=== PATIENT | male | born 1955 | race Caucasian/White ===

== ENCOUNTER → 2019-08-29 | Outpatient (CLI) | payer MEDICARE ==
[2019-08-29 10:24] LABS: HGB 11.3 gm/dL (13.0-17.5); MCH 31.2 pg (25.0-35.0); MCHC 32.3 g/dL (31.0-37.0); MCV 96.8 fL (80.0-100.0); Mean Platelet Volume 6.4; Platelet Count 239 k/uL (150-450); RBC 3.62 m/uL (4.30-5.90); RDW 13.8 % (11.5-15.5); WBC 5.5 k/uL (3.8-10.6)
[2019-08-29 11:00] LABS: Anisocytosis (M) Present; Hypochromasia (M) Present; Lymphocytes # (M) 1.32 k/uL (1.0-4.8); Neutrophils % (M) 58 %; Nucleated Red Blood Cells 0 /100 WBC (0-0); Total Cells Counted 100
[2019-08-29 17:49] LABS: African American GFR (CKD) 81.2 (60.0-200.0); Albumin 4.5 g/dL (3.80-4.90); Albumin/Globulin Ratio 1.73 (1.60-3.17); Anion Gap 4.3 mmol/L (4.00-12.00); BUN/Creat Ratio 22.73 Ratio (12.00-20.00); Calcium 8.9 mg/dL (8.7-10.3); Carbon Dioxide 27.7 mmol/L (21.6-31.8); Chol/HDL Ratio 3.34; Globulin 2.6 g/dL (1.6-3.3); LDL Cholesterol,Calculated 118.8 mg/dL (0.0-131.0); Potassium 4.7 mmol/L (3.5-5.5); Total Bilirubin 0.3 mg/dL (0.3-1.2); Total Protein 7.1 g/dL (6.2-8.2); VLDL Calculation 12.2 mg/dL (5.00-40.00)
[2019-08-29 18:47] LABS: Hemoglobin A1C 5.9 % (4.0-6.0)
== END ==
LOC: LABWHC1 09:36
PROVIDERS: ATTEND Internal Medicine
DX: I10 Essential (primary) hypertension (principal); R00.1 Bradycardia, unspecified; Z13.1 Encounter for screening for diabetes mellitus
CPT/HCPCS: 36415; 80053; 80061; 83036; 84443; 85025

== ENCOUNTER → 2021-03-30 | Outpatient (CLI) | payer MEDICARE ==
[2021-03-30 14:27] LABS: HCT 39.4 % (39.0-53.0); HGB 12.4 gm/dL (13.0-17.5); MCH 27.9 pg (25.0-35.0); MCHC 31.4 g/dL (31.0-37.0); MCV 88.9 fL (80.0-100.0); Mean Platelet Volume 7.1; Platelet Count 321 k/uL (150-450); RBC 4.43 m/uL (4.30-5.90); RDW 13.4 % (11.5-15.5); WBC 7.4 k/uL (3.8-10.6)
[2021-03-30 14:36] LABS: INR 0.9 (<1.2)
[2021-03-30 15:00] LABS: Appearance,Urine Clear (Clear); Bilirubin,Urine Negative (Negative); Blood,Urine Small (Negative); Color,Urine Light Yellow; Glucose,Urine (UA) Negative (Negative); Hyaline Casts,Urine 4 /lpf (0-2); Ketones,Urine Negative (Negative); Leukocyte Esterase,Urine Negative (Negative); Mucus,Urine Rare /hpf; Nitrite,Urine Negative (Negative); PH, Urine 5.5 (5.0-8.0); Protein,Urine Negative (Negative); RBC,Urine 32 /hpf (0-5); Specific Gravity,Urine 1.013 (1.001-1.035); Urobilinogen,Urine <2.0 mg/dL (<2.0); WBC,Urine <1 /hpf (0-5)
[2021-03-30 15:14] LABS: Albumin 4.2 g/dL (3.5-5.0); Calcium 9.1 mg/dL (8.4-10.2); Potassium 4.2 mmol/L (3.5-5.1); Total Bilirubin 0.2 mg/dL (0.2-1.3); Total Protein 7.6 g/dL (6.3-8.2)
--- NOTE | 2021-03-30 16:59 | US ---
EXAMINATION TYPE: US carotid duplex BILAT DATE OF EXAM: 03/30/2021 COMPARISON: NONE CLINICAL HISTORY: OPEN HEART. No ti EXAM MEASUREMENTS: RIGHT: Peak Systolic Velocity (PSV) cm/sec ----- Right CCA: 84.2 ----- Right ICA: 90.8 ----- Right ECA: 76.2 ICA/CCA ratio: 1.1 RIGHT: End Diastole cm/sec ----- Right CCA: 33.6 ----- Right ICA: 33.6 ----- Right ECA: 18.0 LEFT: Peak Systolic Velocity (PSV) cm/sec ----- Left CCA: 75.4 ----- Left ICA: 89.2 ----- Left ECA: 81.4 ICA/CCA ratio: 1.2 LEFT: End Diastole cm/sec ----- Left CCA: 29.2 ----- Left ICA: 38.7 ----- Left ECA: 16.7 VERTEBRALS (direction of flow): Right Vertebral: Antegrade Left Vertebral: Antegrade Rhythm: Normal Atherosclerotic plaque seen in right bulb. No elevated velocities. No significant stenosis. IMPRESSION: 1. Less than 50% stenosis of the bilateral internal carotid arteries. No evidence of hemodynamically significant stenosis. 2. There is atherosclerotic plaque in the right common carotid artery bifurcation. Criteria for Assigning % of Stenosis / Diameter reduction (Estimation based on the indirect measurements of the internal carotid artery velocities (ICA PSV). 1. Normal (no stenosis)=ICA PSV < 125 cm/s: ratio < 2.0: ICA EDV<40 cm/s. 2. Less than 50% stenosis=ICA PSV < 125 cm/s: ratio < 2.0: ICA EDV<40 cm/s. 3. 50 to 69% stenosis=ICA PSV of 125 to 230 cm/s: ration 2.0 ? 4.0: ICA EDV 40-100 cm/s. 4. Greater than 70% stenosis to near occlusion= ICA PSV > 230 cm/s: ratio > 4.0: ICA EDV > 100 cm/s. 5. Near occlusion= ICA PSV velocities may be low or undetectable: variable ratio and ICA EDV. 6. Total occlusion=unable to detect flow.
--- NOTE | 2021-03-30 18:56 | XR ---
EXAMINATION TYPE: XR chest 2V DATE OF EXAM: 03/30/2021 COMPARISON: NONE HISTORY: Preop TECHNIQUE: Frontal and lateral views of the chest are obtained. FINDINGS: There is no focal air space opacity, pleural effusion, or pneumothorax seen. The cardiac silhouette size is within normal limits. There is eventration of the hemidiaphragms. Some strand-like densities at the right costophrenic angle may reflect scarring. Prominent lung volumes could be anthony cative of underlying COPD. The osseous structures are intact. IMPRESSION: No acute cardiopulmonary process.
[2021-03-31 17:44] LABS: Hepatitis A Antibody IgM Non-Reactive (Non-Reactive); Hepatitis B Core IgM Non-Reactive (Non-Reactive); Hepatitis B Surface Antigen Non-Reactive (Non-Reactive); Hepatitis C IgG Antibody Non-Reactive (Non-Reactive)
[2021-03-31 18:24] LABS: Chol/HDL Ratio 3.94; LDL Cholesterol,Calculated 69.4 mg/dL (0.0-131.0); VLDL Calculation 21.6 mg/dL (5.00-40.00)
--- NOTE | 2021-04-05 09:40 | P.ARTDOP ---
Arterial Doppler Bilateral radial artery studies. Reason for study: Preop CABG Date of study: 03/30/2021. Findings: Doppler assessment shows no significant right to left or segmental pressure gradients. Digital plethysmography done with radial artery compression shows no significant pressure change. The right radial origin is in the upper arm. Imaging shows the right radial to be 2.5 x 2.7 mm proximally, 1.9 x 2.3 mm mid, and 2.4 x 2.2 mm distally. The left radial is 2.8 x 2.7 mm proximally, 2.5 x 2.5 mm mid, and 2.4 x 2.4 mm distally. Impression: Both radials appear to be usable by standard criteria.
--- NOTE | 2021-04-05 09:41 | P.ARTDOP ---
Arterial Doppler LOWER EXTREMITY ARTERIAL DOPPLER: DATE OF SERVICE: 03/30/2021 Reason for study: Preop CABG. Doppler waveforms: Multiphasic bilaterally throughout. Pulse volume recording: []. Pressure gradients: None. Ankle-brachial indices: Greater than 1 bilaterally. Toe brachial indices: [] on the right, [] on the left Impression: Normal study.
--- NOTE | 2021-04-05 10:02 | P.VSCSTY ---
Greater Saphenous Vein Mapping This is bilateral lower extremity greater saphenous vein mapping. Date of service: 03/30/2021 Vein quality and ultrasound appearance: We see no intraluminal thrombus or wall changes. Vein size groin right : 5 x 4.4 groin left: 5.8 x 4.3 High thigh right: 3.8 x 4.3 high thigh left: 3.7 x 2.9 Mid thigh right: 4.0 x 4.0 mid thigh left: 2.9 x 2.6 Above-knee right: 4.5 x 3.8 above-knee left: 3.5 x 2.9 Below knee right: 3.8 x 3.0 below-knee left: 2.9 x 2.4 Mid calf right:2.8 x 2.6 mid calf left: 2.6 x 2.4 Ankle right: 3.8 x 3.0 ankle left: 2.6 x 1.9 Impression: Usable bilateral greater saphenous vein.
== END | disposition home or self-care (01) ==
LOC: LABPAT 12:09
PROVIDERS: ATTEND Surgery
DX: Z01.810 Encounter for preprocedural cardiovascular examination (principal); I65.23 Occlusion and stenosis of bilateral carotid arteries; I25.10 Atherosclerotic heart disease of native coronary artery without angina pectoris; I10 Essential (primary) hypertension; Z79.899 Other long term (current) drug therapy
CPT/HCPCS: 36415; 71046; 80053; 80061; 80074; 81001; 83036; 83735; 84443; 85027; 85610; 85730; 86850; 86900; 86901; 86920; 87070; 87086; 93880; 93922; 93923; 93930; 93970; 94150

== ENCOUNTER → 2021-03-30 | Outpatient (CLI) | payer MEDICARE | END | disposition home or self-care (01) | LOC: RADXRMAIN 16:28 | PROVIDERS: ATTEND Surgery | DX: Z53.9 Procedure and treatment not carried out, unspecified reason (principal) ==

== ENCOUNTER 2021-04-10 05:32 | Inpatient (IN) | payer MEDICARE ==
[2021-03-30 14:43] VITALS: BMI 27.3
[~2021-04-10 05:32] MED LIST: ALBUMIN HUMAN 25% 50 ML IV ONE; ALBUMIN HUMAN 5% 500 ML IVPB ONE; ASPIRIN 325 MG TAB PO ONE; ATORVASTATIN 10 MG TAB PO ONE; CALCIUM CHLORIDE 100 MG/ML 10 ML SYRINGE IV ONE; CHLORHEXIDINE GLUCONATE 15 ML CUP MUCOUS MEM ONE; CLEVIDIPINE BUTYRATE 25 MG in EMPTY BAG 1 BAG IV ONE; DILTIAZEM 125 MG in SODIUM CHLORIDE 0.9% 100 ML IV ONE; ELECTROLYTE-A SOLUTION 1,000 ML with POTASSIUM CHLORIDE 100 MEQ, MAGNESIUM SULFATE 16 M... IV ONE; ELECTROLYTE-A SOLUTION 1,000 ML with POTASSIUM CHLORIDE 40 MEQ, MAGNESIUM SULFATE 16 ME... IV ONE; HEPARIN SODIUM 1,000 UN/ML (10ML VL) IV ONE; HEPARIN SODIUM,PORCINE 5,000 UNIT in SODIUM CHLORIDE 0.9% 500 ML 500 ML IV ONE; INSULIN REGULAR 100 UNIT in SODIUM CHLORIDE 0.9% 100 ML IV ONE; LACTATED RINGERS 1,000 ML IV ONE; MAGNESIUM SULFATE MG 500 MG/ML IV ONE; MANNITOL 25% 12.5 GM/50 ML VIAL IV ONE; METOPROLOL TARTRATE 12.5 MG TAB PO ONE; MUPIROCIN 2% OINT 22 GM TUBE NASAL ONE; NITROGLYCERIN SL TABS 0.4 MG TAB SUBLINGUAL ONE; NITROGLYCERIN-D5W PMX 25 MG/250 ML BTL IV ONE; NITROGLYCERIN-D5W PMX 50 MG in DEXTROSE/WATER 1 250ML.BAG IV ONE; NOREPINEPHRINE 4 MG in SODIUM CHLORIDE 0.9% 250 ML IV ONE; PAPAVERINE 360 MG in SODIUM CHLORIDE 0.9% 90 ML IV ONE; PHENYLEPHRINE 10 MG/ML VIAL IV ONE; PHENYLEPHRINE 40 MG in SODIUM CHLORIDE 0.9% 250 ML IV ONE; PROTAMINE SULFATE 10 MG/ML 25 ML VIAL IV ONE; PROTAMINE SULFATE 250 MG in EMPTY BAG 1 BAG IV ONE; SODIUM BICARB 8.4% 50 ML SYR (1 MEQ/ML) IV ONE; SODIUM CHLORIDE 0.9% 1,000 ML IV ONE; TRANEXAMIC ACID 2,000 MG in SODIUM CHLORIDE 0.9% 80 ML IV ONE; ceFAZolin 1,000 MG in SODIUM CHLORIDE 0.9% IRRIGATIO 1,000 ML IRRIGATION ONE; propofoL 1,000 MG/100 ML VIAL IV ONE
[2021-04-10 06:41] LABS: Glucose,Whole Blood 102 mg/dL (75-99)
--- NOTE | 2021-04-10 07:07 | P.PN ---
Progress Note - Text Progress Note Date: 03/30/21 A 5 m walk test was completed with the patient, time 1: 2.22 seconds, time 2: 2.49 seconds, time 3: 2.26 seconds.
[2021-04-10] MEDS ORDERED: fentaNYL (PF) 50 MCG/ML 2 ML AMP ONE (07:54)
[2021-04-10] MEDS ORDERED: MAGNESIUM SULFATE 4 MEQ/ML 10ML VIAL ONE (07:54)
[2021-04-10] MEDS ORDERED: PROTAMINE SULFATE 10 MG/ML 25 ML VIAL IV ONE (07:54)
[2021-04-10] MEDS ORDERED: PROPOFOL 10 MG/ML 20 ML VIAL IV ONE (07:54)
[2021-04-10] MEDS ORDERED: LIDOCAINE 2% SYG (PF) 100 MG/5 ML ONE (07:54)
[2021-04-10] MEDS ORDERED: NITROGLYCERIN-D5W PMX 50 MG/250 ML BOTTLE IV ONE (07:54)
[2021-04-10] MEDS ORDERED: SUCCINYLCHOLINE CHLORIDE 100 MG/5 ML SYR IV ONE (07:54)
[2021-04-10] MEDS ORDERED: SODIUM CHLORIDE 0.9% 250 ML BAG ONE (07:54)
[2021-04-10] MEDS ORDERED: SODIUM CHLORIDE 0.9% IRRIG 1,000 ML BTL IRRIGATION ONE (07:54)
[2021-04-10] MEDS ORDERED: TRANEXAMIC ACID 1,000 MG/10 ML VIAL ONE (07:54)
[2021-04-10] MEDS ORDERED: ELECTROLYTE-R (PH 7.4) 1,000 ML IV.SOLN IV ONE (07:54)
[2021-04-10] MEDS ORDERED: fentaNYL (PF) 50 MCG/ML 50 ML VIAL ONE (07:54)
[2021-04-10] MEDS ORDERED: HEPARIN SODIUM,PORCINE 10,000 UNIT/ML 1 ML VIAL ONE (07:54)
[2021-04-10] MEDS ORDERED: VECURONIUM 10 MG VIAL IV ONE (07:54)
[2021-04-10] MEDS ORDERED: MIDAZOLAM 2 MG/2 ML VIAL ONE (07:54)
[2021-04-10 08:26] LABS: ABG Base Excess 0.4 mmol/L; ABG Glucose Whole Blood 101 mg/dL (75-99); ABG HCO3 26 mmol/L (21-25); ABG Hematocrit 33 % (34.0-46.0); ABG Ionized Calcium 4.7 mg/dL (4.5-5.3); ABG Lactic Acid Whole Blood 0.8 mmol/L (0.5-1.6); ABG PCO2 47 mmHg (35-45); ABG PH 7.35 (7.35-7.45); ABG Sodium Whole Blood 140 mmol/L (135-146); ABG TCO2 28 mmol/L (19-24)
[2021-04-10 10:49] LABS: ABG Base Excess -0.2 mmol/L; ABG Glucose Whole Blood 115 mg/dL (75-99); ABG HCO3 26 mmol/L (21-25); ABG Hematocrit 31 % (34.0-46.0); ABG Ionized Calcium 4.6 mg/dL (4.5-5.3); ABG Lactic Acid Whole Blood 0.8 mmol/L (0.5-1.6); ABG Oxygen Saturation 99.9 % (94-97); ABG PCO2 51 mmHg (35-45); ABG PH 7.32 (7.35-7.45); ABG PO2 266 mmHg (83-108); ABG Potassium Whole Blood 5.9 mmol/L (3.4-4.5); ABG Sodium Whole Blood 138 mmol/L (135-146); ABG TCO2 28 mmol/L (19-24)
[2021-04-10 11:48] LABS: ABG Base Excess -1.3 mmol/L; ABG Glucose Whole Blood 129 mg/dL (75-99); ABG HCO3 26 mmol/L (21-25); ABG Hematocrit 29 % (34.0-46.0); ABG Ionized Calcium 4.6 mg/dL (4.5-5.3); ABG Lactic Acid Whole Blood 0.9 mmol/L (0.5-1.6); ABG Oxygen Saturation 99.9 % (94-97); ABG PCO2 54 mmHg (35-45); ABG PH 7.29 (7.35-7.45); ABG PO2 272 mmHg (83-108); ABG Potassium Whole Blood 5.1 mmol/L (3.4-4.5); ABG Sodium Whole Blood 139 mmol/L (135-146); ABG TCO2 27 mmol/L (19-24)
[2021-04-10 12:18] LABS: ABG Base Excess -0.4 mmol/L; ABG Glucose Whole Blood 114 mg/dL (75-99); ABG HCO3 24 mmol/L (21-25); ABG Ionized Calcium 3.7 mg/dL (4.5-5.3); ABG Lactic Acid Whole Blood 1.3 mmol/L (0.5-1.6); ABG PCO2 38 mmHg (35-45); ABG PH 7.41 (7.35-7.45); ABG Sodium Whole Blood 135 mmol/L (135-146); ABG TCO2 25 mmol/L (19-24)
[2021-04-10 12:45] LABS: ABG Glucose Whole Blood 129 mg/dL (75-99); ABG HCO3 23 mmol/L (21-25); ABG Ionized Calcium 3.8 mg/dL (4.5-5.3); ABG Lactic Acid Whole Blood 1.5 mmol/L (0.5-1.6); ABG PCO2 40 mmHg (35-45); ABG PH 7.37 (7.35-7.45); ABG PO2 416 mmHg (83-108); ABG Potassium Whole Blood 5.7 mmol/L (3.4-4.5); ABG Sodium Whole Blood 137 mmol/L (135-146); ABG TCO2 24 mmol/L (19-24)
[2021-04-10 13:18] LABS: ABG Base Excess 0.6 mmol/L; ABG Glucose Whole Blood 137 mg/dL (75-99); ABG HCO3 25 mmol/L (21-25); ABG Ionized Calcium 3.7 mg/dL (4.5-5.3); ABG Lactic Acid Whole Blood 1.7 mmol/L (0.5-1.6); ABG PCO2 37 mmHg (35-45); ABG PH 7.44 (7.35-7.45); ABG PO2 403 mmHg (83-108); ABG Sodium Whole Blood 137 mmol/L (135-146); ABG TCO2 26 mmol/L (19-24)
[2021-04-10 13:43] LABS: ABG Base Excess -0.7 mmol/L; ABG Glucose Whole Blood 141 mg/dL (75-99); ABG HCO3 24 mmol/L (21-25); ABG Ionized Calcium 3.7 mg/dL (4.5-5.3); ABG Lactic Acid Whole Blood 1.8 mmol/L (0.5-1.6); ABG PCO2 35 mmHg (35-45); ABG PH 7.43 (7.35-7.45); ABG Potassium Whole Blood 6.1 mmol/L (3.4-4.5); ABG Sodium Whole Blood 137 mmol/L (135-146); ABG TCO2 25 mmol/L (19-24)
[2021-04-10 13:57] LABS: ABG PO2 >420 mmHg (83-108)
[2021-04-10 13:58] LABS: ABG PO2 >420 mmHg (83-108)
[2021-04-10 13:59] LABS: ABG Hematocrit 20 % (34.0-46.0); ABG Potassium Whole Blood 6.3 mmol/L (3.4-4.5)
[2021-04-10 14:00] LABS: ABG Hematocrit 20 % (34.0-46.0)
[2021-04-10 14:01] LABS: ABG Hematocrit 21 % (34.0-46.0)
[2021-04-10 14:02] LABS: ABG Hematocrit 19 % (34.0-46.0); ABG PO2 >420 mmHg (83-108)
[2021-04-10 14:11] LABS: ABG Glucose Whole Blood 144 mg/dL (75-99); ABG HCO3 23 mmol/L (21-25); ABG Ionized Calcium 3.6 mg/dL (4.5-5.3); ABG PCO2 37 mmHg (35-45); ABG Sodium Whole Blood 137 mmol/L (135-146); ABG TCO2 24 mmol/L (19-24)
[2021-04-10 14:44] LABS: ABG Base Excess -3.3 mmol/L; ABG Glucose Whole Blood 186 mg/dL (75-99); ABG HCO3 22 mmol/L (21-25); ABG PCO2 40 mmHg (35-45); ABG PH 7.35 (7.35-7.45); ABG Potassium Whole Blood 5.7 mmol/L (3.4-4.5); ABG Sodium Whole Blood 140 mmol/L (135-146); ABG TCO2 23 mmol/L (19-24)
[2021-04-10 15:21] LABS: ABG Base Excess -2.5 mmol/L; ABG Glucose Whole Blood 178 mg/dL (75-99); ABG HCO3 23 mmol/L (21-25); ABG Ionized Calcium 4.4 mg/dL (4.5-5.3); ABG PCO2 44 mmHg (35-45); ABG PH 7.33 (7.35-7.45); ABG Potassium Whole Blood 5.7 mmol/L (3.4-4.5); ABG Sodium Whole Blood 142 mmol/L (135-146); ABG TCO2 25 mmol/L (19-24)
[2021-04-10 15:42] LABS: ABG Hematocrit 20 % (34.0-46.0); ABG Lactic Acid Whole Blood 2.2 mmol/L (0.5-1.6); ABG PO2 >420 mmHg (83-108); ABG Potassium Whole Blood 6.2 mmol/L (3.4-4.5)
[2021-04-10 15:44] LABS: ABG Hematocrit 21 % (34.0-46.0); ABG Ionized Calcium 3.5 mg/dL (4.5-5.3); ABG Lactic Acid Whole Blood 3.1 mmol/L (0.5-1.6); ABG PO2 >420 mmHg (83-108)
[2021-04-10 16:08] LABS: ABG Glucose Whole Blood 141 mg/dL (75-99); ABG HCO3 24 mmol/L (21-25); ABG Oxygen Saturation 98.9 % (94-97); ABG PCO2 61 mmHg (35-45); ABG PO2 154 mmHg (83-108); ABG Potassium Whole Blood 4.8 mmol/L (3.4-4.5); ABG Sodium Whole Blood 143 mmol/L (135-146); ABG TCO2 26 mmol/L (19-24)
[2021-04-10 16:11] LABS: ABG Hematocrit 20 % (34.0-46.0); ABG Lactic Acid Whole Blood 3.9 mmol/L (0.5-1.6); ABG PO2 >420 mmHg (83-108)
[2021-04-10 16:12] LABS: ABG Hematocrit 22 % (34.0-46.0); ABG Lactic Acid Whole Blood 3.6 mmol/L (0.5-1.6)
[2021-04-10] MEDS ORDERED: ALBUMIN HUMAN 5% 250 ML IVPB ONE (16:35)
[2021-04-10] MEDS ORDERED: Potassium Replacement Protocol 1 EACH MISC MISCELLANE PRN (16:56)
[2021-04-10] MEDS ORDERED: DEXTROSE 5% IN WATER 100 ML with AMIODARONE 150 MG IV PRN (16:56)
[2021-04-10] MEDS ORDERED: CLEVIDIPINE BUTYRATE 25 MG in EMPTY BAG 1 BAG IV SCH (16:56)
[2021-04-10] MEDS ORDERED: Phosphorus Replacement Protoco 1 EACH MISC MISCELLANE PRN (16:56)
[2021-04-10] MEDS ORDERED: IPRATROPIUM-ALBUTEROL 3 ML NEB INHALATION PRN (16:56)
[2021-04-10] MEDS ORDERED: METOCLOPRAMIDE 5 MG/ML 2 ML VIAL IVP PRN (16:56)
[2021-04-10] MEDS ORDERED: NITROGLYCERIN-D5W PMX 50 MG in DEXTROSE/WATER 1 250ML.BAG IV SCH (16:56)
[2021-04-10] MEDS ORDERED: DILTIAZEM 125 MG in SODIUM CHLORIDE 0.9% 100 ML IV SCH (16:56)
[2021-04-10] MEDS ORDERED: hydrALAZINE HCL 20 MG/ML 1 ML VIAL IVP PRN (16:56)
[2021-04-10] MEDS ORDERED: DEXMEDETOMIDINE/0.9% NACL(PMX) 400 MCG in EMPTY BAG 1 BAG IV SCH (16:56)
[2021-04-10] MEDS ORDERED: AMIODARONE 360 MG in DEXTROSE 5% IN WATER 200 ML IV PRN ×2 (16:56)
[2021-04-10] MEDS ORDERED: AMIODARONE 450 MG in DEXTROSE 5% IN WATER 250 ML IV PRN ×2 (16:56)
[2021-04-10] MEDS ORDERED: BENZOCAINE/MENTHOL LOZENG 1 EACH LOZENGE MUCOUS MEM PRN (16:56)
[2021-04-10] MEDS ORDERED: ONDANSETRON 4 MG/2 ML VIAL IVP PRN (16:56)
[2021-04-10] MEDS ORDERED: MORPHINE SULFATE 2 MG/ML SYRINGE IVP PRN (16:56)
[2021-04-10] MEDS ORDERED: Magnesium Replacement Protocol 1 EACH MISC MISCELLANE PRN (16:56)
[2021-04-10] MEDS ORDERED: CALCIUM GLUCONATE 2 GM in SODIUM CHLORIDE 0.9% 100 ML IVPB PRN (16:56)
[2021-04-10 17:00] LABS: Glucose,Whole Blood 113 mg/dL (75-99)
[2021-04-10 17:08] LABS: Basophils % (A) 0 %; Eosinophils % (A) 1 %; HCT 26.4 % (39.0-53.0); Lymphocytes # (A) 0.4 k/uL (1.0-4.8); Lymphocytes % (A) 5 %; MCH 28.3 pg (25.0-35.0); MCHC 31.6 g/dL (31.0-37.0); MCV 89.8 fL (80.0-100.0); Mean Platelet Volume 7.1; Monocytes # (A) 0.6 k/uL (0-1.0); Monocytes % (A) 7 %; Neutrophils # (A) 7.5 k/uL (1.3-7.7); Neutrophils % (A) 87 %; RBC 2.94 m/uL (4.30-5.90); WBC 8.6 k/uL (3.8-10.6)
[2021-04-10 17:12] LABS: HGB 8.3 gm/dL (13.0-17.5); Ionized Calcium 5.1 mg/dL (4.5-5.3)
[2021-04-10 17:13] LABS: Platelet Count 127 k/uL (150-450)
[2021-04-10 17:18] LABS: INR 1.1 (<1.2); Partial Thromboplastin Time 29.9 sec (22.0-30.0); Prothrombin Time 11.4 sec (9.0-12.0)
[2021-04-10 17:22] LABS: ABG Base Excess -0.9 mmol/L; ABG HCO3 26 mmol/L (21-25); ABG Oxygen Saturation 99.4 % (94-97); ABG PCO2 59 mmHg (35-45); ABG PH 7.26 (7.35-7.45); ABG PO2 385 mmHg (83-108); ABG TCO2 28 mmol/L (19-24)
[2021-04-10 17:34] LABS: Albumin 2.4 g/dL (3.5-5.0); Calcium 8.4 mg/dL (8.4-10.2); Magnesium 2.5 mg/dL (1.6-2.3); Potassium 5.2 mmol/L (3.5-5.1); Total Bilirubin 0.6 mg/dL (0.2-1.3); Total Protein 4.5 g/dL (6.3-8.2)
--- NOTE | 2021-04-10 17:37 | P.ANPRN ---
Procedure Note - Anesthesia - TRISH Intraop Pre Bypass TRISH Intraop - Anesthesia Indication: Coronary artery bypass grafting and ischemia monitoring Date of Procedure: 04/10/21 Pre-operative Diagnosis: Coronary artery disease Post-operative Diagnosis: Coronary artery bypass graft Surgeon: Vita Fischer Left Ventricle: Procedure performed: Transesophageal echocardiography Indication for the procedure: Coronary artery bypass graft surgery, ischemia monitoring, assessment of valvular function, intracardiac air monitoring, assessment of regional wall motion abnormalities and hemodynamic monitoring. Probe insertion: Under general anesthesia, uneventful. Pre-bypass findings: Left ventricle normal in dimension and LV ejection fraction is approximately 55 - 60%. Left atrium Normal in size. No thrombus seen in the appendage. Right atrium normal in size. No patent foramen ovale or ASD seen. Right ventricle normal in structure and function. Aortic valve appears to be normal .No Aortic Regurgitation seen. Aortic valve area by continuity condition is 2.5 cm. The mean gradient of 2 and a peak gradient of 4 mmHg Mitral valve normal in anatomy. Trivial mitral regurgitation seen. No tricuspid regurgitation seen. Pulmonic valve appears to be normal. Descending aorta grade 2 atheroma seen. No pericardial effusion noted. Post-bypass findings: LV ejection fraction is 55-60%. No new regional wall motion abnormalities seen. Rest of the examination is same as pre-bypass.The rest of the exam is same as pre-bypass. Ejection Fraction: Normal Regional Wall Motion Abnormalities: None Left Ventricle Hypertrophy: No R. Ventricle Function: Normal Anatomy: Trileaflet Aortic Stenosis: None Aortic Regurgitation: None Mitral Stenosis: None Mitral Regurgitation: Trace Tricuspid Stenosis: None Tricuspid Regurgitation: None Pulmonic Stenosis: None Pulmonic Regurgitation: None R. Atrial Dilation: No R. Atrial PFO: No L. Atrial Dilation: No Aortic Dissection: No Aortic Calcification: Mild Plural Effusion: None - TRISH Intraop Post Bypass TRISH Intraop Post Bypass Procedure Performed: Coronary artery bypass graft Ejection Fraction: Normal Regional Wall Motion Abnormalities: None R. Ventricle Function: Normal Aortic Valve: Unchanged Mitral Valve: Unchanged Tricuspid: Unchanged Pulmonic: Unchanged Aortic Dissection: No
--- NOTE | 2021-04-10 17:38 | XR ---
EXAMINATION TYPE: XR chest 1V portable DATE OF EXAM: 04/10/2021 COMPARISON: 03/30/2021 INDICATION: Postop cardiac surgery TECHNIQUE: Single frontal view of the chest is obtained. FINDINGS: The heart size is normal. The pulmonary vasculature is normal. Linear opacities are within the left mid lung likely compatible with atelectasis. Some minimal right lower lobe infiltrate is present. No pneumothorax is evident. There is subcutaneous emphysema present on the left. Left-sided chest tub e is present. Sternotomy wires are present from prior CABG. Endotracheal tube tip is above the nancy. Nasogastric tube transverses the thorax the tip in the lef t upper quadrant of the abdomen. [place] catheter is present with tip in the midline. Mediastinal t ubes are present. IMPRESSION: 1. Atelectatic changes left mid lung minimal infiltrate which may be atelectasis at the right base. 2. Multiple lines and catheters discussed above. 3. Left-sided chest tube is in position. Subcutaneous emphysema is present. No pneumothorax is eviden t however at this time.
--- NOTE | 2021-04-10 17:40 | P.ANPRN ---
Procedure Note - Anesthesia - Invasive Line Central Line Time Out Performed: Yes Date of Procedure: 04/10/21 Location of Patient: PreOp Preparation: Sterile Prep, Sterile Dressing Ultrasound Used: Yes Purpose - Visualization and Identification of Vasculature: Yes Image Stored and Saved: Yes Narrative: Central line placement per sterile protocol utilized. Informed consent obtained. Central line placement per sterile protocol utilized. Right Internal jugular vein cannulated under aseptic precautions. 3cc 1% lidocaine infiltrated initially after cleaning with iodine based prep and draping. Ultrasound used to locate the vein and selginger technique used. 9Fr introduced sheath inserted and after the finding the needle with towing pilot needle/catheter. After the insertion of PA Catheter the line is dressed with biopatch and tegaderm. Patient tolerated the procedure well. [place] Time Out Performed: Yes Date of Procedure: 04/10/21 Location of Patient: PreOp Preparation: Sterile Prep, Sterile Dressing Narrative: Central line placement per sterile protocol utilized. 8Ff PA catheter threaded through the Right IJ introducer sheath under asepsis with continuous waveform monitoring. Catheter at 48 cms cassie. Arterial Line Time Out Performed: Yes Date of Procedure: 04/10/21 Location of Patient: PreOp Preparation: Sterile Prep, Sterile Dressing Arterial Line Location: Radial Ultrasound Used: No Narrative: Central line placement per sterile protocol utilized. Informed consent obtained from the patient. Procedure was performed under complete aseptic precautions. The right wrist is slightly extended and placed on a roll of cloth. Radial artery palpated and appeared to have a intact collateral circulation. Front of the wrist was cleaned with ChloraPrep. It was draped and 2 mL of 1% lidocaine was infiltrated and ability into the front of the wrist. A 20-gauge two and half inch Arrow arterial catheter was inserted and a bright red blood/back was noticed. It was connected to the pressure monitoring line and the flashback was confirmed. The line was sutured into the skin. Tegaderm dressing was applied. Patient tolerated the procedure very well with no apparent complications.
[2021-04-10 17:58] LABS: Glucose,Whole Blood 124 mg/dL (75-99)
[2021-04-10] MEDS: ACETAMINOPHEN IV (For NPO) 1,000 MG in EMPTY BAG 1 BAG IVPB SCH (18:09)
[2021-04-10] MEDS: SODIUM CHLORIDE 0.9% 1,000 ML IV SCH (18:29)
[2021-04-10 19:08] LABS: Glucose,Whole Blood 146 mg/dL (75-99)
[2021-04-10] MEDS: BUDESONIDE 0.5 MG/2 ML NEBU INHALATION SCH (19:14)
[2021-04-10 19:51] LABS: Glucose,Whole Blood 107 mg/dL (75-99)
[2021-04-10] MEDS ORDERED: IPRATROPIUM-ALBUTEROL 3 ML NEB INHALATION SCH (20:00)
[2021-04-10] MEDS: ALBUMIN HUMAN 5% 250 ML in EMPTY BAG 1 BAG IVPB PRN ×2 (20:15→21:26)
[2021-04-10 20:42] LABS: Basophils % (A) 0 %; Eosinophils % (A) 0 %; HCT 29.7 % (39.0-53.0); HGB 9.2 gm/dL (13.0-17.5); Lymphocytes # (A) 0.9 k/uL (1.0-4.8); Lymphocytes % (A) 5 %; MCH 27.6 pg (25.0-35.0); Mean Platelet Volume 7.9; Monocytes # (A) 1.3 k/uL (0-1.0); Monocytes % (A) 7 %; Neutrophils # (A) 15.9 k/uL (1.3-7.7); Neutrophils % (A) 86 %; Platelet Count 157 k/uL (150-450); RBC 3.33 m/uL (4.30-5.90); WBC 18.4 k/uL (3.8-10.6)
--- NOTE | 2021-04-10 20:50 | OP ---
OPERATIVE REPORT DATE OF THE SURGERY: 04/10/2021. SURGEON: Dr. Vita Fischer. CMA OR LPN: Maikel Hong and René Prajapati. PREOPERATIVE DIAGNOSES: 1. Triple-vessel coronary artery disease. 2. Preserved left ventricular function. 3. Hypertension. 4. Hyperlipidemia. 5. Chronic obstructive pulmonary disease. 6. Hypothyroidism. 7. Chronic kidney disease, stage II. POSTOPERATIVE DIAGNOSES: 1. Triple-vessel coronary artery disease. 2. Preserved left ventricular function. 3. Hypertension. 4. Hyperlipidemia. 5. Chronic obstructive pulmonary disease. 6. Hypothyroidism. 7. Chronic kidney disease, stage II. PROCEDURE: 1. Triple-vessel coronary artery bypass grafting using the free left internal mammary artery with an inflow from the left radial artery to the left anterior descending artery, left radial artery from the aorta to the first obtuse marginal artery, reverse saphenous vein graft from the aorta to the right coronary artery. 2. Exclusion of the left atrial appendage using a 35 mm AtriClip. 3. Endoscopic harvesting of the left radial artery. 4. Endoscopic harvesting of the left greater saphenous vein. 5. Intraoperative graft flow measurements using the [employer] system. 6. Intraoperative transesophageal echocardiogram and epiaortic scanning. INDICATIONS: Surgery patient is a 65-year-old gentleman worked up as an outpatient and seen in the office with complaint of dyspnea on exertion. Cardiac catheterization followed and showed triple-vessel disease. He has preserved systolic function. He had been also worked up by Dr. Underwood for COPD and for a lung nodule with a PET scan that was negative. At this point, patient is brought in for elective coronary artery bypass grafting. The SDS risk was discussed with him and his daughter. They understood them and agreed to proceed. DESCRIPTION OF PROCEDURE: The patient in supine position. Right internal jugular [place]-Franklyn catheter and a right radial arterial line were placed. The patient had a PA pressure of 35/17 and a cardiac index of 2.4. Subsequently, he was brought to the operating room where general endotracheal anesthesia was induced uneventfully. Huffman catheter was inserted. The chest, abdomen, both lower extremities and the left upper extremity were prepped and draped using ChloraPrep. Ioban was used to cover the skin. Patient received 2 g of cefazolin intravenously. Transesophageal echocardiogram confirmed the preoperative finding of a mildly dilated aorta, no significant valvular abnormality and preserved systolic function. A midline sternotomy was performed and the bone was mildly osteoporotic. Terry was used. The left hemisternum was elevated and the left internal mammary artery was harvested in a semi skeletonized fashion. The left pleura was intentionally opened in this process and drained with a 19-[place] Olivier drain. The right pleura remained intact. The mammary artery was clipped distally and transected. It had what seemed to be trickle flow however spastic. It was clipped and injected with papaverine. In the same setting, the left greater saphenous vein was harvested endoscopically from groin to above ankle level after administration of 2500 units of heparin. The branches were tied. The leg incisions were closed over a drain. Also in the same setting, the left radial artery was harvested endoscopically. It was initially exposed at the wrist and clamping trial revealed preserved signal at the level of the left index O2 saturation probe. Forearm incision was closed over a drain. The radial artery was prepared by incising the fascia all along its volar aspect and clipping all its branches and it was of good quality as well as a vein. A standard retractor was placed. The mediastinal fat transected between 2 ties. Epiaortic scanning revealed no atheroma in the ascending aorta. Pericardium was opened in an inverted T-fashion and a pericardial cradle was created. Findings included an elongated mildly dilated aorta and small heart. After systemic heparinization, after placement of respective pledgeted pursestring aortic cannulation with a 21-[place] soft flow cannula and venous cannulation via the right atrial appendage with a triple stage 29-[place] cannula was performed. Antegrade as well as retrograde cardioplegia catheter were placed. Cardioplegia bypass was initiated and with the heart empty and beating, we looked at the target. The distal LAD was suitable for bypass as well as a right coronary artery before its bifurcation. The ramus intermedius or the 1st obtuse marginal artery was identified. The diagonal artery appeared to be small for bypass. The 2nd obtuse marginal artery was judged not requiring bypass as per cardiac catheterization. Aorta was clamped and during aortic clamping myocardial protection was achieved. Initial dose of 1 L of antegrade cold blood cardioplegia followed by 300 mL of retrograde cold blood cardioplegia. All subsequent doses were given retrograde at 15 minute intervals. The 1st distal anastomosis between segment of vein and the right coronary artery before its bifurcation where it was soft, around 2 mm in diameter using Prolene 7-0 in continuous fashion. The 2nd distal anastomosis was between the radial artery and the 1.75 mm thin-walled 1st obtuse marginal artery in its proximal aspect by the base of the left atrial appendage using Prolene 7-0 in continuous fashion. We excluded the left atrial appendage by deploying a 35 mm AtriClip at its base. At this point, we checked the mammary artery again. We transected the distal clip and the flow was still suboptimal. I passed a [address] with no issues. That did not have the flow. I injected more papaverine and waited a little bit with the tip occluded and that did not help. With that, I decided to use a mammary artery as a free graft. There was no obvious dissection that we could see. Proximally, the mammary artery was dissected, denuded and double clipped and transected as well as the 2 satellite veins. We had a good long free segment. Injection from the proximal side, yielded good outflow from the distal side. With that, I decided to use it as a free graft. The 3rd distal anastomosis to the left internal mammary artery which actually was thin-walled around 1 mm in diameter and the left anterior descending artery which was around 1.5 mm in diameter using Prolene 7-0 in continuous fashion. At this point, we punched out 2 buttons of the ascending aorta and anastomosed the radial artery as well as a vein graft using running Prolene. The last anastomosis was the takeoff of the left internal mammary artery from the radial artery around 1 cm from its foot. That was constructed as a wide fashion using Prolene 7-0 in continuous fashion. The patient was given lidocaine and magnesium. De-airing maneuvers were done. He had been given around 1 L of warm blood retrograde. With the patient in Trendelenburg, we unclamped the aorta. The patient regained spontaneous sinus rhythm. Preliminary flow showed good signal in all grafts. With that, and after period of reperfusion, we were able to wean off cardiac bypass without the need of any inotropic or vasopressor support. At this point, we proceeded at a formal graft flow measurement. A 4 mm probe was selected and the graft flow of the vein graft to the RCA was 52 mL/minute, pulsatility index of 1.5, diastolic filling of 57% showing excellent functioning graft. The flow into the radial artery to the 1st obtuse marginal artery was 42 mL/minute, pulsatility index of 1.5, diastolic filling of 69%, showing excellent functioning graft. The flow into the left internal mammary artery to the left anterior descending artery was 20 mL/minute, pulsatility 2.1, diastolic filling of 58% showing excellent functioning graft. With that, all pump suckers were stopped and test dose and then full dose protamine was given. It took us a while to achieve hemostasis. Two nineteen-[place] Olivier drain were left substernally. Two monopolar atrial pacing wires were affixed, 1 to the right atrial pursestring and another one at the junction of the SVC and right atrium. No ventricular pacing was placed. A groove was made in the left pleural pericardial fat to accommodate the mammary artery medial to the lung and away from the posterior sternal table. The pericardium was loosely approximated as well as pericardial fat over the heart and the graft. After ensuring adequate hemostasis, hemodynamic and after correct sponge, instrument, and needle count, the sternum was closed using 5 [id number] pineal cable after interposing fibular between the sternal edges. Thorough irrigation with cefazolin followed. The rest of the closure proceeded in layers. Skin glue was applied. Patient did not receive any blood bank product but received 480 mL of Cell Saver blood. He was transferred to the ICU in stable condition on low-dose nitroglycerin with a 64 normal sinus, PA pressure 35/70 and a cardiac index of 2.5. MMFABY / IJN: [id number] /
[2021-04-10 21:10] LABS: ABG Base Excess -2.3 mmol/L; ABG HCO3 24 mmol/L (21-25); ABG Oxygen Saturation 98.8 % (94-97); ABG PCO2 47 mmHg (35-45); ABG PH 7.32 (7.35-7.45); ABG PO2 160 mmHg (83-108); ABG TCO2 25 mmol/L (19-24); Allen Test Performed? Yes
[2021-04-10 21:25] LABS: Glucose,Whole Blood 134 mg/dL (75-99)
[2021-04-10] MEDS ORDERED: INSULIN REGULAR 100 UNIT/ML VIAL IV ONE (21:28)
[2021-04-10 22:25] LABS: ABG Base Excess -1.9 mmol/L; ABG HCO3 25 mmol/L (21-25); ABG Oxygen Saturation 97.4 % (94-97); ABG PCO2 50 mmHg (35-45); ABG PO2 104 mmHg (83-108); ABG TCO2 26 mmol/L (19-24); Allen Test Performed? Yes
[2021-04-10 22:56] LABS: Glucose,Whole Blood 140 mg/dL (75-99)
[2021-04-11 00:03] LABS: Glucose,Whole Blood 153 mg/dL (75-99)
[2021-04-11 00:38] LABS: Basophils % (A) 0 %; Eosinophils % (A) 0 %; HCT 23.5 % (39.0-53.0); Lymphocytes # (A) 0.6 k/uL (1.0-4.8); Lymphocytes % (A) 4 %; MCH 29.1 pg (25.0-35.0); MCHC 32.8 g/dL (31.0-37.0); MCV 88.8 fL (80.0-100.0); Mean Platelet Volume 9.2; Monocytes # (A) 0.8 k/uL (0-1.0); Monocytes % (A) 6 %; Neutrophils # (A) 13.5 k/uL (1.3-7.7); Neutrophils % (A) 88 %; Platelet Count 116 k/uL (150-450); RBC 2.65 m/uL (4.30-5.90); RDW 13.9 % (11.5-15.5); WBC 15.2 k/uL (3.8-10.6)
[2021-04-11] MEDS ORDERED: INSULIN REGULAR BOLUS (FROM DRIP BAG) IV PRN (00:53)
[2021-04-11] MEDS: ACETAMINOPHEN IV (For NPO) 1,000 MG in EMPTY BAG 1 BAG IVPB SCH (00:59)
[2021-04-11] MEDS: HEPARIN SODIUM,PORCINE/PF 5,000 UNIT/0.5 ML SYRINGE SQ SCH ×4 (00:59→23:56)
[2021-04-11] MEDS ORDERED: INSULIN REGULAR 100 UNIT in SODIUM CHLORIDE 0.9% 100 ML IV SCH ×6 (01:00)
[2021-04-11 01:14] LABS: HGB 7.7 gm/dL (13.0-17.5)
[2021-04-11 01:47] LABS: Glucose,Whole Blood 146 mg/dL (75-99)
[2021-04-11 03:22] LABS: Glucose,Whole Blood 132 mg/dL (75-99)
[2021-04-11] MEDS ORDERED: HYDROcodone/APAP 5-325MG 1 EACH TAB PO PRN (04:29)
[2021-04-11 04:39] LABS: Glucose,Whole Blood 119 mg/dL (75-99)
[2021-04-11 05:15] LABS: Basophils % (A) 0 %; Eosinophils % (A) 0 %; HCT 22.1 % (39.0-53.0); HGB 7.4 gm/dL (13.0-17.5); Lymphocytes # (A) 0.6 k/uL (1.0-4.8); Lymphocytes % (A) 5 %; MCH 29.7 pg (25.0-35.0); MCHC 33.4 g/dL (31.0-37.0); MCV 88.9 fL (80.0-100.0); Mean Platelet Volume 8.9; Monocytes # (A) 0.9 k/uL (0-1.0); Monocytes % (A) 7 %; Neutrophils % (A) 86 %; Platelet Count 121 k/uL (150-450); RBC 2.49 m/uL (4.30-5.90)
[2021-04-11 05:39] LABS: Ionized Calcium 4.9 mg/dL (4.5-5.3)
[2021-04-11 05:44] LABS: Albumin 2.9 g/dL (3.5-5.0); Calcium 8.1 mg/dL (8.4-10.2); Magnesium 2.2 mg/dL (1.6-2.3); Potassium 4.2 mmol/L (3.5-5.1); Total Bilirubin 0.2 mg/dL (0.2-1.3); Total Protein 4.9 g/dL (6.3-8.2)
[2021-04-11 06:04] LABS: Glucose,Whole Blood 112 mg/dL (75-99)
[2021-04-11] MEDS: BUDESONIDE 0.5 MG/2 ML NEBU INHALATION SCH ×2 (07:34→20:32)
[2021-04-11] MEDS: IPRATROPIUM-ALBUTEROL 3 ML NEB INHALATION SCH ×4 (07:34→20:32)
[2021-04-11 08:11] LABS: Glucose,Whole Blood 161 mg/dL (75-99)
[2021-04-11] MEDS: HYDROcodone/APAP 5-325MG 1 EACH TAB PO PRN ×5 (08:19→23:56)
[2021-04-11] MEDS: CLOPIDOGREL 75 MG TAB PO SCH (08:19)
[2021-04-11] MEDS: LEVOTHYROXINE 137 MCG TAB PO SCH (08:20)
[2021-04-11] MEDS: ATORVASTATIN 40 MG TAB PO SCH (08:20)
[2021-04-11] MEDS: METOPROLOL TARTRATE 12.5 MG TAB PO SCH ×2 (08:20→20:48)
[2021-04-11] MEDS: ASPIRIN 325 MG TAB PO SCH (08:20)
--- NOTE | 2021-04-11 08:31 | XR ---
EXAMINATION TYPE: XR chest 1V portable DATE OF EXAM: 04/11/2021 COMPARISON: 04/10/2021 HISTORY: Post cardiac surgery TECHNIQUE: Single frontal view of the chest is obtained. FINDINGS: [place]-Franklyn catheter and mediastinal drain and chest tube stable. ET and NG tube have been r emoved. Interstitial pattern with bilateral infiltrate and small effusions. Postsurgical changes. Milady pical pleural thickening. Heart size stable. No sizable pneumothorax. IMPRESSION: 1. Bilateral infiltrate and small effusion correlate for mild venous
--- NOTE | 2021-04-11 08:49 | P.CNPUL ---
History of Present Illness Consult date: 04/11/21 Requesting physician: Vita Fischer Reason for consult: dyspnea Chief complaint: Exertional dyspnea, coronary artery disease History of present illness: This is a 65-year-old white male patient with past medical history of hypertension, hyperlipidemia, history of smoking and hypothyroidism had been complaining of worsening dyspnea on exertion for the last 7 months. Patient had a pulmonary workup which showed FEV1 of 1.41 L or 47% of predicted, consistent with severe obstruction, outpatient computed tomography scan did not nodule however of follow-up PET scan was subsequently negative as reported by his stepdaughter. Patient had cardiac workup that included a stress test which showed evidence of anteroseptal wall ischemia. Cardiac catheterization on 03/03/2021 at the [facility] showed three-vessel coronary artery disease with mid RCA, long proximal LAD in the proximal OM1 significant stenosis. Ejection fraction was 55% by echocardiogram with mild inferior hypokinesia. Patient was referred to cardiothoracic surgery for surgical intervention and on 04/10/2021 patient underwent triple-vessel coronary artery bypass grafting with free CARCAMO to the LAD, left radial artery to the first up to his marginal, reverse SVG to the RCA, exclusion of the left atrial appendage using not 35mm Atriclip, and endoscopic harvesting of the left radial artery and left greater saphenous vein. We are seeing the patient today on the first postoperative day, patient has been successfully weaned and extubated from mechanical ventilator on 04/10/2021, to BiPAP support with pressure of 16/6 and FiO2 of 50%. Currently patient is on 2 L of oxygen, with a pulse ox of 96%, he is awake and alert, he is up in the recliner. Reports mild incisional discomfort, but no acute distress. Hemodynamically patient is stable, he is currently on 0.9 normal saline there is a 50 ML per hour, nitroglycerin is a 5 mics per kilo per minute, and insulin infusion is at 2 units per hour. In sinus mechanism with a rate of 76 BPM, blood pressure is 110/49, PA pressures 23/7, CVP is 8, cardiac output is 5.5 and cardiac index is 2.9. Mediastinal chest tubes in place with a total of 400 mL of serosanguineous output in the last 24 hours, and left pleural chest tube with 300 mL of serosanguineous output, no evidence of air leak. Incisions are dry and intact. Incentive spirometry effort is 500-750 this morning. Today's chest x-ray shows bilateral infiltrates and small pleural effusions, evidence of sizable pneumothorax. Review of Systems All systems: negative Constitutional: Denies chills, Denies fever Eyes: denies blurred vision, denies pain Ears, nose, mouth and throat: Denies headache, Denies sore throat Cardiovascular: Denies shortness of breath Respiratory: Reports dyspnea, Denies cough Gastrointestinal: Denies abdominal pain, Denies diarrhea, Denies nausea, Denies vomiting Musculoskeletal: Denies myalgias Integumentary: Denies pruritus, Denies rash Neurological: Denies numbness, Denies weakness Psychiatric: Denies anxiety, Denies depression Endocrine: Denies fatigue, Denies weight change Past Medical History Past Medical History: Chest Pain / Angina, COPD, Hyperlipidemia, Hypertension, Pneumonia, Thyroid Disorder Additional Past Medical History / Comment(s): recent problems w/SOB w/exertion, recent infected tooth-tx. w/antibiotics, pneumonia in the -"had fluid drawn off" History of Any Multi-Drug Resistant Organisms: None Reported Past Surgical History: Heart Catheterization Past Anesthesia/Blood Transfusion Reactions: No Reported Reaction Additional Past Anesthesia/Blood Transfusion Reaction / Comment(s): never had general anesthesia Smoking Status: Former smoker - Past Family History Mother Family Medical History: No Reported History Medications and Allergies Home Medications Medication Instructions Recorded Confirmed Type Aspirin 81 mg PO DAILY 03/30/21 04/10/21 History Atorvastatin [Lipitor] 80 mg PO DAILY 03/30/21 04/10/21 History Cetirizine HCl [Zyrtec] 10 mg PO DAILY PRN 03/30/21 04/10/21 History Fluticasone Nasal [place] [Flonase 2 spr EA NOSTRIL DAILY PRN 03/30/21 04/10/21 History Nasal [place]] Levothyroxine Sodium [Synthroid] 137 mcg PO DAILY 03/30/21 04/10/21 History Metoprolol Succinate (ER) [Toprol 25 mg PO DAILY 03/30/21 04/10/21 History Xl] NIFEdipine [NIFEdipine ER] 30 mg PO DAILY 03/30/21 04/10/21 History Albuterol Inhaler [Ventolin Hfa 2 puff INHALATION RT-QID PRN 04/07/21 04/10/21 History Inhaler] Beclomethasone Dipropionate [Qvar 1 puff INHALATION BID 04/07/21 04/10/21 History 40 mcg Redihaler] Allergies Allergy/AdvReac Type Severity Reaction Status Date / Time No Known Allergies Allergy Verified 04/10/21 06:02 Physical Exam Vitals: Vital Signs Temp Pulse Resp BP Pulse Ox 04/11/21 07:38 68 18 04/11/21 07:00 74 24 115/66 04/11/21 06:00 66 15 115/66 93 L 04/11/21 05:00 75 19 94 L 04/11/21 04:00 98.1 F 75 17 95 04/11/21 03:00 75 22 94 L 04/11/21 02:00 75 18 94 L 04/11/21 01:00 75 16 95 04/11/21 00:11 75 14 93 L 04/11/21 00:00 98.6 F 75 20 96/64 96 04/10/21 23:00 75 20 88/67 95 04/10/21 22:00 75 14 88/67 94 L 04/10/21 21:00 75 20 79/58 04/10/21 20:00 99.3 F 75 16 89/73 04/10/21 19:45 75 20 89/73 99 04/10/21 19:33 75 04/10/21 19:30 75 20 89/73 99 04/10/21 19:16 78 04/10/21 19:15 75 20 89/73 99 04/10/21 19:00 75 20 89/73 99 04/10/21 18:45 75 20 89/73 99 04/10/21 18:30 75 20 99 04/10/21 18:15 75 20 99 04/10/21 18:00 76 20 99 04/10/21 17:45 87 20 100 04/10/21 17:30 77 12 99 04/10/21 17:15 75 0 L 100 04/10/21 17:00 75 12 99 Intake and Output 04/10/21 04/11/21 04/11/21 22:59 06:59 14:59 Intake Total 549 718.869 Output Total 950 975 Balance -401 -256.131 Intake: IV 549 712 0.9 300 400 Diltiazem 125 mg In 10 Sodium Chloride 0.9% 100 ml @ 5 MG/HR 5 mls/hr IV .Q24H [facility] Rx#:[id number] Nitroglycerin-D5w Pmx 50 15 mg In Dextrose/Water 1 250ml.bag @ Per Protocol IV ONCE ONE Rx#:[id number] cardiac output 170 240 pressure bag 54 72 Intake, IV Titration 6.869 Amount Insulin Regular 100 unit 6.869 In Sodium Chloride 0.9% 100 ml @ Per Protocol IV .Q0M [facility] Rx#:[id number] Output: Chest Tube Drainage 405 245 Chest Tube Left Pleural 185 115 Chest Tube Mediastinal 220 130 Drainage 40 Left Wrist 40 Urine 545 690 Other: Voiding Method Indwelling Catheter Indwelling Catheter Weight 79.2 kg ABP, PAP, CO, CI - Last 8 Hours Arterial Blood Pressure 94/45 Arterial Blood Pressure 103/51 Arterial Blood Pressure 128/71 Arterial Blood Pressure 117/62 Arterial Blood Pressure 130/70 Arterial Blood Pressure 113/65 Arterial Blood Pressure 114/65 Arterial Blood Pressure 125/71 Arterial Blood Pressure 104/61 Pulmonary Artery Pressure 9/1 Pulmonary Artery Pressure 35/21 Pulmonary Artery Pressure 28/15 Pulmonary Artery Pressure 28/21 Pulmonary Artery Pressure 24/19 Pulmonary Artery Pressure 25/17 Pulmonary Artery Pressure 25/19 Pulmonary Artery Pressure 26/18 Cardiac Output 4.1 Cardiac Output 4.1 Cardiac Output 4.4 Cardiac Output 4.4 Cardiac Output 4.4 Cardiac Output 4.4 Cardiac Output 3.9 Cardiac Output 3.9 Cardiac Output 3.9 Cardiac Index 2.2 Cardiac Index 2.2 Cardiac Index 2.3 Cardiac Index 2.3 Cardiac Index 2.3 Cardiac Index 2.4 Cardiac Index 2.0 Cardiac Index 2.1 Cardiac Index 2.1 GENERAL EXAM: Alert, a pleasant, 65-year-old white male, on 2 L of oxygen with a pulse ox of 97%, sitting up in the recliner comfortable in no apparent distress. HEAD: Normocephalic/atraumatic. EYES: Normal reaction of pupils, equal size. Conjunctiva pink, sclera white. NOSE: Clear with pink turbinates. THROAT: No erythema or exudates. NECK: No masses, no JVD, no thyroid enlargement, no adenopathy. CHEST: No chest wall deformity. Symmetrical expansion. Midsternal incision is clean dry and intact, covered with a surgical dressing, 2 mediastinal and left pleural chest tube in place, with small to moderate amount of serosanguineous output in the [place], no evidence of air leak noted, chest tubes are connected to wall suction. Epicardial wires in place, currently not connected to external pacemaker, intrinsic rhythm is sinus with a rate of 76 BPM LUNGS: Equal air entry with no crackles, wheeze, rhonchi or dullness. CVS: Regular rate and rhythm, normal S1 and S2, no gallops, no murmurs, no rubs ABDOMEN: Soft, nontender. No hepatosplenomegaly, normal bowel sounds, no guarding or rigidity. EXTREMITIES: No clubbing, no edema, no cyanosis, 2+ pulses and upper and lower extremities. Left leg interrupted incision is clean dry and intact, mild bru ising MUSCULOSKELETAL: Muscle strength and tone normal. SPINE: No scoliosis or deformity SKIN: No rashes CENTRAL NERVOUS SYSTEM: Alert and oriented -3. No focal deficits, tone is normal in all 4 extremities. PSYCHIATRIC: Alert and oriented -3. Appropriate affect. Intact judgment and insight. Results - Laboratory Findings CBC and BMP: 04/11/21 05:00 04/11/21 05:00 ABG ABG pH 7.30 (7.35-7.45) L 04/10/21 22:23 ABG pCO2 50 mmHg (35-45) H 04/10/21 22:23 ABG pO2 104 mmHg (83-108) 04/10/21 22:23 ABG O2 Saturation 97.4 % (94-97) H 04/10/21 22:23 PT/INR, D-dimer PT 11.4 sec (9.0-12.0) 04/10/21 17:00 INR 1.1 (<1.2) 04/10/21 17:00 Abnormal lab findings: Abnormal Labs 03/30/21 04/10/21 04/10/21 13:00 06:39 08:29 WBC RBC Hgb Hct Plt Count Neutrophils # Lymphocytes # Monocytes # ABG pH ABG pCO2 47 H ABG pO2 >420 H ABG HCO3 26 H ABG Total CO2 28 H ABG O2 Saturation 100.0 H ABG Hematocrit 33 L ABG Potassium 5.0 H ABG Ionized Calcium ABG Glucose 101 H ABG Lactic Acid Hemoglobin 10.8 L Potassium Chloride Glucose POC Glucose (mg/dL) 102 H Calcium Magnesium AST Total Protein Albumin Arterial Blood Potassium 5.0 H Arterial Blood Glucose 101 H Crossmatch See Detail 04/10/21 04/10/21 04/10/21 10:52 11:51 12:20 WBC RBC Hgb Hct Plt Count Neutrophils # Lymphocytes # Monocytes # ABG pH 7.32 L 7.29 L ABG pCO2 51 H 54 H ABG pO2 266 H 272 H >420 H ABG HCO3 26 H 26 H ABG Total CO2 28 H 27 H 25 H ABG O2 Saturation 99.9 H 99.9 H 100.0 H ABG Hematocrit 31 L 29 L 20 L* ABG Potassium 5.9 H 5.1 H 6.3 H* ABG Ionized Calcium 3.7 L ABG Glucose 115 H 129 H 114 H ABG Lactic Acid Hemoglobin 10.0 L 9.5 L 6.5 L* Potassium Chloride Glucose POC Glucose (mg/dL) Calcium Magnesium AST Total Protein Albumin Arterial Blood Potassium 5.9 H 5.1 H 6.3 H* Arterial Blood Glucose 115 H 129 H 114 H Crossmatch 04/10/21 04/10/21 04/10/21 12:47 13:20 13:45 WBC RBC Hgb Hct Plt Count Neutrophils # Lymphocytes # Monocytes # ABG pH ABG pCO2 ABG pO2 416 H 403 H >420 H ABG HCO3 ABG Total CO2 26 H 25 H ABG O2 Saturation 100.0 H 100.0 H 100.0 H ABG Hematocrit 20 L* 21 L 19 L* ABG Potassium 5.7 H 6.0 H 6.1 H ABG Ionized Calcium 3.8 L 3.7 L 3.7 L ABG Glucose 129 H 137 H 141 H ABG Lactic Acid 1.7 H 1.8 H Hemoglobin 6.7 L* 6.8 L* 6.2 L* Potassium Chloride Glucose POC Glucose (mg/dL) Calcium Magnesium AST Total Protein Albumin Arterial Blood Potassium 5.7 H 6.0 H 6.1 H Arterial Blood Glucose 129 H 137 H 141 H Crossmatch 04/10/21 04/10/21 04/10/21 14:13 15:00 15:24 WBC RBC Hgb Hct Plt Count Neutrophils # Lymphocytes # Monocytes # ABG pH 7.33 L ABG pCO2 ABG pO2 >420 H >420 H >420 H ABG HCO3 ABG Total CO2 25 H ABG O2 Saturation 100.0 H 100.0 H 100.0 H ABG Hematocrit 20 L* 21 L 20 L* ABG Potassium 6.2 H* 5.7 H 5.7 H ABG Ionized Calcium 3.6 L 3.5 L* 4.4 L ABG Glucose 144 H 186 H 178 H ABG Lactic Acid 2.2 H* 3.1 H* 3.9 H* Hemoglobin 6.5 L* 6.8 L* 6.5 L* Potassium Chloride Glucose POC Glucose (mg/dL) Calcium Magnesium AST Total Protein Albumin Arterial Blood Potassium 6.2 H* 5.7 H 5.7 H Arterial Blood Glucose 144 H 186 H 178 H Crossmatch 04/10/21 04/10/21 04/10/21 16:10 16:58 17:00 WBC RBC 2.94 L Hgb 8.3 L D Hct 26.4 L Plt Count 127 L D Neutrophils # Lymphocytes # 0.4 L Monocytes # ABG pH 7.20 L ABG pCO2 61 H ABG pO2 154 H ABG HCO3 ABG Total CO2 26 H ABG O2 Saturation 98.9 H ABG Hematocrit 22 L ABG Potassium 4.8 H ABG Ionized Calcium ABG Glucose 141 H ABG Lactic Acid 3.6 H* Hemoglobin 7.2 L Potassium Chloride Glucose POC Glucose (mg/dL) 113 H Calcium Magnesium AST Total Protein Albumin Arterial Blood Potassium 4.8 H Arterial Blood Glucose 141 H Crossmatch 04/10/21 04/10/21 04/10/21 17:00 17:20 17:56 WBC RBC Hgb Hct Plt Count Neutrophils # Lymphocytes # Monocytes # ABG pH 7.26 L ABG pCO2 59 H ABG pO2 385 H ABG HCO3 26 H ABG Total CO2 28 H ABG O2 Saturation 99.4 H ABG Hematocrit ABG Potassium ABG Ionized Calcium ABG Glucose ABG Lactic Acid Hemoglobin Potassium 5.2 H Chloride 113 H Glucose 104 H POC Glucose (mg/dL) 124 H Calcium Magnesium 2.5 H AST Total Protein 4.5 L Albumin 2.4 L Arterial Blood Potassium Arterial Blood Glucose Crossmatch 04/10/21 04/10/21 04/10/21 19:06 19:50 20:02 WBC 18.4 H RBC 3.33 L Hgb 9.2 L Hct 29.7 L Plt Count Neutrophils # 15.9 H Lymphocytes # 0.9 L Monocytes # 1.3 H ABG pH ABG pCO2 ABG pO2 ABG HCO3 ABG Total CO2 ABG O2 Saturation ABG Hematocrit ABG Potassium ABG Ionized Calcium ABG Glucose ABG Lactic Acid Hemoglobin Potassium Chloride Glucose POC Glucose (mg/dL) 146 H 107 H Calcium Magnesium AST Total Protein Albumin Arterial Blood Potassium Arterial Blood Glucose Crossmatch 04/10/21 04/10/21 04/10/21 21:06 21:24 22:23 WBC RBC Hgb Hct Plt Count Neutrophils # Lymphocytes # Monocytes # ABG pH 7.32 L 7.30 L ABG pCO2 47 H 50 H ABG pO2 160 H ABG HCO3 ABG Total CO2 25 H 26 H ABG O2 Saturation 98.8 H 97.4 H ABG Hematocrit ABG Potassium ABG Ionized Calcium ABG Glucose ABG Lactic Acid Hemoglobin Potassium Chloride Glucose POC Glucose (mg/dL) 134 H Calcium Magnesium AST Total Protein Albumin Arterial Blood Potassium Arterial Blood Glucose Crossmatch 04/10/21 04/11/21 04/11/21 22:36 00:02 00:20 WBC 15.2 H RBC 2.65 L Hgb 7.7 L D Hct 23.5 L Plt Count 116 L Neutrophils # 13.5 H Lymphocytes # 0.6 L Monocytes # ABG pH ABG pCO2 ABG pO2 ABG HCO3 ABG Total CO2 ABG O2 Saturation ABG Hematocrit ABG Potassium ABG Ionized Calcium ABG Glucose ABG Lactic Acid Hemoglobin Potassium Chloride Glucose POC Glucose (mg/dL) 140 H 153 H Calcium Magnesium AST Total Protein Albumin Arterial Blood Potassium Arterial Blood Glucose Crossmatch 04/11/21 04/11/21 04/11/21 01:45 03:20 04:37 WBC RBC Hgb Hct Plt Count Neutrophils # Lymphocytes # Monocytes # ABG pH ABG pCO2 ABG pO2 ABG HCO3 ABG Total CO2 ABG O2 Saturation ABG Hematocrit ABG Potassium ABG Ionized Calcium ABG Glucose ABG Lactic Acid Hemoglobin Potassium Chloride Glucose POC Glucose (mg/dL) 146 H 132 H 119 H Calcium Magnesium AST Total Protein Albumin Arterial Blood Potassium Arterial Blood Glucose Crossmatch 04/11/21 04/11/21 04/11/21 05:00 05:00 06:03 WBC 14.0 H RBC 2.49 L Hgb 7.4 L Hct 22.1 L Plt Count 121 L Neutrophils # 12.0 H Lymphocytes # 0.6 L Monocytes # ABG pH ABG pCO2 ABG pO2 ABG HCO3 ABG Total CO2 ABG O2 Saturation ABG Hematocrit ABG Potassium ABG Ionized Calcium ABG Glucose ABG Lactic Acid Hemoglobin Potassium Chloride 112 H Glucose 108 H POC Glucose (mg/dL) 112 H Calcium 8.1 L Magnesium AST 72 H Total Protein 4.9 L Albumin 2.9 L Arterial Blood Potassium Arterial Blood Glucose Crossmatch - Diagnostic Findings Chest x-ray: report reviewed, image reviewed Assessment and Plan Plan: Assessment: #1. Coronary artery disease status post triple coronary artery bypass grafting using the free CARCAMO to the LAD, left radial artery graft to the first obtuse marginal, reverse SVG to the RCA, exclusion of the left atrial appendage using a 35 mm ATriClip, endoscopic harvesting of the left radial artery, and left greater saphenous vein was 04/10/2021, postoperative day #1 #2. Routine postoperative ventilator management, and patient was successfully weaned and extubated on post-op day #0 to BiPAP, currently on 2 L of oxygen #3. Postoperative blood loss anemia, expected outcome of sternotomy and bypass grafting surgery #4. COPD, with preop FEV1 of 47% of predicted consistent with stage III COPD not oxygen dependent at baseline #5. [id number] smoking history in remission for 1 year #6. Pulmonary nodule seen on a computed tomography scan of the chest on outpatient basis, PET scan did not show uptake at the site of the nodule #7. Hypertension #8. Hyperlipidemia #9. Hypothyroidism Plan: Encourage deep breathing and coughing Encourage incentive spirometer use DuoNeb 4 times a day as needed Lungs are clear to auscultation, no sign of COPD exacerbation Pain control Close hemodynamic monitoring GI/DVT prophylaxis per CT surgery Daily labs and chest x-ray Continue to closely follow in the intensive care unit along with CT surgery I performed a history & physical examination of the patient and discussed their management with my nurse practitioner, Robyn Aguayo. I reviewed the nurse practitioner's note and agree with the documented findings and plan of care. Lung sounds are positive for clear breath sounds throughout the lung hawkins. The findings and the impression was discussed with the patient. I attest to the documentation by the nurse practitioner. Time with Patient: Greater than 30
[2021-04-11] MEDS ORDERED: bisacodyL 10 MG SUPP RECTAL PRN (09:00)
[2021-04-11] MEDS ORDERED: PANTOPRAZOLE 40 MG/10 ML VIAL IVP SCH (09:00)
[2021-04-11] MEDS ORDERED: MAGNESIUM HYDROXIDE 2,400 MG/10 ML CUP PO PRN (09:00)
--- NOTE | 2021-04-11 10:09 | P.PN ---
Subjective Progress Note Date: 04/11/21 Principal diagnosis: Triple-vessel coronary artery disease, preserved left ventricular systolic function with an ejection fraction of 55%. Past medical history significant for hypertension, hyperlipidemia, chronic obstructive pulmonary disease with a preoperative FEV1 of 47%, remote history of nicotine abuse, quit smoking 2 years ago, hypothyroidism, chronic kidney disease stage II and history of a right lower lobe lung nodule which was negative on PET computed tomography scan. POD #1 triple-vessel coronary artery bypass grafting using the free left internal mammary artery with an inflow from the left radial artery to the left anterior descending coronary artery, left radial artery from the aorta to the first obtuse marginal coronary artery and a reverse greater saphenous vein graft from the aorta to the right coronary artery. Exclusion of the left atrial appendage using a 35 mm Atriclip, endoscopic harvesting of the left radial artery, endoscopic harvesting of the left greater saphenous vein, intraoperative graft flow measurement using the [employer] system, intraoperative transesophageal echocardiogram and epi-aortic scanning. Postoperative acute blood loss anemia, expected due to cardiopulmonary bypass and hemodilution. The patient was seen at his bedside in the intensive care unit on follow-up today 04/11/2021. Currently he is sitting up to the bedside chair, is awake, alert and oriented 3 as in no acute distress. He was successfully extubated la at 10:30 PM and is currently on 2 L nasal cannula with oxygen saturations 99%. He is achieving 1000 mL on his incentive spirometry with encouragement. He denies any complaints of shortness of breath who was complaining of some surgical type pain to his chest tube insertion sites rating his pain 4 out of 10 on the pain scale. Right IJ cordis remains in place with current hemodynamic showing a cardiac output 4.1, cardiac index 2.2, PA pressures 35/21 and a CVP 7 mmHg. Nitroglycerin remains infusing at 5 mcg/m and Cardizem drip is infusing at 5 mg per hour. Mediastinal and left pleural chest tubes remain in place to low continuous wall suction -20 cm H2O. Mediastinal chest tubes drained 130 mL output of thin serosanguineous drainage in the last 8 hours and 350 mL output since surgery, left pleural chest tubes drained 130 mL of thin serosanguineous drainage in the last 8 hours and 300 mL out since surgery. Objective - Vital Signs Vital signs: Vital Signs Temp 97.9 F 04/11/21 08:00 Pulse 81 04/11/21 09:00 Resp 19 04/11/21 09:00 BP 115/66 04/11/21 07:00 Pulse Ox 96 04/11/21 09:00 Intake & Output 04/10/21 04/11/21 04/11/21 18:59 06:59 18:59 Intake Total 197 1074.869 179 Output Total 2450 1275 110 Balance -2253 -200.131 69 Weight 79.2 kg Intake: IV 197 1068 69 0.9 100 600 50 Diltiazem 125 mg In 5 5 Sodium Chloride 0.9% 100 ml @ 5 MG/HR 5 mls/hr IV .Q24H [facility] Rx#:[id number] Nitroglycerin-D5w Pmx 50 10 5 mg In Dextrose/Water 1 250ml.bag @ Per Protocol IV ONCE ONE Rx#:[id number] cardiac output 60 350 10 pressure bag 18 108 9 Intake, IV Titration 6.869 50 Amount Insulin Regular 100 unit 6.869 0 In Sodium Chloride 0.9% 100 ml @ Per Protocol IV .Q0M [facility] Rx#:[id number] ceFAZolin 2 gm In Sodium 50 Chloride 0.9% 50 ml @ 100 mls/hr IVPB Q8HR [facility] Rx# :[id number] Oral 60 Output: Chest Tube Drainage 205 445 Chest Tube Left Pleural 100 200 Chest Tube Mediastinal 105 245 Drainage 40 Left Wrist 40 Urine 1245 790 110 Estimated Blood Loss 1000 Other: Voiding Method Indwelling Catheter Indwelling Catheter Indwelling Catheter ABP, PAP, CO, CI - Last Documented Arterial Blood Pressure 113/52 Pulmonary Artery Pressure 18/1 Cardiac Output 5.5 Cardiac Index 2.9 - Exam CONSTITUTIONAL: Sitting up to the bedside chair in the intensive care unit, appears comfortable, cooperative, no apparent acute distress. HEENT: Neck is supple, no JVD, no lymphadenopathy. Right IJ Cordis and [place]- Frank[place] catheter in place and functioning. RESPIRATORY: Lungs sounds essentially clear throughout, diminished to his bilateral bases. Respirations are symmetrical and nonlabored. Currently on 2 L nasal cannula with oxygen saturations 99%. Able to achieve 1000 mL on his incentive spirometry. Strong cough. CARDIOVASCULAR: Regular rhythm and rate. S1 and S2 present, negative for S3, gallop or murmur. Sternum is stable. Bedside telemetry showing normal sinus rhythm heart rate 72 BPM. Palpable peripheral pulses bilaterall. No calf pain or tenderness noted. Heart hugger in place with patient demonstrating appropriate use. Knee-high YOANA hose and sequential compression devices in place to his bilateral lower extremities. GASTROINTESTINAL: Abdomen soft, nontender, nondistended. Hypoactive bowel sounds present 4 quadrants. Tolerating diet. Passing flatus. No guarding or rigidity. GENITOURINARY: Huffman present draining clear, yellow urine. Output 690 mL in the last 8 hours. INTEGUMENTARY: Skin is warm and dry with no evidence of clubbing or cyanosis. Midline sternal incision clean dry and well approximated, covered with dry intact dressing. lower extremity EVH sites well approximated without redness or drainage. Left arm radial artery harvest sites clean, dry and approximated. No drainage or redness is present. NEUROLOGIC: Cranial nerves II through XII intact. No focal deficits. MUSKULOSKELETAL: Able to move all extremities, strength equal bilaterally, generalized weakness. PSYCHIATRIC: Alert and oriented to person place and time, appropriate affect, intact judgment and insight. INVASIVE LINES AND TUBES: Mediastinal/left pleural chest tubes present and connected to low continuous wall suction, no air leaks present. Mediastinal tube with 130 mL of thin serosanguineous drainage overnight, 350 mL output in the last 24 hours. Left pleural chest tube with 115 mL of thin serosanguineous drainage overnight, 300 mL output in the last 24 hours. Atrial epicardial pacemaker wires present, connected to generator, AAI backup rate 50 bpm. Right internal jugular [place]/Cordis, right radial arterial line present. Last CO 4.1 , CI 2.2, PA 35/21 and CVP 7 mmHg. Left arm ELINA drain in place with scant thin serosanguineous drainage, 40 mL output in the last 8 hours. - Labs CBC & Chem 7: 04/11/21 05:00 04/11/21 05:00 Labs: Abnormal Lab Results - Last 24 Hours (Table) 03/30/21 04/10/21 04/10/21 Range/Units 13:00 08:29 10:52 WBC (3.8-10.6) k/uL RBC (4.30-5.90) m/uL Hgb (13.0-17.5) gm/dL Hct (39.0-53.0) % Plt Count (150-450) k/uL Neutrophils # (1.3-7.7) k/uL Lymphocytes # (1.0-4.8) k/uL Monocytes # (0-1.0) k/uL ABG pH 7.32 L (7.35-7.45) ABG pCO2 47 H 51 H (35-45) mmHg ABG pO2 >420 H 266 H (83-108) mmHg ABG HCO3 26 H 26 H (21-25) mmol/L ABG Total CO2 28 H 28 H (19-24) mmol/L ABG O2 Saturation 100.0 H 99.9 H (94-97) % ABG Hematocrit 33 L 31 L (34.0-46.0) % ABG Potassium 5.0 H 5.9 H (3.4-4.5) mmol/L ABG Ionized Calcium (4.5-5.3) mg/dL ABG Glucose 101 H 115 H (75-99) mg/dL ABG Lactic Acid (0.5-1.6) mmol/L Hemoglobin 10.8 L 10.0 L (13.0-17.5) gm/dL Potassium (3.5-5.1) mmol/L Chloride (98-107) mmol/L Glucose (74-99) mg/dL POC Glucose (mg/dL) (75-99) mg/dL Calcium (8.4-10.2) mg/dL Magnesium (1.6-2.3) mg/dL AST (17-59) U/L Total Protein (6.3-8.2) g/dL Albumin (3.5-5.0) g/dL Arterial Blood Potassium 5.0 H 5.9 H (3.4-4.5) mmol/L Arterial Blood Glucose 101 H 115 H (75-99) mg/dL Crossmatch See Detail 04/10/21 04/10/21 04/10/21 Range/Units 11:51 12:20 12:47 WBC (3.8-10.6) k/uL RBC (4.30-5.90) m/uL Hgb (13.0-17.5) gm/dL Hct (39.0-53.0) % Plt Count (150-450) k/uL Neutrophils # (1.3-7.7) k/uL Lymphocytes # (1.0-4.8) k/uL Monocytes # (0-1.0) k/uL ABG pH 7.29 L (7.35-7.45) ABG pCO2 54 H (35-45) mmHg ABG pO2 272 H >420 H 416 H (83-108) mmHg ABG HCO3 26 H (21-25) mmol/L ABG Total CO2 27 H 25 H (19-24) mmol/L ABG O2 Saturation 99.9 H 100.0 H 100.0 H (94-97) % ABG Hematocrit 29 L 20 L* 20 L* (34.0-46.0) % ABG Potassium 5.1 H 6.3 H* 5.7 H (3.4-4.5) mmol/L ABG Ionized Calcium 3.7 L 3.8 L (4.5-5.3) mg/dL ABG Glucose 129 H 114 H 129 H (75-99) mg/dL ABG Lactic Acid (0.5-1.6) mmol/L Hemoglobin 9.5 L 6.5 L* 6.7 L* (13.0-17.5) gm/dL Potassium (3.5-5.1) mmol/L Chloride (98-107) mmol/L Glucose (74-99) mg/dL POC Glucose (mg/dL) (75-99) mg/dL Calcium (8.4-10.2) mg/dL Magnesium (1.6-2.3) mg/dL AST (17-59) U/L Total Protein (6.3-8.2) g/dL Albumin (3.5-5.0) g/dL Arterial Blood Potassium 5.1 H 6.3 H* 5.7 H (3.4-4.5) mmol/L Arterial Blood Glucose 129 H 114 H 129 H (75-99) mg/dL Crossmatch 04/10/21 04/10/21 04/10/21 Range/Units 13:20 13:45 14:13 WBC (3.8-10.6) k/uL RBC (4.30-5.90) m/uL Hgb (13.0-17.5) gm/dL Hct (39.0-53.0) % Plt Count (150-450) k/uL Neutrophils # (1.3-7.7) k/uL Lymphocytes # (1.0-4.8) k/uL Monocytes # (0-1.0) k/uL ABG pH (7.35-7.45) ABG pCO2 (35-45) mmHg ABG pO2 403 H >420 H >420 H (83-108) mmHg ABG HCO3 (21-25) mmol/L ABG Total CO2 26 H 25 H (19-24) mmol/L ABG O2 Saturation 100.0 H 100.0 H 100.0 H (94-97) % ABG Hematocrit 21 L 19 L* 20 L* (34.0-46.0) % ABG Potassium 6.0 H 6.1 H 6.2 H* (3.4-4.5) mmol/L ABG Ionized Calcium 3.7 L 3.7 L 3.6 L (4.5-5.3) mg/dL ABG Glucose 137 H 141 H 144 H (75-99) mg/dL ABG Lactic Acid 1.7 H 1.8 H 2.2 H* (0.5-1.6) mmol/L Hemoglobin 6.8 L* 6.2 L* 6.5 L* (13.0-17.5) gm/dL Potassium (3.5-5.1) mmol/L Chloride (98-107) mmol/L Glucose (74-99) mg/dL POC Glucose (mg/dL) (75-99) mg/dL Calcium (8.4-10.2) mg/dL Magnesium (1.6-2.3) mg/dL AST (17-59) U/L Total Protein (6.3-8.2) g/dL Albumin (3.5-5.0) g/dL Arterial Blood Potassium 6.0 H 6.1 H 6.2 H* (3.4-4.5) mmol/L Arterial Blood Glucose 137 H 141 H 144 H (75-99) mg/dL Crossmatch 04/10/21 04/10/21 04/10/21 Range/Units 15:00 15:24 16:10 WBC (3.8-10.6) k/uL RBC (4.30-5.90) m/uL Hgb (13.0-17.5) gm/dL Hct (39.0-53.0) % Plt Count (150-450) k/uL Neutrophils # (1.3-7.7) k/uL Lymphocytes # (1.0-4.8) k/uL Monocytes # (0-1.0) k/uL ABG pH 7.33 L 7.20 L (7.35-7.45) ABG pCO2 61 H (35-45) mmHg ABG pO2 >420 H >420 H 154 H (83-108) mmHg ABG HCO3 (21-25) mmol/L ABG Total CO2 25 H 26 H (19-24) mmol/L ABG O2 Saturation 100.0 H 100.0 H 98.9 H (94-97) % ABG Hematocrit 21 L 20 L* 22 L (34.0-46.0) % ABG Potassium 5.7 H 5.7 H 4.8 H (3.4-4.5) mmol/L ABG Ionized Calcium 3.5 L* 4.4 L (4.5-5.3) mg/dL ABG Glucose 186 H 178 H 141 H (75-99) mg/dL ABG Lactic Acid 3.1 H* 3.9 H* 3.6 H* (0.5-1.6) mmol/L Hemoglobin 6.8 L* 6.5 L* 7.2 L (13.0-17.5) gm/dL Potassium (3.5-5.1) mmol/L Chloride (98-107) mmol/L Glucose (74-99) mg/dL POC Glucose (mg/dL) (75-99) mg/dL Calcium (8.4-10.2) mg/dL Magnesium (1.6-2.3) mg/dL AST (17-59) U/L Total Protein (6.3-8.2) g/dL Albumin (3.5-5.0) g/dL Arterial Blood Potassium 5.7 H 5.7 H 4.8 H (3.4-4.5) mmol/L Arterial Blood Glucose 186 H 178 H 141 H (75-99) mg/dL Crossmatch 04/10/21 04/10/21 04/10/21 Range/Units 16:58 17:00 17:00 WBC (3.8-10.6) k/uL RBC 2.94 L (4.30-5.90) m/uL Hgb 8.3 L D (13.0-17.5) gm/dL Hct 26.4 L (39.0-53.0) % Plt Count 127 L D (150-450) k/uL Neutrophils # (1.3-7.7) k/uL Lymphocytes # 0.4 L (1.0-4.8) k/uL Monocytes # (0-1.0) k/uL ABG pH (7.35-7.45) ABG pCO2 (35-45) mmHg ABG pO2 (83-108) mmHg ABG HCO3 (21-25) mmol/L ABG Total CO2 (19-24) mmol/L ABG O2 Saturation (94-97) % ABG Hematocrit (34.0-46.0) % ABG Potassium (3.4-4.5) mmol/L ABG Ionized Calcium (4.5-5.3) mg/dL ABG Glucose (75-99) mg/dL ABG Lactic Acid (0.5-1.6) mmol/L Hemoglobin (13.0-17.5) gm/dL Potassium 5.2 H (3.5-5.1) mmol/L Chloride 113 H (98-107) mmol/L Glucose 104 H (74-99) mg/dL POC Glucose (mg/dL) 113 H (75-99) mg/dL Calcium (8.4-10.2) mg/dL Magnesium 2.5 H (1.6-2.3) mg/dL AST (17-59) U/L Total Protein 4.5 L (6.3-8.2) g/dL Albumin 2.4 L (3.5-5.0) g/dL Arterial Blood Potassium (3.4-4.5) mmol/L Arterial Blood Glucose (75-99) mg/dL Crossmatch 04/10/21 04/10/21 04/10/21 Range/Units 17:20 17:56 19:06 WBC (3.8-10.6) k/uL RBC (4.30-5.90) m/uL Hgb (13.0-17.5) gm/dL Hct (39.0-53.0) % Plt Count (150-450) k/uL Neutrophils # (1.3-7.7) k/uL Lymphocytes # (1.0-4.8) k/uL Monocytes # (0-1.0) k/uL ABG pH 7.26 L (7.35-7.45) ABG pCO2 59 H (35-45) mmHg ABG pO2 385 H (83-108) mmHg ABG HCO3 26 H (21-25) mmol/L ABG Total CO2 28 H (19-24) mmol/L ABG O2 Saturation 99.4 H (94-97) % ABG Hematocrit (34.0-46.0) % ABG Potassium (3.4-4.5) mmol/L ABG Ionized Calcium (4.5-5.3) mg/dL ABG Glucose (75-99) mg/dL ABG Lactic Acid (0.5-1.6) mmol/L Hemoglobin (13.0-17.5) gm/dL Potassium (3.5-5.1) mmol/L Chloride (98-107) mmol/L Glucose (74-99) mg/dL POC Glucose (mg/dL) 124 H 146 H (75-99) mg/dL Calcium (8.4-10.2) mg/dL Magnesium (1.6-2.3) mg/dL AST (17-59) U/L Total Protein (6.3-8.2) g/dL Albumin (3.5-5.0) g/dL Arterial Blood Potassium (3.4-4.5) mmol/L Arterial Blood Glucose (75-99) mg/dL Crossmatch 04/10/21 04/10/21 04/10/21 Range/Units 19:50 20:02 21:06 WBC 18.4 H (3.8-10.6) k/uL RBC 3.33 L (4.30-5.90) m/uL Hgb 9.2 L (13.0-17.5) gm/dL Hct 29.7 L (39.0-53.0) % Plt Count (150-450) k/uL Neutrophils # 15.9 H (1.3-7.7) k/uL Lymphocytes # 0.9 L (1.0-4.8) k/uL Monocytes # 1.3 H (0-1.0) k/uL ABG pH 7.32 L (7.35-7.45) ABG pCO2 47 H (35-45) mmHg ABG pO2 160 H (83-108) mmHg ABG HCO3 (21-25) mmol/L ABG Total CO2 25 H (19-24) mmol/L ABG O2 Saturation 98.8 H (94-97) % ABG Hematocrit (34.0-46.0) % ABG Potassium (3.4-4.5) mmol/L ABG Ionized Calcium (4.5-5.3) mg/dL ABG Glucose (75-99) mg/dL ABG Lactic Acid (0.5-1.6) mmol/L Hemoglobin (13.0-17.5) gm/dL Potassium (3.5-5.1) mmol/L Chloride (98-107) mmol/L Glucose (74-99) mg/dL POC Glucose (mg/dL) 107 H (75-99) mg/dL Calcium (8.4-10.2) mg/dL Magnesium (1.6-2.3) mg/dL AST (17-59) U/L Total Protein (6.3-8.2) g/dL Albumin (3.5-5.0) g/dL Arterial Blood Potassium (3.4-4.5) mmol/L Arterial Blood Glucose (75-99) mg/dL Crossmatch 04/10/21 04/10/21 04/10/21 Range/Units 21:24 22:23 22:36 WBC (3.8-10.6) k/uL RBC (4.30-5.90) m/uL Hgb (13.0-17.5) gm/dL Hct (39.0-53.0) % Plt Count (150-450) k/uL Neutrophils # (1.3-7.7) k/uL Lymphocytes # (1.0-4.8) k/uL Monocytes # (0-1.0) k/uL ABG pH 7.30 L (7.35-7.45) ABG pCO2 50 H (35-45) mmHg ABG pO2 (83-108) mmHg ABG HCO3 (21-25) mmol/L ABG Total CO2 26 H (19-24) mmol/L ABG O2 Saturation 97.4 H (94-97) % ABG Hematocrit (34.0-46.0) % ABG Potassium (3.4-4.5) mmol/L ABG Ionized Calcium (4.5-5.3) mg/dL ABG Glucose (75-99) mg/dL ABG Lactic Acid (0.5-1.6) mmol/L Hemoglobin (13.0-17.5) gm/dL Potassium (3.5-5.1) mmol/L Chloride (98-107) mmol/L Glucose (74-99) mg/dL POC Glucose (mg/dL) 134 H 140 H (75-99) mg/dL Calcium (8.4-10.2) mg/dL Magnesium (1.6-2.3) mg/dL AST (17-59) U/L Total Protein (6.3-8.2) g/dL Albumin (3.5-5.0) g/dL Arterial Blood Potassium (3.4-4.5) mmol/L Arterial Blood Glucose (75-99) mg/dL Crossmatch 04/11/21 04/11/21 04/11/21 Range/Units 00:02 00:20 01:45 WBC 15.2 H (3.8-10.6) k/uL RBC 2.65 L (4.30-5.90) m/uL Hgb 7.7 L D (13.0-17.5) gm/dL Hct 23.5 L (39.0-53.0) % Plt Count 116 L (150-450) k/uL Neutrophils # 13.5 H (1.3-7.7) k/uL Lymphocytes # 0.6 L (1.0-4.8) k/uL Monocytes # (0-1.0) k/uL ABG pH (7.35-7.45) ABG pCO2 (35-45) mmHg ABG pO2 (83-108) mmHg ABG HCO3 (21-25) mmol/L ABG Total CO2 (19-24) mmol/L ABG O2 Saturation (94-97) % ABG Hematocrit (34.0-46.0) % ABG Potassium (3.4-4.5) mmol/L ABG Ionized Calcium (4.5-5.3) mg/dL ABG Glucose (75-99) mg/dL ABG Lactic Acid (0.5-1.6) mmol/L Hemoglobin (13.0-17.5) gm/dL Potassium (3.5-5.1) mmol/L Chloride (98-107) mmol/L Glucose (74-99) mg/dL POC Glucose (mg/dL) 153 H 146 H (75-99) mg/dL Calcium (8.4-10.2) mg/dL Magnesium (1.6-2.3) mg/dL AST (17-59) U/L Total Protein (6.3-8.2) g/dL Albumin (3.5-5.0) g/dL Arterial Blood Potassium (3.4-4.5) mmol/L Arterial Blood Glucose (75-99) mg/dL Crossmatch 04/11/21 04/11/21 04/11/21 Range/Units 03:20 04:37 05:00 WBC 14.0 H (3.8-10.6) k/uL RBC 2.49 L (4.30-5.90) m/uL Hgb 7.4 L (13.0-17.5) gm/dL Hct 22.1 L (39.0-53.0) % Plt Count 121 L (150-450) k/uL Neutrophils # 12.0 H (1.3-7.7) k/uL Lymphocytes # 0.6 L (1.0-4.8) k/uL Monocytes # (0-1.0) k/uL ABG pH (7.35-7.45) ABG pCO2 (35-45) mmHg ABG pO2 (83-108) mmHg ABG HCO3 (21-25) mmol/L ABG Total CO2 (19-24) mmol/L ABG O2 Saturation (94-97) % ABG Hematocrit (34.0-46.0) % ABG Potassium (3.4-4.5) mmol/L ABG Ionized Calcium (4.5-5.3) mg/dL ABG Glucose (75-99) mg/dL ABG Lactic Acid (0.5-1.6) mmol/L Hemoglobin (13.0-17.5) gm/dL Potassium (3.5-5.1) mmol/L Chloride (98-107) mmol/L Glucose (74-99) mg/dL POC Glucose (mg/dL) 132 H 119 H (75-99) mg/dL Calcium (8.4-10.2) mg/dL Magnesium (1.6-2.3) mg/dL AST (17-59) U/L Total Protein (6.3-8.2) g/dL Albumin (3.5-5.0) g/dL Arterial Blood Potassium (3.4-4.5) mmol/L Arterial Blood Glucose (75-99) mg/dL Crossmatch 04/11/21 04/11/21 04/11/21 Range/Units 05:00 06:03 08:10 WBC (3.8-10.6) k/uL RBC (4.30-5.90) m/uL Hgb (13.0-17.5) gm/dL Hct (39.0-53.0) % Plt Count (150-450) k/uL Neutrophils # (1.3-7.7) k/uL Lymphocytes # (1.0-4.8) k/uL Monocytes # (0-1.0) k/uL ABG pH (7.35-7.45) ABG pCO2 (35-45) mmHg ABG pO2 (83-108) mmHg ABG HCO3 (21-25) mmol/L ABG Total CO2 (19-24) mmol/L ABG O2 Saturation (94-97) % ABG Hematocrit (34.0-46.0) % ABG Potassium (3.4-4.5) mmol/L ABG Ionized Calcium (4.5-5.3) mg/dL ABG Glucose (75-99) mg/dL ABG Lactic Acid (0.5-1.6) mmol/L Hemoglobin (13.0-17.5) gm/dL Potassium (3.5-5.1) mmol/L Chloride 112 H (98-107) mmol/L Glucose 108 H (74-99) mg/dL POC Glucose (mg/dL) 112 H 161 H (75-99) mg/dL Calcium 8.1 L (8.4-10.2) mg/dL Magnesium (1.6-2.3) mg/dL AST 72 H (17-59) U/L Total Protein 4.9 L (6.3-8.2) g/dL Albumin 2.9 L (3.5-5.0) g/dL Arterial Blood Potassium (3.4-4.5) mmol/L Arterial Blood Glucose (75-99) mg/dL Crossmatch Assessment and Plan Assessment: 1. Triple-vessel coronary artery disease, status post three-vessel coronary artery bypass grafting surgery 2. Preserved left ventricular systolic function with an ejection fraction of 55% 3. History of hypertension 4. History of hyperlipidemia 5. Chronic obstructive pulmonary disease with preoperative FEV1 47% of predicted value 6. Remote history of nicotine abuse, quit smoking 2 years ago 7. Hypothyroidism 8. Chronic kidney disease stage II 9. History of right lower lobe lung nodule with a negative PET computed tomography scan 10. Postoperative acute blood loss anemia, expected Plan: 1. Continue aspirin, Plavix, statin, beta karley. Will increase beta karley therapy as tolerated. 2. Discontinue IV nitroglycerin and Cardizem drips. 3. Wean O2 as tolerated. Encourage incentive spirometry use 10 times every hour while awake. Bronchodilators per pulmonology 3. Increase activity, ambulate as tolerated. PT/OT/cardiac rehab consulted. 4. Will monitor daily labs and chest x-rays. Electrolyte replacement per prot ocol. 5. GI/DVT prophylaxis 6. Insulin management per primary care service. Patient is not diabetic, preoperative hemoglobin A1c 6.3%. 7. Pain controlled with current medication regimen. Toradol was not added due to his history of chronic kidney disease. 8. Discontinue [place]. Connect Cordis to continuous CVP monitoring. 9. Will continue mediastinal left pleural chest tubes, and arterial line for another 24 hours. 10. Will continue Huffman catheter for another 24 hours for strict accurate i ntake and output. Daily weights 11. On dose of levothyroxine 137 g by mouth daily added per his home dose. 12. More recommendations to follow based on patient's progress Time with Patient: Greater than 30
[2021-04-11 10:23] LABS: Glucose,Whole Blood 138 mg/dL (75-99)
--- NOTE | 2021-04-11 10:33 | P.CRDCN ---
History of Present Illness History of present illness: HISTORY OF PRESENTING ILLNESS This is a pleasant 65-year-old male past medical history significant for coronary artery disease, hypertension and COPD. He follows in the office with Dr. Velazquez. He underwent three-vessel bypass grafting yesterday with free CARCAMO with an inflow from the left radial artery to the LAD, left radial artery from the aorta to the first OM and reverse SVG from the aorta to the RCA as well as exclusion of left atrial appendage. He is seen and examined sitting up in the recliner. He is complaining of feeling very sore and tired. He denies any significant symptoms of shortness of breath. He is complaining of pain at the incision site. He is maintaining oxygen saturation on nasal cannula and achieving 1000 mls on IS. He has a right IJ Cordis in place showing a cardiac output of 4.1 with a cardiac index of 2.2 and a CVP of 7. Chest tubes in place. Chest x-ray this morning reveals bilateral infiltrates and small effusions. Laboratory data reviewed, WBC 14, hemoglobin 7.4, platelets 121, sodium 143, potassium 4.2, creatinine 1.23, magnesium 2.2. Preoperative echocardiogram revealed preserved LV systolic function with ejection fraction 55%, normal diastolic function, borderline LVH, ascending aorta is enlarged, mild MR, mild TR and normal RVSP. REVIEW OF SYSTEMS At the time of my exam: CONSTITUTIONAL: Denies fever or chills. CARDIOVASCULAR: Complains of pain in the incision site in the midsternal region. Denies chest pain, shortness of breath, orthopnea, PND or palpitations. RESPIRATORY: Denies cough. GASTROINTESTINAL: Denies abdominal pain, diarrhea, constipation, nausea or vomiting. MUSCULOSKELETAL: Denies myalgias. NEUROLOGIC: Denies numbness, tingling, headacbe or weakness. ENDOCRINE: Denies fatigue, weight change, polydipsia or polyurina. GENITOURINARY: Denies burning, hematuria or urgency with micturation. HEMATOLOGIC: Denies history of anemia or bleeding. PHYSICAL EXAMINATION Blood pressure 113/52 heart rate 81 afebrile and maintaining oxygen saturation on nasal cannula. CONSTITUTIONAL: No apparent distress. HEENT: Head is normocephalic. Pupils are equal, round. Sclerae anicteric. Mucous membranes of the mouth are moist. No JVD. No carotid bruit. Right IJ cordis in place. CHEST EXAMINATION: Lungs are clear to auscultation. Mid sternal chest wall tenderness is noted at site of incision. Mediastinal and left chest tubes in place. HEART EXAMINATION: Regular rate and rhythm. S1, S2 heard. No murmurs, gallops or rub. Heart hugger in place. ABDOMEN: Soft, nontender. Positive bowel sounds. EXTREMITIES: 2+ peripheral pulses, no lower extremity edema and no calf tenderness. Right radial art line in place. NEUROLOGIC EXAMINATION: Patient is awake, alert and oriented x3. ASSESSMENT Triple vessel coronary artery disease s/p bypass grafting Hypertension Dyslipidemia COPD Former nicotine dependence PLAN Continue dual anti-platelet therapy with stain and beta blockers. He has normal LV systolic function pre-operatively. Encourage incentive spirometer use. Increase activity as tolerated. We will continue to follow and make recommendations accordingly. Nurse Practitioner note has been reviewed, I agree with a documented findings and plan of care. Patient was seen and examined. Past Medical History Past Medical History: Chest Pain / Angina, COPD, Hyperlipidemia, Hypertension, Pneumonia, Thyroid Disorder Additional Past Medical History / Comment(s): recent problems w/SOB w/exertion, recent infected tooth-tx. w/antibiotics, pneumonia in the s-"had fluid drawn off" History of Any Multi-Drug Resistant Organisms: None Reported Past Surgical History: Heart Catheterization Past Anesthesia/Blood Transfusion Reactions: No Reported Reaction Additional Past Anesthesia/Blood Transfusion Reaction / Comment(s): never had general anesthesia Smoking Status: Former smoker - Past Family History Mother Family Medical History: No Reported History Medications and Allergies Home Medications Medication Instructions Recorded Confirmed Type Aspirin 81 mg PO DAILY 03/30/21 04/10/21 History Atorvastatin [Lipitor] 80 mg PO DAILY 03/30/21 04/10/21 History Cetirizine HCl [Zyrtec] 10 mg PO DAILY PRN 03/30/21 04/10/21 History Fluticasone Nasal [place] [Flonase 2 spr EA NOSTRIL DAILY PRN 03/30/21 04/10/21 History Nasal [place]] Levothyroxine Sodium [Synthroid] 137 mcg PO DAILY 03/30/21 04/10/21 History Metoprolol Succinate (ER) [Toprol 25 mg PO DAILY 03/30/21 04/10/21 History Xl] NIFEdipine [NIFEdipine ER] 30 mg PO DAILY 03/30/21 04/10/21 History Albuterol Inhaler [Ventolin Hfa 2 puff INHALATION RT-QID PRN 04/07/21 04/10/21 History Inhaler] Beclomethasone Dipropionate [Qvar 1 puff INHALATION BID 04/07/21 04/10/21 History 40 mcg Redihaler] Allergies Allergy/AdvReac Type Severity Reaction Status Date / Time No Known Allergies Allergy Verified 04/10/21 06:02 Physical Exam Vitals: Vital Signs Temp Pulse Pulse Resp BP Pulse Ox 04/11/21 09:00 81 19 96 04/11/21 08:00 97.9 F 96 72 16 96 04/11/21 07:38 68 18 04/11/21 07:00 74 24 115/66 04/11/21 06:00 66 15 115/66 93 L 04/11/21 05:00 75 19 94 L 04/11/21 04:00 98.1 F 75 17 95 04/11/21 03:00 75 22 94 L 04/11/21 02:00 75 18 94 L 04/11/21 01:00 75 16 95 04/11/21 00:11 75 14 93 L 04/11/21 00:00 98.6 F 75 20 96/64 96 04/10/21 23:00 75 20 88/67 95 04/10/21 22:00 75 14 88/67 94 L 04/10/21 21:00 75 20 79/58 04/10/21 20:00 99.3 F 75 16 89/73 04/10/21 19:45 75 20 89/73 99 04/10/21 19:33 75 04/10/21 19:30 75 20 89/73 99 04/10/21 19:16 78 04/10/21 19:15 75 20 89/73 99 04/10/21 19:00 75 20 89/73 99 04/10/21 18:45 75 20 89/73 99 04/10/21 18:30 75 20 99 04/10/21 18:15 75 20 99 04/10/21 18:00 76 20 99 04/10/21 17:45 87 20 100 04/10/21 17:30 77 12 99 04/10/21 17:15 75 0 L 100 04/10/21 17:00 75 12 99 Intake and Output 04/10/21 04/11/21 04/11/21 22:59 06:59 14:59 Intake Total 549 718.869 179 Output Total 950 975 110 Balance -401 -256.131 69 Intake: IV 549 712 69 0.9 300 400 50 Diltiazem 125 mg In 10 Sodium Chloride 0.9% 100 ml @ 5 MG/HR 5 mls/hr IV .Q24H [facility] Rx#:[id number] Nitroglycerin-D5w Pmx 50 15 mg In Dextrose/Water 1 250ml.bag @ Per Protocol IV ONCE ONE Rx#:[id number] cardiac output 170 240 10 pressure bag 54 72 9 Intake, IV Titration 6.869 50 Amount Insulin Regular 100 unit 6.869 0 In Sodium Chloride 0.9% 100 ml @ Per Protocol IV .Q0M [facility] Rx#:[id number] ceFAZolin 2 gm In Sodium 50 Chloride 0.9% 50 ml @ 100 mls/hr IVPB Q8HR [facility] Rx# :[id number] Oral 60 Output: Chest Tube Drainage 405 245 Chest Tube Left Pleural 185 115 Chest Tube Mediastinal 220 130 Drainage 40 Left Wrist 40 Urine 545 690 110 Other: Voiding Method Indwelling Catheter Indwelling Catheter Indwelling Catheter Weight 79.2 kg ABP, PAP, CO, CI - Last 8 Hours Arterial Blood Pressure 113/52 Arterial Blood Pressure 108/50 Arterial Blood Pressure 94/45 Arterial Blood Pressure 103/51 Arterial Blood Pressure 128/71 Arterial Blood Pressure 117/62 Arterial Blood Pressure 130/70 Pulmonary Artery Pressure 18/1 Pulmonary Artery Pressure 9/1 Pulmonary Artery Pressure 35/21 Pulmonary Artery Pressure 28/15 Pulmonary Artery Pressure 28/21 Cardiac Output 5.5 Cardiac Output 4.1 Cardiac Output 4.1 Cardiac Output 4.1 Cardiac Output 4.4 Cardiac Output 4.4 Cardiac Output 4.4 Cardiac Index 2.9 Cardiac Index 2.2 Cardiac Index 2.2 Cardiac Index 2.2 Cardiac Index 2.3 Cardiac Index 2.3 Cardiac Index 2.3 Results 04/11/21 05:00 04/11/21 05:00 Cardiac Enzymes 04/10/21 04/11/21 Range/Units 17:00 05:00 AST 52 72 H (17-59) U/L Coagulation 04/10/21 Range/Units 17:00 PT 11.4 (9.0-12.0) sec APTT 29.9 (22.0-30.0) sec CBC 04/10/21 04/10/21 04/11/21 Range/Units 17:00 20:02 00:20 WBC 8.6 18.4 H 15.2 H (3.8-10.6) k/uL RBC 2.94 L 3.33 L 2.65 L (4.30-5.90) m/uL Hgb 8.3 L D 9.2 L 7.7 L D (13.0-17.5) gm/dL Hct 26.4 L 29.7 L 23.5 L (39.0-53.0) % Plt Count 127 L D 157 116 L (150-450) k/uL 04/11/21 Range/Units 05:00 WBC 14.0 H (3.8-10.6) k/uL RBC 2.49 L (4.30-5.90) m/uL Hgb 7.4 L (13.0-17.5) gm/dL Hct 22.1 L (39.0-53.0) % Plt Count 121 L (150-450) k/uL Comprehensive Metabolic Panel 04/10/21 04/11/21 Range/Units 17:00 05:00 Sodium 142 143 (137-145) mmol/L Potassium 5.2 H 4.2 (3.5-5.1) mmol/L Chloride 113 H 112 H (98-107) mmol/L Carbon Dioxide 27 24 (22-30) mmol/L BUN 17 19 (9-20) mg/dL Creatinine 1.06 1.23 (0.66-1.25) mg/dL Glucose 104 H 108 H (74-99) mg/dL Calcium 8.4 8.1 L (8.4-10.2) mg/dL AST 52 72 H (17-59) U/L ALT 16 20 (4-49) U/L Alkaline Phosphatase 68 61 (38-126) U/L Total Protein 4.5 L 4.9 L (6.3-8.2) g/dL Albumin 2.4 L 2.9 L (3.5-5.0) g/dL Current Medications Generic Name Dose Route Start Last Admin Trade Name Freq PRN Reason Stop Dose Admin Hydrocodone Bitart/Acetaminophen 2 each 04/11/21 04:29 04/11/21 08:19 Hydrocodone/Apap 5-325mg 1 Each Tab PO 2 each Q4HR PRN Administration Severe Pain Hydrocodone Bitart/Acetaminophen 1 each 04/11/21 04:29 Hydrocodone/Apap 5-325mg 1 Each Tab PO Q4HR PRN Moderate Pain Albuterol/Ipratropium 3 ml 04/10/21 16:56 Ipratropium-Albuterol 3 Ml Neb INHALATION RT-Q2H PRN Shortness Of Breath Or Wheezing Albuterol/Ipratropium 3 ml 04/11/21 08:00 04/11/21 07:34 Ipratropium-Albuterol 3 Ml Neb INHALATION 3 ml RT-QID MELVA Administration Amlodipine Besylate 2.5 mg 04/11/21 12:00 Amlodipine 2.5 Mg Tab PO DAILY MELVA Aspirin 325 mg 04/11/21 09:00 04/11/21 08:20 Aspirin 325 Mg Tab PO 325 mg DAILY MELVA Administration Atorvastatin Calcium 40 mg 04/11/21 09:00 04/11/21 08:20 Atorvastatin 40 Mg Tab PO 40 mg DAILY MELVA Administration Benzocaine/Menthol 1 each 04/10/21 16:56 Benzocaine/Menthol Lozeng 1 Each Lozenge MUCOUS MEM Q2H PRN Sore Throat Bisacodyl 10 mg 04/11/21 09:00 Bisacodyl 10 Mg Supp RECTAL DAILY PRN Constipation Budesonide 0.5 mg 04/10/21 20:00 04/11/21 07:34 Budesonide 0.5 Mg/2 Ml Nebu INHALATION 0.5 mg RT-BID MELVA Administration Clopidogrel Bisulfate 75 mg 04/11/21 09:00 04/11/21 08:19 Clopidogrel 75 Mg Tab PO 75 mg DAILY MELVA Administration Heparin Sodium (Porcine) 5,000 unit 04/11/21 00:00 04/11/21 08:19 Heparin Sodium,Porcine/Pf 5,000 Unit/0.5 Ml Syringe SQ 5,000 unit Q8HR MELVA Administration Hydralazine HCl 10 mg 04/10/21 16:56 Hydralazine Hcl 20 Mg/Ml 1 Ml Vial IVP Q1H PRN Blood Pressure - High Amiodarone HCl 150 mg/ 103 mls @ 618 mls/hr 04/10/21 16:56 Dextrose/Water IV .Q10M PRN A.FIB/FLUTTER Protocol Amiodarone HCl 450 mg/ 250 mls @ 16.667 mls/hr 04/10/21 16:56 Dextrose/Water IV .Q15H PRN A.FIB/FLUTTER Protocol 0.5 MG/MIN Albumin Human 250 ml/ IV 250 mls @ 250 mls/hr 04/10/21 16:56 04/10/21 21:26 Solution IVPB 04/12/21 16:57 250 mls/hr Q1HR PRN Administration For Volume Cefazolin Sodium 2 gm/ Sodium 50 mls @ 100 mls/hr 04/11/21 00:00 04/11/21 08:26 Chloride IVPB 04/11/21 16:29 100 mls/hr Q8HR MEL[facility] Administration Calcium Gluconate 2 gm/ Sodium 120 mls @ 100 mls/hr 04/10/21 16:56 Chloride IVPB 04/17/21 16:57 ONCE PRN Ionized Calcium less than 4.4 Sodium Chloride 1,000 mls @ 20 mls/hr 04/10/21 16:56 04/10/21 18:29 Saline 0.9% IV 50 mls/hr .Q24H [facility] Administration Insulin Human Regular 100 unit 101 mls @ 0 mls/hr 04/11/21 01:00 04/11/21 08:14 / Sodium Chloride IV 3 units/hr .Q0M MELVA 3.03 mls/hr Titration Protocol Per Protocol Levothyroxine Sodium 137 mcg 04/11/21 07:00 04/11/21 08:20 Levothyroxine 137 Mcg Tab PO 137 mcg DAILY@0630 MELVA Administration Magnesium Hydroxide 2,400 mg 04/11/21 09:00 Magnesium Hydroxide 2,400 Mg/10 Ml Cup PO BID PRN Constipation Metoclopramide HCl 10 mg 04/10/21 16:56 Metoclopramide 5 Mg/Ml 2 Ml Vial IVP Q4H PRN Nausea And Vomiting Metoprolol Tartrate 12.5 mg 04/11/21 09:00 04/11/21 08:20 Metoprolol Tartrate 12.5 Mg Tab PO 12.5 mg BID MELVA Administration Miscellaneous Information 1 each 04/10/21 16:56 Potassium Replacement Protocol 1 Each Misc MISCELLANE DAILY PRN Per Protocol Protocol Miscellaneous Information 1 each 04/10/21 16:56 Magnesium Replacement Protocol 1 Each Misc MISCELLANE DAILY PRN Per Protocol Protocol Miscellaneous Information 1 each 04/10/21 16:56 Phosphorus Replacement Protoco 1 Each Misc MISCELLANE DAILY PRN Per Protocol Protocol Ondansetron HCl 4 mg 04/10/21 16:56 04/11/21 05:29 Ondansetron 4 Mg/2 Ml Vial IVP 4 mg Q6HR PRN Administration Nausea And Vomiting Pantoprazole Sodium 40 mg 04/12/21 07:30 Pantoprazole 40 Mg Tablet PO [id number] MELVA Senna/Docusate Sodium 2 each 04/11/21 21:00 Sennosides-Docusate Sodium 1 Each Tab PO HS [facility] Sodium Chloride 10 ml 04/10/21 21:00 04/11/21 08:21 Sodium Chloride 0.9% Flush 10 Ml Syringe IV Not Given BID [facility] Intake and Output 04/10/21 04/11/21 04/11/21 22:59 06:59 14:59 Intake Total 549 718.869 179 Output Total 950 975 110 Balance -401 -256.131 69 Intake: IV 549 712 69 0.9 300 400 50 Diltiazem 125 mg In 10 Sodium Chloride 0.9% 100 ml @ 5 MG/HR 5 mls/hr IV .Q24H [facility] Rx#:[id number] Nitroglycerin-D5w Pmx 50 15 mg In Dextrose/Water 1 250ml.bag @ Per Protocol IV ONCE ONE Rx#:[id number] cardiac output 170 240 10 pressure bag 54 72 9 Intake, IV Titration 6.869 50 Amount Insulin Regular 100 unit 6.869 0 In Sodium Chloride 0.9% 100 ml @ Per Protocol IV .Q0M [facility] Rx#:[id number] ceFAZolin 2 gm In Sodium 50 Chloride 0.9% 50 ml @ 100 mls/hr IVPB Q8HR [facility] Rx# :[id number] Oral 60 Output: Chest Tube Drainage 405 245 Chest Tube Left Pleural 185 115 Chest Tube Mediastinal 220 130 Drainage 40 Left Wrist 40 Urine 545 690 110 Other: Voiding Method Indwelling Catheter Indwelling Catheter Indwelling Catheter Weight 79.2 kg 04/11/21 05:00 04/11/21 05:00
--- NOTE | 2021-04-11 11:35 | P.CONS ---
History of Present Illness - Reason for Consult Consult date: 04/11/21 medical management - History of Present Illness HISTORY OF PRESENT ILLNESS This is a 65-year-old male patient of Dr. Pandya past medical history of coronary artery disease, hypertension, hyperlipidemia, COPD, hypothyroidism, seasonal ALLERGIES, remote history of tobacco use. Yesterday, patient underwent three-vessel CABG free CARCAMO with an inflow from the left radial artery to the LAD, left radial artery from the aorta to the first OM and reverse SVG from the aorta to the RCA as well as exclusion of left atrial appendage. Patient is seen today in intensive care unit. He has been successfully extubated. He states that he is feeling okay. No significant chest pain. He does have surgical site pain. He has been afebrile, heart rate 72, blood pressure 106/53, pulse ox 98% on 2 L nasal cannula. Repeat blood work reveals WBC 14, hemoglobin 7.4, platelet count 121. Sodium 143, potassium 4.2, chloride 112, CO2 24, BUN 19 and creatinine 1.23. Blood sugars are running between 108 and 161. Patient does not have history of diabetes. He is on insulin drip. Magnesium 2.2. AST 72. Chest x-ray this morning reveals bilateral infiltrate and small effusion. Patient has right IJ Cordis in place, left pleural chest tube and mediastinal chest tube and Huffman catheter in place. REVIEW OF SYSTEMS Constitutional: No fever, no chills, no night sweats. No weight change. No weakness, reports fatigue no lethargy. No daytime sleepiness. EENT: No headache. No blurred vision or double vision, no loss of vision. No loss of Hearing, no ringing in the ears, no dizziness. No nasal drainage or congestion. No epistaxis. No sore throat. Lungs: No shortness of breath, cough, no sputum production. No wheezing. Cardiovascular: Reports expected chest pain, no lower extremity edema. No palpitations. No paroxysmal nocturnal dyspnea. No orthopnea. No lighthead edness or dizziness. No syncopal episodes. Abdominal: No abdominal pain. No nausea, vomiting. No diarrhea. No constipation. No bloody or tarry stools reports decreased of appetite. Genitourinary: No dysuria, increased frequency, urgency. No urinary retention. Musculoskeletal: No myalgias. No muscle weakness, no gait dysfunction, no frequent falls. No back pain. No neck pain. Integumentary: No wounds, no lesions. No rash or pruritus. No unusual bruising. No change in hair or nails. Neurologic: No aphasia. No facial droop. No change in mentation. No head injury. No headache. No paralysis. No paresthesia. Psychiatric: No depression. No anxiety. No mood swings. Endocrine: No abnormal blood sugars. No weight change. No excessive sweating or thirst. No cold intolerance. SOCIAL HISTORY Patient was a smoker for 59 years starting at age 6 and quit in 2019. He drinks alcohol occasionally. FAMILY HISTORY Mother from old age as well as father from old age. Patient has 2 sisters with no major medical problems. Patient has one brother with "heart problems." Patient has 1 biological son and one biological daughter. PHYSICAL EXAMINATION Gen: This is a 65-year-old male patient. He is sitting in recliner and appears to be comfortable. HEENT: Head is atraumatic, normocephalic. Pupils equal, round. Sclerae is anicteric. Conjunctiva pale. Mucous membranes of the mouth are slightly dry. NECK: Supple. No JVD. No lymphadenopathy. No thyromegaly. Right-sided Cordis in place LUNGS: Clear to auscultation. No wheezes or rhonchi. No intercostal retractions. HEART: Regular rate and rhythm. No murmur. Left chest tube and mediastinal tube in place. Huffman catheter in place. ABDOMEN: Soft. Bowel sounds are present. No masses. No tenderness. EXTREMITIES: No pedal edema. No calf tenderness.Dorsalis pedis +2 bilaterally. NEUROLOGICAL: Patient is awake, alert and oriented x3. Cranial nerves 2 through 12 are grossly intact. ASSESSMENT AND PLAN 1. Coronary artery disease status post triple CABG, postoperative day #1. Continue current management per cardio thoracic surgery.Continue aspirin 325 mg daily, Lipitor 40 mg daily, Plavix 75 mg daily, Lopressor 12.5 mg twice daily. Patient is currently on insulin drip is no history of diabetes. 2. Hypertension. Continue amlodipine 2.5 mg daily, Lopressor, hydralazine as needed. 3. Hyperlipidemia. Continue atorvastatin. 4. COPD. Continue Pulmicort 0.5 mg twice daily, DuoNeb treatments 4 times daily. 5. Hypothyroidism. Continue levothyroxine 137 g daily. 6. Seasonal ALLERGIES, stable. 7. History of tobacco use and dependence. 8. GI prophylaxis. Protonix 40 mg daily. 9. DVT prophylaxis. Heparin 5000 units subcu every 8 hours. Patient will be admitted to the hospital for a minimum of 2 night stay. DISCHARGE PLAN Most likely home with homecare. Impression and plan of care have been directed as dictated by the signing physician. Юлия Morrison nurse practitioner acting as scribe for signing physician. Past Medical History Past Medical History: Chest Pain / Angina, COPD, Hyperlipidemia, Hypertension, Pneumonia, Thyroid Disorder Additional Past Medical History / Comment(s): recent problems w/SOB w/exertion, recent infected tooth-tx. w/antibiotics, pneumonia in the -"had fluid drawn off" History of Any Multi-Drug Resistant Organisms: None Reported Past Surgical History: Heart Catheterization Past Anesthesia/Blood Transfusion Reactions: No Reported Reaction Additional Past Anesthesia/Blood Transfusion Reaction / Comm: never had general anesthesia Smoking Status: Former smoker - Past Family History Mother Family Medical History: No Reported History Medications and Allergies Home Medications Medication Instructions Recorded Confirmed Type Aspirin 81 mg PO DAILY 03/30/21 04/10/21 History Atorvastatin [Lipitor] 80 mg PO DAILY 03/30/21 04/10/21 History Cetirizine HCl [Zyrtec] 10 mg PO DAILY PRN 03/30/21 04/10/21 History Fluticasone Nasal [place] [Flonase 2 spr EA NOSTRIL DAILY PRN 03/30/21 04/10/21 History Nasal [place]] Levothyroxine Sodium [Synthroid] 137 mcg PO DAILY 03/30/21 04/10/21 History Metoprolol Succinate (ER) [Toprol 25 mg PO DAILY 03/30/21 04/10/21 History Xl] NIFEdipine [NIFEdipine ER] 30 mg PO DAILY 03/30/21 04/10/21 History Albuterol Inhaler [Ventolin Hfa 2 puff INHALATION RT-QID PRN 04/07/21 04/10/21 History Inhaler] Beclomethasone Dipropionate [Qvar 1 puff INHALATION BID 04/07/21 04/10/21 History 40 mcg Redihaler] Allergies Allergy/AdvReac Type Severity Reaction Status Date / Time No Known Allergies Allergy Verified 04/10/21 06:02 Physical Exam Vitals: Vital Signs Temp Pulse Pulse Resp BP Pulse Ox 04/11/21 09:00 81 19 96 04/11/21 08:00 97.9 F 96 72 16 96 04/11/21 07:38 68 18 04/11/21 07:00 74 24 115/66 04/11/21 06:00 66 15 115/66 93 L 04/11/21 05:00 75 19 94 L 04/11/21 04:00 98.1 F 75 17 95 04/11/21 03:00 75 22 94 L 04/11/21 02:00 75 18 94 L 04/11/21 01:00 75 16 95 04/11/21 00:11 75 14 93 L 04/11/21 00:00 98.6 F 75 20 96/64 96 04/10/21 23:00 75 20 88/67 95 04/10/21 22:00 75 14 88/67 94 L 04/10/21 21:00 75 20 79/58 04/10/21 20:00 99.3 F 75 16 89/73 04/10/21 19:45 75 20 89/73 99 04/10/21 19:33 75 04/10/21 19:30 75 20 89/73 99 04/10/21 19:16 78 04/10/21 19:15 75 20 89/73 99 04/10/21 19:00 75 20 89/73 99 04/10/21 18:45 75 20 89/73 99 04/10/21 18:30 75 20 99 04/10/21 18:15 75 20 99 04/10/21 18:00 76 20 99 04/10/21 17:45 87 20 100 04/10/21 17:30 77 12 99 04/10/21 17:15 75 0 L 100 04/10/21 17:00 75 12 99 Intake and Output 04/10/21 04/11/21 04/11/21 22:59 06:59 14:59 Intake Total 549 718.869 179 Output Total 950 975 110 Balance -401 -256.131 69 Intake: IV 549 712 69 0.9 300 400 50 Diltiazem 125 mg In 10 Sodium Chloride 0.9% 100 ml @ 5 MG/HR 5 mls/hr IV .Q24H [facility] Rx#:[id number] Nitroglycerin-D5w Pmx 50 15 mg In Dextrose/Water 1 250ml.bag @ Per Protocol IV ONCE ONE Rx#:[id number] cardiac output 170 240 10 pressure bag 54 72 9 Intake, IV Titration 6.869 50 Amount Insulin Regular 100 unit 6.869 0 In Sodium Chloride 0.9% 100 ml @ Per Protocol IV .Q0M [facility] Rx#:[id number] ceFAZolin 2 gm In Sodium 50 Chloride 0.9% 50 ml @ 100 mls/hr IVPB Q8HR [facility] Rx# :[id number] Oral 60 Output: Chest Tube Drainage 405 245 Chest Tube Left Pleural 185 115 Chest Tube Mediastinal 220 130 Drainage 40 Left Wrist 40 Urine 545 690 110 Other: Voiding Method Indwelling Catheter Indwelling Catheter Indwelling Catheter Weight 79.2 kg ABP, PAP, CO, CI - Last 8 Hours Arterial Blood Pressure 113/52 Arterial Blood Pressure 108/50 Arterial Blood Pressure 94/45 Arterial Blood Pressure 103/51 Arterial Blood Pressure 128/71 Arterial Blood Pressure 117/62 Arterial Blood Pressure 130/70 Pulmonary Artery Pressure 18/1 Pulmonary Artery Pressure 9/1 Pulmonary Artery Pressure 35/21 Pulmonary Artery Pressure 28/15 Pulmonary Artery Pressure 28/21 Cardiac Output 5.5 Cardiac Output 4.1 Cardiac Output 4.1 Cardiac Output 4.1 Cardiac Output 4.4 Cardiac Output 4.4 Cardiac Output 4.4 Cardiac Index 2.9 Cardiac Index 2.2 Cardiac Index 2.2 Cardiac Index 2.2 Cardiac Index 2.3 Cardiac Index 2.3 Cardiac Index 2.3 Results CBC & Chem 7: 04/11/21 05:00 04/11/21 05:00 Labs: Abnormal Lab Results - Last 24 Hours (Table) 03/30/21 04/10/21 04/10/21 Range/Units 13:00 08:29 10:52 WBC (3.8-10.6) k/uL RBC (4.30-5.90) m/uL Hgb (13.0-17.5) gm/dL Hct (39.0-53.0) % Plt Count (150-450) k/uL Neutrophils # (1.3-7.7) k/uL Lymphocytes # (1.0-4.8) k/uL Monocytes # (0-1.0) k/uL ABG pH 7.32 L (7.35-7.45) ABG pCO2 47 H 51 H (35-45) mmHg ABG pO2 >420 H 266 H (83-108) mmHg ABG HCO3 26 H 26 H (21-25) mmol/L ABG Total CO2 28 H 28 H (19-24) mmol/L ABG O2 Saturation 100.0 H 99.9 H (94-97) % ABG Hematocrit 33 L 31 L (34.0-46.0) % ABG Potassium 5.0 H 5.9 H (3.4-4.5) mmol/L ABG Ionized Calcium (4.5-5.3) mg/dL ABG Glucose 101 H 115 H (75-99) mg/dL ABG Lactic Acid (0.5-1.6) mmol/L Hemoglobin 10.8 L 10.0 L (13.0-17.5) gm/dL Potassium (3.5-5.1) mmol/L Chloride (98-107) mmol/L Glucose (74-99) mg/dL POC Glucose (mg/dL) (75-99) mg/dL Calcium (8.4-10.2) mg/dL Magnesium (1.6-2.3) mg/dL AST (17-59) U/L Total Protein (6.3-8.2) g/dL Albumin (3.5-5.0) g/dL Arterial Blood Potassium 5.0 H 5.9 H (3.4-4.5) mmol/L Arterial Blood Glucose 101 H 115 H (75-99) mg/dL Crossmatch See Detail 04/10/21 04/10/21 04/10/21 Range/Units 11:51 12:20 12:47 WBC (3.8-10.6) k/uL RBC (4.30-5.90) m/uL Hgb (13.0-17.5) gm/dL Hct (39.0-53.0) % Plt Count (150-450) k/uL Neutrophils # (1.3-7.7) k/uL Lymphocytes # (1.0-4.8) k/uL Monocytes # (0-1.0) k/uL ABG pH 7.29 L (7.35-7.45) ABG pCO2 54 H (35-45) mmHg ABG pO2 272 H >420 H 416 H (83-108) mmHg ABG HCO3 26 H (21-25) mmol/L ABG Total CO2 27 H 25 H (19-24) mmol/L ABG O2 Saturation 99.9 H 100.0 H 100.0 H (94-97) % ABG Hematocrit 29 L 20 L* 20 L* (34.0-46.0) % ABG Potassium 5.1 H 6.3 H* 5.7 H (3.4-4.5) mmol/L ABG Ionized Calcium 3.7 L 3.8 L (4.5-5.3) mg/dL ABG Glucose 129 H 114 H 129 H (75-99) mg/dL ABG Lactic Acid (0.5-1.6) mmol/L Hemoglobin 9.5 L 6.5 L* 6.7 L* (13.0-17.5) gm/dL Potassium (3.5-5.1) mmol/L Chloride (98-107) mmol/L Glucose (74-99) mg/dL POC Glucose (mg/dL) (75-99) mg/dL Calcium (8.4-10.2) mg/dL Magnesium (1.6-2.3) mg/dL AST (17-59) U/L Total Protein (6.3-8.2) g/dL Albumin (3.5-5.0) g/dL Arterial Blood Potassium 5.1 H 6.3 H* 5.7 H (3.4-4.5) mmol/L Arterial Blood Glucose 129 H 114 H 129 H (75-99) mg/dL Crossmatch 04/10/21 04/10/21 04/10/21 Range/Units 13:20 13:45 14:13 WBC (3.8-10.6) k/uL RBC (4.30-5.90) m/uL Hgb (13.0-17.5) gm/dL Hct (39.0-53.0) % Plt Count (150-450) k/uL Neutrophils # (1.3-7.7) k/uL Lymphocytes # (1.0-4.8) k/uL Monocytes # (0-1.0) k/uL ABG pH (7.35-7.45) ABG pCO2 (35-45) mmHg ABG pO2 403 H >420 H >420 H (83-108) mmHg ABG HCO3 (21-25) mmol/L ABG Total CO2 26 H 25 H (19-24) mmol/L ABG O2 Saturation 100.0 H 100.0 H 100.0 H (94-97) % ABG Hematocrit 21 L 19 L* 20 L* (34.0-46.0) % ABG Potassium 6.0 H 6.1 H 6.2 H* (3.4-4.5) mmol/L ABG Ionized Calcium 3.7 L 3.7 L 3.6 L (4.5-5.3) mg/dL ABG Glucose 137 H 141 H 144 H (75-99) mg/dL ABG Lactic Acid 1.7 H 1.8 H 2.2 H* (0.5-1.6) mmol/L Hemoglobin 6.8 L* 6.2 L* 6.5 L* (13.0-17.5) gm/dL Potassium (3.5-5.1) mmol/L Chloride (98-107) mmol/L Glucose (74-99) mg/dL POC Glucose (mg/dL) (75-99) mg/dL Calcium (8.4-10.2) mg/dL Magnesium (1.6-2.3) mg/dL AST (17-59) U/L Total Protein (6.3-8.2) g/dL Albumin (3.5-5.0) g/dL Arterial Blood Potassium 6.0 H 6.1 H 6.2 H* (3.4-4.5) mmol/L Arterial Blood Glucose 137 H 141 H 144 H (75-99) mg/dL Crossmatch 04/10/21 04/10/21 04/10/21 Range/Units 15:00 15:24 16:10 WBC (3.8-10.6) k/uL RBC (4.30-5.90) m/uL Hgb (13.0-17.5) gm/dL Hct (39.0-53.0) % Plt Count (150-450) k/uL Neutrophils # (1.3-7.7) k/uL Lymphocytes # (1.0-4.8) k/uL Monocytes # (0-1.0) k/uL ABG pH 7.33 L 7.20 L (7.35-7.45) ABG pCO2 61 H (35-45) mmHg ABG pO2 >420 H >420 H 154 H (83-108) mmHg ABG HCO3 (21-25) mmol/L ABG Total CO2 25 H 26 H (19-24) mmol/L ABG O2 Saturation 100.0 H 100.0 H 98.9 H (94-97) % ABG Hematocrit 21 L 20 L* 22 L (34.0-46.0) % ABG Potassium 5.7 H 5.7 H 4.8 H (3.4-4.5) mmol/L ABG Ionized Calcium 3.5 L* 4.4 L (4.5-5.3) mg/dL ABG Glucose 186 H 178 H 141 H (75-99) mg/dL ABG Lactic Acid 3.1 H* 3.9 H* 3.6 H* (0.5-1.6) mmol/L Hemoglobin 6.8 L* 6.5 L* 7.2 L (13.0-17.5) gm/dL Potassium (3.5-5.1) mmol/L Chloride (98-107) mmol/L Glucose (74-99) mg/dL POC Glucose (mg/dL) (75-99) mg/dL Calcium (8.4-10.2) mg/dL Magnesium (1.6-2.3) mg/dL AST (17-59) U/L Total Protein (6.3-8.2) g/dL Albumin (3.5-5.0) g/dL Arterial Blood Potassium 5.7 H 5.7 H 4.8 H (3.4-4.5) mmol/L Arterial Blood Glucose 186 H 178 H 141 H (75-99) mg/dL Crossmatch 04/10/21 04/10/21 04/10/21 Range/Units 16:58 17:00 17:00 WBC (3.8-10.6) k/uL RBC 2.94 L (4.30-5.90) m/uL Hgb 8.3 L D (13.0-17.5) gm/dL Hct 26.4 L (39.0-53.0) % Plt Count 127 L D (150-450) k/uL Neutrophils # (1.3-7.7) k/uL Lymphocytes # 0.4 L (1.0-4.8) k/uL Monocytes # (0-1.0) k/uL ABG pH (7.35-7.45) ABG pCO2 (35-45) mmHg ABG pO2 (83-108) mmHg ABG HCO3 (21-25) mmol/L ABG Total CO2 (19-24) mmol/L ABG O2 Saturation (94-97) % ABG Hematocrit (34.0-46.0) % ABG Potassium (3.4-4.5) mmol/L ABG Ionized Calcium (4.5-5.3) mg/dL ABG Glucose (75-99) mg/dL ABG Lactic Acid (0.5-1.6) mmol/L Hemoglobin (13.0-17.5) gm/dL Potassium 5.2 H (3.5-5.1) mmol/L Chloride 113 H (98-107) mmol/L Glucose 104 H (74-99) mg/dL POC Glucose (mg/dL) 113 H (75-99) mg/dL Calcium (8.4-10.2) mg/dL Magnesium 2.5 H (1.6-2.3) mg/dL AST (17-59) U/L Total Protein 4.5 L (6.3-8.2) g/dL Albumin 2.4 L (3.5-5.0) g/dL Arterial Blood Potassium (3.4-4.5) mmol/L Arterial Blood Glucose (75-99) mg/dL Crossmatch 04/10/21 04/10/21 04/10/21 Range/Units 17:20 17:56 19:06 WBC (3.8-10.6) k/uL RBC (4.30-5.90) m/uL Hgb (13.0-17.5) gm/dL Hct (39.0-53.0) % Plt Count (150-450) k/uL Neutrophils # (1.3-7.7) k/uL Lymphocytes # (1.0-4.8) k/uL Monocytes # (0-1.0) k/uL ABG pH 7.26 L (7.35-7.45) ABG pCO2 59 H (35-45) mmHg ABG pO2 385 H (83-108) mmHg ABG HCO3 26 H (21-25) mmol/L ABG Total CO2 28 H (19-24) mmol/L ABG O2 Saturation 99.4 H (94-97) % ABG Hematocrit (34.0-46.0) % ABG Potassium (3.4-4.5) mmol/L ABG Ionized Calcium (4.5-5.3) mg/dL ABG Glucose (75-99) mg/dL ABG Lactic Acid (0.5-1.6) mmol/L Hemoglobin (13.0-17.5) gm/dL Potassium (3.5-5.1) mmol/L Chloride (98-107) mmol/L Glucose (74-99) mg/dL POC Glucose (mg/dL) 124 H 146 H (75-99) mg/dL Calcium (8.4-10.2) mg/dL Magnesium (1.6-2.3) mg/dL AST (17-59) U/L Total Protein (6.3-8.2) g/dL Albumin (3.5-5.0) g/dL Arterial Blood Potassium (3.4-4.5) mmol/L Arterial Blood Glucose (75-99) mg/dL Crossmatch 04/10/21 04/10/21 04/10/21 Range/Units 19:50 20:02 21:06 WBC 18.4 H (3.8-10.6) k/uL RBC 3.33 L (4.30-5.90) m/uL Hgb 9.2 L (13.0-17.5) gm/dL Hct 29.7 L (39.0-53.0) % Plt Count (150-450) k/uL Neutrophils # 15.9 H (1.3-7.7) k/uL Lymphocytes # 0.9 L (1.0-4.8) k/uL Monocytes # 1.3 H (0-1.0) k/uL ABG pH 7.32 L (7.35-7.45) ABG pCO2 47 H (35-45) mmHg ABG pO2 160 H (83-108) mmHg ABG HCO3 (21-25) mmol/L ABG Total CO2 25 H (19-24) mmol/L ABG O2 Saturation 98.8 H (94-97) % ABG Hematocrit (34.0-46.0) % ABG Potassium (3.4-4.5) mmol/L ABG Ionized Calcium (4.5-5.3) mg/dL ABG Glucose (75-99) mg/dL ABG Lactic Acid (0.5-1.6) mmol/L Hemoglobin (13.0-17.5) gm/dL Potassium (3.5-5.1) mmol/L Chloride (98-107) mmol/L Glucose (74-99) mg/dL POC Glucose (mg/dL) 107 H (75-99) mg/dL Calcium (8.4-10.2) mg/dL Magnesium (1.6-2.3) mg/dL AST (17-59) U/L Total Protein (6.3-8.2) g/dL Albumin (3.5-5.0) g/dL Arterial Blood Potassium (3.4-4.5) mmol/L Arterial Blood Glucose (75-99) mg/dL Crossmatch 04/10/21 04/10/21 04/10/21 Range/Units 21:24 22:23 22:36 WBC (3.8-10.6) k/uL RBC (4.30-5.90) m/uL Hgb (13.0-17.5) gm/dL Hct (39.0-53.0) % Plt Count (150-450) k/uL Neutrophils # (1.3-7.7) k/uL Lymphocytes # (1.0-4.8) k/uL Monocytes # (0-1.0) k/uL ABG pH 7.30 L (7.35-7.45) ABG pCO2 50 H (35-45) mmHg ABG pO2 (83-108) mmHg ABG HCO3 (21-25) mmol/L ABG Total CO2 26 H (19-24) mmol/L ABG O2 Saturation 97.4 H (94-97) % ABG Hematocrit (34.0-46.0) % ABG Potassium (3.4-4.5) mmol/L ABG Ionized Calcium (4.5-5.3) mg/dL ABG Glucose (75-99) mg/dL ABG Lactic Acid (0.5-1.6) mmol/L Hemoglobin (13.0-17.5) gm/dL Potassium (3.5-5.1) mmol/L Chloride (98-107) mmol/L Glucose (74-99) mg/dL POC Glucose (mg/dL) 134 H 140 H (75-99) mg/dL Calcium (8.4-10.2) mg/dL Magnesium (1.6-2.3) mg/dL AST (17-59) U/L Total Protein (6.3-8.2) g/dL Albumin (3.5-5.0) g/dL Arterial Blood Potassium (3.4-4.5) mmol/L Arterial Blood Glucose (75-99) mg/dL Crossmatch 04/11/21 04/11/21 04/11/21 Range/Units 00:02 00:20 01:45 WBC 15.2 H (3.8-10.6) k/uL RBC 2.65 L (4.30-5.90) m/uL Hgb 7.7 L D (13.0-17.5) gm/dL Hct 23.5 L (39.0-53.0) % Plt Count 116 L (150-450) k/uL Neutrophils # 13.5 H (1.3-7.7) k/uL Lymphocytes # 0.6 L (1.0-4.8) k/uL Monocytes # (0-1.0) k/uL ABG pH (7.35-7.45) ABG pCO2 (35-45) mmHg ABG pO2 (83-108) mmHg ABG HCO3 (21-25) mmol/L ABG Total CO2 (19-24) mmol/L ABG O2 Saturation (94-97) % ABG Hematocrit (34.0-46.0) % ABG Potassium (3.4-4.5) mmol/L ABG Ionized Calcium (4.5-5.3) mg/dL ABG Glucose (75-99) mg/dL ABG Lactic Acid (0.5-1.6) mmol/L Hemoglobin (13.0-17.5) gm/dL Potassium (3.5-5.1) mmol/L Chloride (98-107) mmol/L Glucose (74-99) mg/dL POC Glucose (mg/dL) 153 H 146 H (75-99) mg/dL Calcium (8.4-10.2) mg/dL Magnesium (1.6-2.3) mg/dL AST (17-59) U/L Total Protein (6.3-8.2) g/dL Albumin (3.5-5.0) g/dL Arterial Blood Potassium (3.4-4.5) mmol/L Arterial Blood Glucose (75-99) mg/dL Crossmatch 04/11/21 04/11/21 04/11/21 Range/Units 03:20 04:37 05:00 WBC 14.0 H (3.8-10.6) k/uL RBC 2.49 L (4.30-5.90) m/uL Hgb 7.4 L (13.0-17.5) gm/dL Hct 22.1 L (39.0-53.0) % Plt Count 121 L (150-450) k/uL Neutrophils # 12.0 H (1.3-7.7) k/uL Lymphocytes # 0.6 L (1.0-4.8) k/uL Monocytes # (0-1.0) k/uL ABG pH (7.35-7.45) ABG pCO2 (35-45) mmHg ABG pO2 (83-108) mmHg ABG HCO3 (21-25) mmol/L ABG Total CO2 (19-24) mmol/L ABG O2 Saturation (94-97) % ABG Hematocrit (34.0-46.0) % ABG Potassium (3.4-4.5) mmol/L ABG Ionized Calcium (4.5-5.3) mg/dL ABG Glucose (75-99) mg/dL ABG Lactic Acid (0.5-1.6) mmol/L Hemoglobin (13.0-17.5) gm/dL Potassium (3.5-5.1) mmol/L Chloride (98-107) mmol/L Glucose (74-99) mg/dL POC Glucose (mg/dL) 132 H 119 H (75-99) mg/dL Calcium (8.4-10.2) mg/dL Magnesium (1.6-2.3) mg/dL AST (17-59) U/L Total Protein (6.3-8.2) g/dL Albumin (3.5-5.0) g/dL Arterial Blood Potassium (3.4-4.5) mmol/L Arterial Blood Glucose (75-99) mg/dL Crossmatch 04/11/21 04/11/21 04/11/21 Range/Units 05:00 06:03 08:10 WBC (3.8-10.6) k/uL RBC (4.30-5.90) m/uL Hgb (13.0-17.5) gm/dL Hct (39.0-53.0) % Plt Count (150-450) k/uL Neutrophils # (1.3-7.7) k/uL Lymphocytes # (1.0-4.8) k/uL Monocytes # (0-1.0) k/uL ABG pH (7.35-7.45) ABG pCO2 (35-45) mmHg ABG pO2 (83-108) mmHg ABG HCO3 (21-25) mmol/L ABG Total CO2 (19-24) mmol/L ABG O2 Saturation (94-97) % ABG Hematocrit (34.0-46.0) % ABG Potassium (3.4-4.5) mmol/L ABG Ionized Calcium (4.5-5.3) mg/dL ABG Glucose (75-99) mg/dL ABG Lactic Acid (0.5-1.6) mmol/L Hemoglobin (13.0-17.5) gm/dL Potassium (3.5-5.1) mmol/L Chloride 112 H (98-107) mmol/L Glucose 108 H (74-99) mg/dL POC Glucose (mg/dL) 112 H 161 H (75-99) mg/dL Calcium 8.1 L (8.4-10.2) mg/dL Magnesium (1.6-2.3) mg/dL AST 72 H (17-59) U/L Total Protein 4.9 L (6.3-8.2) g/dL Albumin 2.9 L (3.5-5.0) g/dL Arterial Blood Potassium (3.4-4.5) mmol/L Arterial Blood Glucose (75-99) mg/dL Crossmatch 04/11/21 Range/Units 10:21 WBC (3.8-10.6) k/uL RBC (4.30-5.90) m/uL Hgb (13.0-17.5) gm/dL Hct (39.0-53.0) % Plt Count (150-450) k/uL Neutrophils # (1.3-7.7) k/uL Lymphocytes # (1.0-4.8) k/uL Monocytes # (0-1.0) k/uL ABG pH (7.35-7.45) ABG pCO2 (35-45) mmHg ABG pO2 (83-108) mmHg ABG HCO3 (21-25) mmol/L ABG Total CO2 (19-24) mmol/L ABG O2 Saturation (94-97) % ABG Hematocrit (34.0-46.0) % ABG Potassium (3.4-4.5) mmol/L ABG Ionized Calcium (4.5-5.3) mg/dL ABG Glucose (75-99) mg/dL ABG Lactic Acid (0.5-1.6) mmol/L Hemoglobin (13.0-17.5) gm/dL Potassium (3.5-5.1) mmol/L Chloride (98-107) mmol/L Glucose (74-99) mg/dL POC Glucose (mg/dL) 138 H (75-99) mg/dL Calcium (8.4-10.2) mg/dL Magnesium (1.6-2.3) mg/dL AST (17-59) U/L Total Protein (6.3-8.2) g/dL Albumin (3.5-5.0) g/dL Arterial Blood Potassium (3.4-4.5) mmol/L Arterial Blood Glucose (75-99) mg/dL Crossmatch
[2021-04-11 11:49] LABS: Glucose,Whole Blood 114 mg/dL (75-99)
[2021-04-11] MEDS: amLODIPine 2.5 MG TAB PO SCH (12:22)
[2021-04-11 13:57] LABS: Glucose,Whole Blood 183 mg/dL (75-99)
[2021-04-11] MEDS: SODIUM CHLORIDE 0.9% 1,000 ML IV SCH (16:12)
[2021-04-11 16:19] LABS: Glucose,Whole Blood 127 mg/dL (75-99)
[2021-04-11 18:12] LABS: Glucose,Whole Blood 112 mg/dL (75-99)
[2021-04-11 20:25] LABS: Glucose,Whole Blood 131 mg/dL (75-99)
[2021-04-11] MEDS: SENNOSIDES-DOCUSATE SODIUM 1 EACH TAB PO SCH (20:48)
[2021-04-11 22:00] LABS: Glucose,Whole Blood 129 mg/dL (75-99)
[2021-04-12 00:04] LABS: Glucose,Whole Blood 116 mg/dL (75-99)
[2021-04-12 02:02] LABS: Glucose,Whole Blood 105 mg/dL (75-99)
[2021-04-12 04:14] LABS: Glucose,Whole Blood 116 mg/dL (75-99)
[2021-04-12] MEDS: HYDROcodone/APAP 5-325MG 1 EACH TAB PO PRN ×3 (04:17→15:00)
[2021-04-12 04:45] LABS: Basophils % (A) 0 %; Eosinophils # (A) 0.1 k/uL (0-0.7); Eosinophils % (A) 0 %; Lymphocytes # (A) 1.1 k/uL (1.0-4.8); Lymphocytes % (A) 9 %; MCH 29.3 pg (25.0-35.0); MCHC 32.7 g/dL (31.0-37.0); MCV 89.6 fL (80.0-100.0); Mean Platelet Volume 8.1; Monocytes # (A) 0.8 k/uL (0-1.0); Monocytes % (A) 6 %; Neutrophils # (A) 10.8 k/uL (1.3-7.7); Neutrophils % (A) 81 %; Platelet Count 117 k/uL (150-450); RBC 2.23 m/uL (4.30-5.90); RDW 14.3 % (11.5-15.5); WBC 13.3 k/uL (3.8-10.6)
[2021-04-12 04:55] LABS: Ionized Calcium 4.7 mg/dL (4.5-5.3)
[2021-04-12 05:04] LABS: Albumin 2.8 g/dL (3.5-5.0); Calcium 7.9 mg/dL (8.4-10.2); Potassium 4.3 mmol/L (3.5-5.1); Total Bilirubin 0.2 mg/dL (0.2-1.3)
[2021-04-12 05:33] LABS: HGB 6.5 gm/dL (13.0-17.5)
[2021-04-12 06:34] LABS: Glucose,Whole Blood 142 mg/dL (75-99)
[2021-04-12] MEDS: PANTOPRAZOLE 40 MG TABLET PO SCH (06:44)
[2021-04-12] MEDS: LEVOTHYROXINE 137 MCG TAB PO SCH (06:44)
[2021-04-12] MEDS: BUDESONIDE 0.5 MG/2 ML NEBU INHALATION SCH ×3 (08:04→20:58)
[2021-04-12] MEDS: IPRATROPIUM-ALBUTEROL 3 ML NEB INHALATION SCH ×5 (08:04→20:58)
[2021-04-12 08:11] LABS: Glucose,Whole Blood 108 mg/dL (75-99)
--- NOTE | 2021-04-12 08:13 | P.PN ---
Subjective Progress Note Date: 04/12/21 Principal diagnosis: Triple-vessel coronary artery disease, preserved left ventricular function with EF 55%. Previous medical history of hypertension, hyperlipidemia, severe COPD with preoperative FEV1 47% of predicted, previous tobacco dependence, hypothyroidism, chronic kidney disease stage II, right lower lobe lung nodule negative on PET POD #2 triple-vessel coronary artery bypass grafting using the free left internal mammary artery with an inflow from the left radial artery to the left anterior descending artery, left radial artery from the aorta to the first obtuse marginal artery, reverse saphenous vein graft from the aorta to the right coronary artery, exclusion of the left atrial appendage using a 35 mm AtriClip, endoscopic harvesting of the left radial artery, endoscopic harvesting of the left greater saphenous vein from the groin to above the ankle, intraoperative graft flow measurements using the [place] system, intraoperative transesophageal echocardiogram and epi-aortic scanning Postoperative acute blood loss anemia and thrombocytopenia, expected given hemodilution and cardiopulmonary bypass pump The patient's currently sitting up in a recliner in the intensive care unit in no acute distress. This morning when getting up from the bed to the chair he was weak and dizzy and had a near-syncopal event. Heart rate remains in the 80s to 90s, sinus rhythm. Blood pressure marginal with systolic pressures in the 90s and mean pressure in the mid 60s. Patient states pain is controlled on current medication regimen, denies shortness of breath. His only complaint is of fatigue and tiredness. Hemoglobin 6.5 this morning, will transfuse 1 unit packed red blood cells. Remains on 2 L nasal cannula with oxygen saturation in the mid 90s. Objective - Vital Signs Vital signs: Vital Signs Temp 97.9 F 04/12/21 04:00 Pulse 87 04/12/21 07:00 Resp 11 L 04/12/21 07:00 BP 115/66 04/11/21 07:00 Pulse Ox 96 04/12/21 07:00 Intake & Output 04/11/21 04/12/21 04/12/21 18:59 06:59 18:59 Intake Total 1141 476.381 36 Output Total 850 845 0 Balance 291 -368.619 36 Weight 79.2 kg Intake: IV 501 432 36 0.9 410 360 30 cardiac output 10 pressure bag 81 72 6 Intake, IV Titration 100 44.381 Amount Insulin Regular 100 unit 0 44.381 In Sodium Chloride 0.9% 100 ml @ Per Protocol IV .Q0M [facility] Rx#:[id number] ceFAZolin 2 gm In Sodium 100 Chloride 0.9% 50 ml @ 100 mls/hr IVPB Q8HR [facility] Rx# :[id number] Oral 540 Output: Chest Tube Drainage 180 260 Chest Tube Left Pleural 50 60 Chest Tube Mediastinal 130 200 Urine 670 585 0 Other: Voiding Method Indwelling Catheter Indwelling Catheter ABP, PAP, CO, CI - Last Documented Arterial Blood Pressure 111/57 Pulmonary Artery Pressure 19/2 Cardiac Output 5.5 Cardiac Index 2.9 - Exam CONSTITUTIONAL: Appears comfortable, cooperative, no acute distress RESPIRATORY: Lungs sounds diminished bilaterally. Respirations even, nonlabored. Currently on 2 L nasal cannula with oxygen saturation 95%. Able to achieve 1000 mL on incentive spirometry. Strong cough. CARDIOVASCULAR: S1, S2 present. Regular rate and rhythm, sinus rhythm on telemetry. Sternum stable. Palpable peripheral pulses bilaterally. No edema present. No calf pain or tenderness noted. Heart hugger in place with patient demonstrating appropriate use. Antiembolism stockings, SCDs present. GASTROINTESTINAL: Abdomen soft, nontender, nondistended. Active bowel sounds present 4 quadrants. Tolerating minimal diet. Negative flatus GENITOURINARY: Huffman present draining clear, yellow urine. Output overnight 35-50 mL per hour INTEGUMENTARY: Skin is warm and dry with evidence of good perfusion. Anterior chest incision well approximated and covered with dry intact dressing. Left lower extremity EVH site well approximated without redness or drainage. Left radial artery harvest site well approximated without redness or drainage, patient able to wiggle all fingers and block hand appropriately, good cap refill NEUROLOGIC: Cranial nerves II through XII intact MUSKULOSKELETAL: Able to move all extremities, strength equal bilaterally, gait normal PSYCHIATRIC: Alert and oriented to person place and time, appropriate affect, intact judgment and insight INVASIVE LINES AND TUBES: Mediastinal/left pleural chest tubes present and connected to wall suction, no air leaks present. Mediastinal tube with 60 mL serosanguineous drainage overnight, 300 mL in the last 24 hours. Left pleural chest tube with 10 mL serosanguineous drainage overnight, 100 mL in the last 24 hours. A/V epicardial pacemaker wires present, grounded. Right internal jugular Cordis, right radial arterial line present. - Allied health notes Allied health notes reviewed: nursing - Labs CBC & Chem 7: 04/12/21 04:13 04/12/21 04:13 Labs: Abnormal Lab Results - Last 24 Hours (Table) 04/11/21 04/11/21 04/11/21 Range/Units 08:10 10:21 11:46 WBC (3.8-10.6) k/uL RBC (4.30-5.90) m/uL Hgb (13.0-17.5) gm/dL Hct (39.0-53.0) % Plt Count (150-450) k/uL Neutrophils # (1.3-7.7) k/uL Chloride (98-107) mmol/L Glucose (74-99) mg/dL POC Glucose (mg/dL) 161 H 138 H 114 H (75-99) mg/dL Calcium (8.4-10.2) mg/dL AST (17-59) U/L Total Protein (6.3-8.2) g/dL Albumin (3.5-5.0) g/dL 04/11/21 04/11/21 04/11/21 Range/Units 13:55 16:18 18:10 WBC (3.8-10.6) k/uL RBC (4.30-5.90) m/uL Hgb (13.0-17.5) gm/dL Hct (39.0-53.0) % Plt Count (150-450) k/uL Neutrophils # (1.3-7.7) k/uL Chloride (98-107) mmol/L Glucose (74-99) mg/dL POC Glucose (mg/dL) 183 H 127 H 112 H (75-99) mg/dL Calcium (8.4-10.2) mg/dL AST (17-59) U/L Total Protein (6.3-8.2) g/dL Albumin (3.5-5.0) g/dL 04/11/21 04/11/21 04/12/21 Range/Units 20:23 21:58 00:03 WBC (3.8-10.6) k/uL RBC (4.30-5.90) m/uL Hgb (13.0-17.5) gm/dL Hct (39.0-53.0) % Plt Count (150-450) k/uL Neutrophils # (1.3-7.7) k/uL Chloride (98-107) mmol/L Glucose (74-99) mg/dL POC Glucose (mg/dL) 131 H 129 H 116 H (75-99) mg/dL Calcium (8.4-10.2) mg/dL AST (17-59) U/L Total Protein (6.3-8.2) g/dL Albumin (3.5-5.0) g/dL 04/12/21 04/12/21 04/12/21 Range/Units 02:00 04:13 04:13 WBC 13.3 H (3.8-10.6) k/uL RBC 2.23 L (4.30-5.90) m/uL Hgb 6.5 L* (13.0-17.5) gm/dL Hct 20.0 L (39.0-53.0) % Plt Count 117 L (150-450) k/uL Neutrophils # 10.8 H (1.3-7.7) k/uL Chloride 108 H (98-107) mmol/L Glucose 103 H (74-99) mg/dL POC Glucose (mg/dL) 105 H (75-99) mg/dL Calcium 7.9 L (8.4-10.2) mg/dL AST 64 H (17-59) U/L Total Protein 5.0 L (6.3-8.2) g/dL Albumin 2.8 L (3.5-5.0) g/dL 04/12/21 04/12/21 Range/Units 04:13 06:31 WBC (3.8-10.6) k/uL RBC (4.30-5.90) m/uL Hgb (13.0-17.5) gm/dL Hct (39.0-53.0) % Plt Count (150-450) k/uL Neutrophils # (1.3-7.7) k/uL Chloride (98-107) mmol/L Glucose (74-99) mg/dL POC Glucose (mg/dL) 116 H 142 H (75-99) mg/dL Calcium (8.4-10.2) mg/dL AST (17-59) U/L Total Protein (6.3-8.2) g/dL Albumin (3.5-5.0) g/dL - Imaging and Cardiology Chest x-ray: image reviewed Assessment and Plan Assessment: 1. Triple-vessel coronary artery disease, status post three-vessel CABG 2. Preserved left ventricular function with EF 55% 3. History of hypertension 4. Hyperlipidemia 5. Severe COPD with preoperative FEV1 47% of predicted 6. Previous tobacco dependence 7. Hypothyroidism 8. Chronic kidney disease stage II 9. Right lower lobe lung nodule negative on PET 10. Postoperative acute blood loss anemia and thrombocytopenia, expected given hemodilution and cardiopulmonary bypass pump Plan: 1. Continue aspirin, Plavix, statin, beta karley. Will increase beta karley therapy as tolerated. 2. Continue low-dose Norvasc for radial artery spasm. Do not discontinue without discussing with cardiothoracic surgery 3. Wean O2 as tolerated. Encourage incentive spirometry use 10 times every hour while awake. Bronchodilators per pulmonology 3. Increase activity, ambulate as tolerated. PT/OT/cardiac rehab consulted. 4. Will monitor daily labs and chest x-rays. Electrolyte replacement per protocol. Will transfuse 1 unit packed red blood cells today 5. GI/DVT prophylaxis 6. Insulin management per primary care service. Patient is not diabetic, preoperative hemoglobin A1c 6.3%. 7. Pain control with current medication regimen. No Toradol due to history of CKD 8. Likely will discontinue mediastinal chest tube, continue left pleural chest tube for another 24 hours 9. Discontinue Huffman catheter. May bladder scan and straight cath for greater than 300 mL residual 10. Strict accurate intake and output. Daily weights 11. More recommendations to follow based on patient's progress Time with Patient: Greater than 30
--- NOTE | 2021-04-12 08:43 | XR ---
EXAMINATION TYPE: XR chest 1V portable DATE OF EXAM: 04/12/2021 COMPARISON: Chest x-ray 04/11/2021 HISTORY: Postop cardiac surgery, chest tube TECHNIQUE: Single frontal view of the chest is obtained. FINDINGS: Right jugular central venous catheter has been removed, suspect a sheath remains in place. Patient is post median sternotomy. Median sternal drains, left chest tube remain in place. There are overlying artifacts. No evident pneumothorax or pleural effusion. Patchy basilar density persists. C ardiac mediastinal silhouette is stable. Interstitium thought to be improved. IMPRESSION: Basilar atelectasis. There may be some improvement in patient's volume status, aeration.
[2021-04-12] MEDS: ASPIRIN 325 MG TAB PO SCH (08:47)
[2021-04-12] MEDS: ATORVASTATIN 40 MG TAB PO SCH (08:47)
[2021-04-12] MEDS: amLODIPine 2.5 MG TAB PO SCH (08:47)
[2021-04-12] MEDS: METOPROLOL TARTRATE 12.5 MG TAB PO SCH ×2 (08:47→21:02)
[2021-04-12] MEDS: CLOPIDOGREL 75 MG TAB PO SCH (08:47)
[2021-04-12] MEDS: HEPARIN SODIUM,PORCINE/PF 5,000 UNIT/0.5 ML SYRINGE SQ SCH ×2 (08:47→15:00)
[2021-04-12 09:56] LABS: Glucose,Whole Blood 66 mg/dL (75-99)
--- NOTE | 2021-04-12 10:15 | P.PN ---
Subjective Progress Note Date: 04/12/21 This is a 65-year-old white male patient with past medical history of hypertension, hyperlipidemia, history of smoking and hypothyroidism had been complaining of worsening dyspnea on exertion for the last 7 months. Patient had a pulmonary workup which showed FEV1 of 1.41 L or 47% of predicted, consistent with severe obstruction, outpatient computed tomography scan did not nodule however of follow-up PET scan was subsequently negative as reported by his stepdaughter. Patient had cardiac workup that included a stress test which showed evidence of anteroseptal wall ischemia. Cardiac catheterization on 03/03/2021 at the [facility] showed three-vessel coronary artery disease with mid RCA, long proximal LAD in the proximal OM1 significant stenosis. Ejection fraction was 55% by echocardiogram with mild inferior hypokinesia. Patient was referred to cardiothoracic surgery for surgical intervention and on 04/10/2021 patient underwent triple-vessel coronary artery bypass grafting with free CARCAMO to the LAD, left radial artery to the first up to his marginal, reverse SVG to the RCA, exclusion of the left atrial appendage using not 35mm Atriclip, and endoscopic harvesting of the left radial artery and left greater saphenous vein. We are seeing the patient today on the first posto perative day, patient has been successfully weaned and extubated from mechanical ventilator on 04/10/2021, to BiPAP support with pressure of 16/6 and FiO2 of 50%. Currently patient is on 2 L of oxygen, with a pulse ox of 96%, he is awake and alert, he is up in the recliner. Reports mild incisional discomfort, but no acute distress. Hemodynamically patient is stable, he is currently on 0.9 kellen l saline there is a 50 ML per hour, nitroglycerin is a 5 mics per kilo per minute, and insulin infusion is at 2 units per hour. In sinus mechanism with a rate of 76 BPM, blood pressure is 110/49, PA pressures 23/7, CVP is 8, cardiac output is 5.5 and cardiac index is 2.9. Mediastinal chest tubes in place with a total of 400 mL of serosanguineous output in the last 24 hours, and left pleural chest tube with 300 mL of serosanguineous output, no evidence of air leak. Incisions are dry and intact. Incentive spirometry effort is 500-750 this morning. Today's chest x-ray shows bilateral infiltrates and small pleural effusions, evidence of sizable pneumothorax. On 04/12/2021 patient seen in follow-up in the intensive care unit, today is postoperative day #2, status post three-vessel coronary artery bypass grafting. Patient is doing well, he is awake and alert, he sitting up in a recliner, currently on 2 L of oxygen pulse ox is 96%, hemodynamically stable, not on any vasopressor support, his on 0.9 normal saline at a rate of 20 ML per hour, he is receiving a transfusion with 1 unit of packed red blood cells for hemoglobin of 6.5 this morning, with a controlled rate, blood pressure is 115/60, he is afebrile, no worsening dyspnea, he is achieving 1000 ML on his incentive spirometer, lung sounds are diminished, no rhonchi or wheezing, no cough, today's chest x-ray shows basilar atelectasis, and there has been some improvement in patient's volume status and aeration. His labs have been reviewed, white blood cell count is 13.3, his hemoglobin as mentioned above is 6.5. Platelet Count is 117, lites and renal profile are unremarkable. No nausea or vomiting, patient is tolerating oral intake. Incisions are clean dry and intact, patient still has his 2 mediastinal and left pleural chest tube in place and there has been 330 ML of thin serosanguineous output from the mediasti nal chest tube, and left pleural chest tube is 110 mL 24 hours, urinary catheter output is in the order of 50 ML per hour. Objective - Vital Signs Vital signs: Vital Signs Temp 98.4 F 04/12/21 09:38 Pulse 90 04/12/21 09:38 Resp 18 04/12/21 09:38 BP 104/64 04/12/21 09:38 Pulse Ox 95 04/12/21 09:38 Intake & Output 04/11/21 04/12/21 04/12/21 18:59 06:59 18:59 Intake Total 1141 476.381 108 Output Total 850 845 60 Balance 291 -368.619 48 Weight 79.2 kg Intake: IV 501 432 108 0.9 410 360 90 cardiac output 10 pressure bag 81 72 18 Intake, IV Titration 100 44.381 Amount Insulin Regular 100 unit 0 44.381 In Sodium Chloride 0.9% 100 ml @ Per Protocol IV .Q0M [facility] Rx#:[id number] ceFAZolin 2 gm In Sodium 100 Chloride 0.9% 50 ml @ 100 mls/hr IVPB Q8HR [facility] Rx# :[id number] Oral 540 Blood Product 0 Rc As-1 Unit 0 [id number] Output: Chest Tube Drainage 180 260 60 Chest Tube Left Pleural 50 60 Chest Tube Mediastinal 130 200 60 Urine 670 585 0 Other: Voiding Method Indwelling Catheter Indwelling Catheter Urinal ABP, PAP, CO, CI - Last Documented Arterial Blood Pressure 115/60 Pulmonary Artery Pressure 19/2 Cardiac Output 5.5 Cardiac Index 2.9 - Exam GENERAL EXAM: Alert, a pleasant, 65-year-old white male, on 2 L of oxygen with a pulse ox of 97%, sitting up in the recliner comfortable in no apparent distress. HEAD: Normocephalic/atraumatic. EYES: Normal reaction of pupils, equal size. Conjunctiva pink, sclera white. NOSE: Clear with pink turbinates. THROAT: No erythema or exudates. NECK: No masses, no JVD, no thyroid enlargement, no adenopathy. CHEST: No chest wall deformity. Symmetrical expansion. Midsternal incision is clean dry and intact, covered with a surgical dressing, 2 mediastinal and left pleural chest tube in place, with small to moderate amount of serosanguineous output in the [place], no evidence of air leak noted, chest tubes are connected to wall suction. Epicardial wires in place, currently not connected to external pacemaker, intrinsic rhythm is sinus with a rate of 76 BPM LUNGS: Equal air entry with no crackles, wheeze, rhonchi or dullness. CVS: Regular rate and rhythm, normal S1 and S2, no gallops, no murmurs, no rubs ABDOMEN: Soft, nontender. No hepatosplenomegaly, normal bowel sounds, no guarding or rigidity. EXTREMITIES: No clubbing, no edema, no cyanosis, 2+ pulses and upper and lower extremities. Left leg interrupted incision is clean dry and intact, mild bruising MUSCULOSKELETAL: Muscle strength and tone normal. SPINE: No scoliosis or deformity SKIN: No rashes CENTRAL NERVOUS SYSTEM: Alert and oriented -3. No focal deficits, tone is normal in all 4 extremities. PSYCHIATRIC: Alert and oriented -3. Appropriate affect. Intact judgment and insight. - Labs CBC & Chem 7: 04/12/21 04:13 04/12/21 04:13 Labs: Abnormal Lab Results - Last 24 Hours (Table) 03/30/21 04/11/21 04/11/21 Range/Units 13:00 10:21 11:46 WBC (3.8-10.6) k/uL RBC (4.30-5.90) m/uL Hgb (13.0-17.5) gm/dL Hct (39.0-53.0) % Plt Count (150-450) k/uL Neutrophils # (1.3-7.7) k/uL Chloride (98-107) mmol/L Glucose (74-99) mg/dL POC Glucose (mg/dL) 138 H 114 H (75-99) mg/dL Calcium (8.4-10.2) mg/dL AST (17-59) U/L Total Protein (6.3-8.2) g/dL Albumin (3.5-5.0) g/dL Crossmatch See Detail 04/11/21 04/11/21 04/11/21 Range/Units 13:55 16:18 18:10 WBC (3.8-10.6) k/uL RBC (4.30-5.90) m/uL Hgb (13.0-17.5) gm/dL Hct (39.0-53.0) % Plt Count (150-450) k/uL Neutrophils # (1.3-7.7) k/uL Chloride (98-107) mmol/L Glucose (74-99) mg/dL POC Glucose (mg/dL) 183 H 127 H 112 H (75-99) mg/dL Calcium (8.4-10.2) mg/dL AST (17-59) U/L Total Protein (6.3-8.2) g/dL Albumin (3.5-5.0) g/dL Crossmatch 04/11/21 04/11/21 04/12/21 Range/Units 20:23 21:58 00:03 WBC (3.8-10.6) k/uL RBC (4.30-5.90) m/uL Hgb (13.0-17.5) gm/dL Hct (39.0-53.0) % Plt Count (150-450) k/uL Neutrophils # (1.3-7.7) k/uL Chloride (98-107) mmol/L Glucose (74-99) mg/dL POC Glucose (mg/dL) 131 H 129 H 116 H (75-99) mg/dL Calcium (8.4-10.2) mg/dL AST (17-59) U/L Total Protein (6.3-8.2) g/dL Albumin (3.5-5.0) g/dL Crossmatch 04/12/21 04/12/21 04/12/21 Range/Units 02:00 04:13 04:13 WBC 13.3 H (3.8-10.6) k/uL RBC 2.23 L (4.30-5.90) m/uL Hgb 6.5 L* (13.0-17.5) gm/dL Hct 20.0 L (39.0-53.0) % Plt Count 117 L (150-450) k/uL Neutrophils # 10.8 H (1.3-7.7) k/uL Chloride 108 H (98-107) mmol/L Glucose 103 H (74-99) mg/dL POC Glucose (mg/dL) 105 H (75-99) mg/dL Calcium 7.9 L (8.4-10.2) mg/dL AST 64 H (17-59) U/L Total Protein 5.0 L (6.3-8.2) g/dL Albumin 2.8 L (3.5-5.0) g/dL Crossmatch 04/12/21 04/12/21 04/12/21 Range/Units 04:13 06:31 08:10 WBC (3.8-10.6) k/uL RBC (4.30-5.90) m/uL Hgb (13.0-17.5) gm/dL Hct (39.0-53.0) % Plt Count (150-450) k/uL Neutrophils # (1.3-7.7) k/uL Chloride (98-107) mmol/L Glucose (74-99) mg/dL POC Glucose (mg/dL) 116 H 142 H 108 H (75-99) mg/dL Calcium (8.4-10.2) mg/dL AST (17-59) U/L Total Protein (6.3-8.2) g/dL Albumin (3.5-5.0) g/dL Crossmatch 04/12/21 Range/Units 09:55 WBC (3.8-10.6) k/uL RBC (4.30-5.90) m/uL Hgb (13.0-17.5) gm/dL Hct (39.0-53.0) % Plt Count (150-450) k/uL Neutrophils # (1.3-7.7) k/uL Chloride (98-107) mmol/L Glucose (74-99) mg/dL POC Glucose (mg/dL) 66 L (75-99) mg/dL Calcium (8.4-10.2) mg/dL AST (17-59) U/L Total Protein (6.3-8.2) g/dL Albumin (3.5-5.0) g/dL Crossmatch Assessment and Plan Plan: Assessment: #1. Coronary artery disease status post triple coronary artery bypass grafting using the free CARCAMO to the LAD, left radial artery graft to the first obtuse marginal, reverse SVG to the RCA, exclusion of the left atrial appendage using a 35 mm ATriClip, endoscopic harvesting of the left radial artery, and left greater saphenous vein was 04/10/2021, postoperative day #2 #2. Routine postoperative ventilator management, and patient was successfully weaned and extubated on post-op day #0 to BiPAP, currently on 2 L of oxygen #3. Postoperative blood loss anemia, expected outcome of sternotomy and bypass grafting surgery #4. COPD, with preop FEV1 of 47% of predicted consistent with stage III COPD not oxygen dependent at baseline #5. 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 Pulmonary nodule seen on a computed tomography scan of the chest on outpat ient basis, PET scan did not show uptake at the site of the nodule #7. Hypertension #8. Hyperlipidemia #9. Hypothyroidism Plan: Encourage deep breathing and coughing Encourage incentive spirometer use Continue pain control Close hemodynamic monitoring pt is being transfused with 1 unit of PRBC for a HGB of 6.5 GI/DVT prophylaxis per CT surgery Daily labs and chest x-ray Continue to closely follow in the intensive care unit along with CT surgery I performed a history & physical examination of the patient and discussed their management with my nurse practitioner, Robyn Aguayo. I reviewed the nurse practitioner's note and agree with the documented findings and plan of care. Lung sounds are positive for clear breath sounds throughout the lung hawkins. The findings and the impression was discussed with the patient. I attest to the documentation by the nurse practitioner. Time with Patient: Less than 30
[2021-04-12 10:19] LABS: Glucose,Whole Blood 108 mg/dL (75-99)
--- NOTE | 2021-04-12 10:56 | P.PN ---
Subjective HISTORY OF PRESENTING ILLNESS This is a pleasant 65-year-old male past medical history significant for coronary artery disease, hypertension and COPD. He follows in the office with Dr. Velazquez. He underwent three-vessel bypass grafting yesterday with free CARCAMO with an inflow from the left radial artery to the LAD, left radial artery from the aorta to the first OM and reverse SVG from the aorta to the RCA as well as exclusion of left atrial appendage. He is seen and examined sitting up in the recliner. He is complaining of feeling very sore and tired. He denies any significant symptoms of shortness of breath. He is complaining of pain at the incision site. He is maintaining oxygen saturation on nasal cannula and achieving 1000 mls on IS. He has a right IJ Cordis in place showing a cardiac output of 4.1 with a cardiac index of 2.2 and a CVP of 7. Chest tubes in place. Chest x-ray this morning reveals bilateral infiltrates and small effusions. Laboratory data reviewed, WBC 14, hemoglobin 7.4, platelets 121, sodium 143, p otassium 4.2, creatinine 1.23, magnesium 2.2. Preoperative echocardiogram revealed preserved LV systolic function with ejection fraction 55%, normal diastolic function, borderline LVH, ascending aorta is enlarged, mild MR, mild TR and normal RVSP. 04/12/2021 Pt seen and examined sitting up in recliner in no acute distress. He is currently receiving a transfusion of PRBCs. He states overall he feels tired and weak. He has some pain at the site of the incision with breathing and movement but no symptoms of exertional or anginal chest pain. Breathing is stable. This morning when he was getting up to the chair he felt light headed. Blood pressure in the low 90's systolic. Heart rate on telemetry stable in the 80s and sinus. His symptoms resolved when he sat down. Laboratory data reviewed, WBC 13.3, hemoglobin 6.5, platelets 117, sodium 137, potassium 4.3, creatinine 1.13. 24- hr urine output 1695ml and maintaining a negative fluid balance. Chest xray today revealed basilar atelectasis with overall improvement in volume status. PHYSICAL EXAMINATION CONSTITUTIONAL: No apparent distress. HEENT: Head is normocephalic. Pupils are equal, round. Sclerae anicteric. Mucous membranes of the mouth are moist. No JVD. No carotid bruit. Right IJ cordis in place. CHEST EXAMINATION: Lungs are clear to auscultation. Mid sternal chest wall tenderness is noted at site of incision. Mediastinal and left chest tubes in place. HEART EXAMINATION: Regular rate and rhythm. S1, S2 heard. No murmurs, gallops or rub. Heart hugger in place. EXTREMITIES: 2+ peripheral pulses, no lower extremity edema and no calf tenderness. Right radial art line in place. ASSESSMENT Triple vessel coronary artery disease s/p bypass grafting, POD#2 Near syncope secondary to anemia Anemia Hypertension Dyslipidemia COPD Former nicotine dependence PLAN Continue dual anti-platelet therapy with stain and beta blockers. He has normal LV systolic function pre-operatively. Encourage incentive spirometer use. Increase activity as tolerated. Blood transfusion in progress. We will continue to follow and provide supportive care, primary management per CT surgery. Nurse Practitioner note has been reviewed, I agree with a documented findings and plan of care. Patient was seen and examined. Objective - Vital Signs Vital signs: Vital Signs Temp 98.4 F 04/12/21 09:38 Pulse 90 04/12/21 09:38 Resp 18 04/12/21 09:38 BP 104/64 04/12/21 09:38 Pulse Ox 95 04/12/21 09:38 Intake & Output 04/11/21 04/12/21 04/12/21 18:59 06:59 18:59 Intake Total 1141 476.381 108 Output Total 850 845 60 Balance 291 -368.619 48 Weight 79.2 kg Intake: IV 501 432 108 0.9 410 360 90 cardiac output 10 pressure bag 81 72 18 Intake, IV Titration 100 44.381 Amount Insulin Regular 100 unit 0 44.381 In Sodium Chloride 0.9% 100 ml @ Per Protocol IV .Q0M MELVA Rx#:[id number] ceFAZolin 2 gm In Sodium 100 Chloride 0.9% 50 ml @ 100 mls/hr IVPB Q8HR [facility] Rx# :[id number] Oral 540 Blood Product 0 Rc As-1 Unit 0 [id number] Output: Chest Tube Drainage 180 260 60 Chest Tube Left Pleural 50 60 Chest Tube Mediastinal 130 200 60 Urine 670 585 0 Other: Voiding Method Indwelling Catheter Indwelling Catheter Urinal ABP, PAP, CO, CI - Last Documented Arterial Blood Pressure 115/60 Pulmonary Artery Pressure 19/2 Cardiac Output 5.5 Cardiac Index 2.9 - Labs CBC & Chem 7: 04/12/21 04:13 04/12/21 04:13 Labs: Abnormal Lab Results - Last 24 Hours (Table) 03/30/21 04/11/21 04/11/21 Range/Units 13:00 11:46 13:55 WBC (3.8-10.6) k/uL RBC (4.30-5.90) m/uL Hgb (13.0-17.5) gm/dL Hct (39.0-53.0) % Plt Count (150-450) k/uL Neutrophils # (1.3-7.7) k/uL Chloride (98-107) mmol/L Glucose (74-99) mg/dL POC Glucose (mg/dL) 114 H 183 H (75-99) mg/dL Calcium (8.4-10.2) mg/dL AST (17-59) U/L Total Protein (6.3-8.2) g/dL Albumin (3.5-5.0) g/dL Crossmatch See Detail 04/11/21 04/11/21 04/11/21 Range/Units 16:18 18:10 20:23 WBC (3.8-10.6) k/uL RBC (4.30-5.90) m/uL Hgb (13.0-17.5) gm/dL Hct (39.0-53.0) % Plt Count (150-450) k/uL Neutrophils # (1.3-7.7) k/uL Chloride (98-107) mmol/L Glucose (74-99) mg/dL POC Glucose (mg/dL) 127 H 112 H 131 H (75-99) mg/dL Calcium (8.4-10.2) mg/dL AST (17-59) U/L Total Protein (6.3-8.2) g/dL Albumin (3.5-5.0) g/dL Crossmatch 04/11/21 04/12/21 04/12/21 Range/Units 21:58 00:03 02:00 WBC (3.8-10.6) k/uL RBC (4.30-5.90) m/uL Hgb (13.0-17.5) gm/dL Hct (39.0-53.0) % Plt Count (150-450) k/uL Neutrophils # (1.3-7.7) k/uL Chloride (98-107) mmol/L Glucose (74-99) mg/dL POC Glucose (mg/dL) 129 H 116 H 105 H (75-99) mg/dL Calcium (8.4-10.2) mg/dL AST (17-59) U/L Total Protein (6.3-8.2) g/dL Albumin (3.5-5.0) g/dL Crossmatch 04/12/21 04/12/21 04/12/21 Range/Units 04:13 04:13 04:13 WBC 13.3 H (3.8-10.6) k/uL RBC 2.23 L (4.30-5.90) m/uL Hgb 6.5 L* (13.0-17.5) gm/dL Hct 20.0 L (39.0-53.0) % Plt Count 117 L (150-450) k/uL Neutrophils # 10.8 H (1.3-7.7) k/uL Chloride 108 H (98-107) mmol/L Glucose 103 H (74-99) mg/dL POC Glucose (mg/dL) 116 H (75-99) mg/dL Calcium 7.9 L (8.4-10.2) mg/dL AST 64 H (17-59) U/L Total Protein 5.0 L (6.3-8.2) g/dL Albumin 2.8 L (3.5-5.0) g/dL Crossmatch 04/12/21 04/12/21 04/12/21 Range/Units 06:31 08:10 09:55 WBC (3.8-10.6) k/uL RBC (4.30-5.90) m/uL Hgb (13.0-17.5) gm/dL Hct (39.0-53.0) % Plt Count (150-450) k/uL Neutrophils # (1.3-7.7) k/uL Chloride (98-107) mmol/L Glucose (74-99) mg/dL POC Glucose (mg/dL) 142 H 108 H 66 L (75-99) mg/dL Calcium (8.4-10.2) mg/dL AST (17-59) U/L Total Protein (6.3-8.2) g/dL Albumin (3.5-5.0) g/dL Crossmatch 04/12/21 Range/Units 10:17 WBC (3.8-10.6) k/uL RBC (4.30-5.90) m/uL Hgb (13.0-17.5) gm/dL Hct (39.0-53.0) % Plt Count (150-450) k/uL Neutrophils # (1.3-7.7) k/uL Chloride (98-107) mmol/L Glucose (74-99) mg/dL POC Glucose (mg/dL) 108 H (75-99) mg/dL Calcium (8.4-10.2) mg/dL AST (17-59) U/L Total Protein (6.3-8.2) g/dL Albumin (3.5-5.0) g/dL Crossmatch
[2021-04-12] MEDS ORDERED: SODIUM FERRIC GLUCONAT-SUCROSE 125 MG in SODIUM CHLORIDE 0.9% 100 ML IVPB ONE (11:00)
[2021-04-12 11:16] LABS: Glucose,Whole Blood 103 mg/dL (75-99)
--- NOTE | 2021-04-12 12:46 | P.PN ---
Subjective Progress Note Date: 04/12/21 HISTORY OF PRESENT ILLNESS This is a 65-year-old male patient of Dr. Pandya past medical history of coronary artery disease, hypertension, hyperlipidemia, COPD, hypothyroidism, seasonal ALLERGIES, remote history of tobacco use. Yesterday, patient underwent three-vessel CABG free CARCAMO with an inflow from the left radial artery to the LAD, left radial artery from the aorta to the first OM and reverse SVG from the aorta to the RCA as well as exclusion of left atrial appendage. Patient is seen today in intensive care unit. He has been successfully extubated. He states that he is feeling okay. No significant chest pain. He does have surgical site pain. He has been afebrile, heart rate 72, blood pressure 106/53, pulse ox 98% on 2 L nasal cannula. Repeat blood work reveals WBC 14, hemoglobin 7.4, platelet count 121. Sodium 143, potassium 4.2, chloride 112, CO2 24, BUN 19 and creatinine 1.23. Blood sugars are running between 108 and 161. Patient does not have history of diabetes. He is on insulin drip. Magnesium 2.2. AST 72. Chest x-ray this morning reveals bilateral infiltrate and small effusion. Patient has right IJ Cordis in place, left pleural chest tube and mediastinal chest tube and Huffman catheter in place. 04/12: Hemoglobin this morning is 6.5 and he is receiving 1 unit of packed RBCs. One dose of Ferrlecit infusion ordered and oral ferrous sulfate ordered. Patient is complaining that he is not sleeping well and melatonin added. Insulin drip will be discontinued and patient transitioned to NovoLog scale before meals and at bedtime. He has been afebrile, heart rate 90, blood pressure 104/64, pulse ox 95% on 2 L nasal cannula. Capillary blood glucose running between 66 and 142. WBC 13.3, platelet count 117. Creatinine 1.13. AST 64. Repeat chest x-ray reveals basilar atelectasis. Some improvement in patient's volume status. Huffman catheter has been removed. REVIEW OF SYSTEMS Constitutional: No fever, no chills, no night sweats. No weight change. No weakness, reports fatigue no lethargy. No daytime sleepiness. EENT: No headache. No blurred vision or double vision, no loss of vision. No loss of Hearing, no ringing in the ears, no dizziness. No nasal drainage or congestion. No epistaxis. No sore throat. Lungs: No shortness of breath, cough, no sputum production. No wheezing. Cardiovascular: Reports expected chest pain, no lower extremity edema. No palpitations. No paroxysmal nocturnal dyspnea. No orthopnea. No lightheadedness or dizziness. No syncopal episodes. Abdominal: No abdominal pain. No nausea, vomiting. No diarrhea. No constipation. No bloody or tarry stools reports decreased of appetite. Genitourinary: No dysuria, increased frequency, urgency. No urinary retention. Musculoskeletal: No myalgias. Reports generalized muscle weakness, no gait dysfunction, no frequent falls. No back pain. No neck pain. Integumentary: No wounds, no lesions. No rash or pruritus. No unusual bruising. No change in hair or nails. Neurologic: No aphasia. No facial droop. No change in mentation. No head injury. No headache. No paralysis. No paresthesia. Psychiatric: No depression. No anxiety. No mood swings. Reports insomnia. Endocrine: No abnormal blood sugars. No weight change. No excessive sweating or thirst. No cold intolerance. PHYSICAL EXAMINATION Gen: This is a 65-year-old male patient. He is sitting in recliner and appears to be comfortable. HEENT: Head is atraumatic, normocephalic. Pupils equal, round. Sclerae is anicteric. Conjunctiva pale. Mucous membranes of the mouth are slightly dry. NECK: Supple. No JVD. No lymphadenopathy. No thyromegaly. Right-sided Cordis in place LUNGS: Clear to auscultation. No wheezes or rhonchi. No intercostal retractions. HEART: Regular rate and rhythm. No murmur. Left chest tube and mediastinal tube in place. ABDOMEN: Soft. Bowel sounds are present. No masses. No tenderness. EXTREMITIES: No pedal edema. No calf tenderness.Dorsalis pedis +2 bilaterally. NEUROLOGICAL: Patient is awake, alert and oriented x3. Cranial nerves 2 through 12 are grossly intact. ASSESSMENT AND PLAN 1. Coronary artery disease status post triple CABG, postoperative day #2. Continue current management per cardio thoracic surgery.Continue aspirin 325 mg daily, Lipitor 40 mg daily, Plavix 75 mg daily, Lopressor 12.5 mg twice daily. Patient is currently on insulin drip is no history of diabetes. 2. Hypertension. Continue amlodipine 2.5 mg daily, Lopressor, hydralazine as needed. 3. Hyperlipidemia. Continue atorvastatin. 4. COPD. Continue Pulmicort 0.5 mg twice daily, DuoNeb treatments 4 times daily. 5. Hypothyroidism. Continue levothyroxine 137 g daily. 6. Seasonal ALLERGIES, stable. 7. History of tobacco use and dependence. 8. Postoperative acute blood loss anemia, expected following surgery. Patient is receiving 1 unit of packed RBCs, Ferrlecit 1 dose ordered as well as iron 325 mg oral daily. 9. Postop thrombocytopenia, expected following surgery. Continue to monitor. 10. GI prophylaxis. Protonix 40 mg daily. 11. DVT prophylaxis. Heparin 5000 units subcu every 8 hours. DISCHARGE PLAN Most likely home with homecare. Impression and plan of care have been directed as dictated by the signing physician. Юлия Morrison nurse practitioner acting as scribe for signing physician. Objective - Vital Signs Vital signs: Vital Signs Temp 98.4 F 04/12/21 09:38 Pulse 90 04/12/21 09:38 Resp 18 04/12/21 09:38 BP 104/64 04/12/21 09:38 Pulse Ox 95 04/12/21 09:38 Intake & Output 04/11/21 04/12/21 04/12/21 18:59 06:59 18:59 Intake Total 1141 476.381 108 Output Total 850 845 60 Balance 291 -368.619 48 Weight 79.2 kg Intake: IV 501 432 108 0.9 410 360 90 cardiac output 10 pressure bag 81 72 18 Intake, IV Titration 100 44.381 Amount Insulin Regular 100 unit 0 44.381 In Sodium Chloride 0.9% 100 ml @ Per Protocol IV .Q0M [facility] Rx#:[id number] ceFAZolin 2 gm In Sodium 100 Chloride 0.9% 50 ml @ 100 mls/hr IVPB Q8HR [facility] Rx# :[id number] Oral 540 Blood Product 0 Rc As-1 Unit 0 [id number] Output: Chest Tube Drainage 180 260 60 Chest Tube Left Pleural 50 60 Chest Tube Mediastinal 130 200 60 Urine 670 585 0 Other: Voiding Method Indwelling Catheter Indwelling Catheter Urinal ABP, PAP, CO, CI - Last Documented Arterial Blood Pressure 115/60 Pulmonary Artery Pressure 19/2 Cardiac Output 5.5 Cardiac Index 2.9 - Labs CBC & Chem 7: 04/12/21 04:13 04/12/21 04:13 Labs: Abnormal Lab Results - Last 24 Hours (Table) 03/30/21 04/11/21 04/11/21 Range/Units 13:00 10:21 11:46 WBC (3.8-10.6) k/uL RBC (4.30-5.90) m/uL Hgb (13.0-17.5) gm/dL Hct (39.0-53.0) % Plt Count (150-450) k/uL Neutrophils # (1.3-7.7) k/uL Chloride (98-107) mmol/L Glucose (74-99) mg/dL POC Glucose (mg/dL) 138 H 114 H (75-99) mg/dL Calcium (8.4-10.2) mg/dL AST (17-59) U/L Total Protein (6.3-8.2) g/dL Albumin (3.5-5.0) g/dL Crossmatch See Detail 04/11/21 04/11/21 04/11/21 Range/Units 13:55 16:18 18:10 WBC (3.8-10.6) k/uL RBC (4.30-5.90) m/uL Hgb (13.0-17.5) gm/dL Hct (39.0-53.0) % Plt Count (150-450) k/uL Neutrophils # (1.3-7.7) k/uL Chloride (98-107) mmol/L Glucose (74-99) mg/dL POC Glucose (mg/dL) 183 H 127 H 112 H (75-99) mg/dL Calcium (8.4-10.2) mg/dL AST (17-59) U/L Total Protein (6.3-8.2) g/dL Albumin (3.5-5.0) g/dL Crossmatch 04/11/21 04/11/21 04/12/21 Range/Units 20:23 21:58 00:03 WBC (3.8-10.6) k/uL RBC (4.30-5.90) m/uL Hgb (13.0-17.5) gm/dL Hct (39.0-53.0) % Plt Count (150-450) k/uL Neutrophils # (1.3-7.7) k/uL Chloride (98-107) mmol/L Glucose (74-99) mg/dL POC Glucose (mg/dL) 131 H 129 H 116 H (75-99) mg/dL Calcium (8.4-10.2) mg/dL AST (17-59) U/L Total Protein (6.3-8.2) g/dL Albumin (3.5-5.0) g/dL Crossmatch 04/12/21 04/12/21 04/12/21 Range/Units 02:00 04:13 04:13 WBC 13.3 H (3.8-10.6) k/uL RBC 2.23 L (4.30-5.90) m/uL Hgb 6.5 L* (13.0-17.5) gm/dL Hct 20.0 L (39.0-53.0) % Plt Count 117 L (150-450) k/uL Neutrophils # 10.8 H (1.3-7.7) k/uL Chloride 108 H (98-107) mmol/L Glucose 103 H (74-99) mg/dL POC Glucose (mg/dL) 105 H (75-99) mg/dL Calcium 7.9 L (8.4-10.2) mg/dL AST 64 H (17-59) U/L Total Protein 5.0 L (6.3-8.2) g/dL Albumin 2.8 L (3.5-5.0) g/dL Crossmatch 04/12/21 04/12/21 04/12/21 Range/Units 04:13 06:31 08:10 WBC (3.8-10.6) k/uL RBC (4.30-5.90) m/uL Hgb (13.0-17.5) gm/dL Hct (39.0-53.0) % Plt Count (150-450) k/uL Neutrophils # (1.3-7.7) k/uL Chloride (98-107) mmol/L Glucose (74-99) mg/dL POC Glucose (mg/dL) 116 H 142 H 108 H (75-99) mg/dL Calcium (8.4-10.2) mg/dL AST (17-59) U/L Total Protein (6.3-8.2) g/dL Albumin (3.5-5.0) g/dL Crossmatch 04/12/21 04/12/21 Range/Units 09:55 10:17 WBC (3.8-10.6) k/uL RBC (4.30-5.90) m/uL Hgb (13.0-17.5) gm/dL Hct (39.0-53.0) % Plt Count (150-450) k/uL Neutrophils # (1.3-7.7) k/uL Chloride (98-107) mmol/L Glucose (74-99) mg/dL POC Glucose (mg/dL) 66 L 108 H (75-99) mg/dL Calcium (8.4-10.2) mg/dL AST (17-59) U/L Total Protein (6.3-8.2) g/dL Albumin (3.5-5.0) g/dL Crossmatch
[2021-04-12] MEDS: SODIUM CHLORIDE 0.9% 1,000 ML IV SCH (13:07)
[2021-04-12] MEDS: INSULIN ASPART (NovoLOG) 100 UNIT/ML VIAL SQ SCH ×3 (13:07→21:03)
[2021-04-12 14:24] LABS: Basophils % (A) 0 %; Eosinophils # (A) 0.1 k/uL (0-0.7); Eosinophils % (A) 1 %; HCT 24.8 % (39.0-53.0); Hypochromasia Slight; Lymphocytes # (A) 1.2 k/uL (1.0-4.8); Lymphocytes % (A) 8 %; MCH 29.4 pg (25.0-35.0); MCHC 32.6 g/dL (31.0-37.0); MCV 90.3 fL (80.0-100.0); Mean Platelet Volume 8.2; Monocytes # (A) 0.8 k/uL (0-1.0); Monocytes % (A) 5 %; Neutrophils # (A) 12.1 k/uL (1.3-7.7); Neutrophils % (A) 83 %; Platelet Count 107 k/uL (150-450); RBC 2.75 m/uL (4.30-5.90); RDW 14.3 % (11.5-15.5); WBC 14.7 k/uL (3.8-10.6)
[2021-04-12 14:28] LABS: HGB 8.1 gm/dL (13.0-17.5)
[2021-04-12] MEDS: FERROUS SULFATE 325 MG TAB PO SCH (15:00)
[2021-04-12 16:51] LABS: Glucose,Whole Blood 108 mg/dL (75-99)
[2021-04-12] MEDS: SENNOSIDES-DOCUSATE SODIUM 1 EACH TAB PO SCH (21:02)
[2021-04-12] MEDS: MELATONIN 3 MG TABLET PO SCH (21:02)
[2021-04-13] MEDS: HEPARIN SODIUM,PORCINE/PF 5,000 UNIT/0.5 ML SYRINGE SQ SCH ×3 (01:35→17:02)
[2021-04-13] MEDS: HYDROcodone/APAP 5-325MG 1 EACH TAB PO PRN (04:06)
[2021-04-13 06:46] LABS: Basophils % (A) 0 %; Eosinophils # (A) 0.2 k/uL (0-0.7); Eosinophils % (A) 1 %; HCT 23.6 % (39.0-53.0); HGB 8.1 gm/dL (13.0-17.5); Lymphocytes # (A) 1.1 k/uL (1.0-4.8); Lymphocytes % (A) 8 %; MCH 30.9 pg (25.0-35.0); MCHC 34.4 g/dL (31.0-37.0); Mean Platelet Volume 7.9; Monocytes # (A) 0.6 k/uL (0-1.0); Monocytes % (A) 5 %; Neutrophils # (A) 10.6 k/uL (1.3-7.7); Neutrophils % (A) 82 %; Platelet Count 122 k/uL (150-450); RBC 2.62 m/uL (4.30-5.90); RDW 14.5 % (11.5-15.5)
[2021-04-13 06:59] LABS: ALT 14 U/L (4-49); AST 54 U/L (17-59); African American GFR (CKD) >90 (>60 ml/min/1.73 sqM); Albumin 2.8 g/dL (3.5-5.0); Alkaline Phosphatase 89 U/L (38-126); Anion Gap 2 mmol/L; Blood Urea Nitrogen 21 mg/dL (9-20); Calcium 7.3 mg/dL (8.4-10.2); Carbon Dioxide 28 mmol/L (22-30); Chloride 108 mmol/L (98-107); Glucose 121 mg/dL (74-99); Non-African American GFR(CKD) 81 (>60 ml/min/1.73 sqM); Sodium 138 mmol/L (137-145); Total Bilirubin 0.4 mg/dL (0.2-1.3); Total Protein 5.3 g/dL (6.3-8.2)
[2021-04-13 07:01] LABS: Glucose,Whole Blood 126 mg/dL (75-99)
[2021-04-13 07:03] LABS: Potassium 4.7 mmol/L (3.5-5.1)
[2021-04-13] MEDS: INSULIN ASPART (NovoLOG) 100 UNIT/ML VIAL SQ SCH ×4 (07:12→22:19)
[2021-04-13] MEDS: BUDESONIDE 0.5 MG/2 ML NEBU INHALATION SCH ×2 (07:29→20:27)
[2021-04-13] MEDS: IPRATROPIUM-ALBUTEROL 3 ML NEB INHALATION SCH ×4 (07:29→20:27)
--- NOTE | 2021-04-13 08:14 | P.PN ---
Subjective Progress Note Date: 04/13/21 Principal diagnosis: Triple-vessel coronary artery disease, preserved left ventricular function with EF 55%. Previous medical history of hypertension, hyperlipidemia, severe COPD with preoperative FEV1 47% of predicted, previous tobacco dependence, hypothyroidism, chronic kidney disease stage II, right lower lobe lung nodule negative on PET POD #3 triple-vessel coronary artery bypass grafting using the free left internal mammary artery with an inflow from the left radial artery to the left anterior descending artery, left radial artery from the aorta to the first obtuse marginal artery, reverse saphenous vein graft from the aorta to the right coronary artery, exclusion of the left atrial appendage using a 35 mm AtriClip, endoscopic harvesting of the left radial artery, endoscopic harvesting of the left greater saphenous vein from the groin to above the ankle, intraoperative graft flow measurements using the [employer] system, intraoperative transesophageal echocardiogram and epi-aortic scanning Postoperative acute blood loss anemia and thrombocytopenia, expected given hemodilution and cardiopulmonary bypass pump The patient's currently sitting up in a recliner in the intensive care unit in no acute distress. Heart rate remains in the 90s, sinus rhythm. Blood pressure which improved. Patient states pain is controlled on current medication regimen, denies shortness of breath. His continues to complain of tiredness, patient has very little motivation to do anything and needs constant reminding of need to increase activity, use incentive spirometry. Hemoglobin 6.5 yesterday, received 1 unit packed red blood cells, hemoglobin this morning 8.1. Remains on 2 L nasal cannula with oxygen saturation in the mid 90s. Mediastinal chest tubes discontinued yesterday, left pleural chest tube, right internal jugular cordis remain. Huffman catheter was discontinued yesterday, patient did require straight catheterization last night, voided this morning. Objective - Vital Signs Vital signs: Vital Signs Temp 98.0 F 04/13/21 04:00 Pulse 95 04/13/21 07:40 Resp 21 04/13/21 07:00 BP 117/82 04/13/21 06:00 Pulse Ox 97 04/13/21 07:00 Intake & Output 04/12/21 04/13/21 04/13/21 18:59 06:59 18:59 Intake Total 1514.075 639 33 Output Total 60 780 Balance 1454.075 -141 33 Weight 81.3 kg Intake: IV 429 639 33 0.9 360 603 30 pressure bag 69 36 3 Intake, IV Titration 105.075 Amount Insulin Regular 100 unit 5.075 In Sodium Chloride 0.9% 100 ml @ Per Protocol IV .Q0M [facility] Rx#:[id number] Sodium Ferric Gluconat- 100 Sucrose 125 mg In Sodium Chloride 0.9% 100 ml @ 100 mls/hr IVPB ONCE ONE Rx#:[id number] Oral 360 Blood Product 620 Rc As-1 Unit 310 [id number] Output: Chest Tube Drainage 60 130 Chest Tube Left Pleural 130 Chest Tube Mediastinal 60 Urine 0 650 Other: Voiding Method Urinal Urinal ABP, PAP, CO, CI - Last Documented Arterial Blood Pressure 101/51 Pulmonary Artery Pressure 19/2 Cardiac Output 5.5 Cardiac Index 2.9 - Exam CONSTITUTIONAL: Appears comfortable, no acute distress RESPIRATORY: Lungs sounds diminished bilaterally. Respirations even, nonlabored. Currently on 2 L nasal cannula with oxygen saturation 96%. Able to achieve 1000 mL on incentive spirometry. Strong cough. CARDIOVASCULAR: S1, S2 present. Regular rate and rhythm, sinus rhythm on telemetry. Sternum stable. Palpable peripheral pulses bilaterally. No edema present. No calf pain or tenderness noted. Heart hugger in place with patient demonstrating appropriate use. Antiembolism stockings, SCDs present. GASTROINTESTINAL: Abdomen soft, nontender, nondistended. Active bowel sounds present 4 quadrants. Tolerating minimal diet. Negative flatus GENITOURINARY: Huffman discontinued yesterday, straight cathed 1 for 500 mL last night, voided 150 mL this morning INTEGUMENTARY: Skin is warm and dry with evidence of good perfusion. Anterior chest incision well approximated and covered with dry intact dressing. Left lower extremity EVH site well approximated without redness or drainage. 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 A/V epicardial pacemaker wires present, grounded. Right internal jugular Cordis present. - Allied health notes Allied health notes reviewed: nursing - Labs CBC & Chem 7: 04/13/21 06:41 04/13/21 06:41 Labs: Abnormal Lab Results - Last 24 Hours (Table) 03/30/21 04/12/21 04/12/21 Range/Units 13:00 08:10 09:55 WBC (3.8-10.6) k/uL RBC (4.30-5.90) m/uL Hgb (13.0-17.5) gm/dL Hct (39.0-53.0) % Plt Count (150-450) k/uL Neutrophils # (1.3-7.7) k/uL Chloride (98-107) mmol/L BUN (9-20) mg/dL Glucose (74-99) mg/dL POC Glucose (mg/dL) 108 H 66 L (75-99) mg/dL Calcium (8.4-10.2) mg/dL Total Protein (6.3-8.2) g/dL Albumin (3.5-5.0) g/dL Crossmatch See Detail 04/12/21 04/12/21 04/12/21 Range/Units 10:17 11:14 13:53 WBC 14.7 H (3.8-10.6) k/uL RBC 2.75 L (4.30-5.90) m/uL Hgb 8.1 L D (13.0-17.5) gm/dL Hct 24.8 L (39.0-53.0) % Plt Count 107 L (150-450) k/uL Neutrophils # 12.1 H (1.3-7.7) k/uL Chloride (98-107) mmol/L BUN (9-20) mg/dL Glucose (74-99) mg/dL POC Glucose (mg/dL) 108 H 103 H (75-99) mg/dL Calcium (8.4-10.2) mg/dL Total Protein (6.3-8.2) g/dL Albumin (3.5-5.0) g/dL Crossmatch 04/12/21 04/13/21 04/13/21 Range/Units 16:49 06:41 06:41 WBC 13.0 H (3.8-10.6) k/uL RBC 2.62 L (4.30-5.90) m/uL Hgb 8.1 L (13.0-17.5) gm/dL Hct 23.6 L (39.0-53.0) % Plt Count 122 L (150-450) k/uL Neutrophils # 10.6 H (1.3-7.7) k/uL Chloride 108 H (98-107) mmol/L BUN 21 H (9-20) mg/dL Glucose 121 H (74-99) mg/dL POC Glucose (mg/dL) 108 H (75-99) mg/dL Calcium 7.3 L (8.4-10.2) mg/dL Total Protein 5.3 L (6.3-8.2) g/dL Albumin 2.8 L (3.5-5.0) g/dL Crossmatch 04/13/21 Range/Units 06:59 WBC (3.8-10.6) k/uL RBC (4.30-5.90) m/uL Hgb (13.0-17.5) gm/dL Hct (39.0-53.0) % Plt Count (150-450) k/uL Neutrophils # (1.3-7.7) k/uL Chloride (98-107) mmol/L BUN (9-20) mg/dL Glucose (74-99) mg/dL POC Glucose (mg/dL) 126 H (75-99) mg/dL Calcium (8.4-10.2) mg/dL Total Protein (6.3-8.2) g/dL Albumin (3.5-5.0) g/dL Crossmatch - Imaging and Cardiology Chest x-ray: image reviewed Assessment and Plan Assessment: 1. Triple-vessel coronary artery disease, status post three-vessel CABG 2. Preserved left ventricular function with EF 55% 3. History of hypertension 4. Hyperlipidemia 5. Severe COPD with preoperative FEV1 47% of predicted 6. Previous tobacco dependence 7. Hypothyroidism 8. Chronic kidney disease stage II 9. Right lower lobe lung nodule negative on PET 10. Postoperative acute blood loss anemia and thrombocytopenia, expected given hemodilution and cardiopulmonary bypass pump Plan: 1. Continue aspirin, Plavix, statin, beta karley. Will increase beta karley therapy as tolerated. 2. Continue low-dose Norvasc for radial artery spasm. Do not discontinue without discussing with cardiothoracic surgery 3. Wean O2 as tolerated. Encourage incentive spirometry use 10 times every hour while awake. Bronchodilators per pulmonology 3. Increase activity, ambulate as tolerated. PT/OT/cardiac rehab consulted. 4. Will monitor daily labs and chest x-rays. Electrolyte replacement per protocol. No transfusion today 5. GI/DVT prophylaxis 6. Insulin management per primary care service. Patient is not diabetic, preoperative hemoglobin A1c 6.3%. 7. Pain control with current medication regimen. No Toradol due to history of CKD. Narcotics discontinued 8. Likely will discontinue left pleural chest tube 9. May bladder scan and straight cath for greater than 300 mL residual 10. Strict accurate intake and output. Daily weights 11. Dr. Pepper consulted for possible discharge to [facility] as patient needs in creased strength training and close physician monitoring 12. More recommendations to follow based on patient's progress Time with Patient: Greater than 30
[2021-04-13] MEDS: METOPROLOL TARTRATE 12.5 MG TAB PO SCH (08:24)
[2021-04-13] MEDS: LEVOTHYROXINE 137 MCG TAB PO SCH (08:24)
[2021-04-13] MEDS: PANTOPRAZOLE 40 MG TABLET PO SCH (08:24)
[2021-04-13] MEDS: amLODIPine 2.5 MG TAB PO SCH (08:24)
[2021-04-13] MEDS: ASPIRIN 325 MG TAB PO SCH (08:24)
[2021-04-13] MEDS: bisacodyL 10 MG SUPP RECTAL SCH (08:24)
[2021-04-13] MEDS: ATORVASTATIN 40 MG TAB PO SCH ×2 (08:24→22:19)
[2021-04-13] MEDS: CLOPIDOGREL 75 MG TAB PO SCH (08:24)
--- NOTE | 2021-04-13 08:29 | XR ---
EXAMINATION TYPE: XR chest 1V portable DATE OF EXAM: 04/13/2021 COMPARISON: 04/12/2021 HISTORY: Postop TECHNIQUE: Single frontal view of the chest is obtained. FINDINGS: Postsurgical change with left-sided chest tube. Bilateral infiltrate and small effusion. H eart size normal. No overt failure. No pneumothorax. Underlying COPD suspected. Diffuse osteopenia an d arthropathy of the shoulders. IMPRESSION: 1. Stable bilateral infiltrate and pleural effusion. No sizable pneumothorax.
[2021-04-13] MEDS ORDERED: TAMSULOSIN 0.4 MG CAP.ER.24H PO STA (08:44)
[2021-04-13] MEDS ORDERED: METOPROLOL TARTRATE 12.5 MG TAB PO ONE (09:00)
--- NOTE | 2021-04-13 09:05 | P.PN ---
Subjective Progress Note Date: 04/13/21 This is a 65-year-old white male patient with past medical history of hypertension, hyperlipidemia, history of smoking and hypothyroidism had been complaining of worsening dyspnea on exertion for the last 7 months. Patient had a pulmonary workup which showed FEV1 of 1.41 L or 47% of predicted, consistent with severe obstruction, outpatient computed tomography scan did not nodule however of follow-up PET scan was subsequently negative as reported by his stepdaughter. Patient had cardiac workup that included a stress test which showed evidence of anteroseptal wall ischemia. Cardiac catheterization on 03/03/2021 at the [facility] showed three-vessel coronary artery disease with mid RCA, long proximal LAD in the proximal OM1 significant stenosis. Ejection fraction was 55% by echocardiogram with mild inferior hypokinesia. Patient was referred to cardiothoracic surgery for surgical intervention and on 04/10/2021 patient underwent triple-vessel coronary artery bypass grafting with free CARCAMO to the LAD, left radial artery to the first up to his marginal, reverse SVG to the RCA, exclusion of the left atrial appendage using not 35mm Atriclip, and endoscopic harvesting of the left radial artery and left greater saphenous vein. We are seeing the patient today on the first posto perative day, patient has been successfully weaned and extubated from mechanical ventilator on 04/10/2021, to BiPAP support with pressure of 16/6 and FiO2 of 50%. Currently patient is on 2 L of oxygen, with a pulse ox of 96%, he is awake and alert, he is up in the recliner. Reports mild incisional discomfort, but no acute distress. Hemodynamically patient is stable, he is currently on 0.9 kellen l saline there is a 50 ML per hour, nitroglycerin is a 5 mics per kilo per minute, and insulin infusion is at 2 units per hour. In sinus mechanism with a rate of 76 BPM, blood pressure is 110/49, PA pressures 23/7, CVP is 8, cardiac output is 5.5 and cardiac index is 2.9. Mediastinal chest tubes in place with a total of 400 mL of serosanguineous output in the last 24 hours, and left pleural chest tube with 300 mL of serosanguineous output, no evidence of air leak. Incisions are dry and intact. Incentive spirometry effort is 500-750 this morning. Today's chest x-ray shows bilateral infiltrates and small pleural effusions, evidence of sizable pneumothorax. On 04/12/2021 patient seen in follow-up in the intensive care unit, today is postoperative day #2, status post three-vessel coronary artery bypass grafting. Patient is doing well, he is awake and alert, he sitting up in a recliner, currently on 2 L of oxygen pulse ox is 96%, hemodynamically stable, not on any vasopressor support, his on 0.9 normal saline at a rate of 20 ML per hour, he is receiving a transfusion with 1 unit of packed red blood cells for hemoglobin of 6.5 this morning, with a controlled rate, blood pressure is 115/60, he is afebrile, no worsening dyspnea, he is achieving 1000 ML on his incentive spirometer, lung sounds are diminished, no rhonchi or wheezing, no cough, today's chest x-ray shows basilar atelectasis, and there has been some improvement in patient's volume status and aeration. His labs have been reviewed, white blood cell count is 13.3, his hemoglobin as mentioned above is 6.5. Platelet Count is 117, lites and renal profile are unremarkable. No nausea or vomiting, patient is tolerating oral intake. Incisions are clean dry and intact, patient still has his 2 mediastinal and left pleural chest tube in place and there has been 330 ML of thin serosanguineous output from the mediasti nal chest tube, and left pleural chest tube is 110 mL 24 hours, urinary catheter output is in the order of 50 ML per hour. On 04/13/2021 patient seen in follow-up in intensive care unit, today is po stoperative day #3 status post three-vessel coronary artery bypass grafting. Patient is currently on 2 L of oxygen, his pulse ox is 88-91%, did wear BiPAP overnight at pressures of 10/5 and FiO2 of 35%, no evidence of any acute respiratory distress. Lung sounds reveal bibasilar crackles. Today's chest x- ray was reviewed showing no infiltrates, and pleural effusion, no sizable pneumothorax. Incentive spirometry effort is 1000 ML. Patient still has a left pleural chest tube in place, 2 mediastinal chest tubes have been discontinued. Has been a total of 30 mL of serosanguineous output in the last 24 hours. Huffman catheter has been discontinued, however this money patient is experiencing ur inary retention, and is currently undergoing straight cathing. No nausea or vomiting, or diarrhea, tolerating oral intake, no abdominal pain. Does have been stable overnight, patient is sinus mechanism. Today's labs have been reviewed, white blood cell count is 13, hemoglobin is 8.1, platelet count is 122. Electrolytes and renal profile are unremarkable Objective - Vital Signs Vital signs: Vital Signs Temp 97.7 F 04/13/21 08:00 Pulse 87 04/13/21 08:00 Resp 14 04/13/21 08:00 BP 120/83 04/13/21 08:00 Pulse Ox 96 04/13/21 08:00 Intake & Output 04/12/21 04/13/21 04/13/21 18:59 06:59 18:59 Intake Total 1514.075 639 156 Output Total 60 780 50 Balance 1454.075 -141 106 Weight 81.3 kg Intake: IV 429 639 56 0.9 360 603 50 pressure bag 69 36 6 Intake, IV Titration 105.075 Amount Insulin Regular 100 unit 5.075 In Sodium Chloride 0.9% 100 ml @ Per Protocol IV .Q0M [facility] Rx#:[id number] Sodium Ferric Gluconat- 100 Sucrose 125 mg In Sodium Chloride 0.9% 100 ml @ 100 mls/hr IVPB ONCE ONE Rx#:[id number] Oral 360 100 Blood Product 620 Rc As-1 Unit 310 [id number] Output: Chest Tube Drainage 60 130 0 Chest Tube Left Pleural 130 0 Chest Tube Mediastinal 60 Urine 0 650 50 Other: Voiding Method Urinal Urinal ABP, PAP, CO, CI - Last Documented Arterial Blood Pressure 101/51 Pulmonary Artery Pressure 19/2 Cardiac Output 5.5 Cardiac Index 2.9 - Exam GENERAL EXAM: Alert, a pleasant, 65-year-old white male, on 2 L of oxygen with a pulse ox of 97%, sitting up in the recliner comfortable in no apparent distress. HEAD: Normocephalic/atraumatic. EYES: Normal reaction of pupils, equal size. Conjunctiva pink, sclera white. NOSE: Clear with pink turbinates. THROAT: No erythema or exudates. NECK: No masses, no JVD, no thyroid enlargement, no adenopathy. CHEST: No chest wall deformity. Symmetrical expansion. Midsternal incision is clean dry and intact, covered with a surgical dressing, 2 mediastinal and left pleural chest tube in place, with small to moderate amount of serosanguineous output in the [place], no evidence of air leak noted, chest tubes are connected to wall suction. Epicardial wires in place, currently not connected to external pacemaker, intrinsic rhythm is sinus with a rate of 76 BPM LUNGS: Equal air entry with no crackles, wheeze, rhonchi or dullness. CVS: Regular rate and rhythm, normal S1 and S2, no gallops, no murmurs, no rubs ABDOMEN: Soft, nontender. No hepatosplenomegaly, normal bowel sounds, no guarding or rigidity. EXTREMITIES: No clubbing, no edema, no cyanosis, 2+ pulses and upper and lower extremities. Left leg interrupted incision is clean dry and intact, mild bruising MUSCULOSKELETAL: Muscle strength and tone normal. SPINE: No scoliosis or deformity SKIN: No rashes CENTRAL NERVOUS SYSTEM: Alert and oriented -3. No focal deficits, tone is normal in all 4 extremities. PSYCHIATRIC: Alert and oriented -3. Appropriate affect. Intact judgment and insight. - Labs CBC & Chem 7: 04/13/21 06:41 04/13/21 06:41 Labs: Abnormal Lab Results - Last 24 Hours (Table) 03/30/21 04/12/21 04/12/21 Range/Units 13:00 09:55 10:17 WBC (3.8-10.6) k/uL RBC (4.30-5.90) m/uL Hgb (13.0-17.5) gm/dL Hct (39.0-53.0) % Plt Count (150-450) k/uL Neutrophils # (1.3-7.7) k/uL Chloride (98-107) mmol/L BUN (9-20) mg/dL Glucose (74-99) mg/dL POC Glucose (mg/dL) 66 L 108 H (75-99) mg/dL Calcium (8.4-10.2) mg/dL Total Protein (6.3-8.2) g/dL Albumin (3.5-5.0) g/dL Crossmatch See Detail 04/12/21 04/12/21 04/12/21 Range/Units 11:14 13:53 16:49 WBC 14.7 H (3.8-10.6) k/uL RBC 2.75 L (4.30-5.90) m/uL Hgb 8.1 L D (13.0-17.5) gm/dL Hct 24.8 L (39.0-53.0) % Plt Count 107 L (150-450) k/uL Neutrophils # 12.1 H (1.3-7.7) k/uL Chloride (98-107) mmol/L BUN (9-20) mg/dL Glucose (74-99) mg/dL POC Glucose (mg/dL) 103 H 108 H (75-99) mg/dL Calcium (8.4-10.2) mg/dL Total Protein (6.3-8.2) g/dL Albumin (3.5-5.0) g/dL Crossmatch 04/13/21 04/13/21 04/13/21 Range/Units 06:41 06:41 06:59 WBC 13.0 H (3.8-10.6) k/uL RBC 2.62 L (4.30-5.90) m/uL Hgb 8.1 L (13.0-17.5) gm/dL Hct 23.6 L (39.0-53.0) % Plt Count 122 L (150-450) k/uL Neutrophils # 10.6 H (1.3-7.7) k/uL Chloride 108 H (98-107) mmol/L BUN 21 H (9-20) mg/dL Glucose 121 H (74-99) mg/dL POC Glucose (mg/dL) 126 H (75-99) mg/dL Calcium 7.3 L (8.4-10.2) mg/dL Total Protein 5.3 L (6.3-8.2) g/dL Albumin 2.8 L (3.5-5.0) g/dL Crossmatch Assessment and Plan Plan: Assessment: #1. Coronary artery disease status post triple coronary artery bypass grafting using the free CARCAMO to the LAD, left radial artery graft to the first obtuse marginal, reverse SVG to the RCA, exclusion of the left atrial appendage using a 35 mm ATriClip, endoscopic harvesting of the left radial artery, and left greater saphenous vein was 04/10/2021, postoperative day #3 #2. Routine postoperative ventilator management, and patient was successfully weaned and extubated on post-op day #0 to BiPAP, currently on 2 L of oxygen #3. Postoperative blood loss anemia, expected outcome of sternotomy and bypass grafting surgery #4. COPD, with preop FEV1 of 47% of predicted consistent with stage III COPD not oxygen dependent at baseline #5. [id number] smoking history in remission for 1 year #6. Pulmonary nodule seen on a computed tomography scan of the chest on outp atient basis, PET scan did not show uptake at the site of the nodule #7. Hypertension #8. Hyperlipidemia #9. Hypothyroidism Plan: Encourage deep breathing and coughing Encourage incentive spirometer use Continue pain control Encourage ambulation GI/DVT prophylaxis per CT surgery Left pleural chest tube remains in place with minimal output Daily labs and chest x-ray Continue to closely follow in the intensive care unit along with CT surgery I performed a history & physical examination of the patient and discussed their management with my nurse practitioner, Robyn Aguayo. I reviewed the nurse practitioner's note and agree with the documented findings and plan of care. Lung sounds are positive for clear breath sounds throughout the lung hawkins. The findings and the impression was discussed with the patient. I attest to the documentation by the nurse practitioner. Time with Patient: Less than 30
--- NOTE | 2021-04-13 10:22 | P.PN ---
Subjective HISTORY OF PRESENTING ILLNESS This is a pleasant 65-year-old male past medical history significant for coronary artery disease, hypertension and COPD. He follows in the office with Dr. Velazquez. He underwent three-vessel bypass grafting yesterday with free CARCAMO with an inflow from the left radial artery to the LAD, left radial artery from the aorta to the first OM and reverse SVG from the aorta to the RCA as well as exclusion of left atrial appendage. He is seen and examined sitting up in the recliner. He is complaining of feeling very sore and tired. He denies any significant symptoms of shortness of breath. He is complaining of pain at the incision site. He is maintaining oxygen saturation on nasal cannula and achieving 1000 mls on IS. He has a right IJ Cordis in place showing a cardiac output of 4.1 with a cardiac index of 2.2 and a CVP of 7. Chest tubes in place. Chest x-ray this morning reveals bilateral infiltrates and small effusions. Laboratory data reviewed, WBC 14, hemoglobin 7.4, platelets 121, sodium 143, p otassium 4.2, creatinine 1.23, magnesium 2.2. Preoperative echocardiogram revealed preserved LV systolic function with ejection fraction 55%, normal diastolic function, borderline LVH, ascending aorta is enlarged, mild MR, mild TR and normal RVSP. 04/13/2021 Pt seen and examined sitting up in recliner in no acute distress. He continues to feel weak and tired. He states he doesn't have much of an appetite. Blood pressure 113/74 heart rate 86 afebrile and maintaining oxygen saturation on nasal cannula. Chest xray this morning revealed stable bilateral infiltrate and small effusion. Laboratory data reviewed, WBC 13, hgb 8.1, plt 122, sodium 138, potassium 4.7, creatinine 0.97. 24-hr urine output is 650 ml. Telemetry tracings reveal he is maintaining sinus rhythm. Mediastinal chest tube was removed yesterday. PHYSICAL EXAMINATION CONSTITUTIONAL: No apparent distress. HEENT: Head is normocephalic. Pupils are equal, round. Sclerae anicteric. Mucous membranes of the mouth are moist. No JVD. No carotid bruit. Right IJ cordis in place. CHEST EXAMINATION: Lungs are clear to auscultation. Mid sternal chest wall tenderness is noted at site of incision. Left chest tube in place. HEART EXAMINATION: Regular rate and rhythm. S1, S2 heard. No murmurs, gallops or rub. Heart hugger in place. EXTREMITIES: 2+ peripheral pulses, no lower extremity edema and no calf tenderness. Right radial art line in place. ASSESSMENT Triple vessel coronary artery disease s/p bypass grafting, POD#3 Near syncope secondary to anemia Anemia Hypertension Dyslipidemia COPD Former nicotine dependence PLAN Continue current medical regimen. Encourage incentive spirometer use. Increase activity as tolerated. We will continue to follow and provide supportive care, primary management per CT surgery. Nurse Practitioner note has been reviewed, I agree with a documented findings and plan of care. Patient was seen and examined. Objective - Vital Signs Vital signs: Vital Signs Temp 97.7 F 04/13/21 08:00 Pulse 86 04/13/21 10:00 Resp 14 04/13/21 10:00 BP 113/74 04/13/21 10:00 Pulse Ox 97 04/13/21 10:00 Intake & Output 04/12/21 04/13/21 04/13/21 18:59 06:59 18:59 Intake Total 1514.075 639 202 Output Total 60 780 775 Balance 1454.075 -141 -573 Weight 81.3 kg Intake: IV 429 639 102 0.9 360 603 90 pressure bag 69 36 12 Intake, IV Titration 105.075 Amount Insulin Regular 100 unit 5.075 In Sodium Chloride 0.9% 100 ml @ Per Protocol IV .Q0M [facility] Rx#:[id number] Sodium Ferric Gluconat- 100 Sucrose 125 mg In Sodium Chloride 0.9% 100 ml @ 100 mls/hr IVPB ONCE ONE Rx#:[id number] Oral 360 100 Blood Product 620 Rc As-1 Unit 310 [id number] Output: Chest Tube Drainage 60 130 0 Chest Tube Left Pleural 130 0 Chest Tube Mediastinal 60 Urine 0 650 775 Other: Voiding Method Urinal Urinal ABP, PAP, CO, CI - Last Documented Arterial Blood Pressure 101/51 Pulmonary Artery Pressure 19/2 Cardiac Output 5.5 Cardiac Index 2.9 - Labs CBC & Chem 7: 04/13/21 06:41 04/13/21 06:41 Labs: Abnormal Lab Results - Last 24 Hours (Table) 03/30/21 04/12/21 04/12/21 Range/Units 13:00 10:17 11:14 WBC (3.8-10.6) k/uL RBC (4.30-5.90) m/uL Hgb (13.0-17.5) gm/dL Hct (39.0-53.0) % Plt Count (150-450) k/uL Neutrophils # (1.3-7.7) k/uL Chloride (98-107) mmol/L BUN (9-20) mg/dL Glucose (74-99) mg/dL POC Glucose (mg/dL) 108 H 103 H (75-99) mg/dL Calcium (8.4-10.2) mg/dL Total Protein (6.3-8.2) g/dL Albumin (3.5-5.0) g/dL Crossmatch See Detail 04/12/21 04/12/21 04/13/21 Range/Units 13:53 16:49 06:41 WBC 14.7 H 13.0 H (3.8-10.6) k/uL RBC 2.75 L 2.62 L (4.30-5.90) m/uL Hgb 8.1 L D 8.1 L (13.0-17.5) gm/dL Hct 24.8 L 23.6 L (39.0-53.0) % Plt Count 107 L 122 L (150-450) k/uL Neutrophils # 12.1 H 10.6 H (1.3-7.7) k/uL Chloride (98-107) mmol/L BUN (9-20) mg/dL Glucose (74-99) mg/dL POC Glucose (mg/dL) 108 H (75-99) mg/dL Calcium (8.4-10.2) mg/dL Total Protein (6.3-8.2) g/dL Albumin (3.5-5.0) g/dL Crossmatch 04/13/21 04/13/21 Range/Units 06:41 06:59 WBC (3.8-10.6) k/uL RBC (4.30-5.90) m/uL Hgb (13.0-17.5) gm/dL Hct (39.0-53.0) % Plt Count (150-450) k/uL Neutrophils # (1.3-7.7) k/uL Chloride 108 H (98-107) mmol/L BUN 21 H (9-20) mg/dL Glucose 121 H (74-99) mg/dL POC Glucose (mg/dL) 126 H (75-99) mg/dL Calcium 7.3 L (8.4-10.2) mg/dL Total Protein 5.3 L (6.3-8.2) g/dL Albumin 2.8 L (3.5-5.0) g/dL Crossmatch
[2021-04-13 11:07] LABS: Glucose,Whole Blood 97 mg/dL (75-99)
--- NOTE | 2021-04-13 11:43 | P.CONS ---
History of Present Illness - Chief Complaint Cardiac debility - History of Present Illness I had the opportunity to see patient for inpatient rehab consultation with regard to cardiac debility. Patient admitted to [facility] April 10 history of worsening coronary artery disease. Admitted for underwent elective CABG three- vessel Dr. Ann. Seen in ICU by Dr. Rivera and cardiology. Chest x-rays followed and notes stable infiltrates and pneumothorax. His started therapy. PT reports minimal assistance for transfers and gait 180 feet total with loss of balance noted. OT reports supervision for upper dressing, moderate assistance for lower dressing and minimal assistance for bathing. Previous functional history as elicited from patient: 65-year-old right-handed white male who is lives in one floor home alone. Retired. Describes independent with own cooking, laundry, driving, standing shower and gait without device. PCP Dr. Klein. Reports just quit smoking and has occasional drink. Review of Systems Review of systems: ENT: Denies sneezes or discharge. Eyes: Denies discharge or photophobia. Cardiac: Sternal discomfort. Pulmonary: [id number] shortness of breath. Gastrointestinal: Denies nausea, emesis, constipation, diarrhea. Genitourinary: Denies discharge or frequency. Musculoskeletal: Denies muscle or bone aches. Neurologic: Generalized weakness. Endocrine: Denies shakes or sweats. Oncology: Denies cancers. Dermatologic: Denies rash, itching, pruritus. ALLERGY/immunology: Denies sneezes, rashes. Past Medical History Past Medical History: Chest Pain / Angina, COPD, Hyperlipidemia, Hypertension, Pneumonia, Thyroid Disorder Additional Past Medical History / Comment(s): recent problems w/SOB w/exertion, recent infected tooth-tx. w/antibiotics, pneumonia in the -"had fluid drawn off" History of Any Multi-Drug Resistant Organisms: None Reported Past Surgical History: Heart Catheterization Past Anesthesia/Blood Transfusion Reactions: No Reported Reaction Additional Past Anesthesia/Blood Transfusion Reaction / Comm: never had general anesthesia Smoking Status: Former smoker - Past Family History Mother Family Medical History: No Reported History Medications and Allergies Home Medications Medication Instructions Recorded Confirmed Type Aspirin 81 mg PO DAILY 03/30/21 04/10/21 History Atorvastatin [Lipitor] 80 mg PO DAILY 03/30/21 04/10/21 History Cetirizine HCl [Zyrtec] 10 mg PO DAILY PRN 03/30/21 04/10/21 History Fluticasone Nasal [place] [Flonase 2 spr EA NOSTRIL DAILY PRN 03/30/21 04/10/21 History Nasal [place]] Levothyroxine Sodium [Synthroid] 137 mcg PO DAILY 03/30/21 04/10/21 History Metoprolol Succinate (ER) [Toprol 25 mg PO DAILY 03/30/21 04/10/21 History Xl] NIFEdipine [NIFEdipine ER] 30 mg PO DAILY 03/30/21 04/10/21 History Albuterol Inhaler [Ventolin Hfa 2 puff INHALATION RT-QID PRN 04/07/21 04/10/21 History Inhaler] Beclomethasone Dipropionate [Qvar 1 puff INHALATION BID 04/07/21 04/10/21 History 40 mcg Redihaler] Allergies Allergy/AdvReac Type Severity Reaction Status Date / Time No Known Allergies Allergy Verified 04/10/21 06:02 Physical Exam Vitals: Vital Signs Temp Pulse Resp BP Pulse Ox 04/13/21 10:00 86 14 113/74 97 04/13/21 09:00 93 16 113/74 93 L 04/13/21 08:00 97.7 F 87 14 120/83 96 04/13/21 07:40 95 04/13/21 07:30 93 04/13/21 07:00 95 21 97 04/13/21 06:00 100 22 117/82 96 04/13/21 05:00 93 15 140/88 97 04/13/21 04:00 98.0 F 102 H 39 H 136/87 94 L 04/13/21 03:00 87 13 123/84 98 04/13/21 02:00 92 13 115/84 99 04/13/21 01:00 91 12 145/87 96 04/13/21 00:00 98.9 F 98 37 H 134/83 94 L 04/12/21 23:00 89 12 126/82 95 04/12/21 22:48 88 12 126/82 96 04/12/21 22:00 85 13 127/78 97 04/12/21 21:00 99 18 122/78 96 04/12/21 20:00 98.8 F 84 13 117/76 95 04/12/21 19:00 99 19 117/76 94 L 04/12/21 18:00 80 12 106/72 92 L 04/12/21 17:00 98.2 F 77 12 89 L 04/12/21 16:00 12 108/77 04/12/21 15:00 81 13 90 L 04/12/21 14:00 81 11 L 97 04/12/21 13:00 73 23 98 04/12/21 12:28 74 04/12/21 12:00 98.2 F 74 12 98 Intake and Output 04/12/21 04/13/21 04/13/21 22:59 06:59 14:59 Intake Total 373 507 202 Output Total 630 150 775 Balance -257 357 573 Intake: IV 273 507 102 0.9 240 483 90 pressure bag 33 24 12 Intake, IV Titration 100 Amount Sodium Ferric Gluconat- 100 Sucrose 125 mg In Sodium Chloride 0.9% 100 ml @ 100 mls/hr IVPB ONCE ONE Rx#:[id number] Oral 100 Output: Chest Tube Drainage 130 0 Chest Tube Left Pleural 130 0 Urine 500 150 775 Other: Voiding Method Urinal Urinal Weight 81.3 kg ABP, PAP, CO, CI - Last 8 Hours Cardiac Output 5.5 Cardiac Output 5.5 Cardiac Output 5.5 Cardiac Output 5.5 Cardiac Index 2.9 Cardiac Index 2.9 Cardiac Index 2.9 Cardiac Index 2.9 Skin: Mildly atrophic, intact. General: Medium build and comfortable appearance. Head: Normocephalic, atraumatic. Eyes: Symmetric. Pupils equal round. Ears: Symmetric. Hearing within normal limits. Mouth: Clear. Neck: Supple. Carotid without bruit. Cardiac: Regular rate and rhythm. Chest clean and dressed and wearing heart failure. Lungs: Clear anteriorly and posteriorly. Abdomen: Soft active nontender. Extremities: Normal tone. Neurological: Mental status: Alert, cooperative, pleasant. Cranial nerves: Symmetric facial tone and trapezius. Motor: Active movement all 4 limbs but appears generally weak. Legs at best antigravity. Sensation: Intact throughout. DTRs: Symmetric and equal throughout. Mobility: Sitting in Delfina chair with legs elevated did not attempt to stand on my own at this time. Results CBC & Chem 7: 04/13/21 06:41 04/13/21 06:41 Labs: Abnormal Lab Results - Last 24 Hours (Table) 04/12/21 04/12/2121 Range/Units 13:53 16:49 06:41 WBC 14.7 H 13.0 H (3.8-10.6) k/uL RBC 2.75 L 2.62 L (4.30-5.90) m/uL Hgb 8.1 L D 8.1 L (13.0-17.5) gm/dL Hct 24.8 L 23.6 L (39.0-53.0) % Plt Count 107 L 122 L (150-450) k/uL Neutrophils # 12.1 H 10.6 H (1.3-7.7) k/uL Chloride (98-107) mmol/L BUN (9-20) mg/dL Glucose (74-99) mg/dL POC Glucose (mg/dL) 108 H (75-99) mg/dL Calcium (8.4-10.2) mg/dL Total Protein (6.3-8.2) g/dL Albumin (3.5-5.0) g/dL 04/13/21 04/13/21 Range/Units 06:41 06:59 WBC (3.8-10.6) k/uL RBC (4.30-5.90) m/uL Hgb (13.0-17.5) gm/dL Hct (39.0-53.0) % Plt Count (150-450) k/uL Neutrophils # (1.3-7.7) k/uL Chloride 108 H (98-107) mmol/L BUN 21 H (9-20) mg/dL Glucose 121 H (74-99) mg/dL POC Glucose (mg/dL) 126 H (75-99) mg/dL Calcium 7.3 L (8.4-10.2) mg/dL Total Protein 5.3 L (6.3-8.2) g/dL Albumin 2.8 L (3.5-5.0) g/dL Assessment and Plan Plan: Impression: 1. Cardiac debility with CAD and recent three-vessel CABG and history of angin a. 2. Hypertension. 3. Dyslipidemia. 4. COPD. 5. Hypothyroid. Comments and plan: At this time PT and OT are ongoing. Safety concerns noted in fact loss of balance documented. Currently was safety concerns and would recommend inpatient rehab. Do not patient in in ICU at this time and would aw ait medical clearance.
[2021-04-13] MEDS ORDERED: NON FORMULARY DRUG PO SCH (13:45)
--- NOTE | 2021-04-13 14:52 | P.PN ---
Subjective Progress Note Date: 04/13/21 HISTORY OF PRESENT ILLNESS This is a 65-year-old male patient of Dr. Pandya past medical history of coronary artery disease, hypertension, hyperlipidemia, COPD, hypothyroidism, [place] ALLERGIES, remote history of tobacco use. Yesterday, patient underwent three-vessel CABG free CARCAMO with an inflow from the left radial artery to the LAD, left radial artery from the aorta to the first OM and reverse SVG from the aorta to the RCA as well as exclusion of left atrial appendage. Patient is seen today in intensive care unit. He has been successfully extubated. He states that he is feeling okay. No significant chest pain. He does have surgical site pain. He has been afebrile, heart rate 72, blood pressure 106/53, pulse ox 98% on 2 L nasal cannula. Repeat blood work reveals WBC 14, hemoglobin 7.4, platelet count 121. Sodium 143, potassium 4.2, chloride 112, CO2 24, BUN 19 and creatinine 1.23. Blood sugars are running between 108 and 161. Patient does not have history of diabetes. He is on insulin drip. Magnesium 2.2. AST 72. Chest x-ray this morning reveals bilateral infiltrate and small effusion. Patient has right IJ Cordis in place, left pleural chest tube and mediastinal chest tube and Huffman catheter in place. 04/12: Hemoglobin this morning is 6.5 and he is receiving 1 unit of packed RBCs. One dose of Ferrlecit infusion ordered and oral ferrous sulfate ordered. Patient is complaining that he is not sleeping well and melatonin added. Insulin drip will be discontinued and patient transitioned to NovoLog scale before meals and at bedtime. He has been afebrile, heart rate 90, blood pressure 104/64, pulse ox 95% on 2 L nasal cannula. Capillary blood glucose running between 66 and 142. WBC 13.3, platelet count 117. Creatinine 1.13. AST 64. Repeat chest x-ray reveals basilar atelectasis. Some improvement in patient's volume status. Huffman catheter has been removed. 04/13: Both mediastinal chest tube has been discontinued, Huffman catheter is not present, the daughter is in the bedside, she was mentioning that dad has issues regarding myalgia using Lipitor, 40 mg currently dose, and requests a med change, we discussed this with the pharmacy, 2 change it to Crestor 10 mg, however with formula status, this cannot be switch while the patient is in the hospital. Patient's appetite is much better, still with weakness, staff physical therapy assistant apy has been consulted with Dr. Pepper for inpatient rehab, and most likely would be transitioned to IPR for cardiac debility weakness, once discharged. No chest pain no palpitations, denies any hematuria or melena no fever. Labs hemoglobin 8.1, sodium 138, potassium 4.7, creatinine 0.9, palmitate tracings, sinus rhythm REVIEW OF SYSTEMS Constitutional: No fever, no chills, no night sweats. No weight change. No weakness, reports fatigue no lethargy. No daytime sleepiness. EENT: No headache. No blurred vision or double vision, no loss of vision. No loss of Hearing, no ringing in the ears, no dizziness. No nasal drainage or congestion. No epistaxis. No sore throat. Lungs: No shortness of breath, cough, no sputum production. No wheezing. Cardiovascular: Reports expected chest pain, no lower extremity edema. No palpitations. No paroxysmal nocturnal dyspnea. No orthopnea. No lightheadedness or dizziness. No syncopal episodes. Abdominal: No abdominal pain. No nausea, vomiting. No diarrhea. No constipation. No bloody or tarry stools reports decreased of appetite. Genitourinary: No dysuria, increased frequency, urgency. No urinary retention. Musculoskeletal: No myalgias. Reports generalized muscle weakness, no gait dysfunction, no frequent falls. No back pain. No neck pain. Integumentary: No wounds, no lesions. No rash or pruritus. No unusual bruising. No change in hair or nails. Neurologic: No aphasia. No facial droop. No change in mentation. No head injury. No headache. No paralysis. No paresthesia. Psychiatric: No depression. No anxiety. No mood swings. Reports insomnia. Endocrine: No abnormal blood sugars. No weight change. No excessive sweating or thirst. No cold intolerance. Objective - Vital Signs Vital signs: Vital Signs Temp 98 F 04/13/21 12:00 Pulse 94 04/13/21 14:00 Resp 16 04/13/21 14:00 BP 111/67 04/13/21 14:00 Pulse Ox 96 04/13/21 14:12 Intake & Output 04/12/21 04/13/21 04/13/21 18:59 06:59 18:59 Intake Total 1514.075 639 294 Output Total 60 780 775 Balance 0188.160 -948 -122 Weight 81.3 kg Intake: IV 429 639 194 0.9 360 603 170 pressure bag 69 36 24 Intake, IV Titration 105.075 Amount Insulin Regular 100 unit 5.075 In Sodium Chloride 0.9% 100 ml @ Per Protocol IV .Q0M [facility] Rx#:[id number] Sodium Ferric Gluconat- 100 Sucrose 125 mg In Sodium Chloride 0.9% 100 ml @ 100 mls/hr IVPB ONCE ONE Rx#:[id number] Oral 360 100 Blood Product 620 Rc As-1 Unit 310 [id number] Output: Chest Tube Drainage 60 130 0 Chest Tube Left Pleural 130 0 Chest Tube Mediastinal 60 Urine 0 650 775 Other: Voiding Method Urinal Urinal ABP, PAP, CO, CI - Last Documented Arterial Blood Pressure 101/51 Pulmonary Artery Pressure 19/2 Cardiac Output 5.5 Cardiac Index 2.9 - Constitutional General appearance: Present: average body habitus, cooperative, no acute distress - EENT Eyes: Present: anicteric sclerae, EOMI, PERRLA, dentition normal, normal appearance ENT: Present: NA/AT, normal oropharynx Ears: bilateral: normal - Neck Neck: Present: normal ROM - Respiratory Respiratory: bilateral: CTA, negative: diminished, dullness, rales, rhonchi, wheezing - Cardiovascular Rhythm: regular Heart sounds: normal: S1, S2 Abnormal Heart Sounds: Absent: systolic murmur, diastolic murmur, rub, S3 Gallop, S4 Gallop, click, other - Gastrointestinal General gastrointestinal: Present: normal bowel sounds, soft - Integumentary Integumentary: Present: decreased turgor, normal - Neurologic Neurologic: Present: CNII-XII intact - Musculoskeletal Musculoskeletal: Present: generalized weakness, strength equal bilaterally - Labs CBC & Chem 7: 04/13/21 06:41 04/13/21 06:41 Labs: Abnormal Lab Results - Last 24 Hours (Table) 04/12/21 04/13/21 04/13/21 Range/Units 16:49 06:41 06:41 WBC 13.0 H (3.8-10.6) k/uL RBC 2.62 L (4.30-5.90) m/uL Hgb 8.1 L (13.0-17.5) gm/dL Hct 23.6 L (39.0-53.0) % Plt Count 122 L (150-450) k/uL Neutrophils # 10.6 H (1.3-7.7) k/uL Chloride 108 H (98-107) mmol/L BUN 21 H (9-20) mg/dL Glucose 121 H (74-99) mg/dL POC Glucose (mg/dL) 108 H (75-99) mg/dL Calcium 7.3 L (8.4-10.2) mg/dL Total Protein 5.3 L (6.3-8.2) g/dL Albumin 2.8 L (3.5-5.0) g/dL 04/13/21 Range/Units 06:59 WBC (3.8-10.6) k/uL RBC (4.30-5.90) m/uL Hgb (13.0-17.5) gm/dL Hct (39.0-53.0) % Plt Count (150-450) k/uL Neutrophils # (1.3-7.7) k/uL Chloride (98-107) mmol/L BUN (9-20) mg/dL Glucose (74-99) mg/dL POC Glucose (mg/dL) 126 H (75-99) mg/dL Calcium (8.4-10.2) mg/dL Total Protein (6.3-8.2) g/dL Albumin (3.5-5.0) g/dL Assessment and Plan Plan: ASSESSMENT AND PLAN 1. Coronary artery disease status post triple CABG, 04/10 postoperative day #3. Continue current management per cardio thoracic surgery.Continue aspirin 325 mg daily, Lipitor 40 mg daily, Plavix 75 mg daily, Lopressor 12.5 mg twice daily. Patient is currently on insulin drip is no history of diabetes. 2. Hypertension. Continue amlodipine 2.5 mg daily, Lopressor, hydralazine as needed. 3. Hyperlipidemia. Continue atorvastatin. 4. COPD. Continue Pulmicort 0.5 mg twice daily, DuoNeb treatments 4 times daily. 5. Hypothyroidism. Continue levothyroxine 137 g daily. 6. Seasonal ALLERGIES, stable. 7. History of tobacco use and dependence. 8. Postoperative acute blood loss anemia, expected following surgery. Patient is receiving 1 unit of packed RBCs, Ferrlecit 1 dose ordered as well as iron 325 mg oral daily. 9. Postop thrombocytopenia, expected following surgery. Continue to monitor. 10. GI prophylaxis. Protonix 40 mg daily. 11. DVT prophylaxis. Heparin 5000 units subcu every 8 hours. 12. Statin myalgia, unable to switch to Crestor or pravastatin along the hospital, need aggressive statin management, continue on Lipitor 40 mg until discharge, otherwise PSK9 injections will be an alternative DISCHARGE PLAN Most likely home with homecare.
[2021-04-13] MEDS: ACETAMINOPHEN TAB 325 MG TAB PO PRN (15:12)
[2021-04-13] MEDS: FERROUS SULFATE 325 MG TAB PO SCH (15:12)
[2021-04-13 16:43] LABS: Glucose,Whole Blood 117 mg/dL (75-99)
[2021-04-13 22:16] LABS: Glucose,Whole Blood 113 mg/dL (75-99)
[2021-04-13] MEDS: SENNOSIDES-DOCUSATE SODIUM 1 EACH TAB PO SCH (22:19)
[2021-04-13] MEDS: MELATONIN 3 MG TABLET PO SCH (22:19)
[2021-04-13] MEDS: METOPROLOL TARTRATE 25 MG TAB PO SCH (22:20)
[2021-04-14] MEDS: HEPARIN SODIUM,PORCINE/PF 5,000 UNIT/0.5 ML SYRINGE SQ SCH ×4 (00:29→22:53)
[2021-04-14 00:39] LABS: Glucose,Whole Blood 117 mg/dL (75-99)
[2021-04-14] MEDS: SODIUM CHLORIDE 0.9% 1,000 ML IV SCH (05:16)
[2021-04-14 06:18] LABS: Glucose,Whole Blood 108 mg/dL (75-99)
[2021-04-14] MEDS: INSULIN ASPART (NovoLOG) 100 UNIT/ML VIAL SQ SCH ×4 (06:32→20:00)
[2021-04-14] MEDS: PANTOPRAZOLE 40 MG TABLET PO SCH (06:40)
[2021-04-14] MEDS: IPRATROPIUM-ALBUTEROL 3 ML NEB INHALATION SCH ×4 (07:48→20:34)
[2021-04-14] MEDS: BUDESONIDE 0.5 MG/2 ML NEBU INHALATION SCH ×2 (07:48→20:34)
[2021-04-14] MEDS: CLOPIDOGREL 75 MG TAB PO SCH (07:57)
[2021-04-14] MEDS: ASPIRIN 325 MG TAB PO SCH (07:57)
[2021-04-14] MEDS: amLODIPine 2.5 MG TAB PO SCH (07:57)
[2021-04-14] MEDS: bisacodyL 10 MG SUPP RECTAL SCH (07:57)
[2021-04-14] MEDS: METOPROLOL TARTRATE 25 MG TAB PO SCH ×2 (07:57→20:00)
--- NOTE | 2021-04-14 08:06 | P.PN ---
Subjective Progress Note Date: 04/14/21 Principal diagnosis: Triple-vessel coronary artery disease, preserved left ventricular function with EF 55%. Previous medical history of hypertension, hyperlipidemia, severe COPD with preoperative FEV1 47% of predicted, previous tobacco dependence, hypothyroidism, chronic kidney disease stage II, right lower lobe lung nodule negative on PET POD #4 triple-vessel coronary artery bypass grafting using the free left internal mammary artery with an inflow from the left radial artery to the left anterior descending artery, left radial artery from the aorta to the first obtuse marginal artery, reverse saphenous vein graft from the aorta to the right coronary artery, exclusion of the left atrial appendage using a 35 mm AtriClip, endoscopic harvesting of the left radial artery, endoscopic harvesting of the left greater saphenous vein from the groin to above the ankle, intraoperative graft flow measurements using the GAMINSIDE system, intraoperative transesophageal echocardiogram and epi-aortic scanning Postoperative acute blood loss anemia and thrombocytopenia, expected given hemodilution and cardiopulmonary bypass pump Postoperative urinary retention requiring initiation of Flomax and reinsertion of Huffman catheter, unexpected The patient's currently sitting up in a recliner on the cardiac stepdown unit in no acute distress. Remains in sinus rhythm to sinus tach with heart rate in the high 90s to low 100s, blood pressure stable although patient did not get his evening dose of metoprolol last night due to systolic blood pressure 99. Patient states pain is controlled on current medication regimen, states shortness of breath comes and goes. His continues to complain of tiredness, weakness, patient has very little motivation to do anything and needs constant reminding of need to increase activity, use incentive spirometry. Apparently the patient's daughter discussed with Dr. Perze that the patient has had problems with myalgias and weakness in the past due to statin medication, Dr. Perez did try to switch the patient to Crestor however it is non-formulary in this hospital, CK to BE drawn this morning. The patient did have an episode around midnight when getting up to chair of profound weakness necessitating being lowered to the ground, he did not lose consciousness but rather just had extreme weakness. Remains on 2 L nasal cannula with oxygen saturation in the mid 90s. Huffman catheter was discontinued, patient did experience urinary residual and was started on Flomax, continue to have urine residual and Huffman catheter was replaced last night. Objective - Vital Signs Vital signs: Vital Signs Temp 97.4 F L 04/14/21 07:50 Pulse 110 H 04/14/21 07:50 Resp 20 04/14/21 07:50 BP 129/82 04/14/21 07:50 Pulse Ox 95 04/14/21 07:50 Intake & Output 04/13/21 04/14/21 04/14/21 18:59 06:59 18:59 Intake Total 294 240 Output Total 1125 650 Balance -831 -650 240 Weight 81 kg Intake: IV 194 0.9 170 pressure bag 24 Oral 100 240 Output: Chest Tube Drainage 0 Chest Tube Left Pleural 0 Urine 1125 650 Other: Voiding Method Indwelling Catheter # Bowel Movements 1 ABP, PAP, CO, CI - Last Documented Arterial Blood Pressure 101/51 Pulmonary Artery Pressure 19/2 Cardiac Output 5.5 Cardiac Index 2.9 - Exam CONSTITUTIONAL: Appears comfortable, no acute distress RESPIRATORY: Lungs sounds diminished bilaterally. Respirations even, nonlabored. Currently on 2 L nasal cannula with oxygen saturation 96%. Able to achieve 1000 mL on incentive spirometry. Strong cough with encouragement. CARDIOVASCULAR: S1, S2 present. Regular rate and rhythm, sinus rhythm to sinus tach on telemetry. Sternum stable. Palpable peripheral pulses bilaterally. Trace bilateral upper extremity edema present. No calf pain or tenderness noted. Heart hugger in place with patient demonstrating appropriate use. A ntiembolism stockings, SCDs present. GASTROINTESTINAL: Abdomen soft, nontender, nondistended. Active bowel sounds present 4 quadrants. Tolerating minimal diet. Positive small bowel movement yesterday GENITOURINARY: Huffman catheter in place, urine output 1.7 L in the last 24 hours INTEGUMENTARY: Skin is warm and dry with evidence of good perfusion. Anterior chest incision well approximated and covered with dry intact dressing. Left lower extremity EVH site well approximated without redness or drainage. Left radial artery harvest site well approximated without redness or drainage, patie nt able to wiggle all fingers and pipe changer appropriately, good cap refill NEUROLOGIC: Cranial nerves II through XII intact MUSKULOSKELETAL: Able to move all extremities, strength equal bilaterally but p atient is very weak PSYCHIATRIC: Alert and oriented to person place and time, appropriate affect, i ntact judgment and insight INVASIVE LINES AND TUBES: Atrial epicardial pacemaker wires present, grounded. - Allied health notes Allied health notes reviewed: nursing - Labs CBC & Chem 7: 04/13/21 06:41 04/13/21 06:41 Labs: Abnormal Lab Results - Last 24 Hours (Table) 04/13/21 04/13/21 04/14/21 Range/Units 16:40 22:04 00:37 POC Glucose (mg/dL) 117 H 113 H 117 H (75-99) mg/dL 04/14/21 Range/Units 05:58 POC Glucose (mg/dL) 108 H (75-99) mg/dL - Imaging and Cardiology Chest x-ray: image reviewed Assessment and Plan Assessment: 1. Triple-vessel coronary artery disease, status post three-vessel CABG 2. Preserved left ventricular function with EF 55% 3. History of hypertension 4. Hyperlipidemia 5. Severe COPD with preoperative FEV1 47% of predicted 6. Previous tobacco dependence 7. Hypothyroidism 8. Chronic kidney disease stage II 9. Right lower lobe lung nodule negative on PET 10. Postoperative acute blood loss anemia and thrombocytopenia, expected given hemodilution and cardiopulmonary bypass pump 11. Postoperative urinary retention Plan: 1. Continue aspirin, Plavix, statin, beta karley. Will increase beta karley therapy as tolerated. May need to decrease statin dose or switch to different statin due to weakness, CK to BE drawn today 2. Continue low-dose Norvasc for radial artery spasm. Do not discontinue without discussing with cardiothoracic surgery 3. Wean O2 as tolerated. Encourage incentive spirometry use 10 times every hour while awake. Bronchodilators per pulmonology 3. Increase activity, ambulate as tolerated. PT/OT/cardiac rehab consulted. 4. Will monitor daily labs and chest x-rays. Electrolyte replacement per protocol. No transfusion today 5. GI/DVT prophylaxis 6. Insulin management per primary care service. Patient is not diabetic, preoperative hemoglobin A1c 6.3%. 7. Pain control with current medication regimen. No Toradol due to history of CKD. Narcotics discontinued 8. Continue Flomax, Huffman catheter. Urology consulted, appreciate recommendations 9. Will obtain orthostatic blood pressures/heart rate. Patient encouraged to increase oral intake 10. Strict accurate intake and output. Daily weights 11. Will discontinue epicardial pacemaker wire. Patient to remain on bedrest for 1 hour post-wire removal 12. Dr. Pepper consulted for possible discharge to [facility] as patient needs increased strength training and close physician monitoring for multiple complex medical comorbidities 13. More recommendations to follow based on patient's progress Time with Patient: Greater than 30
--- NOTE | 2021-04-14 08:17 | XR ---
EXAMINATION TYPE: XR chest 2V DATE OF EXAM: 04/14/2021 COMPARISON: 04/13/2021 HISTORY: Status post cardiac surgery TECHNIQUE: Frontal and lateral views of the chest are obtained. FINDINGS: There has been interval the left chest tube. Linear densities in both lung bases most likely represent atelectasis. Postoperative changes overlie the cardiac silhouette. IMPRESSION: Bibasilar atelectasis. Interval left chest tube.
[2021-04-14 09:22] LABS: Calcium 7.8 mg/dL (8.4-10.2); Potassium 4.3 mmol/L (3.5-5.1)
[2021-04-14 09:30] LABS: Basophils % (A) 0 %; Eosinophils # (A) 0.3 k/uL (0-0.7); Eosinophils % (A) 3 %; HCT 24.1 % (39.0-53.0); HGB 7.9 gm/dL (13.0-17.5); Hypochromasia Slight; Lymphocytes % (A) 10 %; MCH 29.8 pg (25.0-35.0); MCHC 32.6 g/dL (31.0-37.0); MCV 91.3 fL (80.0-100.0); Mean Platelet Volume 8.9; Monocytes # (A) 0.7 k/uL (0-1.0); Monocytes % (A) 7 %; Neutrophils # (A) 7.8 k/uL (1.3-7.7); Neutrophils % (A) 77 %; Platelet Count 150 k/uL (150-450); RBC 2.64 m/uL (4.30-5.90); RDW 15.1 % (11.5-15.5); WBC 10.1 k/uL (3.8-10.6)
[2021-04-14 11:27] LABS: Glucose,Whole Blood 111 mg/dL (75-99)
[2021-04-14] MEDS: LEVOTHYROXINE 137 MCG TAB PO SCH (11:36)
[2021-04-14] MEDS: FERROUS SULFATE 325 MG TAB PO SCH (11:36)
--- NOTE | 2021-04-14 11:39 | P.PN ---
Subjective This is a pleasant 65-year-old male past medical history significant for coronary artery disease, hypertension and COPD. He follows in the office with Dr. Velazquez. He underwent three-vessel bypass grafting yesterday with free CARCAMO with an inflow from the left radial artery to the LAD, left radial artery from the aorta to the first OM and reverse SVG from the aorta to the RCA as well as exclusion of left atrial appendage. He is seen and examined sitting up in the recliner. He is complaining of feeling very sore and tired. He denies any significant symptoms of shortness of breath. He is complaining of pain at the incision site. He is maintaining oxygen saturation on nasal cannula and achieving 1000 mls on IS. He has a right IJ Cordis in place showing a cardiac output of 4.1 with a cardiac index of 2.2 and a CVP of 7. Chest tubes in place. Chest x-ray this morning reveals bilateral infiltrates and small effusions. Laboratory data reviewed, WBC 14, hemoglobin 7.4, platelets 121, sodium 143, potassium 4.2, creatinine 1.23, magnesium 2.2. Preoperative echocardiogram revealed preserved LV systolic function with ejection fraction 55%, normal diastolic function, borderline LVH, ascending aorta is enlarged, mild MR, mild TR and normal RVSP. 04/14/2021 Pt seen and examined sitting up in recliner in no acute distress. He is sitting up in the bedside chair later this morning. He continues to feel weak and tired. He has little motivation to do activity, he states he did walk a few steps with assistance. He states he doesn't have much of an appetite, but is trying to eat. Blood pressure 113/74 heart rate 86 afebrile and maintaining oxygen saturation on nasal cannula. Chest xray this morning revealed stable bilateral infiltrate and small effusion. Laboratory data reviewed, WBC 10.1, hemoglobin 7.9, platelets 150, sodium 139, potassium 4.3, BUN 21, serum creatinine 1.0, creatine kinase 392. 24-hr urine output is 1.7L. Telemetry tracings reveal he is maintaining sinus mechanism HR is in the high 90s to low 100s. She did not receive her metoprolol last night due to BP 99/70. Mediastinal chest tube was removed 04/12. Pacewires were removed this morning. Huffman catheter was discontinued, patient did experience urinary residual and was started on Flomax, continue to have urine residual and Huffman catheter was replaced last night. PHYSICAL EXAMINATION CONSTITUTIONAL: No apparent distress. HEENT: Head is normocephalic. Pupils are equal, round. Sclerae anicteric. Mucous membranes of the mouth are moist. No JVD. No carotid bruit. Right IJ cordis in place. CHEST EXAMINATION: Lungs are clear to auscultation. Mid sternal chest wall tenderness is noted at site of incision. Left chest tube in place. Bear hugger. Anterior chest incision incision covered with dressing that is dry. HEART EXAMINATION: Regular rate and rhythm. S1, S2 heard. No murmurs, gallops or rub. Heart hugger in place. EXTREMITIES: 2+ peripheral pulses, no lower extremity edema and no calf tenderness. Right radial art line in place. ASSESSMENT Triple vessel coronary artery disease s/p bypass grafting POD#4 Near syncope secondary to anemia Anemia Hypertension Dyslipidemia COPD Former nicotine dependence PLAN Continue current medical regimen. Encourage incentive spirometer use. Encourage PO intake Increase activity as tolerated. We will continue to follow and provide supportive care, primary management per CT surgery. Nurse Practitioner note has been reviewed, I agree with a documented findings and plan of care. Patient was seen and examined. Objective - Vital Signs Vital signs: Vital Signs Temp 97.4 F L 04/14/21 07:50 Pulse 108 H 04/14/21 11:23 Resp 22 04/14/21 08:41 BP 120/74 04/14/21 10:00 Pulse Ox 95 04/14/21 09:41 Intake & Output 04/13/21 04/14/21 04/14/21 18:59 06:59 18:59 Intake Total 294 240 Output Total 1125 650 600 Balance -831 -650 -360 Weight 81 kg Intake: IV 194 0.9 170 pressure bag 24 Oral 100 240 Output: Chest Tube Drainage 0 Chest Tube Left Pleural 0 Urine 1125 650 600 Uretheral (Huffman) 300 Other: Voiding Method Indwelling Catheter Indwelling Catheter # Bowel Movements 1 ABP, PAP, CO, CI - Last Documented Arterial Blood Pressure 101/51 Pulmonary Artery Pressure 19/2 Cardiac Output 5.5 Cardiac Index 2.9 - Labs CBC & Chem 7: 04/14/21 07:35 04/14/21 07:35 Labs: Abnormal Lab Results - Last 24 Hours (Table) 04/13/21 04/13/21 04/14/21 Range/Units 16:40 22:04 00:37 RBC (4.30-5.90) m/uL Hgb (13.0-17.5) gm/dL Hct (39.0-53.0) % Neutrophils # (1.3-7.7) k/uL BUN (9-20) mg/dL POC Glucose (mg/dL) 117 H 113 H 117 H (75-99) mg/dL Calcium (8.4-10.2) mg/dL Creatine Kinase (55-170) U/L 04/14/21 04/14/21 04/14/21 Range/Units 05:58 07:35 07:35 RBC 2.64 L (4.30-5.90) m/uL Hgb 7.9 L (13.0-17.5) gm/dL Hct 24.1 L (39.0-53.0) % Neutrophils # 7.8 H (1.3-7.7) k/uL BUN 21 H (9-20) mg/dL POC Glucose (mg/dL) 108 H (75-99) mg/dL Calcium 7.8 L (8.4-10.2) mg/dL Creatine Kinase 392 H (55-170) U/L 04/14/21 Range/Units 11:25 RBC (4.30-5.90) m/uL Hgb (13.0-17.5) gm/dL Hct (39.0-53.0) % Neutrophils # (1.3-7.7) k/uL BUN (9-20) mg/dL POC Glucose (mg/dL) 111 H (75-99) mg/dL Calcium (8.4-10.2) mg/dL Creatine Kinase (55-170) U/L
[2021-04-14] MEDS ORDERED: FUROSEMIDE 20 MG TAB PO STA (14:05)
--- NOTE | 2021-04-14 14:26 | P.PN ---
Subjective Progress Note Date: 04/14/21 Principal diagnosis: coronary artery bypass grafting This is a 65-year-old white male patient with past medical history of hypertension, hyperlipidemia, history of smoking and hypothyroidism had been complaining of worsening dyspnea on exertion for the last 7 months. Patient had a pulmonary workup which showed FEV1 of 1.41 L or 47% of predicted, consistent with severe obstruction, outpatient computed tomography scan did not nodule however of follow-up PET scan was subsequently negative as reported by his stepdaughter. Patient had cardiac workup that included a stress test which showed evidence of anteroseptal wall ischemia. Cardiac catheterization on 03/03/2021 at the [facility] showed three-vessel coronary artery disease with mid RCA, long proximal LAD in the proximal OM1 significant stenosis. Ejection fraction was 55% by echocardiogram with mild inferior hypokinesia. Patient was referred to cardiothoracic surgery for surgical intervention and on 04/10/2021 patient underwent triple-vessel coronary artery bypass grafting with free CARCAMO to the LAD, left radial artery to the first up to his marginal, reverse SVG to the RCA, exclusion of the left atrial appendage using not 35mm Atriclip, and endoscopic harvesting of the left radial artery and left greater saphenous vein. We are seeing the patient today on the first postoperative day, patient has been successfully weaned and extubated from mechanical ventilator on 04/10/2021, to BiPAP support with pressure of 16/6 and FiO2 of 50%. Currently patient is on 2 L of oxygen, with a pulse ox of 96%, he is awake and alert, he is up in the recliner. Reports mild incisional discomfort, but no acute distress. Hemodynamically patient is stable, he is currently on 0.9 normal saline there is a 50 ML per hour, nitroglycerin is a 5 mics per kilo per minute, and insulin infusion is at 2 units per hour. In sinus mechanism with a rate of 76 BPM, blood pressure is 110/49, PA pressures 23/7, CVP is 8, cardiac output is 5.5 and cardiac index is 2.9. Mediastinal chest tubes in place with a total of 400 mL of serosanguineous output in the last 24 hours, and left pleural chest tube with 300 mL of serosanguineous output, no evidence of air leak. Incisions are dry and intact. Incentive spirometry effort is 500-750 this morning. Today's chest x-ray shows bilateral infiltrates and small pleural effusions, evidence of sizable pneumothorax. On 04/12/2021 patient seen in follow-up in the intensive care unit, today is postoperative day #2, status post three-vessel coronary artery bypass grafting. Patient is doing well, he is awake and alert, he sitting up in a recliner, currently on 2 L of oxygen pulse ox is 96%, hemodynamically stable, not on any vasopressor support, his on 0.9 normal saline at a rate of 20 ML per hour, he is receiving a transfusion with 1 unit of packed red blood cells for hemoglobin of 6.5 this morning, with a controlled rate, blood pressure is 115/60, he is afe brile, no worsening dyspnea, he is achieving 1000 ML on his incentive spirometer, lung sounds are diminished, no rhonchi or wheezing, no cough, today's chest x-ray shows basilar atelectasis, and there has been some improvement in patient's volume status and aeration. His labs have been reviewed, white blood cell count is 13.3, his hemoglobin as mentioned above is 6.5. Platelet Count is 117, lites and renal profile are unremarkable. No nausea or vomiting, patient is tolerating oral intake. Incisions are clean dry and intact, patient still has his 2 mediastinal and left pleural chest tube in place and there has been 330 ML of thin serosanguineous output from the mediastinal chest tube, and left pleural chest tube is 110 mL 24 hours, urinary catheter output is in the order of 50 ML per hour. On 04/13/2021 patient seen in follow-up in intensive care unit, today is postoperative day #3 status post three-vessel coronary artery bypass grafting. Patient is currently on 2 L of oxygen, his pulse ox is 88-91%, did wear BiPAP overnight at pressures of 10/5 and FiO2 of 35%, no evidence of any acute respiratory distress. Lung sounds reveal bibasilar crackles. Today's chest x- ray was reviewed showing no infiltrates, and pleural effusion, no sizable pneumothorax. Incentive spirometry effort is 1000 ML. Patient still has a left pleural chest tube in place, 2 mediastinal chest tubes have been discontinued. Has been a total of 30 mL of serosanguineous output in the last 24 hours. Huffman catheter has been discontinued, however this money patient is experiencing urinary retention, and is currently undergoing straight cathing. No nausea or vomiting, or diarrhea, tolerating oral intake, no abdominal pain. Does have been stable overnight, patient is sinus mechanism. Today's labs have been reviewed, white blood cell count is 13, hemoglobin is 8.1, platelet count is 122. Electrolytes and renal profile are unremarkable On 04/14/2021 patient seen in follow-up on selective care unit. Today's postoperative day #4, status post three-vessel bypass grafting, he is currently on 2 L of oxygen his pulse ox is 95%. He sitting up in the recliner, appears to be in no acute distress. He is working on the incentive spirometer and he is achieving 1000 ML on the today. Today's chest x-ray shows bibasilar atelectasis. His left pleural chest tube has been discontinued. No worsening dyspnea, his vital signs have been stable, he is in sinus mechanism with a controlled rate, today's labs have been reviewed, white blood cell count is 10.1, hemoglobin is 7.9, electrolytes and renal profile were within normal limits. Objective - Vital Signs Vital signs: Vital Signs Temp 98.9 F 04/14/21 11:38 Pulse 109 H 04/14/21 11:38 Resp 22 04/14/21 11:38 BP 115/69 04/14/21 11:38 Pulse Ox 97 04/14/21 11:38 Intake & Output 04/13/21 04/14/21 04/14/21 18:59 06:59 18:59 Intake Total 294 358 Output Total 1125 650 600 Balance -831 -650 -242 Weight 81 kg Intake: IV 194 0.9 170 pressure bag 24 Oral 100 358 Output: Chest Tube Drainage 0 Chest Tube Left Pleural 0 Urine 1125 650 600 Uretheral (Huffman) 300 Other: Voiding Method Indwelling Catheter Indwelling Catheter # Bowel Movements 1 ABP, PAP, CO, CI - Last Documented Arterial Blood Pressure 101/51 Pulmonary Artery Pressure 19/2 Cardiac Output 5.5 Cardiac Index 2.9 - Exam GENERAL EXAM: Alert, a pleasant, 65-year-old white male, on 2 L of oxygen with a pulse ox of 97%, sitting up in the recliner comfortable in no apparent distress. HEAD: Normocephalic/atraumatic. EYES: Normal reaction of pupils, equal size. Conjunctiva pink, sclera white. NOSE: Clear with pink turbinates. THROAT: No erythema or exudates. NECK: No masses, no JVD, no thyroid enlargement, no adenopathy. CHEST: No chest wall deformity. Symmetrical expansion. Midsternal incision is clean dry and intact, covered with a surgical dressing, mediastinal and left pleural chest tubes have been discontinued. LUNGS: Equal air entry with no crackles, wheeze, rhonchi or dullness. CVS: Regular rate and rhythm, normal S1 and S2, no gallops, no murmurs, no rubs ABDOMEN: Soft, nontender. No hepatosplenomegaly, normal bowel sounds, no guarding or rigidity. EXTREMITIES: No clubbing, no edema, no cyanosis, 2+ pulses and upper and lower extremities. Left leg interrupted incision is clean dry and intact, mild bruising MUSCULOSKELETAL: Muscle strength and tone normal. SPINE: No scoliosis or deformity SKIN: No rashes CENTRAL NERVOUS SYSTEM: Alert and oriented -3. No focal deficits, tone is normal in all 4 extremities. PSYCHIATRIC: Alert and oriented -3. Appropriate affect. Intact judgment and insight. - Labs CBC & Chem 7: 04/14/21 07:35 04/14/21 07:35 Labs: Abnormal Lab Results - Last 24 Hours (Table) 04/13/21 04/13/21 04/14/21 Range/Units 16:40 22:04 00:37 RBC (4.30-5.90) m/uL Hgb (13.0-17.5) gm/dL Hct (39.0-53.0) % Neutrophils # (1.3-7.7) k/uL BUN (9-20) mg/dL POC Glucose (mg/dL) 117 H 113 H 117 H (75-99) mg/dL Calcium (8.4-10.2) mg/dL Creatine Kinase (55-170) U/L 04/14/21 04/14/21 04/14/21 Range/Units 05:58 07:35 07:35 RBC 2.64 L (4.30-5.90) m/uL Hgb 7.9 L (13.0-17.5) gm/dL Hct 24.1 L (39.0-53.0) % Neutrophils # 7.8 H (1.3-7.7) k/uL BUN 21 H (9-20) mg/dL POC Glucose (mg/dL) 108 H (75-99) mg/dL Calcium 7.8 L (8.4-10.2) mg/dL Creatine Kinase 392 H (55-170) U/L 04/14/21 Range/Units 11:25 RBC (4.30-5.90) m/uL Hgb (13.0-17.5) gm/dL Hct (39.0-53.0) % Neutrophils # (1.3-7.7) k/uL BUN (9-20) mg/dL POC Glucose (mg/dL) 111 H (75-99) mg/dL Calcium (8.4-10.2) mg/dL Creatine Kinase (55-170) U/L Assessment and Plan Plan: Assessment: #1. Coronary artery disease status post triple coronary artery bypass grafting using the free CARCAMO to the LAD, left radial artery graft to the first obtuse marginal, reverse SVG to the RCA, exclusion of the left atrial appendage using a 35 mm ATriClip, endoscopic harvesting of the left radial artery, and left greater saphenous vein was 04/10/2021, postoperative day #4 #2. Routine postoperative ventilator management, and patient was successfully weaned and extubated on post-op day #0 to BiPAP, currently on 2 L of oxygen #3. Postoperative blood loss anemia, expected outcome of sternotomy and bypass grafting surgery #4. COPD, with preop FEV1 of 47% of predicted consistent with stage III COPD not oxygen dependent at baseline #5. [id number] smoking history in remission for 1 year #6. Pulmonary nodule seen on a computed tomography scan of the chest on outpatient basis, PET scan did not show uptake at the site of the nodule #7. Hypertension #8. Hyperlipidemia #9. Hypothyroidism Plan: Encourage deep breathing and coughing Encourage incentive spirometer use Left pleural chest tube has been discontinued Today's chest x-ray has been reviewed Labs reviewed Continue to closely follow along with CT surgery I performed a history & physical examination of the patient and discussed their management with my nurse practitioner, Robyn Aguayo. I reviewed the nurse practitioner's note and agree with the documented findings and plan of care. Lung sounds are positive for clear breath sounds throughout the lung hawkins. The findings and the impression was discussed with the patient. I attest to the documentation by the nurse practitioner. Time with Patient: Less than 30
--- NOTE | 2021-04-14 16:48 | P.PN ---
Subjective Progress Note Date: 04/14/21 HISTORY OF PRESENT ILLNESS This is a 65-year-old male patient of Dr. Pandya past medical history of coronary artery disease, hypertension, hyperlipidemia, COPD, hypothyroidism, [place] ALLERGIES, remote history of tobacco use. Yesterday, patient underwent three-vessel CABG free CARCAMO with an inflow from the left radial artery to the LAD, left radial artery from the aorta to the first OM and reverse SVG from the aorta to the RCA as well as exclusion of left atrial appendage. Patient is seen today in intensive care unit. He has been successfully extubated. He states that he is feeling okay. No significant chest pain. He does have surgical site pain. He has been afebrile, heart rate 72, blood pressure 106/53, pulse ox 98% on 2 L nasal cannula. Repeat blood work reveals WBC 14, hemoglobin 7.4, platelet count 121. Sodium 143, potassium 4.2, chloride 112, CO2 24, BUN 19 and creatinine 1.23. Blood sugars are running between 108 and 161. Patient does not have history of diabetes. He is on insulin drip. Magnesium 2.2. AST 72. Chest x-ray this morning reveals bilateral infiltrate and small effusion. Patient has right IJ Cordis in place, left pleural chest tube and mediastinal chest tube and Huffman catheter in place. 04/12: Hemoglobin this morning is 6.5 and he is receiving 1 unit of packed RBCs. One dose of Ferrlecit infusion ordered and oral ferrous sulfate ordered. Patient is complaining that he is not sleeping well and melatonin added. Insulin drip will be discontinued and patient transitioned to NovoLog scale before meals and at bedtime. He has been afebrile, heart rate 90, blood pressure 104/64, pulse ox 95% on 2 L nasal cannula. Capillary blood glucose running between 66 and 142. WBC 13.3, platelet count 117. Creatinine 1.13. AST 64. Repeat chest x-ray reveals basilar atelectasis. Some improvement in patient's volume status. Huffman catheter has been removed. 04/13: Both mediastinal chest tube has been discontinued, Huffman catheter is not present, the daughter is in the bedside, she was mentioning that dad has issues regarding myalgia using Lipitor, 40 mg currently dose, and requests a med change, we discussed this with the pharmacy, 2 change it to Crestor 10 mg, however with formula status, this cannot be switch while the patient is in the hospital. Patient's appetite is much better, still with weakness, physical medicine teacher apy has been consulted with Dr. Pepper for inpatient rehab, and most likely would be transitioned to [facility] for cardiac debility weakness, once discharged. No chest pain no palpitations, denies any hematuria or melena no fever. Labs hemoglobin 8.1, sodium 138, potassium 4.7, creatinine 0.9, palmitate tracings, sinus rhythm :, Patient was moved out of ICU today, in telemetry floor, selective care unit. Patient's postop day #4, requiring 2 L of O2, satting at 95%, patient is having some edema in the arms and the legs, no shortness of breath, patient's continued on incentive spirometry, chest x-ray only shows basilar atelectasis, and sinus rhythm. Hemoglobin 7.9, Lasix low-dose 20 mg given IV, with blood pressure of 115 systolic, nutritional supplementation, check for albumin, blood sugars are 108-117, CPK is elevated at 392, no nausea no vomiting or diarrhea. Calcium and vitamin D started, has hypocalcemia as well. And hypoalbuminemia and ensure enliv tid REVIEW OF SYSTEMS Constitutional: No fever, no chills, no night sweats. No weight change. No weakness, reports fatigue no lethargy. No daytime sleepiness. EENT: No headache. No blurred vision or double vision, no loss of vision. No loss of Hearing, no ringing in the ears, no dizziness. No nasal drainage or congestion. No epistaxis. No sore throat. Lungs: No shortness of breath, cough, no sputum production. No wheezing. Cardiovascular: Reports expected chest pain, no lower extremity edema. No palpitations. No paroxysmal nocturnal dyspnea. No orthopnea. No lightheadedness or dizziness. No syncopal episodes. Abdominal: No abdominal pain. No nausea, vomiting. No diarrhea. No constipation. No bloody or tarry stools reports decreased of appetite. Genitourinary: No dysuria, increased frequency, urgency. No urinary retention. Musculoskeletal: No myalgias. Reports generalized muscle weakness, no gait dysfunction, no frequent falls. No back pain. No neck pain. Integumentary: No wounds, no lesions. No rash or pruritus. No unusual bruising. No change in hair or nails. Neurologic: No aphasia. No facial droop. No change in mentation. No head injury. No headache. No paralysis. No paresthesia. Psychiatric: No depression. No anxiety. No mood swings. Reports insomnia. Endocrine: No abnormal blood sugars. No weight change. No excessive sweating or thirst. No cold intolerance. Objective - Vital Signs Vital signs: Vital Signs Temp 98.6 F 04/14/21 15:28 Pulse 100 04/14/21 16:38 Resp 22 04/14/21 15:28 BP 111/74 04/14/21 15:28 Pulse Ox 96 04/14/21 15:28 Intake & Output 04/13/21 04/14/21 04/14/21 18:59 06:59 18:59 Intake Total 294 358 Output Total 1125 650 600 Balance -831 -650 -242 Weight 81 kg Intake: IV 194 0.9 170 pressure bag 24 Oral 100 358 Output: Chest Tube Drainage 0 Chest Tube Left Pleural 0 Urine 1125 650 600 Uretheral (Huffman) 300 Other: Voiding Method Indwelling Catheter Indwelling Catheter # Voids 2 # Bowel Movements 1 ABP, PAP, CO, CI - Last Documented Arterial Blood Pressure 101/51 Pulmonary Artery Pressure 19/2 Cardiac Output 5.5 Cardiac Index 2.9 - Constitutional General appearance: Present: cooperative, no acute distress - EENT Eyes: Present: EOMI, PERRLA, dentition normal, normal appearance ENT: Present: NA/AT, normal oropharynx - Neck Neck: Present: normal ROM - Respiratory Respiratory: bilateral: CTA, negative: diminished, dullness, rales - Cardiovascular Rhythm: regular Heart sounds: normal: S1, S2 - Gastrointestinal General gastrointestinal: Present: normal bowel sounds, soft - Integumentary Integumentary: Present: decreased turgor, normal - Neurologic Neurologic: Present: CNII-XII intact - Musculoskeletal Musculoskeletal: Present: generalized weakness, strength equal bilaterally, right sided weakness - Psychiatric Psychiatric: Present: A&O x's 3 - Labs CBC & Chem 7: 04/14/21 07:35 04/14/21 07:35 Labs: Abnormal Lab Results - Last 24 Hours (Table) 04/13/21 04/13/21 04/14/21 Range/Units 16:40 22:04 00:37 RBC (4.30-5.90) m/uL Hgb (13.0-17.5) gm/dL Hct (39.0-53.0) % Neutrophils # (1.3-7.7) k/uL BUN (9-20) mg/dL POC Glucose (mg/dL) 117 H 113 H 117 H (75-99) mg/dL Calcium (8.4-10.2) mg/dL Creatine Kinase (55-170) U/L 04/14/21 04/14/21 04/14/21 Range/Units 05:58 07:35 07:35 RBC 2.64 L (4.30-5.90) m/uL Hgb 7.9 L (13.0-17.5) gm/dL Hct 24.1 L (39.0-53.0) % Neutrophils # 7.8 H (1.3-7.7) k/uL BUN 21 H (9-20) mg/dL POC Glucose (mg/dL) 108 H (75-99) mg/dL Calcium 7.8 L (8.4-10.2) mg/dL Creatine Kinase 392 H (55-170) U/L 04/14/21 Range/Units 11:25 RBC (4.30-5.90) m/uL Hgb (13.0-17.5) gm/dL Hct (39.0-53.0) % Neutrophils # (1.3-7.7) k/uL BUN (9-20) mg/dL POC Glucose (mg/dL) 111 H (75-99) mg/dL Calcium (8.4-10.2) mg/dL Creatine Kinase (55-170) U/L Assessment and Plan Plan: ASSESSMENT AND PLAN 1. Coronary artery disease status post triple CABG, 04/10 postoperative day #3. Continue current management per cardio thoracic surgery.Continue aspirin 325 mg daily, Lipitor 40 mg daily, Plavix 75 mg daily, Lopressor 12.5 mg twice daily. Patient is currently on insulin drip is no history of diabetes. 2. Hypertension. Continue amlodipine 2.5 mg daily, Lopressor, hydralazine as needed. 3. Hyperlipidemia. Continue atorvastatin. 4. COPD. Continue Pulmicort 0.5 mg twice daily, DuoNeb treatments 4 times daily. 5. Hypothyroidism. Continue levothyroxine 137 g daily. 6. Seasonal ALLERGIES, stable. 7. History of tobacco use and dependence. 8. Postoperative acute blood loss anemia, expected following surgery. Patient is receiving 1 unit of packed RBCs, Ferrlecit 1 dose ordered as well as iron 325 mg oral daily. 9. Postop thrombocytopenia, expected following surgery. Continue to monitor. 10. GI prophylaxis. Protonix 40 mg daily. 11. DVT prophylaxis. Heparin 5000 units subcu every 8 hours. 12. Statin myalgia with myositis, unable to switch to Crestor or pravastatin during this hospital stay , need aggressive statin management, continue on Lipitor 40 mg until discharge tthen switch as OP, otherwise PSK9 injections will be an alternative 13. Hypocalcemia, with hypoalbuminemia, most likely with vitamin D deficiency, causing myalgia, start on calcium and vitamin D, and ensure and leave next 14Protein calorie malnutrition, supplements above DISCHARGE PLAN Most likely home with homecare.
[2021-04-14 16:58] LABS: Glucose,Whole Blood 122 mg/dL (75-99)
--- NOTE | 2021-04-14 17:29 | P.GSCN ---
History of Present Illness Consult date: 04/14/21 Reason for Consult: Urinary retention History of present illness: this is a 65-year-old male that underwent a CABG on April 10. He had a Abdul catheter postoperatively, it was removed on April 13. Patient was not able to void, and Abdul catheter was subsequently reinserted. Unknown what his postvoid residual was. He denies any voiding issues at baseline. No previous history of urinary retention, gross hematuria, or family history of prostate cancer. The Abdul catheter is currently in place draining clear yellow urine Review of Systems - Constitutional Denies fever, Denies weight loss - Cardiovascular Denies chest pain, Denies shortness of breath - Respiratory Denies cough, Denies 7 - Gastrointestinal Reports as per HPI - Genitourinary Reports urinary retention - Neurological Denies headaches, Denies syncope Past Medical History Past Medical History: Chest Pain / Angina, COPD, Hyperlipidemia, Hypertension, Pneumonia, Thyroid Disorder Additional Past Medical History / Comment(s): recent problems w/SOB w/exertion, recent infected tooth-tx. w/antibiotics, pneumonia in the -"had fluid drawn off" History of Any Multi-Drug Resistant Organisms: None Reported Past Surgical History: Heart Catheterization Past Anesthesia/Blood Transfusion Reactions: No Reported Reaction Additional Past Anesthesia/Blood Transfusion Reaction / Comm: never had general anesthesia Smoking Status: Former smoker - Past Family History Mother Family Medical History: No Reported History Medications and Allergies Home Medications Medication Instructions Recorded Confirmed Type Aspirin 81 mg PO DAILY 03/30/21 04/10/21 History Atorvastatin [Lipitor] 80 mg PO DAILY 03/30/21 04/10/21 History Cetirizine HCl [Zyrtec] 10 mg PO DAILY PRN 03/30/21 04/10/21 History Fluticasone Nasal [place] [Flonase 2 spr EA NOSTRIL DAILY PRN 03/30/21 04/10/21 History Nasal [place]] Levothyroxine Sodium [Synthroid] 137 mcg PO DAILY 03/30/21 04/10/21 History Metoprolol Succinate (ER) [Toprol 25 mg PO DAILY 03/30/21 04/10/21 History Xl] NIFEdipine [NIFEdipine ER] 30 mg PO DAILY 03/30/21 04/10/21 History Albuterol Inhaler [Ventolin Hfa 2 puff INHALATION RT-QID PRN 04/07/21 04/10/21 History Inhaler] Beclomethasone Dipropionate [Qvar 1 puff INHALATION BID 04/07/21 04/10/21 History 40 mcg Redihaler] Allergies Allergy/AdvReac Type Severity Reaction Status Date / Time No Known Allergies Allergy Verified 04/10/21 06:02 Surgical - Exam Vital Signs Temp Pulse Resp BP Pulse Ox 97.6 F 72 18 150/68 96 04/10/21 06:12 04/10/21 06:12 04/10/21 06:12 04/10/21 06:12 04/10/21 06:12 - General well developed, well nourished, no distress, no pain - Eyes PERRL, normal ocular movement - ENT normal nares, normal mucosa - Respiratory normal expansion, normal respiratory effort - Abdomen Abdomen: soft, non tender - Psychiatric oriented to time, oriented to person, oriented to place Results - Labs 04/14/21 07:35 04/14/21 07:35 Abnormal Lab Results - Last 24 Hours (Table) 04/13/21 04/14/21 04/14/21 Range/Units 22:04 00:37 05:58 RBC (4.30-5.90) m/uL Hgb (13.0-17.5) gm/dL Hct (39.0-53.0) % Neutrophils # (1.3-7.7) k/uL BUN (9-20) mg/dL POC Glucose (mg/dL) 113 H 117 H 108 H (75-99) mg/dL Calcium (8.4-10.2) mg/dL Creatine Kinase (55-170) U/L 04/14/21 04/14/21 04/14/21 Range/Units 07:35 07:35 11:25 RBC 2.64 L (4.30-5.90) m/uL Hgb 7.9 L (13.0-17.5) gm/dL Hct 24.1 L (39.0-53.0) % Neutrophils # 7.8 H (1.3-7.7) k/uL BUN 21 H (9-20) mg/dL POC Glucose (mg/dL) 111 H (75-99) mg/dL Calcium 7.8 L (8.4-10.2) mg/dL Creatine Kinase 392 H (55-170) U/L 04/14/21 Range/Units 16:56 RBC (4.30-5.90) m/uL Hgb (13.0-17.5) gm/dL Hct (39.0-53.0) % Neutrophils # (1.3-7.7) k/uL BUN (9-20) mg/dL POC Glucose (mg/dL) 122 H (75-99) mg/dL Calcium (8.4-10.2) mg/dL Creatine Kinase (55-170) U/L Diabetes panel 04/14/21 Range/Units 07:35 Sodium 139 (137-145) mmol/L Potassium 4.3 (3.5-5.1) mmol/L Chloride 106 (98-107) mmol/L Carbon Dioxide 29 (22-30) mmol/L BUN 21 H (9-20) mg/dL Creatinine 1.01 (0.66-1.25) mg/dL Glucose 90 (74-99) mg/dL Calcium 7.8 L (8.4-10.2) mg/dL Calcium panel 04/14/21 Range/Units 07:35 Calcium 7.8 L (8.4-10.2) mg/dL Pituitary panel 04/14/21 Range/Units 07:35 Sodium 139 (137-145) mmol/L Potassium 4.3 (3.5-5.1) mmol/L Chloride 106 (98-107) mmol/L Carbon Dioxide 29 (22-30) mmol/L BUN 21 H (9-20) mg/dL Creatinine 1.01 (0.66-1.25) mg/dL Glucose 90 (74-99) mg/dL Calcium 7.8 L (8.4-10.2) mg/dL Adrenal panel 04/14/21 Range/Units 07:35 Sodium 139 (137-145) mmol/L Potassium 4.3 (3.5-5.1) mmol/L Chloride 106 (98-107) mmol/L Carbon Dioxide 29 (22-30) mmol/L BUN 21 H (9-20) mg/dL Creatinine 1.01 (0.66-1.25) mg/dL Glucose 90 (74-99) mg/dL Calcium 7.8 L (8.4-10.2) mg/dL Assessment and Plan Assessment: 65-year-old male status post CABG, developed retention postoperatively. No voiding issues at baseline. Most likely his retention is secondary to deconditioning from his recent surgery. -Recommend he keep Abdul in place for 7 days, plan to discharge patient to rehab, TOV can be performed at rehab. Recommended to inserted a Abdul in rehab if PVR greater than 300, after abdul removal -Continue Flomax 0.4 mg , patient should be discharged on Flomax
[2021-04-14] MEDS: CALCIUM CARB-VIT D 500 MG-5 MCG TAB PO SCH (17:42)
[2021-04-14] MEDS: TAMSULOSIN 0.4 MG CAP.ER.24H PO SCH (17:42)
[2021-04-14 19:52] LABS: Glucose,Whole Blood 139 mg/dL (75-99)
[2021-04-14] MEDS: ATORVASTATIN 40 MG TAB PO SCH (20:00)
[2021-04-14] MEDS: SENNOSIDES-DOCUSATE SODIUM 1 EACH TAB PO SCH (20:00)
[2021-04-14] MEDS: MELATONIN 5 MG TABLET PO SCH (20:00)
[2021-04-15] MEDS: ACETAMINOPHEN TAB 325 MG TAB PO PRN (03:23)
[2021-04-15 06:03] LABS: Glucose,Whole Blood 114 mg/dL (75-99)
[2021-04-15] MEDS: INSULIN ASPART (NovoLOG) 100 UNIT/ML VIAL SQ SCH ×4 (06:12→20:22)
[2021-04-15] MEDS: PANTOPRAZOLE 40 MG TABLET PO SCH (06:19)
[2021-04-15] MEDS: CALCIUM CARB-VIT D 500 MG-5 MCG TAB PO SCH ×2 (06:19→17:45)
[2021-04-15] MEDS: LEVOTHYROXINE 137 MCG TAB PO SCH (06:19)
--- NOTE | 2021-04-15 08:05 | XR ---
EXAMINATION TYPE: XR chest 2V DATE OF EXAM: 04/15/2021 COMPARISON: Chest x-ray from yesterday and older studies HISTORY: Postoperative CABG. TECHNIQUE: Frontal and lateral views of the chest are obtained. FINDINGS: Overlying sternal wires and mediastinal clips redemonstrated. Cardiac silhouette size stab le and within normal limits. Right greater than left bibasilar opacities remain present. New small to tiny right pleural effusion. No pneumothorax identified. Osseous structures are intact. IMPRESSION: Stable patchy left basilar atelectasis. Stable more prominent right basilar acute atelec tasis and/or infiltrate. New small to tiny right pleural effusion.
[2021-04-15] MEDS: BUDESONIDE 0.5 MG/2 ML NEBU INHALATION SCH ×2 (08:24→20:16)
[2021-04-15] MEDS: IPRATROPIUM-ALBUTEROL 3 ML NEB INHALATION SCH ×4 (08:24→20:16)
[2021-04-15] MEDS: HEPARIN SODIUM,PORCINE/PF 5,000 UNIT/0.5 ML SYRINGE SQ SCH ×3 (08:26→23:06)
[2021-04-15] MEDS: METOPROLOL TARTRATE 25 MG TAB PO SCH ×3 (08:26→23:05)
[2021-04-15] MEDS: bisacodyL 10 MG SUPP RECTAL SCH (08:26)
[2021-04-15] MEDS: CLOPIDOGREL 75 MG TAB PO SCH (08:26)
[2021-04-15] MEDS: ASPIRIN 325 MG TAB PO SCH (08:26)
[2021-04-15 08:30] LABS: HCT 24.4 % (39.0-53.0); HGB 7.6 gm/dL (13.0-17.5); MCH 28.7 pg (25.0-35.0); MCHC 31.2 g/dL (31.0-37.0); MCV 91.9 fL (80.0-100.0); Mean Platelet Volume 8.2; Platelet Count 179 k/uL (150-450); RBC 2.66 m/uL (4.30-5.90); RDW 15.9 % (11.5-15.5); WBC 8.7 k/uL (3.8-10.6)
--- NOTE | 2021-04-15 08:36 | P.PN ---
Subjective Progress Note Date: 04/15/21 Principal diagnosis: Triple-vessel coronary artery disease, preserved left ventricular function with EF 55%. Previous medical history of hypertension, hyperlipidemia, severe COPD with preoperative FEV1 47% of predicted, previous tobacco dependence, hypothyroidism, chronic kidney disease stage II, right lower lobe lung nodule negative on PET POD #5 triple-vessel coronary artery bypass grafting using the free left internal mammary artery with an inflow from the left radial artery to the left anterior descending artery, left radial artery from the aorta to the first obtuse marginal artery, reverse saphenous vein graft from the aorta to the right coronary artery, exclusion of the left atrial appendage using a 35 mm AtriClip, endoscopic harvesting of the left radial artery, endoscopic harvesting of the left greater saphenous vein from the groin to above the ankle, intraoperative graft flow measurements using the [email or web address] system, intraoperative transesophageal echocardiogram and epi-aortic scanning Postoperative acute blood loss anemia and thrombocytopenia, expected given hemodilution and cardiopulmonary bypass pump Postoperative urinary retention requiring initiation of Flomax and reinsertion of Huffman catheter, unexpected The patient's currently sitting up in a recliner on the cardiac stepdown unit in no acute distress. Remains in sinus rhythm to sinus tach with heart rate in the high 90s to low 100s, blood pressure stable. Patient states pain is controlled on current medication regimen, states shortness of breath is improved from yesterday. His continues to complain of tiredness, weakness, lack of appetite, although does appear a bit more alert and awake today. Lung discussion had with daughter last night regarding concerns over patient's weakness and fatigue, she agreed with trying to encourage him to eat more and drink and work on increasing stamina. This morning patient does express willingness to increase activity and work to improve participation in care. Patient is being evaluated for inpatient rehab if he is not safe to go home, patient is aware of this and does want to try to work harder as he would prefer to go home. Remains on 2 L nasal cannula with oxygen saturation in the mid 90s. Patient did receive IV Lasix yesterday p er Dr. Perez, 2.7 L urine output in the last 24 hours. Objective - Vital Signs Vital signs: Vital Signs Temp 98.0 F 04/15/21 08:00 Pulse 102 H 04/15/21 08:00 Resp 18 04/15/21 08:00 BP 102/66 04/15/21 08:00 Pulse Ox 99 04/15/21 08:00 Intake & Output 04/14/21 04/15/21 04/15/21 18:59 06:59 18:59 Intake Total 476 10 Output Total 600 2150 Balance -124 -2140 Weight 79.6 kg 79 kg Intake: IV 10 0.9 10 Oral 476 Output: Urine 600 2150 Uretheral (Huffman) 300 Other: Voiding Method Indwelling Catheter Indwelling Catheter # Voids 2 ABP, PAP, CO, CI - Last Documented Arterial Blood Pressure 101/51 Pulmonary Artery Pressure 19/2 Cardiac Output 5.5 Cardiac Index 2.9 - Exam CONSTITUTIONAL: Appears comfortable, no acute distress RESPIRATORY: Lungs sounds diminished bilaterally. Respirations even, nonlabored. Currently on 2 L nasal cannula with oxygen saturation 95%. Able to achieve 1000 mL on incentive spirometry. Strong cough with encouragement. CARDIOVASCULAR: S1, S2 present. Regular rate and rhythm, sinus rhythm to sinus tach on telemetry. Sternum stable. Palpable peripheral pulses bilaterally. Trace bilateral upper extremity edema present. No calf pain or tenderness noted. Heart hugger in place with patient demonstrating appropriate use. A ntiembolism stockings, SCDs present. GASTROINTESTINAL: Abdomen soft, nontender, nondistended. Active bowel sounds present 4 quadrants. Tolerating minimal diet. Positive small bowel movement 04/13 GENITOURINARY: Huffman catheter in place, urine output 1.7 L in the last 24 hours INTEGUMENTARY: Skin is warm and dry with evidence of good perfusion. Anterior chest incision well approximated and covered with dry intact dressing. Left lower extremity EVH site well approximated without redness or drainage. Left radial artery harvest site well approximated without redness or drainage, patient able to wiggle all fingers and manager of case management appropriately, good cap refill NEUROLOGIC: Cranial nerves II through XII intact MUSKULOSKELETAL: Able to move all extremities, strength equal bilaterally but patient is weak PSYCHIATRIC: Alert and oriented to person place and time, appropriate affect, intact judgment and insight - Allied health notes Allied health notes reviewed: nursing - Labs CBC & Chem 7: 04/14/21 07:35 04/14/21 07:35 Labs: Abnormal Lab Results - Last 24 Hours (Table) 04/14/21 04/14/21 04/14/21 Range/Units 07:35 07:35 11:25 RBC 2.64 L (4.30-5.90) m/uL Hgb 7.9 L (13.0-17.5) gm/dL Hct 24.1 L (39.0-53.0) % Neutrophils # 7.8 H (1.3-7.7) k/uL BUN 21 H (9-20) mg/dL POC Glucose (mg/dL) 111 H (75-99) mg/dL Calcium 7.8 L (8.4-10.2) mg/dL Creatine Kinase 392 H (55-170) U/L 04/14/21 04/14/21 04/15/21 Range/Units 16:56 19:50 06:01 RBC (4.30-5.90) m/uL Hgb (13.0-17.5) gm/dL Hct (39.0-53.0) % Neutrophils # (1.3-7.7) k/uL BUN (9-20) mg/dL POC Glucose (mg/dL) 122 H 139 H 114 H (75-99) mg/dL Calcium (8.4-10.2) mg/dL Creatine Kinase (55-170) U/L - Imaging and Cardiology Chest x-ray: report reviewed, image reviewed Assessment and Plan Assessment: 1. Triple-vessel coronary artery disease, status post three-vessel CABG 2. Preserved left ventricular function with EF 55% 3. History of hypertension 4. Hyperlipidemia 5. Severe COPD with preoperative FEV1 47% of predicted 6. Previous tobacco dependence 7. Hypothyroidism 8. Chronic kidney disease stage II 9. Right lower lobe lung nodule negative on PET 10. Postoperative acute blood loss anemia and thrombocytopenia, expected given hemodilution and cardiopulmonary bypass pump 11. Postoperative urinary retention Plan: 1. Continue aspirin, Plavix, statin, beta karley. Will increase beta karley therapy as tolerated, increased today to 25 mg every 8 hours. 2. Continue low-dose Norvasc for radial artery spasm. Do not discontinue without discussing with cardiothoracic surgery 3. Wean O2 as tolerated. Encourage incentive spirometry use 10 times every hour while awake. Bronchodilators per pulmonology 3. Increase activity, ambulate as tolerated. PT/OT/cardiac rehab consulted. 4. Will monitor daily labs and chest x-rays. Electrolyte replacement per ruby col. No transfusion today. No Lasix today 5. GI/DVT prophylaxis 6. Insulin management per primary care service. Patient is not diabetic, preoperative hemoglobin A1c 6.3%. 7. Pain control with current medication regimen. No Toradol due to history of CKD. Narcotics discontinued 8. Continue Flomax, Huffman catheter. Urology consulted, recommended to continue Flomax and Huffman catheter, may trial void in one week's time 9. Patient encouraged to increase oral intake 10. Strict accurate intake and output. Daily weights 11. Dr. Pepper consulted for possible discharge to [facility] as patient needs increased strength training and close physician monitoring for multiple complex medical comorbidities. [id number] completed yesterday without ability to obtain insurance authorization, since there is no bed availability insurance recommendation was to repeat authorization for IPR Saturday if the patient is still needing rehab placement at discharge 12. More recommendations to follow based on patient's progress Time with Patient: Greater than 30
[2021-04-15 08:48] LABS: Ionized Calcium 4.5 mg/dL (4.5-5.3)
[2021-04-15 09:02] LABS: Albumin 3.1 g/dL (3.5-5.0); Calcium 7.8 mg/dL (8.4-10.2); Potassium 3.9 mmol/L (3.5-5.1); Total Bilirubin 0.5 mg/dL (0.2-1.3); Total Protein 5.7 g/dL (6.3-8.2)
[2021-04-15] MEDS: ASCORBIC ACID 500 MG TAB PO SCH ×2 (09:36→17:45)
[2021-04-15] MEDS: FERROUS SULFATE 325 MG TAB PO SCH ×2 (09:36→17:45)
--- NOTE | 2021-04-15 11:32 | P.PN ---
Subjective Progress Note Date: 04/15/21 This is a 65-year-old white male patient with past medical history of hypertension, hyperlipidemia, history of smoking and hypothyroidism had been complaining of worsening dyspnea on exertion for the last 7 months. Patient had a pulmonary workup which showed FEV1 of 1.41 L or 47% of predicted, consistent with severe obstruction, outpatient computed tomography scan did not nodule however of follow-up PET scan was subsequently negative as reported by his stepdaughter. Patient had cardiac workup that included a stress test which showed evidence of anteroseptal wall ischemia. Cardiac catheterization on 03/03/2021 at the [facility] showed three-vessel coronary artery disease with mid RCA, long proximal LAD in the proximal OM1 significant stenosis. Ejection fraction was 55% by echocardiogram with mild inferior hypokinesia. Patient was referred to cardiothoracic surgery for surgical intervention and on 04/10/2021 patient underwent triple-vessel coronary artery bypass grafting with free CARCAMO to the LAD, left radial artery to the first up to his marginal, reverse SVG to the RCA, exclusion of the left atrial appendage using not 35mm Atriclip, and endoscopic harvesting of the left radial artery and left greater saphenous vein. We are seeing the patient today on the first pos toperative day, patient has been successfully weaned and extubated from mechanical ventilator on 04/10/2021, to BiPAP support with pressure of 16/6 and FiO2 of 50%. Currently patient is on 2 L of oxygen, with a pulse ox of 96%, he is awake and alert, he is up in the recliner. Reports mild incisional discomfort, but no acute distress. Hemodynamically patient is stable, he is currently on 0.9 normal saline there is a 50 ML per hour, nitroglycerin is a 5 mics per kilo per minute, and insulin infusion is at 2 units per hour. In sinus mechanism with a rate of 76 BPM, blood pressure is 110/49, PA pressures 23/7, CVP is 8, cardiac output is 5.5 and cardiac index is 2.9. Mediastinal chest tubes in place with a total of 400 mL of serosanguineous output in the last 24 hours, and left pleural chest tube with 300 mL of serosanguineous output, no evidence of air leak. Incisions are dry and intact. Incentive spirometry effort is 500-750 this morning. Today's chest x-ray shows bilateral infiltrates and small pleural effusions, evidence of sizable pneumothorax. On 04/12/2021 patient seen in follow-up in the intensive care unit, today is postoperative day #2, status post three-vessel coronary artery bypass grafting. Patient is doing well, he is awake and alert, he sitting up in a recliner, currently on 2 L of oxygen pulse ox is 96%, hemodynamically stable, not on any vasopressor support, his on 0.9 normal saline at a rate of 20 ML per hour, he is receiving a transfusion with 1 unit of packed red blood cells for hemoglobin of 6.5 this morning, with a controlled rate, blood pressure is 115/60, he is afebrile, no worsening dyspnea, he is achieving 1000 ML on his incentive spirometer, lung sounds are diminished, no rhonchi or wheezing, no cough, today's chest x-ray shows basilar atelectasis, and there has been some improvement in patient's volume status and aeration. His labs have been reviewed, white blood cell count is 13.3, his hemoglobin as mentioned above is 6.5. Platelet Count is 117, lites and renal profile are unremarkable. No nausea or vomiting, patient is tolerating oral intake. Incisions are clean dry and intact, patient still has his 2 mediastinal and left pleural chest tube in place and there has been 330 ML of thin serosanguineous output from the medias tinal chest tube, and left pleural chest tube is 110 mL 24 hours, urinary catheter output is in the order of 50 ML per hour. On 04/13/2021 patient seen in follow-up in intensive care unit, today is postoperative day #3 status post three-vessel coronary artery bypass grafting. Patient is currently on 2 L of oxygen, his pulse ox is 88-91%, did wear BiPAP overnight at pressures of 10/5 and FiO2 of 35%, no evidence of any acute respiratory distress. Lung sounds reveal bibasilar crackles. Today's chest x- ray was reviewed showing no infiltrates, and pleural effusion, no sizable pneumothorax. Incentive spirometry effort is 1000 ML. Patient still has a left pleural chest tube in place, 2 mediastinal chest tubes have been discontinued. Has been a total of 30 mL of serosanguineous output in the last 24 hours. Huffman catheter has been discontinued, however this money patient is experiencing urinary retention, and is currently undergoing straight cathing. No nausea or vomiting, or diarrhea, tolerating oral intake, no abdominal pain. Does have been stable overnight, patient is sinus mechanism. Today's labs have been reviewed, white blood cell count is 13, hemoglobin is 8.1, platelet count is 122. Electrolytes and renal profile are unremarkable On 04/14/2021 patient seen in follow-up on selective care unit. Today's postoperative day #4, status post three-vessel bypass grafting, he is currently on 2 L of oxygen his pulse ox is 95%. He sitting up in the recliner, appears to be in no acute distress. He is working on the incentive spirometer and he is achieving 1000 ML on the today. Today's chest x-ray shows bibasilar atelectasis. His left pleural chest tube has been discontinued. No worsening dyspnea, his vital signs have been stable, he is in sinus mechanism with a co ntrolled rate, today's labs have been reviewed, white blood cell count is 10.1, hemoglobin is 7.9, electrolytes and renal profile were within normal limits. 04/15/2021, the patient is postop day #5. Doing well. No specific complaints. Sitting up on a trip utilizing incentive spirometer. No respiratory difficulties. Chest tubes have been removed and the patient continues to use his incentive spirometer. His cardiac rhythm continues to be in sinus. The patient's has adequate pain control. Surgical wound is dry clean and intact. He is ambulating. Urine output is adequate. The patient has a Huffman catheter in place. He did receive a dose of Lasix yesterday by the primary care medicine team and the patient had a 2.7 L of urine output over the past 24 hours. Objective - Vital Signs Vital signs: Vital Signs Temp 98.0 F 04/15/21 08:00 Pulse 84 04/15/21 08:38 Resp 18 04/15/21 08:00 BP 102/66 04/15/21 08:00 Pulse Ox 99 04/15/21 08:00 Intake & Output 04/14/21 04/15/21 04/15/21 18:59 06:59 18:59 Intake Total 476 10 Output Total 600 2150 200 Balance -124 -2140 -200 Weight 79.6 kg 79 kg Intake: IV 10 0.9 10 Oral 476 Output: Urine 600 2150 200 Uretheral (Huffman) 300 Other: Voiding Method Indwelling Catheter Indwelling Catheter Indwelling Catheter # Voids 2 # Bowel Movements 1 ABP, PAP, CO, CI - Last Documented Arterial Blood Pressure 101/51 Pulmonary Artery Pressure 19/2 Cardiac Output 5.5 Cardiac Index 2.9 - Exam GENERAL EXAM: Alert, a pleasant, 65-year-old white male, on 2 L of oxygen with a pulse ox of 97%, sitting up in the recliner comfortable in no apparent distress. HEAD: Normocephalic/atraumatic. EYES: Normal reaction of pupils, equal size. Conjunctiva pink, sclera white. NOSE: Clear with pink turbinates. THROAT: No erythema or exudates. NECK: No masses, no JVD, no thyroid enlargement, no adenopathy. CHEST: No chest wall deformity. Symmetrical expansion. Midsternal incision is clean dry and intact, covered with a surgical dressing, mediastinal and left pleural chest tubes have been discontinued. LUNGS: Equal air entry with no crackles, wheeze, rhonchi or dullness. CVS: Regular rate and rhythm, normal S1 and S2, no gallops, no murmurs, no rubs ABDOMEN: Soft, nontender. No hepatosplenomegaly, normal bowel sounds, no guarding or rigidity. EXTREMITIES: No clubbing, no edema, no cyanosis, 2+ pulses and upper and lower extremities. Left leg interrupted incision is clean dry and intact, mild br uising MUSCULOSKELETAL: Muscle strength and tone normal. SPINE: No scoliosis or deformity SKIN: No rashes CENTRAL NERVOUS SYSTEM: Alert and oriented -3. No focal deficits, tone is normal in all 4 extremities. PSYCHIATRIC: Alert and oriented -3. Appropriate affect. Intact judgment and insight. - Labs CBC & Chem 7: 04/15/21 08:11 04/15/21 08:11 Labs: Abnormal Lab Results - Last 24 Hours (Table) 04/14/21 04/14/21 04/15/21 Range/Units 16:56 19:50 06:01 RBC (4.30-5.90) m/uL Hgb (13.0-17.5) gm/dL Hct (39.0-53.0) % RDW (11.5-15.5) % BUN (9-20) mg/dL Glucose (74-99) mg/dL POC Glucose (mg/dL) 122 H 139 H 114 H (75-99) mg/dL Calcium (8.4-10.2) mg/dL Alkaline Phosphatase (38-126) U/L Total Protein (6.3-8.2) g/dL Albumin (3.5-5.0) g/dL 04/15/21 04/15/21 Range/Units 08:11 08:11 RBC 2.66 L (4.30-5.90) m/uL Hgb 7.6 L (13.0-17.5) gm/dL Hct 24.4 L (39.0-53.0) % RDW 15.9 H (11.5-15.5) % BUN 24 H (9-20) mg/dL Glucose 151 H (74-99) mg/dL POC Glucose (mg/dL) (75-99) mg/dL Calcium 7.8 L (8.4-10.2) mg/dL Alkaline Phosphatase 136 H (38-126) U/L Total Protein 5.7 L (6.3-8.2) g/dL Albumin 3.1 L (3.5-5.0) g/dL Assessment and Plan Plan: #1. Coronary artery disease status post triple coronary artery bypass grafting using the free CARCAMO to the LAD, left radial artery graft to the first obtuse marginal, reverse SVG to the RCA, exclusion of the left atrial appendage using a 35 mm ATriClip, endoscopic harvesting of the left radial artery, and left greater saphenous vein was 04/10/2021, postoperative day #5 #2. Routine postoperative ventilator management, and patient was successfully weaned and extubated on post-op day #0 to BiPAP, currently on 2 L of oxygen, stable. Is using incentive spirometer. #3. Postoperative blood loss anemia, expected outcome of sternotomy and bypass grafting surgery #4. COPD, with preop FEV1 of 47% of predicted consistent with stage III COPD not oxygen dependent at baseline #5. [id number] smoking history in remission for 1 year #6. Pulmonary nodule seen on a computed tomography scan of the chest on outpatient basis, PET scan did not show uptake at the site of the nodule #7. Hypertension #8. Hyperlipidemia #9. Hypothyroidism Plan: Continue aspirin, Plavix, statins and beta blockers. The patient is on metoprolol 25 mg every 8 hours. Encourage deep breathing and coughing Encourage incentive spirometer use Chest x-ray was reviewed and there is no evidence of any pneumothorax, atelectasis in the lung bases Labs reviewed Continue to closely follow along with CT surgery, possible discharge to rehab
[2021-04-15 11:40] LABS: Glucose,Whole Blood 135 mg/dL (75-99)
--- NOTE | 2021-04-15 11:44 | P.PN ---
Subjective Progress Note Date: 04/15/21 This is a pleasant 65-year-old gentleman who is status post coronary bypass grafting surgery, he was seen and examined this morning sitting up in the chair at bedside, continues to have a Huffman catheter in place. His is also at bedside. Overall the patient does state that he is feeling somewhat stronger today and also feels that his breathing is improving overall. Blood pressure 102/60 with a heart rate of 102 he is afebrile. 99% on 2 L of oxygen. White blood cell count 8.7, hemoglobin 7.6, platelet count 179. Sodium 139, potassium 3.9, BUN 24, creatinine 1.1. Objective - Vital Signs Vital signs: Vital Signs Temp 98.0 F 04/15/21 08:00 Pulse 84 04/15/21 08:38 Resp 18 04/15/21 08:00 BP 102/66 04/15/21 08:00 Pulse Ox 99 04/15/21 08:00 Intake & Output 04/14/21 04/15/21 04/15/21 18:59 06:59 18:59 Intake Total 476 10 Output Total 600 2150 200 Balance -124 -2140 -200 Weight 79.6 kg 79 kg Intake: IV 10 0.9 10 Oral 476 Output: Urine 600 2150 200 Uretheral (Huffman) 300 Other: Voiding Method Indwelling Catheter Indwelling Catheter Indwelling Catheter # Voids 2 # Bowel Movements 1 ABP, PAP, CO, CI - Last Documented Arterial Blood Pressure 101/51 Pulmonary Artery Pressure 19/2 Cardiac Output 5.5 Cardiac Index 2.9 - Exam GENERAL EXAM: Alert, a pleasant, 65-year-old white male, on 2 L of oxygen with a pulse ox of 97%, sitting up in the recliner comfortable in no apparent distress. HEAD: Normocephalic/atraumatic. EYES: Normal reaction of pupils, equal size. Conjunctiva pink, sclera white. NOSE: Clear with pink turbinates. THROAT: No erythema or exudates. NECK: No masses, no JVD, no thyroid enlargement, no adenopathy. CHEST: No chest wall deformity. Symmetrical expansion. Midsternal incision is clean dry and intact, covered with a surgical dressing, mediastinal and left pleural chest tubes have been discontinued. LUNGS: Equal air entry with no crackles, wheeze, rhonchi or dullness. CVS: Regular rate and rhythm, normal S1 and S2, no gallops, no murmurs, no rubs ABDOMEN: Soft, nontender. No hepatosplenomegaly, normal bowel sounds, no guarding or rigidity. EXTREMITIES: No clubbing, no edema, no cyanosis, 2+ pulses and upper and lower extremities. Left leg interrupted incision is clean dry and intact, mild bruising MUSCULOSKELETAL: Muscle strength and tone normal. SPINE: No scoliosis or deformity SKIN: No rashes CENTRAL NERVOUS SYSTEM: Alert and oriented -3. No focal deficits, tone is normal in all 4 extremities. PSYCHIATRIC: Alert and oriented -3. Appropriate affect. Intact judgment and insight. - Labs CBC & Chem 7: 04/15/21 08:11 04/15/21 08:11 Labs: Abnormal Lab Results - Last 24 Hours (Table) 04/14/21 04/14/21 04/15/21 Range/Units 16:56 19:50 06:01 RBC (4.30-5.90) m/uL Hgb (13.0-17.5) gm/dL Hct (39.0-53.0) % RDW (11.5-15.5) % BUN (9-20) mg/dL Glucose (74-99) mg/dL POC Glucose (mg/dL) 122 H 139 H 114 H (75-99) mg/dL Calcium (8.4-10.2) mg/dL Alkaline Phosphatase (38-126) U/L Total Protein (6.3-8.2) g/dL Albumin (3.5-5.0) g/dL 04/15/21 04/15/21 04/15/21 Range/Units 08:11 08:11 11:39 RBC 2.66 L (4.30-5.90) m/uL Hgb 7.6 L (13.0-17.5) gm/dL Hct 24.4 L (39.0-53.0) % RDW 15.9 H (11.5-15.5) % BUN 24 H (9-20) mg/dL Glucose 151 H (74-99) mg/dL POC Glucose (mg/dL) 135 H (75-99) mg/dL Calcium 7.8 L (8.4-10.2) mg/dL Alkaline Phosphatase 136 H (38-126) U/L Total Protein 5.7 L (6.3-8.2) g/dL Albumin 3.1 L (3.5-5.0) g/dL Assessment and Plan Plan: Assessment and plan #1. Coronary artery disease status post triple coronary artery bypass grafting using the free CARCAMO to the LAD, left radial artery graft to the first obtuse mar ginal, reverse SVG to the RCA, exclusion of the left atrial appendage using a 35 mm ATriClip, endoscopic harvesting of the left radial artery, and left greater saphenous vein #2. Hypothyroidism #3. Postoperative blood loss anemia, expected outcome of sternotomy and bypass grafting surgery #4. COPD, with preop FEV1 of 47% of predicted consistent with stage III COPD not oxygen dependent at baseline #5. [id number] smoking history in remission for 1 year #6. Pulmonary nodule seen on a computed tomography scan of the chest on outpatient basis, PET scan did not show uptake at the site of the nodule #7. Hypertension #8. Hyperlipidemia Plan Continue current medications. Continue the use of incentive spirometry. Possible discharge to rehab when stable. DNP note has been reviewed, I agree with a documented findings and plan of care. Patient was seen and examined.
[2021-04-15] MEDS: amLODIPine 2.5 MG TAB PO SCH (12:25)
[2021-04-15] MEDS ORDERED: FUROSEMIDE 10 MG/ML 2 ML VIAL IV ONE (15:28)
[2021-04-15] MEDS ORDERED: SODIUM FERRIC GLUCONAT-SUCROSE 125 MG in SODIUM CHLORIDE 0.9% 100 ML IVPB ONE (15:29)
--- NOTE | 2021-04-15 15:32 | P.PN ---
Subjective Progress Note Date: 04/15/21 HISTORY OF PRESENT ILLNESS This is a 65-year-old male patient of Dr. Pandya past medical history of coronary artery disease, hypertension, hyperlipidemia, COPD, hypothyroidism, [place] ALLERGIES, remote history of tobacco use. Yesterday, patient underwent three-vessel CABG free CARCAMO with an inflow from the left radial artery to the LAD, left radial artery from the aorta to the first OM and reverse SVG from the aorta to the RCA as well as exclusion of left atrial appendage. Patient is seen today in intensive care unit. He has been successfully extubated. He states that he is feeling okay. No significant chest pain. He does have surgical site pain. He has been afebrile, heart rate 72, blood pressure 106/53, pulse ox 98% on 2 L nasal cannula. Repeat blood work reveals WBC 14, hemoglobin 7.4, platelet count 121. Sodium 143, potassium 4.2, chloride 112, CO2 24, BUN 19 and creatinine 1.23. Blood sugars are running between 108 and 161. Patient does not have history of diabetes. He is on insulin drip. Magnesium 2.2. AST 72. Chest x-ray this morning reveals bilateral infiltrate and small effusion. Patient has right IJ Cordis in place, left pleural chest tube and mediastinal chest tube and Huffman catheter in place. 04/12: Hemoglobin this morning is 6.5 and he is receiving 1 unit of packed RBCs. One dose of Ferrlecit infusion ordered and oral ferrous sulfate ordered. Patient is complaining that he is not sleeping well and melatonin added. Insulin drip will be discontinued and patient transitioned to NovoLog scale before meals and at bedtime. He has been afebrile, heart rate 90, blood pressure 104/64, pulse ox 95% on 2 L nasal cannula. Capillary blood glucose running between 66 and 142. WBC 13.3, platelet count 117. Creatinine 1.13. AST 64. Repeat chest x-ray reveals basilar atelectasis. Some improvement in patient's volume status. Huffman catheter has been removed. 04/13: Both mediastinal chest tube has been discontinued, Huffman catheter is not present, the daughter is in the bedside, she was mentioning that dad has issues regarding myalgia using Lipitor, 40 mg currently dose, and requests a med change, we discussed this with the pharmacy, 2 change it to Crestor 10 mg, however with formula status, this cannot be switch while the patient is in the hospital. 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 Pepper for inpatient rehab, and most likely would be transitioned to [facility] for cardiac debility weakness, once discharged. No chest pain no palpitations, denies any hematuria or melena no fever. Labs hemoglobin 8.1, sodium 138, potassium 4.7, creatinine 0.9, palmitate tracings, sinus rhythm :, Patient was moved out of ICU today, in telemetry floor, selective care unit. Patient's postop day #4, requiring 2 L of O2, satting at 95%, patient is having some edema in the arms and the legs, no shortness of breath, patient's continued on incentive spirometry, chest x-ray only shows basilar atelectasis, and sinus rhythm. Hemoglobin 7.9, Lasix low-dose 20 mg given IV, with blood pressure of 115 systolic, nutritional supplementation, check for albumin, blood sugars are 108-117, CPK is elevated at 392, no nausea no vomiting or diarrhea. Calcium and vitamin D started, has hypocalcemia as well. And hypoalbuminemia and ensure enliv tid 04/15: Patient is less edematous today, seen in the medical floor, selective unit. Postop day #5, family is at bedside, patient is complaining of muscle cramps and muscle aches, has difficulty in mobilizing, less edematous in the arms and the legs, Huffman catheter has to be reinserted secondary to urinary retention, patient is on Flomax, urology following. Hemoglobin at 7.6, creatinine of 1.1, blood sugars between 120-139, protein at 5.7 which is low, albumin 3.1, patient is on ensure enliv patient still has recreational tachycardia, no chest pain TSH was normal in March of this year, 1.3 A1c of 6.3 with going to dose another Lasix today, metoprolol was increased to 25 mg 3 times a day, Flexeril 10 mg started daily at bedtime, check for iron panel, no iv laurie noted on medical orders, we will order for one. On ferrous sulfate 325 mg daily, patient still has symptomatic anemia. patient also has insomnia, wa iting rehab, most likely discharged to [facility] on Saturday REVIEW OF SYSTEMS Constitutional: No fever, no chills, no night sweats. No weight change. No weakness, reports fatigue no lethargy. No daytime sleepiness. EENT: No headache. No blurred vision or double vision, no loss of vision. No loss of Hearing, no ringing in the ears, no dizziness. No nasal drainage or congestion. No epistaxis. No sore throat. Lungs: No shortness of breath, cough, no sputum production. No wheezing. Cardiovascular: Reports expected chest pain, no lower extremity edema. No palpitations. No paroxysmal nocturnal dyspnea. No orthopnea. No lightheadedness or dizziness. No syncopal episodes. Abdominal: No abdominal pain. No nausea, vomiting. No diarrhea. No constipation. No bloody or tarry stools reports decreased of appetite. Genitourinary: No dysuria, increased frequency, urgency. No urinary retention. Musculoskeletal: No myalgias. Reports generalized muscle weakness, no gait dysfunction, no frequent falls. No back pain. No neck pain. Integumentary: No wounds, no lesions. No rash or pruritus. No unusual bruising. No change in hair or nails. Neurologic: No aphasia. No facial droop. No change in mentation. No head injury. No headache. No paralysis. No paresthesia. Psychiatric: No depression. No anxiety. No mood swings. Reports insomnia. Endocrine: No abnormal blood sugars. No weight change. No excessive sweating or thirst. No cold intolerance. Objective - Vital Signs Vital signs: Vital Signs Temp 98.0 F 04/15/21 08:00 Pulse 105 H 04/15/21 12:00 Resp 18 04/15/21 12:00 BP 108/60 04/15/21 12:00 Pulse Ox 98 04/15/21 12:00 Intake & Output 04/14/21 04/15/21 04/15/21 18:59 06:59 18:59 Intake Total 476 10 Output Total 600 2150 200 Balance -124 -2139 -200 Weight 79.6 kg 79 kg Intake: IV 10 0.9 10 Oral 476 Output: Urine 600 2150 200 Uretheral (Huffman) 300 Other: Voiding Method Indwelling Catheter Indwelling Catheter Indwelling Catheter # Voids 2 # Bowel Movements 1 ABP, PAP, CO, CI - Last Documented Arterial Blood Pressure 101/51 Pulmonary Artery Pressure 19/2 Cardiac Output 5.5 Cardiac Index 2.9 - Constitutional General appearance: Present: cooperative, no acute distress - EENT Eyes: Present: EOMI, PERRLA, dentition normal, normal appearance ENT: Present: NA/AT, normal oropharynx - Neck Neck: Present: normal ROM - Respiratory Respiratory: bilateral: CTA, negative: diminished, dullness, rales - Cardiovascular Rhythm: regular Heart sounds: normal: S1, S2 Abnormal Heart Sounds: Absent: systolic murmur, diastolic murmur, rub, S3 Gallop, S4 Gallop, click, other - Gastrointestinal General gastrointestinal: Present: normal bowel sounds, soft - Integumentary Integumentary: Present: decreased turgor, normal - Neurologic Neurologic: Present: CNII-XII intact - Musculoskeletal Musculoskeletal: Present: gait normal, strength equal bilaterally - Psychiatric Psychiatric: Present: A&O x's 3, appropriate affect - Labs CBC & Chem 7: 04/15/21 08:11 04/15/21 08:11 Labs: Abnormal Lab Results - Last 24 Hours (Table) 04/14/21 04/14/21 04/15/21 Range/Units 16:56 19:50 06:01 RBC (4.30-5.90) m/uL Hgb (13.0-17.5) gm/dL Hct (39.0-53.0) % RDW (11.5-15.5) % BUN (9-20) mg/dL Glucose (74-99) mg/dL POC Glucose (mg/dL) 122 H 139 H 114 H (75-99) mg/dL Calcium (8.4-10.2) mg/dL Alkaline Phosphatase (38-126) U/L Total Protein (6.3-8.2) g/dL Albumin (3.5-5.0) g/dL 04/15/21 04/15/21 04/15/21 Range/Units 08:11 08:11 11:39 RBC 2.66 L (4.30-5.90) m/uL Hgb 7.6 L (13.0-17.5) gm/dL Hct 24.4 L (39.0-53.0) % RDW 15.9 H (11.5-15.5) % BUN 24 H (9-20) mg/dL Glucose 151 H (74-99) mg/dL POC Glucose (mg/dL) 135 H (75-99) mg/dL Calcium 7.8 L (8.4-10.2) mg/dL Alkaline Phosphatase 136 H (38-126) U/L Total Protein 5.7 L (6.3-8.2) g/dL Albumin 3.1 L (3.5-5.0) g/dL Assessment and Plan Plan: ASSESSMENT AND PLAN 1. Coronary artery disease status post triple CABG, 04/10 postoperative day #5. Continue current management per cardio thoracic surgery.Continue aspirin 325 mg daily, Lipitor 40 mg daily, Plavix 75 mg daily, Lopressor 12.5 mg twice daily. Patient is currently on insulin drip is no history of diabetes. 2. Hypertension. Continue amlodipine 2.5 mg daily, Lopressor, hydralazine as needed. 3. Hyperlipidemia. Continue atorvastatin. 4. COPD. Continue Pulmicort 0.5 mg twice daily, DuoNeb treatments 4 times daily. 5. Hypothyroidism. Continue levothyroxine 137 g daily. 6. Seasonal ALLERGIES, stable. 7. History of tobacco use and dependence. 8. Postoperative acute blood loss anemia, expected following surgery. Patient is receiving 1 unit of packed RBCs, Ferrlecit 1 dose ordered as well as iron 325 mg oral daily. 9. Postop thrombocytopenia, expected following surgery. Continue to monitor. 10. GI prophylaxis. Protonix 40 mg daily. 11. DVT prophylaxis. Heparin 5000 units subcu every 8 hours. 12. Statin myalgia with myositis, unable to switch to Crestor or pravastatin during this hospital stay , need aggressive statin management, continue on Lipitor 40 mg until discharge tthen switch as OP, otherwise PSK9 injections will be an alternative 13. Hypocalcemia, with hypoalbuminemia, most likely with vitamin D deficiency, causing myalgia, start on calcium and vitamin D, and ensure and leave next 14Protein calorie malnutrition, supplements above Iron deficiency anemia, for illicit 125 mg IV, Continue on Ferrous Sulfate 325 Mg Twice a Day, Still Has Iron Deficiency Anemia Symptoms. DISCHARGE PLAN Most likely inpatient rehab, Saturday
[2021-04-15 16:55] LABS: Glucose,Whole Blood 113 mg/dL (75-99)
[2021-04-15] MEDS: TAMSULOSIN 0.4 MG CAP.ER.24H PO SCH (17:45)
[2021-04-15] MEDS: SENNOSIDES-DOCUSATE SODIUM 1 EACH TAB PO SCH (20:09)
[2021-04-15] MEDS: MELATONIN 5 MG TABLET PO SCH (20:09)
[2021-04-15] MEDS: CYCLOBENZAPRINE 10 MG TAB PO SCH (20:10)
[2021-04-15] MEDS: ATORVASTATIN 40 MG TAB PO SCH (20:10)
[2021-04-15 20:19] LABS: Glucose,Whole Blood 124 mg/dL (75-99)
[2021-04-15 23:53] LABS: % Iron Saturation 12.63 (15.00-50.00)
[2021-04-16 06:05] LABS: Glucose,Whole Blood 108 mg/dL (75-99)
[2021-04-16] MEDS: INSULIN ASPART (NovoLOG) 100 UNIT/ML VIAL SQ SCH ×4 (06:37→20:53)
[2021-04-16] MEDS: FERROUS SULFATE 325 MG TAB PO SCH ×2 (06:40→17:27)
[2021-04-16] MEDS: ASCORBIC ACID 500 MG TAB PO SCH ×2 (06:40→17:27)
[2021-04-16] MEDS: LEVOTHYROXINE 137 MCG TAB PO SCH (06:40)
[2021-04-16] MEDS: PANTOPRAZOLE 40 MG TABLET PO SCH (06:40)
[2021-04-16] MEDS: CALCIUM CARB-VIT D 500 MG-5 MCG TAB PO SCH ×2 (06:40→17:27)
[2021-04-16] MEDS ORDERED: bisacodyL 10 MG SUPP RECTAL PRN (07:24)
--- NOTE | 2021-04-16 07:38 | XR ---
EXAMINATION TYPE: XR chest 2V DATE OF EXAM: 04/16/2021 COMPARISON: Chest x-ray from yesterday HISTORY: Postoperative CABG. TECHNIQUE: Frontal and lateral views of the chest are obtained. FINDINGS: Overlying sternal wires and mediastinal clips and left atrial appendage clip all redemonst rated. Cardiac silhouette size stable and within normal limits. Right sided basilar opacity remain pr esent. Persistent small to tiny right pleural effusion. No pneumothorax identified. Focal mild to mod erate right apical pleural thickening redemonstrated. Osseous structures are intact. IMPRESSION: Stable right basilar acute atelectasis and/or infiltrate and small to tiny right pleural effusion.
[2021-04-16] MEDS: IPRATROPIUM-ALBUTEROL 3 ML NEB INHALATION SCH ×4 (08:06→21:29)
[2021-04-16] MEDS: BUDESONIDE 0.5 MG/2 ML NEBU INHALATION SCH ×2 (08:06→21:29)
[2021-04-16] MEDS: CLOPIDOGREL 75 MG TAB PO SCH (08:48)
[2021-04-16] MEDS: ASPIRIN 325 MG TAB PO SCH (08:48)
[2021-04-16] MEDS: HEPARIN SODIUM,PORCINE/PF 5,000 UNIT/0.5 ML SYRINGE SQ SCH ×3 (08:48→23:20)
[2021-04-16] MEDS: METOPROLOL TARTRATE 25 MG TAB PO SCH ×3 (08:48→23:20)
[2021-04-16 08:50] LABS: Anisocytosis Slight; HCT 22.5 % (39.0-53.0); HGB 7.5 gm/dL (13.0-17.5); MCH 30.3 pg (25.0-35.0); MCHC 33.5 g/dL (31.0-37.0); MCV 90.4 fL (80.0-100.0); Mean Platelet Volume 7.7; Platelet Count 212 k/uL (150-450); RBC 2.49 m/uL (4.30-5.90); RDW 16.1 % (11.5-15.5); WBC 10.5 k/uL (3.8-10.6)
[2021-04-16 09:02] LABS: Albumin 2.7 g/dL (3.5-5.0); Calcium 7.5 mg/dL (8.4-10.2); Potassium 3.8 mmol/L (3.5-5.1); Total Bilirubin 0.5 mg/dL (0.2-1.3); Total Protein 5.4 g/dL (6.3-8.2)
[2021-04-16] MEDS ORDERED: POTASSIUM CHLORIDE ER 20 MEQ TAB.ER PO STA (09:15)
--- NOTE | 2021-04-16 09:19 | P.PN ---
Subjective Progress Note Date: 04/16/21 Principal diagnosis: Triple-vessel coronary artery disease, preserved left ventricular function with EF 55%. Previous medical history of hypertension, hyperlipidemia, severe COPD with preoperative FEV1 47% of predicted, previous tobacco dependence, hypothyroidism, chronic kidney disease stage II, right lower lobe lung nodule negative on PET POD #6 triple-vessel coronary artery bypass grafting using the free left internal mammary artery with an inflow from the left radial artery to the left anterior descending artery, left radial artery from the aorta to the first obtuse marginal artery, reverse saphenous vein graft from the aorta to the right coronary artery, exclusion of the left atrial appendage using a 35 mm AtriClip, endoscopic harvesting of the left radial artery, endoscopic harvesting of the left greater saphenous vein from the groin to above the ankle, intraoperative graft flow measurements using the [facility] system, intraoperative transesophageal echocardiogram and epi-aortic scanning Postoperative acute blood loss anemia and thrombocytopenia, expected given hemodilution and cardiopulmonary bypass pump Postoperative urinary retention requiring initiation of Flomax and reinsertion of Huffman catheter, unexpected The patient's currently sitting up in a recliner on the cardiac stepdown unit in no acute distress. Remains in sinus rhythm to sinus tach with heart rate in the high 90s to low 100s, blood pressure stable. Patient states pain is controlled on current medication regimen, states shortness of breath continues to improve, remains on 2LPM NC, actively using incentive spirometry and achieving 1250 mL. Does state he is feeling a bit better although still a bit weak, he did ambulate in the room yesterday and out in the hallway 1 time. States he did eat a bit more yesterday. Long discussion had with daughter again last night regarding concerns over patient's weakness and fatigue, she did agree the patient appeared a bit better yesterday, updated daughter again this morning. Patient is being evaluated for inpatient rehab if he is not safe to go home, patient is aware of this and does want to try to work harder as he would prefer to go home. Patient did receive IV Lasix again yesterday per Dr. Perez, 2.3 L urine output in the l ast 24 hours, patient is at his admission weight. He received IV Ferlicit in addition to oral iron twice daily. Objective - Vital Signs Vital signs: Vital Signs Temp 97.7 F 04/16/21 04:00 Pulse 94 04/16/21 04:00 Resp 18 06/20/21 04:00 BP 100/63 04/16/21 04:00 Pulse Ox 95 04/16/21 04:00 Intake & Output 04/15/21 04/16/21 04/16/21 18:59 06:59 18:59 Intake Total 240 10 Output Total 200 2100 Balance 40 -2090 Weight 77 kg Intake: IV 10 0.9 10 Oral 240 Output: Urine 200 2100 Other: Voiding Method Indwelling Catheter Indwelling Catheter # Voids 500 # Bowel Movements 1 ABP, PAP, CO, CI - Last Documented Arterial Blood Pressure 101/51 Pulmonary Artery Pressure 19/2 Cardiac Output 5.5 Cardiac Index 2.9 - Exam CONSTITUTIONAL: Appears comfortable, no acute distress RESPIRATORY: Lungs sounds diminished bilaterally. Respirations even, nonlabored. Currently on 2 L nasal cannula with oxygen saturation 95%. Able to achieve 1250 mL on incentive spirometry. Strong cough with encouragement. CARDIOVASCULAR: S1, S2 present. Regular rate and rhythm, sinus rhythm to sinus tach on telemetry. Sternum stable. Palpable peripheral pulses bilaterally. Trace bilateral upper extremity edema present, no lower extremity edema present. No calf pain or tenderness noted. Heart hugger in place with patient demonstrating appropriate use. Antiembolism stockings, SCDs present. GASTROINTESTINAL: Abdomen soft, nontender, nondistended. Active bowel sounds present 4 quadrants. Tolerating diet. Positive small bowel movement 04/15 GENITOURINARY: Huffman catheter in place, urine output 2.3 L in the last 24 hours INTEGUMENTARY: Skin is warm and dry with evidence of good perfusion. Anterior chest incision well approximated and covered with dry intact dressing. Left lower extremity EVH site well approximated without redness or drainage. Left radial artery harvest site well approximated without redness or drainage, patient able to wiggle all fingers and blocker and polisher gold wheel appropriately, good cap refill NEUROLOGIC: Cranial nerves II through XII intact MUSKULOSKELETAL: Able to move all extremities, strength equal bilaterally but patient is weak PSYCHIATRIC: Alert and oriented to person place and time, appropriate affect, intact judgment and insight - Allied health notes Allied health notes reviewed: nursing - Labs CBC & Chem 7: 04/16/21 08:07 04/16/21 08:07 Labs: Abnormal Lab Results - Last 24 Hours (Table) 04/15/21 04/15/21 04/15/21 Range/Units 08:11 08:11 08:11 RBC 2.66 L (4.30-5.90) m/uL Hgb 7.6 L (13.0-17.5) gm/dL Hct 24.4 L (39.0-53.0) % RDW 15.9 H (11.5-15.5) % BUN 24 H (9-20) mg/dL Glucose 151 H (74-99) mg/dL POC Glucose (mg/dL) (75-99) mg/dL Calcium 7.8 L (8.4-10.2) mg/dL Iron 25 L (65-175) ug/dL TIBC 198 L (228-460) ug/dL % Saturation 12.63 L (15.00-50.00) Alkaline Phosphatase 136 H (38-126) U/L Total Protein 5.7 L (6.3-8.2) g/dL Albumin 3.1 L (3.5-5.0) g/dL 04/15/21 04/15/21 04/15/21 Range/Units 11:39 16:54 20:17 RBC (4.30-5.90) m/uL Hgb (13.0-17.5) gm/dL Hct (39.0-53.0) % RDW (11.5-15.5) % BUN (9-20) mg/dL Glucose (74-99) mg/dL POC Glucose (mg/dL) 135 H 113 H 124 H (75-99) mg/dL Calcium (8.4-10.2) mg/dL Iron (65-175) ug/dL TIBC (228-460) ug/dL % Saturation (15.00-50.00) Alkaline Phosphatase (38-126) U/L Total Protein (6.3-8.2) g/dL Albumin (3.5-5.0) g/dL 04/16/21 Range/Units 06:04 RBC (4.30-5.90) m/uL Hgb (13.0-17.5) gm/dL Hct (39.0-53.0) % RDW (11.5-15.5) % BUN (9-20) mg/dL Glucose (74-99) mg/dL POC Glucose (mg/dL) 108 H (75-99) mg/dL Calcium (8.4-10.2) mg/dL Iron (65-175) ug/dL TIBC (228-460) ug/dL % Saturation (15.00-50.00) Alkaline Phosphatase (38-126) U/L Total Protein (6.3-8.2) g/dL Albumin (3.5-5.0) g/dL - Imaging and Cardiology Chest x-ray: report reviewed, image reviewed Assessment and Plan Assessment: 1. Triple-vessel coronary artery disease, status post three-vessel CABG 2. Preserved left ventricular function with EF 55% 3. History of hypertension 4. Hyperlipidemia 5. Severe COPD with preoperative FEV1 47% of predicted 6. Previous tobacco dependence 7. Hypothyroidism 8. Chronic kidney disease stage II 9. Right lower lobe lung nodule negative on PET 10. Postoperative acute blood loss anemia and thrombocytopenia, expected given hemodilution and cardiopulmonary bypass pump 11. Postoperative urinary retention Plan: 1. Continue aspirin, Plavix, statin, beta karley. Will increase beta karley therapy as tolerated. 2. Continue low-dose Norvasc for radial artery spasm. Do not discontinue without discussing with cardiothoracic surgery 3. Wean O2 as tolerated. Encourage incentive spirometry use 10 times every hour while awake. Bronchodilators per pulmonology 3. Increase activity, ambulate as tolerated. PT/OT/cardiac rehab following 4. Will monitor daily labs and chest x-rays. Electrolyte replacement per protocol. No transfusion today. NO LASIX TODAY. Will replace potassium 5. GI/DVT prophylaxis 6. Insulin management per primary care service. Patient is not diabetic, preoperative hemoglobin A1c 6.3%. 7. Pain control with current medication regimen. No Toradol due to history of CKD. Narcotics discontinued 8. Continue Flomax, Huffman catheter. Urology consulted, recommended to continue Flomax and Huffman catheter, may trial void in one week's time 9. Patient encouraged to increase oral intake 10. Strict accurate intake and output. Daily weights 11. Dr. Pepper consulted for possible [facility] [place] [facility] and close physician monitoring for multiple complex medical comorbidities. [id number] completed Saturday without ability to obtain insurance authorization, since there is no bed availability insurance recommendation was to repeat authorization for [facility] Saturday if the patient is s till needing rehab placement at discharge 12. More recommendations to follow based on patient's progress Time with Patient: Greater than 30
--- NOTE | 2021-04-16 09:52 | P.PN ---
<Maria Dolores Sawyer - Last Filed: 04/16/21 09:46> Subjective Progress Note Date: 04/16/21 This is a 65-year-old white male patient with past medical history of hypertension, hyperlipidemia, history of smoking and hypothyroidism had been complaining of worsening dyspnea on exertion for the last 7 months. Patient had a pulmonary workup which showed FEV1 of 1.41 L or 47% of predicted, consistent with severe obstruction, outpatient computed tomography scan did not nodule however of follow-up PET scan was subsequently negative as reported by his stepdaughter. Patient had cardiac workup that included a stress test which show ed evidence of anteroseptal wall ischemia. Cardiac catheterization on 03/03/2021 at the [facility] showed three-vessel coronary artery disease with mid RCA, long proximal LAD in the proximal OM1 significant stenosis. Ejection fraction was 55% by echocardiogram with mild inferior hyp okinesia. Patient was referred to cardiothoracic surgery for surgical intervention and on 04/10/2021 patient underwent triple-vessel coronary artery bypass grafting with free CARCAMO to the LAD, left radial artery to the first up to his marginal, reverse SVG to the RCA, exclusion of the left atrial appendage using not 35mm Atriclip, and endoscopic harvesting of the left radial artery and left greater saphenous vein. We are seeing the patient today on the first postoperative day, patient has been successfully weaned and extubated from mechanical ventilator on 04/10/2021, to BiPAP support with pressure of 16/6 and FiO2 of 50%. Currently patient is on 2 L of oxygen, with a pulse ox of 96%, he is awake and alert, he is up in the recliner. Reports mild incisional discomfort, but no acute distress. Hemodynamically patient is stable, he is currently on 0.9 normal saline there is a 50 ML per hour, nitroglycerin is a 5 mics per kilo per minute, and insulin infusion is at 2 units per hour. In sinus mechanism with a rate of 76 BPM, blood pressure is 110/49, PA pressures 23/7, CVP is 8, cardiac output is 5.5 and cardiac index is 2.9. Mediastinal chest tubes in place with a total of 400 mL of serosanguineous output in the last 24 hours, and left pleural chest tube with 300 mL of serosanguineous output, no evidence of air leak. Incisions are dry and intact. Incentive spirometry effort is 500-750 this morning. Today's chest x-ray shows bilateral infiltrates and small pleural effusions, evidence of sizable pneumothorax. On 04/12/2021 patient seen in follow-up in the intensive care unit, today is postoperative day #2, status post three-vessel coronary artery bypass grafting. Patient is doing well, he is awake and alert, he sitting up in a recliner, currently on 2 L of oxygen pulse ox is 96%, hemodynamically stable, not on any vasopressor support, his on 0.9 normal saline at a rate of 20 ML per hour, he is receiving a transfusion with 1 unit of packed red blood cells for hemoglobin of 6.5 this morning, with a controlled rate, blood pressure is 115/60, he is afebrile, no worsening dyspnea, he is achieving 1000 ML on his incentive spirometer, lung sounds are diminished, no rhonchi or wheezing, no cough, today's chest x-ray shows basilar atelectasis, and there has been some improvement in patient's volume status and aeration. His labs have been reviewed, white blood cell count is 13.3, his hemoglobin as mentioned above is 6.5. Platelet Count is 117, lites and renal profile are unremarkable. No nausea or vomiting, patient is tolerating oral intake. Incisions are clean dry and intact, patient still has his 2 mediastinal and left pleural chest tube in place and there has been 330 ML of thin serosanguineous output from the mediastinal chest tube, and left pleural chest tube is 110 mL 24 hours, urinary catheter output is in the order of 50 ML per hour. On 04/13/2021 patient seen in follow-up in intensive care unit, today is postoperative day #3 status post three-vessel coronary artery bypass grafting. Patient is currently on 2 L of oxygen, his pulse ox is 88-91%, did wear BiPAP overnight at pressures of 10/5 and FiO2 of 35%, no evidence of any acute re spiratory distress. Lung sounds reveal bibasilar crackles. Today's chest x-ray was reviewed showing no infiltrates, and pleural effusion, no sizable pneumothorax. Incentive spirometry effort is 1000 ML. Patient still has a left pleural chest tube in place, 2 mediastinal chest tubes have been discontinued. Has been a total of 30 mL of serosanguineous output in the last 24 hours. Huffman catheter has been discontinued, however this money patient is experiencing urinary retention, and is currently undergoing straight cathing. No nausea or vomiting, or diarrhea, tolerating oral intake, no abdominal pain. Does have been stable overnight, patient is sinus mechanism. Today's labs have been re viewed, white blood cell count is 13, hemoglobin is 8.1, platelet count is 122. Electrolytes and renal profile are unremarkable On 04/14/2021 patient seen in follow-up on selective care unit. Today's postoperative day #4, status post three-vessel bypass grafting, he is currently on 2 L of oxygen his pulse ox is 95%. He sitting up in the recliner, appears to be in no acute distress. He is working on the incentive spirometer and he is achieving 1000 ML on the today. Today's chest x-ray shows bibasilar atelectasis. His left pleural chest tube has been discontinued. No worsening dyspnea, his vital signs have been stable, he is in sinus mechanism with a controlled rate, today's labs have been reviewed, white blood cell count is 10.1, hemoglobin is 7.9, electrolytes and renal profile were within normal limits. 04/15/2021, the patient is postop day #5. Doing well. No specific complaints. Sitting up on a trip utilizing incentive spirometer. No respiratory difficulties. Chest tubes have been removed and the patient continues to use his incentive spirometer. His cardiac rhythm continues to be in sinus. The patient's has adequate pain control. Surgical wound is dry clean and intact. He is ambulating. Urine output is adequate. The patient has a Huffman catheter in place. He did receive a dose of Lasix yesterday by the primary care medicine team and the patient had a 2.7 L of urine output over the past 24 hours. The patient is seen today 04/16/2021 in follow-up on the cardiac floor. He is currently sitting up in a chair at the bedside. Awake and alert in no acute distress. This is postoperative day #6. He has been up ambulating with assistance. He states he is doing a bit better today compared to yesterday. Continues to need increased encouragement to use the incentive spirometer. X-ray continues to show a stable right basilar atelectasis/infiltrate with a tiny right pleural effusion. No significant change. Requiring 1 unit of packed red blood cells this admission. Current hemoglobin 7.5. White count 10.5. Platelet count is 212. Sodium 138. Potassium 3.8. Creatinine 1.13. Objective - Vital Signs Vital signs: Vital Signs Temp 98.0 F 04/16/21 08:00 Pulse 94 04/16/21 08:00 Resp 18 04/16/21 08:00 BP 104/56 04/16/21 08:00 Pulse Ox 97 04/16/21 08:00 Intake & Output 04/15/21 04/16/21 04/16/21 18:59 06:59 18:59 Intake Total 240 10 480 Output Total 200 2100 Balance 40 -2089 480 Weight 77 kg Intake: IV 10 0.9 10 Oral 240 480 Output: Urine 200 2100 Other: Voiding Method Indwelling Catheter Indwelling Catheter Indwelling Catheter # Voids 500 # Bowel Movements 1 ABP, PAP, CO, CI - Last Documented Arterial Blood Pressure 101/51 Pulmonary Artery Pressure 19/2 Cardiac Output 5.5 Cardiac Index 2.9 - Exam GENERAL EXAM: Alert, a pleasant, 65-year-old male patient on 2 L of oxygen, sitting up in the recliner comfortable in no apparent distress. HEAD: Normocephalic/atraumatic. EYES: Normal reaction of pupils, equal size. Conjunctiva pink, sclera white. NOSE: Clear with pink turbinates. THROAT: No erythema or exudates. NECK: No masses, no JVD, no thyroid enlargement, no adenopathy. CHEST: No chest wall deformity. Symmetrical expansion. Midsternal incision is clean dry and intact, covered with a surgical dressing LUNGS: Equal air entry with is in the right base CVS: Regular rate and rhythm, normal S1 and S2, no gallops, no murmurs, no rubs ABDOMEN: Soft, nontender. No hepatosplenomegaly, normal bowel sounds, no guarding or rigidity. EXTREMITIES: No clubbing, no edema, no cyanosis, 2+ pulses and upper and lower extremities. Left leg interrupted incision is clean dry and intact, mild bruising MUSCULOSKELETAL: Muscle strength and tone normal. SPINE: No scoliosis or deformity SKIN: No rashes CENTRAL NERVOUS SYSTEM: Alert and oriented -3. No focal deficits, tone is normal in all 4 extremities. PSYCHIATRIC: Alert and oriented -3. Appropriate affect. Intact judgment and insight. - Labs CBC & Chem 7: 04/16/21 08:07 04/16/21 08:07 Labs: Abnormal Lab Results - Last 24 Hours (Table) 04/15/21 04/15/21 04/15/21 Range/Units 08:11 11:39 16:54 RBC (4.30-5.90) m/uL Hgb (13.0-17.5) gm/dL Hct (39.0-53.0) % RDW (11.5-15.5) % BUN (9-20) mg/dL Glucose (74-99) mg/dL POC Glucose (mg/dL) 135 H 113 H (75-99) mg/dL Calcium (8.4-10.2) mg/dL Iron 25 L (65-175) ug/dL TIBC 198 L (228-460) ug/dL % Saturation 12.63 L (15.00-50.00) Alkaline Phosphatase (38-126) U/L Total Protein (6.3-8.2) g/dL Albumin (3.5-5.0) g/dL 04/15/21 04/16/21 04/16/21 Range/Units 20:17 06:04 08:07 RBC 2.49 L (4.30-5.90) m/uL Hgb 7.5 L (13.0-17.5) gm/dL Hct 22.5 L (39.0-53.0) % RDW 16.1 H (11.5-15.5) % BUN (9-20) mg/dL Glucose (74-99) mg/dL POC Glucose (mg/dL) 124 H 108 H (75-99) mg/dL Calcium (8.4-10.2) mg/dL Iron (65-175) ug/dL TIBC (228-460) ug/dL % Saturation (15.00-50.00) Alkaline Phosphatase (38-126) U/L Total Protein (6.3-8.2) g/dL Albumin (3.5-5.0) g/dL 04/16/21 Range/Units 08:07 RBC (4.30-5.90) m/uL Hgb (13.0-17.5) gm/dL Hct (39.0-53.0) % RDW (11.5-15.5) % BUN 22 H (9-20) mg/dL Glucose 136 H (74-99) mg/dL POC Glucose (mg/dL) (75-99) mg/dL Calcium 7.5 L (8.4-10.2) mg/dL Iron (65-175) ug/dL TIBC (228-460) ug/dL % Saturation (15.00-50.00) Alkaline Phosphatase 135 H (38-126) U/L Total Protein 5.4 L (6.3-8.2) g/dL Albumin 2.7 L (3.5-5.0) g/dL Assessment and Plan Assessment: 1. Coronary artery disease status post triple coronary artery bypass grafting using the free CARCAMO to the LAD, left radial artery graft to the first obtuse marginal, reverse SVG to the RCA, exclusion of the left atrial appendage using a 35 mm ATriClip, endoscopic harvesting of the left radial artery, and left greater saphenous vein was 04/10/2021, postoperative day #6 2. Routine postoperative ventilator management, and patient was successfully weaned and extubated on post-op day #0 to BiPAP, currently on 2 L of oxygen, st able. Is using incentive spirometer. 3. Postoperative blood loss anemia, expected outcome of sternotomy and bypass grafting surgery 4. COPD, with preop FEV1 of 47% of predicted consistent with stage III COPD not oxygen dependent at baseline 5. [id number] smoking history in remission for 1 year 6. Pulmonary nodule seen on a computed tomography scan of the chest on outpatient basis, PET scan did not show uptake at the site of the nodule 7. Hypertension 8. Hyperlipidemia 9. Hypothyroidism Plan: The patient was seen and evaluated by Dr. Rivera X-ray and labs reviewed Stable from the pulmonary standpoint Discharge planning in place We will continue to follow I, the cosigning physician, performed a history & physical examination of the patient. Lungs sounds with crackles in the right base. Maintaining good O2 saturations in the 90s on 2 L/m per nasal cannula. I discussed the assessment and plan of care with my nurse practitioner, Maria Dolores Sawyer. I attest to the above note as dictated by her. <Amita Rivera - Last Filed: 04/16/21 11:04> Objective - Vital Signs Vital signs: Vital Signs Temp 98.0 F 04/16/21 08:00 Pulse 94 04/16/21 08:00 Resp 18 04/16/21 08:00 BP 104/56 04/16/21 08:00 Pulse Ox 97 04/16/21 08:00 Intake & Output 04/15/21 04/16/21 04/16/21 18:59 06:59 18:59 Intake Total 240 10 480 Output Total 200 2100 Balance 40 -2089 480 Weight 77 kg Intake: IV 10 0.9 10 Oral 240 480 Output: Urine 200 2100 Other: Voiding Method Indwelling Catheter Indwelling Catheter Indwelling Catheter # Voids 500 # Bowel Movements 1 ABP, PAP, CO, CI - Last Documented Arterial Blood Pressure 101/51 Pulmonary Artery Pressure 19/2 Cardiac Output 5.5 Cardiac Index 2.9 - Labs CBC & Chem 7: 04/16/21 08:07 04/16/21 08:07 Labs: Abnormal Lab Results - Last 24 Hours (Table) 04/15/21 04/15/21 04/15/21 Range/Units 08:11 11:39 16:54 RBC (4.30-5.90) m/uL Hgb (13.0-17.5) gm/dL Hct (39.0-53.0) % RDW (11.5-15.5) % BUN (9-20) mg/dL Glucose (74-99) mg/dL POC Glucose (mg/dL) 135 H 113 H (75-99) mg/dL Calcium (8.4-10.2) mg/dL Iron 25 L (65-175) ug/dL TIBC 198 L (228-460) ug/dL % Saturation 12.63 L (15.00-50.00) Alkaline Phosphatase (38-126) U/L Total Protein (6.3-8.2) g/dL Albumin (3.5-5.0) g/dL 04/15/21 04/16/21 04/16/21 Range/Units 20:17 06:04 08:07 RBC 2.49 L (4.30-5.90) m/uL Hgb 7.5 L (13.0-17.5) gm/dL Hct 22.5 L (39.0-53.0) % RDW 16.1 H (11.5-15.5) % BUN (9-20) mg/dL Glucose (74-99) mg/dL POC Glucose (mg/dL) 124 H 108 H (75-99) mg/dL Calcium (8.4-10.2) mg/dL Iron (65-175) ug/dL TIBC (228-460) ug/dL % Saturation (15.00-50.00) Alkaline Phosphatase (38-126) U/L Total Protein (6.3-8.2) g/dL Albumin (3.5-5.0) g/dL 04/16/21 Range/Units 08:07 RBC (4.30-5.90) m/uL Hgb (13.0-17.5) gm/dL Hct (39.0-53.0) % RDW (11.5-15.5) % BUN 22 H (9-20) mg/dL Glucose 136 H (74-99) mg/dL POC Glucose (mg/dL) (75-99) mg/dL Calcium 7.5 L (8.4-10.2) mg/dL Iron (65-175) ug/dL TIBC (228-460) ug/dL % Saturation (15.00-50.00) Alkaline Phosphatase 135 H (38-126) U/L Total Protein 5.4 L (6.3-8.2) g/dL Albumin 2.7 L (3.5-5.0) g/dL
[2021-04-16] MEDS: amLODIPine 2.5 MG TAB PO SCH (12:15)
[2021-04-16 12:36] LABS: Glucose,Whole Blood 103 mg/dL (75-99)
--- NOTE | 2021-04-16 13:49 | P.PN ---
Subjective Progress Note Date: 04/16/21 HISTORY OF PRESENT ILLNESS: 65-year-old male who underwent CABG 3. Patient follows in the office with Dr. Denson. Patient examined this morning. Patient is sitting up in the chair. Patient denies chest pain or pressure. He denies shortness of breath. Patient has a Huffman catheter intact. Vital signs stable PHYSICAL EXAM: VITAL SIGNS: Reviewed. GENERAL: Well-developed in no acute distress. NECK: Supple. No JVD or thyromegaly LUNGS: Respirations even and unlabored. Lungs diminished bilaterally. HEART: Regular rate and rhythm. S1 and S2 heard. Heart hugger in place EXTREMITIES: Normal range of motion. No clubbing or cyanosis. Peripheral pulses intact. No lower extremity edema ASSESSMENT: Triple vessel coronary artery disease, status post CABG Near-syncope secondary to anemia Hypertension Hyperlipidemia COPD Former nicotine dependence Urinary retention PLAN: Continue postoperative management per cardiothoracic surgery Continue current cardiac medications Continue to encourage use of incentive spirometer Increase activity as tolerated Further recommendations pending patient's course Nurse practitioner note has been reviewed by physician. Signing provider agrees with the documented findings, assessment, and plan of care. Objective - Vital Signs Vital signs: Vital Signs Temp 98.0 F 04/16/21 08:00 Pulse 98 04/16/21 12:00 Resp 18 04/16/21 12:00 BP 112/72 04/16/21 12:00 Pulse Ox 98 04/16/21 12:00 Intake & Output 04/15/21 04/16/21 04/16/21 18:59 06:59 18:59 Intake Total 240 10 480 Output Total 200 2100 Balance 40 -2090 480 Weight 77 kg Intake: IV 10 0.9 10 Oral 240 480 Output: Urine 200 2100 Other: Voiding Method Indwelling Catheter Indwelling Catheter Indwelling Catheter # Voids 500 # Bowel Movements 1 ABP, PAP, CO, CI - Last Documented Arterial Blood Pressure 101/51 Pulmonary Artery Pressure 19/2 Cardiac Output 5.5 Cardiac Index 2.9 - Labs CBC & Chem 7: 04/16/21 08:07 04/16/21 08:07 Labs: Abnormal Lab Results - Last 24 Hours (Table) 04/15/21 04/15/21 04/15/21 Range/Units 08:11 16:54 20:17 RBC (4.30-5.90) m/uL Hgb (13.0-17.5) gm/dL Hct (39.0-53.0) % RDW (11.5-15.5) % BUN (9-20) mg/dL Glucose (74-99) mg/dL POC Glucose (mg/dL) 113 H 124 H (75-99) mg/dL Calcium (8.4-10.2) mg/dL Iron 25 L (65-175) ug/dL TIBC 198 L (228-460) ug/dL % Saturation 12.63 L (15.00-50.00) Alkaline Phosphatase (38-126) U/L Total Protein (6.3-8.2) g/dL Albumin (3.5-5.0) g/dL 04/16/21 04/16/21 04/16/21 Range/Units 06:04 08:07 08:07 RBC 2.49 L (4.30-5.90) m/uL Hgb 7.5 L (13.0-17.5) gm/dL Hct 22.5 L (39.0-53.0) % RDW 16.1 H (11.5-15.5) % BUN 22 H (9-20) mg/dL Glucose 136 H (74-99) mg/dL POC Glucose (mg/dL) 108 H (75-99) mg/dL Calcium 7.5 L (8.4-10.2) mg/dL Iron (65-175) ug/dL TIBC (228-460) ug/dL % Saturation (15.00-50.00) Alkaline Phosphatase 135 H (38-126) U/L Total Protein 5.4 L (6.3-8.2) g/dL Albumin 2.7 L (3.5-5.0) g/dL 04/16/21 Range/Units 12:00 RBC (4.30-5.90) m/uL Hgb (13.0-17.5) gm/dL Hct (39.0-53.0) % RDW (11.5-15.5) % BUN (9-20) mg/dL Glucose (74-99) mg/dL POC Glucose (mg/dL) 103 H (75-99) mg/dL Calcium (8.4-10.2) mg/dL Iron (65-175) ug/dL TIBC (228-460) ug/dL % Saturation (15.00-50.00) Alkaline Phosphatase (38-126) U/L Total Protein (6.3-8.2) g/dL Albumin (3.5-5.0) g/dL
--- NOTE | 2021-04-16 16:03 | P.PN ---
Subjective HISTORY OF PRESENT ILLNESS This is a 65-year-old male patient of Dr. Pandya past medical history of coronary artery disease, hypertension, hyperlipidemia, COPD, hypothyroidism, seasonal ALLERGIES, remote history of tobacco use. Yesterday, patient underwent three-vessel CABG free CARCAMO with an inflow from the left radial artery to the LAD, left radial artery from the aorta to the first OM and reverse SVG from the aorta to the RCA as well as exclusion of left atrial appendage. Patient is seen today in intensive care unit. He has been successfully extubated. He states that he is feeling okay. No significant chest pain. He does have surgical site pain. He has been afebrile, heart rate 72, blood pressure 106/53, pulse ox 98% on 2 L nasal cannula. Repeat blood work reveals WBC 14, hemoglobin 7.4, platelet count 121. Sodium 143, potassium 4.2, chloride 112, CO2 24, BUN 19 and creatinine 1.23. Blood sugars are running between 108 and 161. Patient does not have history of diabetes. He is on insulin drip. Magnesium 2.2. AST 72. Chest x-ray this morning reveals bilateral infiltrate and small effusion. Patient has right IJ Cordis in place, left pleural chest tube and mediastinal chest tube and Huffman catheter in place. 04/12: Hemoglobin this morning is 6.5 and he is receiving 1 unit of packed RBCs. One dose of Ferrlecit infusion ordered and oral ferrous sulfate ordered. Patient is complaining that he is not sleeping well and melatonin added. Insulin drip will be discontinued and patient transitioned to NovoLog scale before meals and at bedtime. He has been afebrile, heart rate 90, blood pr essure 104/64, pulse ox 95% on 2 L nasal cannula. Capillary blood glucose running between 66 and 142. WBC 13.3, platelet count 117. Creatinine 1.13. AST 64. Repeat chest x-ray reveals basilar atelectasis. Some improvement in patient's volume status. Huffman catheter has been removed. 04/13: Both mediastinal chest tube has been discontinued, Huffman catheter is not present, the daughter is in the bedside, she was mentioning that dad has issues regarding myalgia using Lipitor, 40 mg currently dose, and requests a med change, we discussed this with the pharmacy, 2 change it to Crestor 10 mg, h owever with formula status, this cannot be switch while the patient is in the hospital. Patient's appetite is much better, still with weakness, physical therapy has been consulted with Dr. Pepper for inpatient rehab, and most likely would be transitioned to [facility] for cardiac debility weakness, once discharged. No chest pain no palpitations, denies any hematuria or melena no fever. Labs hemoglobin 8.1, sodium 138, potassium 4.7, creatinine 0.9, palmitate tracings, sinus rhythm :, Patient was moved out of ICU today, in telemetry floor, selective care unit. Patient's postop day #4, requiring 2 L of O2, satting at 95%, patient is having some edema in the arms and the legs, no shortness of breath, patient's continued on incentive spirometry, chest x-ray only shows basilar atelectasis, and sinus rhythm. Hemoglobin 7.9, Lasix low-dose 20 mg given IV, with blood pressure of 115 systolic, nutritional supplementation, check for albumin, blood sugars are 108-117, CPK is elevated at 392, no nausea no vomiting or diarrhea. Calcium and vitamin D started, has hypocalcemia as well. And hypoalbuminemia and ensure enliv tid 04/15: Patient is less edematous today, seen in the medical floor, selective unit. Postop day #5, family is at bedside, patient is complaining of muscle cramps and muscle aches, has difficulty in mobilizing, less edematous in the arms and the legs, Huffman catheter has to be reinserted secondary to urinary retention, patient is on Flomax, urology following. Hemoglobin at 7.6, creatinine of 1.1, blood sugars between 120-139, protein at 5.7 which is low, albumin 3.1, patient is on ensure enliv patient still has recreational tachycardia, no chest pain TSH was normal in March of this year, 1.3 A1c of 6.3 with going to dose another Lasix today, metoprolol was increased to 25 mg 3 times a day, Flexeril 10 mg started daily at bedtime, check for iron panel, no i v laurie noted on medical orders, we will order for one. On ferrous sulfate 325 mg daily, patient still has symptomatic anemia. patient also has insomnia, waiting rehab, most likely discharged to [facility] on Monday 04/16 patient's taking a shower today, independently, folic catheter is in place, some minimal blood clots noted, no gross hematuria otherwise, the muscle spasms is much better, cyclobenzaprine is also helping out with sleep and muscle aches, discharge planning is in progress, await I [place] Huffman catheter to stay for total of 7 days, this has been reinserted, secondary to urinary retention, for which the new Huffman catheter was placed April 13, no chest pain, no palpitations, no nausea, no vomiting no diarrhea. No fever, vitals systolic 104-112, pulse ox 98% on 2 L, hemoglobin of 7.5, creatinine of 1.13, albumin low at 2.7, double basic count of 10.5 REVIEW OF SYSTEMS Constitutional: No fever, no chills, no night sweats. No weight change. No weakness, reports fatigue no lethargy. No daytime sleepiness. EENT: No headache. No blurred vision or double vision, no loss of vision. No loss of Hearing, no ringing in the ears, no dizziness. No nasal drainage or congestion. No epistaxis. No sore throat. Lungs: No shortness of breath, cough, no sputum production. No wheezing. Cardiovascular: Reports expected chest pain, no lower extremity edema. No p alpitations. No paroxysmal nocturnal dyspnea. No orthopnea. No lightheadedness or dizziness. No syncopal episodes. Abdominal: No abdominal pain. No nausea, vomiting. No diarrhea. No constipation. No bloody or tarry stools reports decreased of appetite. Genitourinary: No dysuria, increased frequency, urgency. No urinary retention. Musculoskeletal: No myalgias. Reports generalized muscle weakness, no gait dysfunction, no frequent falls. No back pain. No neck pain. Integumentary: No wounds, no lesions. No rash or pruritus. No unusual bruising. No change in hair or nails. Neurologic: No aphasia. No facial droop. No change in mentation. No head injury. No headache. No paralysis. No paresthesia. Psychiatric: No depression. No anxiety. No mood swings. Reports insomnia. Endocrine: No abnormal blood sugars. No weight change. No excessive sweating or thirst. No cold intolerance. Objective - Vital Signs Vital signs: Vital Signs Temp 98.0 F 04/16/21 08:00 Pulse 98 04/16/21 14:00 Resp 18 04/16/21 14:00 BP 112/72 04/16/21 12:00 Pulse Ox 98 04/16/21 12:00 Intake & Output 04/15/21 04/16/21 04/16/21 18:59 06:59 18:59 Intake Total 240 10 960 Output Total 200 2100 Balance 40 -2090 960 Weight 77 kg Intake: IV 10 0.9 10 Oral 240 960 Output: Urine 200 2100 Other: Voiding Method Indwelling Catheter Indwelling Catheter Indwelling Catheter # Voids 500 # Bowel Movements 1 ABP, PAP, CO, CI - Last Documented Arterial Blood Pressure 101/51 Pulmonary Artery Pressure 19/2 Cardiac Output 5.5 Cardiac Index 2.9 - Constitutional General appearance: Present: cooperative, no acute distress - EENT Eyes: Present: anicteric sclerae, EOMI, PERRLA, normal appearance - Neck Neck: Present: normal ROM - Respiratory Respiratory: bilateral: CTA, negative: diminished, rales - Cardiovascular Rhythm: regular Heart sounds: normal: S1, S2 - Gastrointestinal General gastrointestinal: Present: normal bowel sounds, soft - Neurologic Neurologic: Present: CNII-XII intact - Musculoskeletal Musculoskeletal: Present: generalized weakness, strength equal bilaterally - Psychiatric Psychiatric: Present: A&O x's 3, intact judgment & insight - Labs CBC & Chem 7: 04/16/21 08:07 04/16/21 08:07 Labs: Abnormal Lab Results - Last 24 Hours (Table) 04/15/21 04/15/21 04/15/21 Range/Units 08:11 16:54 20:17 RBC (4.30-5.90) m/uL Hgb (13.0-17.5) gm/dL Hct (39.0-53.0) % RDW (11.5-15.5) % BUN (9-20) mg/dL Glucose (74-99) mg/dL POC Glucose (mg/dL) 113 H 124 H (75-99) mg/dL Calcium (8.4-10.2) mg/dL Iron 25 L (65-175) ug/dL TIBC 198 L (228-460) ug/dL % Saturation 12.63 L (15.00-50.00) Alkaline Phosphatase (38-126) U/L Total Protein (6.3-8.2) g/dL Albumin (3.5-5.0) g/dL 04/16/21 04/16/21 04/16/21 Range/Units 06:04 08:07 08:07 RBC 2.49 L (4.30-5.90) m/uL Hgb 7.5 L (13.0-17.5) gm/dL Hct 22.5 L (39.0-53.0) % RDW 16.1 H (11.5-15.5) % BUN 22 H (9-20) mg/dL Glucose 136 H (74-99) mg/dL POC Glucose (mg/dL) 108 H (75-99) mg/dL Calcium 7.5 L (8.4-10.2) mg/dL Iron (65-175) ug/dL TIBC (228-460) ug/dL % Saturation (15.00-50.00) Alkaline Phosphatase 135 H (38-126) U/L Total Protein 5.4 L (6.3-8.2) g/dL Albumin 2.7 L (3.5-5.0) g/dL 04/16/21 Range/Units 12:00 RBC (4.30-5.90) m/uL Hgb (13.0-17.5) gm/dL Hct (39.0-53.0) % RDW (11.5-15.5) % BUN (9-20) mg/dL Glucose (74-99) mg/dL POC Glucose (mg/dL) 103 H (75-99) mg/dL Calcium (8.4-10.2) mg/dL Iron (65-175) ug/dL TIBC (228-460) ug/dL % Saturation (15.00-50.00) Alkaline Phosphatase (38-126) U/L Total Protein (6.3-8.2) g/dL Albumin (3.5-5.0) g/dL Assessment and Plan Plan: ASSESSMENT AND PLAN 1. Coronary artery disease status post triple CABG, 6 postoperative day #5. Continue current management per cardio thoracic surgery.Continue aspirin 325 mg daily, Lipitor 40 mg daily, Plavix 75 mg daily, Lopressor 12.5 mg twice daily. Patient no history of diabetes. 2. Hypertension. Continue amlodipine 2.5 mg daily, Lopressor, hydralazine as needed. 3. Hyperlipidemia. Continue atorvastatin. 4. COPD. Continue Pulmicort 0.5 mg twice daily, DuoNeb treatments 4 times daily. 5. Hypothyroidism. Continue levothyroxine 137 g daily. 6. Seasonal ALLERGIES, stable. 7. History of tobacco use and dependence. 8. Postoperative acute blood loss anemia, expected following surgery. Patient is receiving 1 unit of packed RBCs, Ferrlecit 1 dose ordered as well as iron 325 mg oral daily. 9. Postop thrombocytopenia, expected following surgery. Continue to monitor. 10. GI prophylaxis. Protonix 40 mg daily. 11. DVT prophylaxis. Heparin 5000 units subcu every 8 hours. 12. Statin myalgia with myositis, unable to switch to Crestor or pravastatin during this hospital stay , need aggressive statin management, continue on Lipitor 40 mg until discharge tthen switch as OP, otherwise PSK9 injections will be an alternative 13. Hypocalcemia, with hypoalbuminemia, most likely with vitamin D deficiency, causing myalgia, start on calcium and vitamin D, and ensure and leave next 14Protein calorie malnutrition, supplements above Iron deficiency anemia, for illicit 125 mg IV, Continue on Ferrous Sulfate 325 Mg Twice a Day, Still Has Iron Deficiency Anemia Symptoms. BPH with urinary retention, current Huffman catheter, recommendation from urology to keep for 7 days, from its reinsertion, 04/13/2021. Continue Flomax DISCHARGE PLAN Most likely inpatient rehab, Saturday
[2021-04-16 17:20] LABS: Glucose,Whole Blood 117 mg/dL (75-99)
[2021-04-16] MEDS: TAMSULOSIN 0.4 MG CAP.ER.24H PO SCH (17:27)
[2021-04-16 20:34] LABS: Glucose,Whole Blood 121 mg/dL (75-99)
[2021-04-16] MEDS: SENNOSIDES-DOCUSATE SODIUM 1 EACH TAB PO SCH (20:49)
[2021-04-16] MEDS: CYCLOBENZAPRINE 10 MG TAB PO SCH (20:49)
[2021-04-16] MEDS: ATORVASTATIN 40 MG TAB PO SCH (20:50)
[2021-04-16] MEDS: MELATONIN 5 MG TABLET PO SCH (20:50)
[2021-04-17 06:19] LABS: Glucose,Whole Blood 101 mg/dL (75-99)
[2021-04-17] MEDS: INSULIN ASPART (NovoLOG) 100 UNIT/ML VIAL SQ SCH ×4 (06:31→20:45)
[2021-04-17] MEDS: CALCIUM CARB-VIT D 500 MG-5 MCG TAB PO SCH ×2 (06:39→16:25)
[2021-04-17] MEDS: ASCORBIC ACID 500 MG TAB PO SCH ×2 (06:39→16:25)
[2021-04-17] MEDS: PANTOPRAZOLE 40 MG TABLET PO SCH (06:39)
[2021-04-17] MEDS: FERROUS SULFATE 325 MG TAB PO SCH ×2 (06:39→16:25)
[2021-04-17] MEDS: LEVOTHYROXINE 137 MCG TAB PO SCH (06:40)
[2021-04-17] MEDS: BUDESONIDE 0.5 MG/2 ML NEBU INHALATION SCH ×2 (08:08→21:01)
[2021-04-17] MEDS: IPRATROPIUM-ALBUTEROL 3 ML NEB INHALATION SCH ×4 (08:08→21:01)
--- NOTE | 2021-04-17 08:22 | XR ---
EXAMINATION TYPE: XR chest 2V DATE OF EXAM: 04/17/2021 COMPARISON: Chest x-ray 04/16/2021 HISTORY: Post cardiac surgery TECHNIQUE: Frontal and lateral views of the chest are obtained. FINDINGS: Patient is post median sternotomy and there are overlying artifacts. No evident pneumothor ax. There is left atrial appendage clip placement. Bandlike area of increased attenuation persists at the right costophrenic angle as on prior exam. Cardiac mediastinal silhouette is stable. There is no sizable effusion. Prominent lung volumes suggest underlying COPD. There are coronary artery calcific ations. IMPRESSION: Findings are similar to prior exam. Possible basilar atelectasis or scarring
[2021-04-17] MEDS: ASPIRIN 325 MG TAB PO SCH (08:36)
[2021-04-17] MEDS: CLOPIDOGREL 75 MG TAB PO SCH (08:36)
[2021-04-17] MEDS: METOPROLOL TARTRATE 25 MG TAB PO SCH ×3 (08:36→23:04)
[2021-04-17] MEDS: HEPARIN SODIUM,PORCINE/PF 5,000 UNIT/0.5 ML SYRINGE SQ SCH ×3 (08:36→23:04)
[2021-04-17 09:23] LABS: Anisocytosis Slight; HCT 25.7 % (39.0-53.0); HGB 8.3 gm/dL (13.0-17.5); Hypochromasia Slight; MCH 29.8 pg (25.0-35.0); MCHC 32.4 g/dL (31.0-37.0); MCV 91.9 fL (80.0-100.0); Mean Platelet Volume 8.2; Platelet Count 318 k/uL (150-450); RBC 2.79 m/uL (4.30-5.90); RDW 16.4 % (11.5-15.5); WBC 14.2 k/uL (3.8-10.6)
[2021-04-17 09:37] LABS: Ionized Calcium 4.8 mg/dL (4.5-5.3)
[2021-04-17 09:44] LABS: Magnesium 2.3 mg/dL (1.6-2.3); Potassium 4.3 mmol/L (3.5-5.1)
--- NOTE | 2021-04-17 10:33 | P.PN ---
Subjective Progress Note Date: 04/17/21 Principal diagnosis: Triple-vessel coronary artery disease, preserved left ventricular function with EF 55%. Previous medical history of hypertension, hyperlipidemia, severe COPD with preoperative FEV1 47% of predicted, previous tobacco dependence, hypothyroidism, chronic kidney disease stage II, right lower lobe lung nodule negative on PET POD #7 triple-vessel coronary artery bypass grafting using the free left internal mammary artery with an inflow from the left radial artery to the left anterior descending artery, left radial artery from the aorta to the first obtuse marginal artery, reverse saphenous vein graft from the aorta to the right coronary artery, exclusion of the left atrial appendage using a 35 mm AtriClip, endoscopic harvesting of the left radial artery, endoscopic harvesting of the left greater saphenous vein from the groin to above the ankle, intraoperative graft flow measurements using the [employer] system, intraoperative transesophageal echocardiogram and epi-aortic scanning Postoperative acute blood loss anemia and thrombocytopenia, expected given hemodilution and cardiopulmonary bypass pump Postoperative urinary retention requiring initiation of Flomax and reinsertion of Huffman catheter, unexpected The patient's currently sitting up in a recliner on the cardiac stepdown unit in no acute distress. Remains in sinus rhythm with heart rate in the high 80s to low 90s, blood pressure stable. Patient states pain is controlled on current m edication regimen, states shortness of breath continues to improve, currently on room air, actively using incentive spirometry and achieving 1000 mL. He did ambulate in the room yesterday and out in the hallway 120 feet. States he did eat a bit more yesterday. Patient is being evaluated for inpatient rehab if he is not safe to go home, patient is aware of this and does want to try to work harder as he would prefer to go home. No other new concerns Objective - Vital Signs Vital signs: Vital Signs Temp 98.0 F 04/17/21 04:00 Pulse 85 04/17/21 04:00 Resp 16 04/17/21 04:00 BP 113/73 04/17/21 04:00 Pulse Ox 98 04/17/21 04:00 Intake & Output 04/16/21 04/17/21 04/17/21 18:59 06:59 18:59 Intake Total 960 Output Total 400 800 Balance 560 -800 Weight 77 kg Intake: Oral 960 Output: Urine 400 800 Other: Voiding Method Indwelling Catheter Indwelling Catheter ABP, PAP, CO, CI - Last Documented Arterial Blood Pressure 101/51 Pulmonary Artery Pressure 19/2 Cardiac Output 5.5 Cardiac Index 2.9 - Exam CONSTITUTIONAL: Appears comfortable, no acute distress RESPIRATORY: Lungs sounds diminished bilaterally. Respirations even, nonlabored. Currently on room air with oxygen saturation 98%. Able to achieve 1000 mL on incentive spirometry. Strong cough with encouragement. CARDIOVASCULAR: S1, S2 present. Regular rate and rhythm, sinus rhythm on telemetry. Sternum stable. Palpable peripheral pulses bilaterally. No edema present. No calf pain or tenderness noted. Heart hugger in place with patient demonstrating appropriate use. Antiembolism stockings, SCDs present. GASTROINTESTINAL: Abdomen soft, nontender, nondistended. Active bowel sounds present 4 quadrants. Tolerating diet. Positive small bowel movement 04/15 GENITOURINARY: Huffman catheter in place, urine output 2.3 L in the last 24 hours INTEGUMENTARY: Skin is warm and dry with evidence of good perfusion. Anterior chest incision well approximated without redness or drainage. Left lower extremity EVH site well approximated without redness or drainage. Left radial artery harvest site well approximated without redness or drainage, patient able to wiggle all fingers and digital sales manager appropriately, good cap refill NEUROLOGIC: Cranial nerves II through XII intact MUSKULOSKELETAL: Able to move all extremities, strength equal bilaterally PSYCHIATRIC: Alert and oriented to person place and time, appropriate affect, intact judgment and insight - Allied health notes Allied health notes reviewed: nursing - Labs CBC & Chem 7: 04/17/21 07:56 04/17/21 07:56 Labs: Abnormal Lab Results - Last 24 Hours (Table) 04/16/21 04/16/21 04/16/21 Range/Units 08:07 08:07 12:00 RBC 2.49 L (4.30-5.90) m/uL Hgb 7.5 L (13.0-17.5) gm/dL Hct 22.5 L (39.0-53.0) % RDW 16.1 H (11.5-15.5) % BUN 22 H (9-20) mg/dL Glucose 136 H (74-99) mg/dL POC Glucose (mg/dL) 103 H (75-99) mg/dL Calcium 7.5 L (8.4-10.2) mg/dL Alkaline Phosphatase 135 H (38-126) U/L Total Protein 5.4 L (6.3-8.2) g/dL Albumin 2.7 L (3.5-5.0) g/dL 04/16/21 04/16/21 04/17/21 Range/Units 16:51 20:20 06:02 RBC (4.30-5.90) m/uL Hgb (13.0-17.5) gm/dL Hct (39.0-53.0) % RDW (11.5-15.5) % BUN (9-20) mg/dL Glucose (74-99) mg/dL POC Glucose (mg/dL) 117 H 121 H 101 H (75-99) mg/dL Calcium (8.4-10.2) mg/dL Alkaline Phosphatase (38-126) U/L Total Protein (6.3-8.2) g/dL Albumin (3.5-5.0) g/dL - Imaging and Cardiology Chest x-ray: image reviewed Assessment and Plan Assessment: 1. Triple-vessel coronary artery disease, status post three-vessel CABG 2. Preserved left ventricular function with EF 55% 3. History of hypertension 4. Hyperlipidemia 5. Severe COPD with preoperative FEV1 47% of predicted 6. Previous tobacco dependence 7. Hypothyroidism 8. Chronic kidney disease stage II 9. Right lower lobe lung nodule negative on PET 10. Postoperative acute blood loss anemia and thrombocytopenia, expected given hemodilution and cardiopulmonary bypass pump 11. Postoperative urinary retention Plan: 1. Continue aspirin, Plavix, statin, beta karley. Will increase beta karley therapy as tolerated. 2. Continue low-dose Norvasc for radial artery spasm. Do not discontinue without discussing with cardiothoracic surgery 3. Encourage incentive spirometry use 10 times every hour while awake. Bronchodilators per pulmonology 3. Increase activity, ambulate as tolerated. PT/OT/cardiac rehab following 4. Will monitor daily labs and chest x-rays. Electrolyte replacement per protocol. No transfusion today. NO LASIX TODAY. 5. GI/DVT prophylaxis 6. Insulin management per primary care service. Patient is not diabetic, preoperative hemoglobin A1c 6.3%. 7. Pain control with current medication regimen. No Toradol due to history of CKD. Narcotics discontinued 8. Continue Flomax, Huffman catheter. Urology consulted, recommended to continue Flomax and Huffman catheter, may trial void in one week's time 9. Patient encouraged to increase oral intake 10. Strict accurate intake and output. Daily weights 11. Dr. Pepper consulted for possible discharge to [facility] as patient needs increased strength training and close physician monitoring for multiple complex medical comorbidities. [id number] completed Saturday without ability to obtain insurance authorization, since there is no bed availability insurance recommendation was to repeat authorization for [facility] today if the patient is still needing rehab placement, will see how patient does today 12. More recommendations to follow based on patient's progress Time with Patient: Greater than 30
[2021-04-17 11:39] LABS: Glucose,Whole Blood 110 mg/dL (75-99)
[2021-04-17] MEDS: amLODIPine 2.5 MG TAB PO SCH (12:02)
--- NOTE | 2021-04-17 12:45 | P.PN ---
Subjective This is a pleasant 65-year-old male past medical history significant for coronary artery disease, hypertension and COPD. He follows in the office with Dr. Velazquez. He underwent three-vessel bypass grafting yesterday with free CARCAMO with an inflow from the left radial artery to the LAD, left radial artery from the aorta to the first OM and reverse SVG from the aorta to the RCA as well as exclusion of left atrial appendage. 04/17/2021 Pt seen and examined sitting up in recliner in no acute distress. He is sitting up in the bedside chair later this morning. Blood pressure 123/57 heart rate low 100s. afebrile and maintaining oxygen saturation on 2L nasal cannula. Laboratory data reviewed, WBC 14.2 hemoglobin 8.3, platelets 318, sodium 141, potassium 4.3, BUN 24, serum creatinine 1.15 24-hr urine output is 2.3L. Telemetry tracings reveal he is maintaining sinus mechanism HR is in the high 90s to low 100s. PHYSICAL EXAMINATION CONSTITUTIONAL: No apparent distress. HEENT: Head is normocephalic. Pupils are equal, round. Sclerae anicteric. Mucous membranes of the mouth are moist. No JVD. No carotid bruit. CHEST EXAMINATION: Lungs are clear to auscultation. Mid sternal chest wall tenderness is noted at site of incision. Anterior chest incision incision covered with dressing that is dry. HEART EXAMINATION: Regular rate and rhythm. S1, S2 heard. No murmurs, gallops or rub. EXTREMITIES: 2+ peripheral pulses, no lower extremity edema and no calf tenderness. ASSESSMENT Triple vessel coronary artery disease s/p bypass grafting POD #7 Near syncope secondary to anemia Anemia Hypertension Dyslipidemia COPD Former nicotine dependence PLAN Continue current medical regimen- aspirin, Plavix, statin, beta karley, amlodipine added 04/15 Encourage incentive spirometer use. Increase activity as tolerated. We will continue to follow and provide supportive care, primary management per CT surgery. Nurse Practitioner note has been reviewed, I agree with a documented findings and plan of care. Patient was seen and examined. Objective - Vital Signs Vital signs: Vital Signs Temp 98.4 F 04/17/21 08:00 Pulse 84 04/17/21 08:23 Resp 16 04/17/21 08:00 BP 123/57 04/17/21 08:00 Pulse Ox 94 L 04/17/21 08:00 Intake & Output 04/16/21 04/17/21 04/17/21 18:59 06:59 18:59 Intake Total 960 240 Output Total 400 800 Balance 560 -800 240 Weight 77 kg Intake: Oral 960 240 Output: Urine 400 800 Other: Voiding Method Indwelling Catheter Indwelling Catheter Indwelling Catheter # Bowel Movements 1 ABP, PAP, CO, CI - Last Documented Arterial Blood Pressure 101/51 Pulmonary Artery Pressure 19/2 Cardiac Output 5.5 Cardiac Index 2.9 - Labs CBC & Chem 7: 04/17/21 07:56 04/17/21 07:56 Labs: Abnormal Lab Results - Last 24 Hours (Table) 04/16/21 04/16/21 04/16/21 Range/Units 12:00 16:51 20:20 WBC (3.8-10.6) k/uL RBC (4.30-5.90) m/uL Hgb (13.0-17.5) gm/dL Hct (39.0-53.0) % RDW (11.5-15.5) % BUN (9-20) mg/dL POC Glucose (mg/dL) 103 H 117 H 121 H (75-99) mg/dL Calcium (8.4-10.2) mg/dL 04/17/21 04/17/21 04/17/21 Range/Units 06:02 07:56 07:56 WBC 14.2 H (3.8-10.6) k/uL RBC 2.79 L (4.30-5.90) m/uL Hgb 8.3 L (13.0-17.5) gm/dL Hct 25.7 L (39.0-53.0) % RDW 16.4 H (11.5-15.5) % BUN 24 H (9-20) mg/dL POC Glucose (mg/dL) 101 H (75-99) mg/dL Calcium 8.0 L (8.4-10.2) mg/dL
--- NOTE | 2021-04-17 14:10 | P.PN ---
Subjective Progress Note Date: 04/17/21 Principal diagnosis: Status post CABG postoperative day #7. This is a 65-year-old white male patient with past medical history of hypertension, hyperlipidemia, history of smoking and hypothyroidism had been complaining of worsening dyspnea on exertion for the last 7 months. Patient had a pulmonary workup which showed FEV1 of 1.41 L or 47% of predicted, consistent with severe obstruction, outpatient computed tomography scan did not nodule however of follow-up PET scan was subsequently negative as reported by his stepdaughter. Patient had cardiac workup that included a stress test which showed evidence of anteroseptal wall ischemia. Cardiac catheterization on 03/03/2021 at the [facility] showed three-vessel coronary artery disease with mid RCA, long proximal LAD in the proximal OM1 significant stenosis. Ejection fraction was 55% by echocardiogram with mild inferior hypokinesia. Patient was referred to cardiothoracic surgery for surgical intervention and on 04/10/2021 patient underwent triple-vessel coronary artery bypass grafting with free CARCAMO to the LAD, left radial artery to the first up to his marginal, reverse SVG to the RCA, exclusion of the left atrial appendage using not 35mm Atriclip, and endoscopic harvesting of the left radial artery and left greater saphenous vein. We are seeing the patient today on the first postoperative day, patient has been successfully weaned and extubated from mechanical ventilator on 04/10/2021, to BiPAP support with pressure of 16/6 and FiO2 of 50%. Currently patient is on 2 L of oxygen, with a pulse ox of 96%, he is awake and alert, he is up in the recliner. Reports mild incisional discomfort, but no acute distress. Hemodynamically patient is stable, he is currently on 0.9 normal saline there is a 50 ML per hour, nitroglycerin is a 5 mics per kilo per minute, and insulin infusion is at 2 units per hour. In sinus mechanism with a rate of 76 BPM, blood pressure is 110/49, PA pressures 23/7, CVP is 8, cardiac output is 5.5 and cardiac index is 2.9. Mediastinal chest tubes in place with a total of 400 mL of serosanguineous output in the last 24 hours, and left pleural chest tube with 300 mL of serosanguineous output, no evidence of air leak. Incisions are dry and intact. Incentive spirometry effort is 500-750 this morning. Today's chest x-ray shows bilateral infiltrates and small pleural effusions, evidence of sizable pneumothorax. On 04/12/2021 patient seen in follow-up in the intensive care unit, today is postoperative day #2, status post three-vessel coronary artery bypass grafting. Patient is doing well, he is awake and alert, he sitting up in a recliner, currently on 2 L of oxygen pulse ox is 96%, hemodynamically stable, not on any vasopressor support, his on 0.9 normal saline at a rate of 20 ML per hour, he is receiving a transfusion with 1 unit of packed red blood cells for hemoglobin of 6.5 this morning, with a controlled rate, blood pressure is 115/60, he is afebrile, no worsening dyspnea, he is achieving 1000 ML on his incentive spirometer, lung sounds are diminished, no rhonchi or wheezing, no cough, today's chest x-ray shows basilar atelectasis, and there has been some improvement in patient's volume status and aeration. His labs have been review ed, white blood cell count is 13.3, his hemoglobin as mentioned above is 6.5. Platelet Count is 117, lites and renal profile are unremarkable. No nausea or vomiting, patient is tolerating oral intake. Incisions are clean dry and intact, patient still has his 2 mediastinal and left pleural chest tube in place and there has been 330 ML of thin serosanguineous output from the mediastinal chest tube, and left pleural chest tube is 110 mL 24 hours, urinary catheter output is in the order of 50 ML per hour. On 04/13/2021 patient seen in follow-up in intensive care unit, today is postoperative day #3 status post three-vessel coronary artery bypass grafting. Patient is currently on 2 L of oxygen, his pulse ox is 88-91%, did wear BiPAP overnight at pressures of 10/5 and FiO2 of 35%, no evidence of any acute respiratory distress. Lung sounds reveal bibasilar crackles. Today's chest x- ray was reviewed showing no infiltrates, and pleural effusion, no sizable pneumothorax. Incentive spirometry effort is 1000 ML. Patient still has a left pleural chest tube in place, 2 mediastinal chest tubes have been discontinued. Has been a total of 30 mL of serosanguineous output in the last 24 hours. Huffman catheter has been discontinued, however this money patient is experiencing urinary retention, and is currently undergoing straight cathing. No nausea or vomiting, or diarrhea, tolerating oral intake, no abdominal pain. Does have been stable overnight, patient is sinus mechanism. Today's labs have been reviewed, white blood cell count is 13, hemoglobin is 8.1, platelet count is 122. Electrolytes and renal profile are unremarkable On 04/14/2021 patient seen in follow-up on selective care unit. Today's postoperative day #4, status post three-vessel bypass grafting, he is currently on 2 L of oxygen his pulse ox is 95%. He sitting up in the recliner, appears to be in no acute distress. He is working on the incentive spirometer and he is achieving 1000 ML on the today. Today's chest x-ray shows bibasilar atelectasis. His left pleural chest tube has been discontinued. No worsening dyspnea, his vital signs have been stable, he is in sinus mechanism with a controlled rate, today's labs have been reviewed, white blood cell count is 10.1, hemoglobin is 7.9, electrolytes and renal profile were within normal limits. 04/15/2021, the patient is postop day #5. Doing well. No specific complaints. Sitting up on a trip utilizing incentive spirometer. No respiratory diffic ulties. Chest tubes have been removed and the patient continues to use his incentive spirometer. His cardiac rhythm continues to be in sinus. The patient's has adequate pain control. Surgical wound is dry clean and intact. He is ambulating. Urine output is adequate. The patient has a Huffman catheter in place. He did receive a dose of Lasix yesterday by the primary care medicine team and the patient had a 2.7 L of urine output over the past 24 hours. The patient is seen today 04/16/2021 in follow-up on the cardiac floor. He is currently sitting up in a chair at the bedside. Awake and alert in no acute distress. This is postoperative day #6. He has been up ambulating with assistance. He states he is doing a bit better today compared to yesterday. Continues to need increased encouragement to use the incentive spirometer. X-ray continues to show a stable right basilar atelectasis/infiltrate with a tiny right pleural effusion. No significant change. Requiring 1 unit of packed red blood cells this admission. Current hemoglobin 7.5. White count 10.5. Platelet count is 212. Sodium 138. Potassium 3.8. Creatinine 1.13. Reevaluated today on 04/17/2021, patient is on the regular medical floor, doing well, asymptomatic, no cough no wheezing no shortness of breath, he is presently on room air. He was dynamically stable, afebrile. O2 saturation is 93% on room air. Chest x-ray showed minimal bibasilar atelectasis. Low but is 8.3 left lites are normal renal profile is normal Objective - Vital Signs Vital signs: Vital Signs Temp 98.9 F 04/17/21 12:00 Pulse 87 04/17/21 12:00 Resp 16 04/17/21 12:00 BP 114/62 04/17/21 12:00 Pulse Ox 93 L 04/17/21 12:00 Intake & Output 04/16/21 04/17/21 04/17/21 18:59 06:59 18:59 Intake Total 960 720 Output Total 400 800 350 Balance 560 -800 370 Weight 77 kg Intake: Oral 960 720 Output: Urine 400 800 350 Other: Voiding Method Indwelling Catheter Indwelling Catheter Indwelling Catheter # Bowel Movements 1 ABP, PAP, CO, CI - Last Documented Arterial Blood Pressure 101/51 Pulmonary Artery Pressure 19/2 Cardiac Output 5.5 Cardiac Index 2.9 - Exam Physical Exam: Revealed a 68-year-old white male in no distress, on room air. Head: Atraumatic, normocephalic. HEENT:[Neck is supple.] [No neck masses.] [No thyromegaly.] [No JVD.] Chest: [Clear throughout, no crackles, no rhonchi, no wheezes.] Cardiac Exam: [Normal S1 and S2, no S3 gallop, no murmur.] Abdomen: [Soft, nontender, no megaly, no rebound, no guarding, normal bowel sounds.] Extremities: [No clubbing, no edema, no cyanosis.] Neurological Exam: [No focal neurologic deficit.] Alert oriented 3. Psychiatric: Normal mood affect and normal mental status examination. Musculoskeletal: No deformities noted limitation in range of motion. - Labs CBC & Chem 7: 04/17/21 07:56 04/17/21 07:56 Labs: Abnormal Lab Results - Last 24 Hours (Table) 04/16/21 04/16/21 04/17/21 Range/Units 16:51 20:20 06:02 WBC (3.8-10.6) k/uL RBC (4.30-5.90) m/uL Hgb (13.0-17.5) gm/dL Hct (39.0-53.0) % RDW (11.5-15.5) % BUN (9-20) mg/dL POC Glucose (mg/dL) 117 H 121 H 101 H (75-99) mg/dL Calcium (8.4-10.2) mg/dL 04/17/21 04/17/21 04/17/21 Range/Units 07:56 07:56 11:37 WBC 14.2 H (3.8-10.6) k/uL RBC 2.79 L (4.30-5.90) m/uL Hgb 8.3 L (13.0-17.5) gm/dL Hct 25.7 L (39.0-53.0) % RDW 16.4 H (11.5-15.5) % BUN 24 H (9-20) mg/dL POC Glucose (mg/dL) 110 H (75-99) mg/dL Calcium 8.0 L (8.4-10.2) mg/dL Assessment and Plan Assessment: Impression: Status post CABG, postoperative day #7 Postoperative atelectasis, expected. Severe COPD with a preoperative FEV1 of 47% Gold stage III. [id number] smoking history. History of pulmonary nodule being followed on outpatient basis. Hypertension. Dyslipidemia. Hypothyroidism. Recommendation: Continue present supportive care measures. Continue bronchodilators. Continue incentive spirometer. Cleared from a or perspective for discharge planning and follow-up on outpatient basis. Time with Patient: Less than 30
--- NOTE | 2021-04-17 14:33 | P.PN ---
Subjective Progress Note Date: 04/17/21 HISTORY OF PRESENT ILLNESS This is a 65-year-old male patient of Dr. Pandya past medical history of coronary artery disease, hypertension, hyperlipidemia, COPD, hypothyroidism, seasonal ALLERGIES, remote history of tobacco use. Yesterday, patient underwent three-vessel CABG free CARCAMO with an inflow from the left radial artery to the LAD, left radial artery from the aorta to the first OM and reverse SVG from the aorta to the RCA as well as exclusion of left atrial appendage. Patient is seen today in intensive care unit. He has been successfully extubated. He states that he is feeling okay. No significant chest pain. He does have surgical site pain. He has been afebrile, heart rate 72, blood pressure 106/53, pulse ox 98% on 2 L nasal cannula. Repeat blood work reveals WBC 14, hemoglobin 7.4, platelet count 121. Sodium 143, potassium 4.2, chloride 112, CO2 24, BUN 19 and creatinine 1.23. Blood sugars are running between 108 and 161. Patient does not have history of diabetes. He is on insulin drip. Magnesium 2.2. AST 72. Chest x-ray this morning reveals bilateral infiltrate and small effusion. Patient has right IJ Cordis in place, left pleural chest tube and mediastinal chest tube and Huffman catheter in place. 04/12: Hemoglobin this morning is 6.5 and he is receiving 1 unit of packed RBCs. One dose of Ferrlecit infusion ordered and oral ferrous sulfate ordered. Patient is complaining that he is not sleeping well and melatonin added. Insulin drip will be discontinued and patient transitioned to NovoLog scale before meals and at bedtime. He has been afebrile, heart rate 90, blood pressure 104/64, pulse ox 95% on 2 L nasal cannula. Capillary blood glucose running between 66 and 142. WBC 13.3, platelet count 117. Creatinine 1.13. AST 64. Repeat chest x-ray reveals basilar atelectasis. Some improvement in patient's volume status. Huffman catheter has been removed. 04/13: Both mediastinal chest tube has been discontinued, Huffman catheter is not present, the daughter is in the bedside, she was mentioning that dad has issues regarding myalgia using Lipitor, 40 mg currently dose, and requests a med change, we discussed this with the pharmacy, 2 change it to Crestor 10 mg, however with formula status, this cannot be switch while the patient is in the hospital. Patient's appetite is much better, still with weakness, physical therapy has been consulted with Dr. Pepper for inpatient rehab, and most likely would be transitioned to [facility] for cardiac debility weakness, once discharged. No chest pain no palpitations, denies any hematuria or melena no fever. Labs hemoglobin 8.1, sodium 138, potassium 4.7, creatinine 0.9, palmitate tracings, sinus rhythm :, Patient was moved out of ICU today, in telemetry floor, selective care unit. Patient's postop day #4, requiring 2 L of O2, satting at 95%, patient is having some edema in the arms and the legs, no shortness of breath, patient's continued on incentive spirometry, chest x-ray only shows basilar atelectasis, and sinus rhythm. Hemoglobin 7.9, Lasix low-dose 20 mg given IV, with blood pressure of 115 systolic, nutritional supplementation, check for albumin, blood sugars are 108-117, CPK is elevated at 392, no nausea no vomiting or diarrhea. Calcium and vitamin D started, has hypocalcemia as well. And hypoalbuminemia and ensure enliv tid 04/15: Patient is less edematous today, seen in the medical floor, selective unit. Postop day #5, family is at bedside, patient is complaining of muscle cramps and muscle aches, has difficulty in mobilizing, less edematous in the arms and the legs, Huffman catheter has to be reinserted secondary to urinary retention, patient is on Flomax, urology following. Hemoglobin at 7.6, creatinine of 1.1, blood sugars between 120-139, protein at 5.7 which is low, albumin 3.1, patient is on ensure enliv patient still has recreational tachycardia, no chest pain TSH was normal in March of this year, 1.3 A1c of 6.3 with going to dose another Lasix today, metoprolol was increased to 25 mg 3 times a day, Flexeril 10 mg started daily at bedtime, check for iron panel, no iv laurie noted on medical orders, we will order for one. On ferrous sulfate 325 mg daily, patient still has symptomatic anemia. patient also has insomnia, evelina ting rehab, most likely discharged to [facility] on Monday 04/16 patient's taking a shower today, independently, folic catheter is in place, some minimal blood clots noted, no gross hematuria otherwise, the muscle spasms is much better, cyclobenzaprine is also helping out with sleep and muscle aches, discharge planning is in progress, await I MS Huffman catheter to stay for total of 7 days, this has been reinserted, secondary to urinary retention, for which the new Huffman catheter was placed April 13, no chest pain, no palpitations, no nausea, no vomiting no diarrhea. No fever, vitals systolic 104-112, pulse ox 98% on 2 L, hemoglobin of 7.5, creatinine of 1.13, albumin low at 2.7, double basic count of 10.5 04/17: Patient is seen today on the cardiac stepdown unit. Patient has been seen by inpatient rehab with plan to obtain insurance authorization. He has been afebrile, heart rate 84, blood pressure 123/57, pulse ox 94% on 2 L nasal cannula. youth nutritional monitor is a sinus rhythm. Repeat blood work reveals WBC 14.2, hemoglobin 8.3, platelet count 318. Electrolytes are normal, BUN 24 and creatinine 1.15. Blood sugars are running between 96 and 121. Repeat chest x-r ay reveals similar with possible basilar atelectasis or scarring. Patient is reaching 1000 ML's on incentive spirometry REVIEW OF SYSTEMS Constitutional: No fever, no chills, no night sweats. No weight change. No weakness, reports fatigue no lethargy. No daytime sleepiness. EENT: No headache. No blurred vision or double vision, no loss of vision. No loss of Hearing, no ringing in the ears, no dizziness. No nasal drainage or congestion. No epistaxis. No sore throat. Lungs: No shortness of breath, cough, no sputum production. No wheezing. Cardiovascular: Reports expected chest pain, no lower extremity edema. No palpitations. No paroxysmal nocturnal dyspnea. No orthopnea. No lightheadedness or dizziness. No syncopal episodes. Abdominal: No abdominal pain. No nausea, vomiting. No diarrhea. No constipation. No bloody or tarry stools reports decreased of appetite. Genitourinary: No dysuria, increased frequency, urgency. No urinary retention. Musculoskeletal: No myalgias. Reports generalized muscle weakness, no gait dysfunction, no frequent falls. No back pain. No neck pain. Integumentary: No wounds, no lesions. No rash or pruritus. No unusual bruising. No change in hair or nails. Neurologic: No aphasia. No facial droop. No change in mentation. No head injury. No headache. No paralysis. No paresthesia. Psychiatric: No depression. No anxiety. No mood swings. Reports insomnia. Endocrine: No abnormal blood sugars. No weight change. No excessive sweating or thirst. No cold intolerance. PHYSICAL EXAMINATION Gen: This is a 65-year-old male patient. He is sitting in recliner and appears to be comfortable. HEENT: Head is atraumatic, normocephalic. Pupils equal, round. Sclerae is anicteric. Conjunctiva pale. NECK: Supple. No JVD. No lymphadenopathy. No thyromegaly. LUNGS: Clear to auscultation. No wheezes or rhonchi. No intercostal retractions. HEART: Regular rate and rhythm. No murmur. ABDOMEN: Soft. Bowel sounds are present. No masses. No tenderness. Huffman catheter draining clear mariela urine. EXTREMITIES: Minimal pedal edema. No calf tenderness.Dorsalis pedis +2 bilaterally. NEUROLOGICAL: Patient is awake, alert and oriented x3. Cranial nerves 2 through 12 are grossly intact. ASSESSMENT AND PLAN 1. Coronary artery disease status post triple CABG, 04/10. Continue current management per cardio thoracic surgery. Continue aspirin 325 mg daily, Lipitor 40 mg daily, Plavix 75 mg daily, Lopressor 25 mg every 8 hours. 2. Hypertension. Continue amlodipine 2.5 mg daily, Lopressor. 3. Hyperlipidemia. Continue atorvastatin. 4. COPD. Continue Pulmicort 0.5 mg twice daily, DuoNeb treatments 4 times daily and as needed. 5. Hypothyroidism. Continue levothyroxine 137 g daily. 6. Seasonal ALLERGIES, stable. 7. History of tobacco use and dependence. Smoking cessation. 8. Postoperative acute blood loss anemia, expected following surgery. Patient is receiving 1 unit of packed RBCs, Ferrlecit 1 dose infused, continue iron 325 mg oral twice daily. 9. Postop thrombocytopenia, expected following surgery. Continue to monitor. 10. GI prophylaxis. Protonix 40 mg daily. 11. DVT prophylaxis. Heparin 5000 units subcu every 8 hours. 12. Statin myalgia with myositis, unable to switch to Crestor or pravastatin during this hospital stay , need aggressive statin management, continue on Lipitor 40 mg until discharge tthen switch as OP, otherwise PSK9 injections will be an alternative 13. Hypocalcemia, with hypoalbuminemia, most likely with vitamin D deficiency, causing myalgia, start on calcium and vitamin D, and ensure and leave next 14. Moderate Protein calorie malnutrition, supplements above 15. Iron deficiency anemia, for illicit 125 mg IV, Continue on Ferrous Sulfate 325 Mg Twice a Day, Still Has Iron Deficiency Anemia Symptoms. 16. BPH with urinary retention, current Huffman catheter, recommendation from urology to keep for 7 days, from its reinsertion, 04/13/2021. Continue Flomax DISCHARGE PLAN Most likely home with homecare. Impression and plan of care have been directed as dictated by the signing physician. Юлия Morrison nurse practitioner acting as scribe for signing physician. Objective - Vital Signs Vital signs: Vital Signs Temp 98.0 F 04/17/21 04:00 Pulse 84 04/17/21 08:23 Resp 16 04/17/21 04:00 BP 113/73 04/17/21 04:00 Pulse Ox 98 04/17/21 04:00 Intake & Output 04/16/21 04/17/21 04/17/21 18:59 06:59 18:59 Intake Total 960 240 Output Total 400 800 Balance 560 -800 240 Weight 77 kg Intake: Oral 960 240 Output: Urine 400 800 Other: Voiding Method Indwelling Catheter Indwelling Catheter # Bowel Movements 1 ABP, PAP, CO, CI - Last Documented Arterial Blood Pressure 101/51 Pulmonary Artery Pressure 19/2 Cardiac Output 5.5 Cardiac Index 2.9 - Labs CBC & Chem 7: 04/17/21 07:56 04/17/21 07:56 Labs: Abnormal Lab Results - Last 24 Hours (Table) 04/16/21 04/16/21 04/16/21 Range/Units 12:00 16:51 20:20 WBC (3.8-10.6) k/uL RBC (4.30-5.90) m/uL Hgb (13.0-17.5) gm/dL Hct (39.0-53.0) % RDW (11.5-15.5) % BUN (9-20) mg/dL POC Glucose (mg/dL) 103 H 117 H 121 H (75-99) mg/dL Calcium (8.4-10.2) mg/dL 04/17/21 04/17/21 04/17/21 Range/Units 06:02 07:56 07:56 WBC 14.2 H (3.8-10.6) k/uL RBC 2.79 L (4.30-5.90) m/uL Hgb 8.3 L (13.0-17.5) gm/dL Hct 25.7 L (39.0-53.0) % RDW 16.4 H (11.5-15.5) % BUN 24 H (9-20) mg/dL POC Glucose (mg/dL) 101 H (75-99) mg/dL Calcium 8.0 L (8.4-10.2) mg/dL
[2021-04-17 16:51] LABS: Glucose,Whole Blood 102 mg/dL (75-99)
[2021-04-17] MEDS: TAMSULOSIN 0.4 MG CAP.ER.24H PO SCH (18:07)
[2021-04-17 19:55] LABS: Glucose,Whole Blood 136 mg/dL (75-99)
[2021-04-17] MEDS: ATORVASTATIN 40 MG TAB PO SCH ×2 (20:24→20:25)
[2021-04-17] MEDS: CYCLOBENZAPRINE 10 MG TAB PO SCH (20:25)
[2021-04-17] MEDS: MELATONIN 5 MG TABLET PO SCH (20:25)
[2021-04-17] MEDS: SENNOSIDES-DOCUSATE SODIUM 1 EACH TAB PO SCH (20:25)
[2021-04-18 05:56] LABS: Glucose,Whole Blood 95 mg/dL (75-99)
[2021-04-18] MEDS: INSULIN ASPART (NovoLOG) 100 UNIT/ML VIAL SQ SCH ×2 (05:58→12:08)
[2021-04-18] MEDS: LEVOTHYROXINE 137 MCG TAB PO SCH (06:09)
[2021-04-18] MEDS: CALCIUM CARB-VIT D 500 MG-5 MCG TAB PO SCH (06:09)
[2021-04-18] MEDS: PANTOPRAZOLE 40 MG TABLET PO SCH (06:09)
[2021-04-18] MEDS: ASCORBIC ACID 500 MG TAB PO SCH (06:09)
[2021-04-18] MEDS: FERROUS SULFATE 325 MG TAB PO SCH (06:09)
[2021-04-18 07:18] LABS: Anisocytosis Slight; HGB 8.2 gm/dL (13.0-17.5); Hypochromasia Slight; MCH 30.2 pg (25.0-35.0); MCHC 32.7 g/dL (31.0-37.0); MCV 92.2 fL (80.0-100.0); Mean Platelet Volume 7.2; Platelet Count 377 k/uL (150-450); RBC 2.71 m/uL (4.30-5.90); RDW 16.5 % (11.5-15.5); WBC 12.1 k/uL (3.8-10.6)
--- NOTE | 2021-04-18 07:41 | P.PN ---
Subjective Progress Note Date: 04/18/21 Principal diagnosis: Triple-vessel coronary artery disease, preserved left ventricular function with EF 55%. Previous medical history of hypertension, hyperlipidemia, severe COPD with preoperative FEV1 47% of predicted, previous tobacco dependence, hypothyroidism, chronic kidney disease stage II, right lower lobe lung nodule negative on PET POD #8 triple-vessel coronary artery bypass grafting using the free left internal mammary artery with an inflow from the left radial artery to the left anterior descending artery, left radial artery from the aorta to the first obtuse marginal artery, reverse saphenous vein graft from the aorta to the right coronary artery, exclusion of the left atrial appendage using a 35 mm AtriClip, endoscopic harvesting of the left radial artery, endoscopic harvesting of the left greater saphenous vein from the groin to above the ankle, intraoperative graft flow measurements using the [employer] system, intraoperative transesophageal echocardiogram and epi-aortic scanning Postoperative acute blood loss anemia and thrombocytopenia, expected given hemodilution and cardiopulmonary bypass pump Postoperative urinary retention requiring initiation of Flomax and reinsertion of Abdul catheter, unexpected The patient's currently sitting up in a recliner on the cardiac stepdown unit in no acute distress. Remains in sinus rhythm with heart rate in the high 80s to low 90s, blood pressure stable. Patient states pain is controlled on current m edication regimen, states shortness of breath continues to improve, currently on room air, actively using incentive spirometry and achieving 1000 mL. States he has ambulated out in the hallway, ambulated with PT/OT 100 feet with stand-by assist. Patient would prefer to go home with homecare, requiring minimal assist. Daughter Nicole updated, concerned for abdul care otherwise no other new concerns Objective - Vital Signs Vital signs: Vital Signs Temp 97.6 F 04/18/21 03:11 Pulse 91 04/18/21 03:11 Resp 16 04/18/21 03:11 BP 140/87 04/18/21 03:11 Pulse Ox 94 L 04/18/21 03:11 Intake & Output 04/17/21 04/18/21 04/18/21 18:59 06:59 18:59 Intake Total 1060 Output Total 750 725 Balance 310 -725 Weight 77.1 kg Intake: Oral 1060 Output: Urine 750 725 Other: Voiding Method Indwelling Catheter Indwelling Catheter # Bowel Movements 1 ABP, PAP, CO, CI - Last Documented Arterial Blood Pressure 101/51 Pulmonary Artery Pressure 19/2 Cardiac Output 5.5 Cardiac Index 2.9 - Exam CONSTITUTIONAL: Appears comfortable, no acute distress RESPIRATORY: Lungs sounds diminished bilaterally. Respirations even, nonlabored. Currently on room air with oxygen saturation 94%. Able to achieve 1000 mL on incentive spirometry. Strong non-productive cough CARDIOVASCULAR: S1, S2 present. Regular rate and rhythm, sinus rhythm on telemetry. Sternum stable. Palpable peripheral pulses bilaterally. No edema present. No calf pain or tenderness noted. Heart hugger in place with patient demonstrating appropriate use. Antiembolism stockings, SCDs present. GASTROINTESTINAL: Abdomen soft, nontender, nondistended. Active bowel sounds present 4 quadrants. Tolerating diet. Positive small bowel movement 04/17 GENITOURINARY: Abdul catheter discontinued at 3 AM, due to void. Output 1475 mL in the last 24 hours INTEGUMENTARY: Skin is warm and dry with evidence of good perfusion. Anterior chest incision well approximated without redness or drainage. Left lower extremity EVH site well approximated without redness or drainage. Left radial artery harvest site well approximated without redness or drainage, patient able to wiggle all fingers and ladle patcher appropriately, good cap refill NEUROLOGIC: Cranial nerves II through XII intact MUSKULOSKELETAL: Able to move all extremities, strength equal bilaterally PSYCHIATRIC: Alert and oriented to person place and time, appropriate affect, intact judgment and insight - Allied health notes Allied health notes reviewed: nursing - Labs CBC & Chem 7: 04/18/21 06:45 04/18/21 06:45 Labs: Abnormal Lab Results - Last 24 Hours (Table) 04/17/21 04/17/21 04/17/21 Range/Units 07:56 07:56 11:37 WBC 14.2 H (3.8-10.6) k/uL RBC 2.79 L (4.30-5.90) m/uL Hgb 8.3 L (13.0-17.5) gm/dL Hct 25.7 L (39.0-53.0) % RDW 16.4 H (11.5-15.5) % BUN 24 H (9-20) mg/dL POC Glucose (mg/dL) 110 H (75-99) mg/dL Calcium 8.0 L (8.4-10.2) mg/dL 04/17/21 04/17/21 04/18/21 Range/Units 16:49 19:53 06:45 WBC 12.1 H (3.8-10.6) k/uL RBC 2.71 L (4.30-5.90) m/uL Hgb 8.2 L (13.0-17.5) gm/dL Hct 25.0 L (39.0-53.0) % RDW 16.5 H (11.5-15.5) % BUN (9-20) mg/dL POC Glucose (mg/dL) 102 H 136 H (75-99) mg/dL Calcium (8.4-10.2) mg/dL - Imaging and Cardiology Chest x-ray: image reviewed Assessment and Plan Assessment: 1. Triple-vessel coronary artery disease, status post three-vessel CABG 2. Preserved left ventricular function with EF 55% 3. History of hypertension 4. Hyperlipidemia 5. Severe COPD with preoperative FEV1 47% of predicted 6. Previous tobacco dependence 7. Hypothyroidism 8. Chronic kidney disease stage II 9. Right lower lobe lung nodule negative on PET 10. Postoperative acute blood loss anemia and thrombocytopenia, expected given hemodilution and cardiopulmonary bypass pump 11. Postoperative urinary retention Plan: 1. Continue aspirin, Plavix, statin, beta karley. Will increase beta karley therapy as tolerated, increased to 50 mg BID today. 2. Continue low-dose Norvasc for radial artery spasm. Do not discontinue without discussing with cardiothoracic surgery 3. Encourage incentive spirometry use 10 times every hour while awake. Bronchodilators per pulmonology 3. Increase activity, ambulate as tolerated. PT/OT/cardiac rehab following 4. Will monitor daily labs and chest x-rays. Electrolyte replacement per protocol. No transfusion today. No lasix 5. GI/DVT prophylaxis 6. Insulin management per primary care service. Patient is not diabetic, preop erative hemoglobin A1c 6.3%. 7. Pain control with current medication regimen. No Toradol due to history of CKD. Narcotics discontinued 8. Continue Flomax. Abdul catheter discontinued for trial void per patient/daughter request. If patient unable to void or has >300 mL residual will reinsert abdul-this is acceptable to patient/daughter. Will have patient follow up with urology 9. Patient encouraged to increase oral intake 10. Strict accurate intake and output. Daily weights 11. Discharge planning in progress. Anticipate discharge to home with home care this afternoon 12. More recommendations to follow based on patient's progress Time with Patient: Greater than 30
[2021-04-18 07:44] LABS: Potassium 4.6 mmol/L (3.5-5.1)
--- NOTE | 2021-04-18 08:16 | XR ---
EXAMINATION TYPE: XR chest 2V DATE OF EXAM: 04/18/2021 COMPARISON: Chest x-ray 04/17/2021 HISTORY: Post cardiac surgery, abnormal chest x-ray TECHNIQUE: Frontal and lateral views of the chest are obtained. FINDINGS: Pleural-parenchymal changes are similar to prior exam. There are overlying artifacts. Lucille ent is post median sternotomy and left atrial appendage clip placement. No evident pneumothorax. Ther e is some blunting the posterior costophrenic angle likely on the right, right costophrenic angle as on prior exam. Prominent lung volumes consistent with underlying COPD. IMPRESSION: Similar to prior exam, probable lower lobe atelectasis, there may be minimal effusion on the right.
[2021-04-18] MEDS ORDERED: METOPROLOL TARTRATE 50 MG TAB PO SCH (09:00)
[2021-04-18] MEDS: ASPIRIN 325 MG TAB PO SCH (09:16)
[2021-04-18] MEDS: HEPARIN SODIUM,PORCINE/PF 5,000 UNIT/0.5 ML SYRINGE SQ SCH (09:16)
[2021-04-18] MEDS: CLOPIDOGREL 75 MG TAB PO SCH (09:16)
[2021-04-18] MEDS: BUDESONIDE 0.5 MG/2 ML NEBU INHALATION SCH (09:18)
[2021-04-18] MEDS: IPRATROPIUM-ALBUTEROL 3 ML NEB INHALATION SCH ×2 (09:18→12:12)
[2021-04-18 11:19] VITALS: BP 99/65; PULSE 78; RESP 18; TEMP 98.7
[2021-04-18] MEDS: amLODIPine 2.5 MG TAB PO SCH (11:29)
[2021-04-18 12:03] LABS: Glucose,Whole Blood 103 mg/dL (75-99)
--- NOTE | 2021-04-18 14:03 | P.DS ---
Providers Date of admission: 04/10/21 05:32 Expected date of discharge: 04/18/21 Attending physician: Vita Fischer Consults: 04/10/21 16:56 Consult Physician Routine Consulting Provider: Amita Rivera Consult Reason/Comments: Healthcare Market Consultant Consult: post cardiac surgery Do you want consulting provider notified?: Yes Consult Physician Routine Consulting Provider: Kei Pandya Consult Reason/Comments: medical management Do you want consulting provider notified?: Yes Consult Physician Routine Consulting Provider: Ivette Tomlinson Consult Reason/Comments: Children Teacher Consult: post cardiac surgery Do you want consulting provider notified?: Yes 04/13/21 07:11 Consult Physician Routine Consulting Provider: William Pepper Consult Reason/Comments: IPR at discharge Do you want consulting provider notified?: Yes 04/14/21 07:42 Consult Physician Routine Consulting Provider: Eugene Townsend Consult Reason/Comments: urine retention Do you want consulting provider notified?: Yes Primary care physician: Kei Pandya MD Hospital Course: FINAL DIAGNOSIS: 1. Triple-vessel coronary artery disease 2. Preserved left ventricular function with EF 55% 3. History of hypertension 4. Hyperlipidemia 5. Severe COPD with preoperative FEV1 47% of predicted 6. Previous tobacco dependence 7. Hypothyroidism 8. Chronic kidney disease stage II 9. Right lower lobe lung nodule negative on PET 10. Postoperative acute blood loss anemia and thrombocytopenia, expected 11. Postoperative urinary retention, unexpected PRINCIPAL PROCEDURE: 1. Triple-vessel coronary artery bypass grafting using the free left internal mammary artery with an inflow from the left radial artery to the left anterior descending artery, left radial artery from the aorta to the first obtuse marginal artery, reverse saphenous vein graft from the aorta to the right coronary artery 2. Exclusion of the left atrial appendage using a 35 mm AtriClip 3. Endoscopic harvesting of the left radial artery 4. Endoscopic harvesting of the left greater saphenous vein from the groin to above the ankle 5. Intraoperative graft flow measurements using the [employer] system 6. Intraoperative transesophageal echocardiogram and epi-aortic scanning HISTORY OF PRESENT ILLNESS: This is a 65-year-old gentleman who follows on an outpatient basis with Dr. Pandya for primary care. He had been experiencing worsening dyspnea on exertion for approximately 6 months. He had pulmonary workup including CT scan that showed a lung nodule, however, a follow-up PET scan was negative. This was all followed with Dr. FANNY Underwood. In view of no obvious improvement with inhalers, a stress test followed which demonstrated evidence of anteroseptal wall ischemia. He followed up with Dr. Velazquez from [facility] and was recommended to undergo heart catheterization which showed evidence of three-vessel disease with mid RCA, long proximal LAD, and proximal first obtuse marginal significant stenosis along was some stenosis into a small to moderate size first and second diagonal coronary artery. Transthoracic echocardiogram was completed demonstrating ejection fraction 55% with mild inferior hypokinesia and without any significant valvular abnormalities. The patient was referred to Dr. Fischer from cardiothoracic surgery. He was recommended to undergo elective coronary artery bypass surgery. The usual perioperative course was discussed in detail with the patient and his family, all risks and benefits were explained, all questions were answered, and consent was obtained to proceed with surgery. The patient was scheduled for surgery at the earliest possible date. HOSPITAL COURSE: The patient was brought to the hospital on 04/10/2021, taken to the preoperative area, prepared in the usual fashion, and subsequently taken to the operating room where Dr. Fischer performed three-vessel CABG. Upon completion of surgery the patient was transferred to the cardiovascular intensive care unit where he was recovered and monitored hemodynamically. He was extubated, all lines, tubes, and drips were discontinued when appropriate, and he was transferred to 3 S cardiac stepdown unit for further monitoring and rehabilitation. He did experience acute blood loss anemia requiring transfusion of 1 unit packed red blood cells, and acute urinary retention requiring replacement of Abdul catheter. His oxygen was titrated down, he continued to work with physical and occupational therapy, he was tolerating oral diet, his pain was controlled, and he was ready to be discharged to home with [facility] on postoperative day #8. He received written and verbal instruction regarding his medications, activity restrictions, signs and symptoms requiring physician notification, and follow-up appointments. He was able to have his abdul removed without significant residual, and his Flomax was discontinued by Dr. Pandya. COMPLICATIONS: The patient experienced postoperative acute blood loss anemia and thrombocytopenia as well as urinary retention, all of which were treated accordingly. Patient Condition at Discharge: Stable Plan - Discharge Summary Discharge Rx Participant: Yes New Discharge Prescriptions: New Aspirin 325 mg PO DAILY #30 tab Melatonin 10 mg PO HS PRN tablet PRN Reason: Insomnia Clopidogrel [Plavix] 75 mg PO DAILY #30 tab Pantoprazole [Protonix] 40 mg PO AC-BRKFST #30 tablet.dr Borrero-Docusate Sodium [Senokot-S] 2 each PO HS PRN tab PRN Reason: Constipation Acetaminophen Tab [Tylenol] 650 mg PO Q4HR PRN tab PRN Reason: Fever And/ Or Pain Ascorbic Acid [Vitamin C] 500 mg PO BID-W/MEALS #60 tab Cyclobenzaprine [Flexeril] 10 mg PO HS #30 tab Ferrous Sulfate [Iron (65 MG Elemental)] 325 mg PO BID-W/MEALS #60 tab Atorvastatin [Lipitor] 40 mg PO HS #30 tab Metoprolol Tartrate [Lopressor] 50 mg PO BID #60 tab amLODIPine [Norvasc] 2.5 mg PO DAILY@1200 #30 tab Calcium Carb-Vit D 500Mg-5Mcg [Oscal 500+D 5 Mcg (200 Iu)] 2 each PO BID- W/MEALS #60 tab Continue Fluticasone Nasal [place] [Flonase Nasal [place]] 2 spr EA NOSTRIL DAILY PRN PRN Reason: allergies Levothyroxine Sodium [Synthroid] 137 mcg PO DAILY Albuterol Inhaler [Ventolin Hfa Inhaler] 2 puff INHALATION RT-QID PRN PRN Reason: Shortness Of Breath Beclomethasone Dipropionate [Qvar 40 mcg Redihaler] 1 puff INHALATION BID Discontinued Metoprolol Succinate (ER) [Toprol Xl] 25 mg PO DAILY Aspirin 81 mg PO DAILY Atorvastatin [Lipitor] 80 mg PO DAILY Cetirizine HCl [Zyrtec] 10 mg PO DAILY PRN PRN Reason: seasonal allergies NIFEdipine [NIFEdipine ER] 30 mg PO DAILY Discharge Medication List Fluticasone Nasal [place] [Flonase Nasal [place]] 2 spr EA NOSTRIL DAILY PRN 03/30/21 [History] Levothyroxine Sodium [Synthroid] 137 mcg PO DAILY 03/30/21 [History] Albuterol Inhaler [Ventolin Hfa Inhaler] 2 puff INHALATION RT-QID PRN 04/07/21 [History] Beclomethasone Dipropionate [Qvar 40 mcg Redihaler] 1 puff INHALATION BID 04/07/21 [History] Acetaminophen Tab [Tylenol] 650 mg PO Q4HR PRN tab 04/18/21 [Rx] Ascorbic Acid [Vitamin C] 500 mg PO BID-W/MEALS #60 tab 04/18/21 [Rx] Aspirin 325 mg PO DAILY #30 tab 04/18/21 [Rx] Atorvastatin [Lipitor] 40 mg PO HS #30 tab 04/18/21 [Rx] Calcium Carb-Vit D 500Mg-5Mcg [Oscal 500+D 5 Mcg (200 Iu)] 2 each PO BID-W/MEALS #60 tab 04/18/21 [Rx] Clopidogrel [Plavix] 75 mg PO DAILY #30 tab 04/18/21 [Rx] Cyclobenzaprine [Flexeril] 10 mg PO HS #30 tab 04/18/21 [Rx] Ferrous Sulfate [Iron (65 MG Elemental)] 325 mg PO BID-W/MEALS #60 tab 04/18/21 [Rx] Melatonin 10 mg PO HS PRN tablet 04/18/21 [Rx] Metoprolol Tartrate [Lopressor] 50 mg PO BID #60 tab 04/18/21 [Rx] Pantoprazole [Protonix] 40 mg PO AC-BRKFST #30 tablet. 04/18/21 [Rx] Sennosides-Docusate Sodium [Senokot-S] 2 each PO HS PRN tab 04/18/21 [Rx] amLODIPine [Norvasc] 2.5 mg PO DAILY@1200 #30 tab 04/18/21 [Rx] Follow up Appointment(s)/Referral(s): Kei Pandya MD [Primary Care Provider] - 04/20/21 3:45 pm () Cristiane Lynch NPC [Nurse Practitioner] - 04/24/21 11:00 am (Will be seen in the surgeon's office behind the hospital in [facility], [address], [address]) [facility] ,Cardiac [NON-STAFF] - 4 Weeks (You will be called approximately 4-6 weeks ) Scotty Velazquez MD [STAFF PHYSICIAN] - 05/05/21 4:30 pm () Vita Fischer MD [STAFF PHYSICIAN] - 05/12/21 10:00 am Eugene Townsend MD [STAFF PHYSICIAN] - 05/30/21 8:20 am [facility], [NON-STAFF] - 1-2 Days Buck Underwood MD [STAFF PHYSICIAN] - 05/02/21 9:45 am () Ambulatory/Diagnostic Orders: Complete Blood Count w/diff [LAB.AMB] Time Frame: 3 Days, Location: None Selected Comprehensive Metabolic Panel [LAB.AMB] Time Frame: 3 Days, Location: None Selected Activity/Diet/Wound Care/Special Instructions: DISCHARGE INSTRUCTIONS: 1. No driving for 4 weeks, or until physician gives their ok. 2. The patient should sleep in their own bed, no medical bed needed. 3. Stairs are not an issue. If the bedroom is upstairs, it is advised that the patient go up at night and down in the morning for the first week. Go slowly, using handrail and take 1 step at a time. 4. YOANA hose are to be worn for 30 days or until physician discontinues. 5. Heart hugger is to be worn 100% of the time until physician discontinues.(except when showering) 6. No lifting, pushing, or pulling more than 10 pounds for 12 weeks. The physician will advise of any restriction changes. 7. The patient is expected to continue the prescribed walking program. 8. Continue pain control per as needed orders. 9. Continue with incentive spirometry and splinting/heart hugger until otherwise directed by the physician. 10. Must shower daily using liquid antibacterial soap and a separate white washcloth for each individual incision. 11. Routine sternal incision care. No powders, lotions, ointments on incisions. No dressings are necessary on incisions unless they are draining. Dermabond tape is to remain on sternal incision until surgeon follow-up. 12. Please call surgeon/PRINCIPAL DATA ARCHITECT for temp greater than 101 F or purulent drainage from incisions. 13. All prescriptions given by surgeon for 30 days. Refills need to be filled through full time/primary care physician. 14. A Red armband has been placed on the patient. It should be worn for 30 days post surgery and will be removed by the cardiac surgeons. If an ER visit is necessary, please make sure the number on the Red armband is called. 15. You have been referred to and are expected to begin Cardiac Rehab in approximately 4-6 weeks. HOME HEALTH SERVICES TO PROVIDE: RN SKILLED HOME CARE SERVICES FOR POST-OP SURGICAL PATIENTS WITH THE FOLLOWING: Coronary Artery Bypass Surgery (CABG) RN TO CONTINUE EDUCATION FROM ``ROAD TO A HEALTH HEART PATIENT EDUCATION MANUAL (GIVEN TO PATIENT IN THE HOSPITAL) MEDICATION RECONCILIATION WITH EDUCATION NEEDED ON FIRST HOME VISIT EMPHASIZE IMPORTANCE OF WEARING BREAST SUPPORT/HEART HUGGER ENCOURAGE USE OF INCENTIVE SPIROMETER 10 X EVERY HOUR WHILE AWAKE ENCOURAGE UTILIZATION OF LOWER EXTREMITY COMPRESSION STOCKINGS/YOANA HOSE and ELEVATE LEGS ABOVE LEVEL OF HEART WHILE AT REST. ENCOURAGE AMBULATION 3-5x/day INCREASING TOLERATES, WHILE AVOIDING EXTREMES IN TEMPERATURE FREQUENCY: RN TO OPEN THE PATIENT WITHIN 24 HOURS OF DISCHARGE FROM THE HOSPITAL WITH [place] [facility] [place] VISIT 2-3 X A WEEK FOR 4 WEEKS ESTABLISHED BY PATIENT NEEDS. LABORATORY: CBC, CMP TO BE DRAWN ON THE THIRD DAY HOME, (RAN STAT) FAX RESULTS TO [phone]. TELEHEALTH PARAMETERS: WEIGHT: NOTIFY MD OF WEIGHT GAIN OF 2 LBS IN 24 HOURS OR 5 LBS IN ONE WEEK HR: NOTIFY MD OF HR <55 BPM OR HR>100 BPM BP: NOTIFY MD IF BP <90/55 OR BP>140/100 O2 SAT: NOTIFY MD IF PO2<93% ON ROOM AIR SEND TELEHEALTH REPORT TO CUSTOMER SUPPORT AGENT AND CARDIOVASCULAR SURGEON THE FIRST WEEK OF CARE AND THEN BI-WEEKLY. PLEASE ADDITIONALLY COMMUNICATE ANY ABNORMALS AND NEW FINDINGS TO THE SURGEONS OFFICE. For any questions or concerns please call cnc machine programmer Cristiane @ or René @ Discharge Disposition: HOME WITH HOME HEALTH SERVICES
--- NOTE | 2021-04-18 14:04 | P.PN ---
Subjective This is a pleasant 65-year-old male past medical history significant for coronary artery disease, hypertension and COPD. He follows in the office with Dr. Velazquez. He underwent three-vessel bypass grafting yesterday with free CARCAMO with an inflow from the left radial artery to the LAD, left radial artery from the aorta to the first OM and reverse SVG from the aorta to the RCA as well as exclusion of left atrial appendage. 04/18/2021 Pt seen and examined sitting up in recliner in no acute distress. He is sitting up in the bedside chair. This morning patient had a pre-syncopal episode going to the shower, he felt dizzy and lightheaded, and was lowered to the ground, no injury noted. Orthostatic vital signs were taken and were negative. Blood pressure 123/72 heart rate 97 afebrile and maintaining oxygen saturation on 2L nasal cannula. Laboratory data reviewed, WBC 12.1 hemoglobin 8.2, platelets 377, sodium 138, potassium 4.6, BUN 20, serum creatinine 1.09 24-hr urine output is 1.4L. Telemetry tracings reveal he is maintaining sinus mechanism HR 80-90s. Patient is currently being maintained on amlodipine 2.5 mg daily, aspirin 325 mg daily, atorvastatin 40 mg daily, Plavix 75 mg daily, metoprolol tartrate 50 mg twice a day PHYSICAL EXAMINATION CONSTITUTIONAL: No apparent distress. HEENT: Head is normocephalic. Pupils are equal, round. Sclerae anicteric. Mucous membranes of the mouth are moist. No JVD. No carotid bruit. CHEST EXAMINATION: Lungs are clear to auscultation. Mid sternal chest wall tenderness is noted at site of incision. Anterior chest incision incision covered with dressing that is dry. HEART EXAMINATION: Regular rate and rhythm. S1, S2 heard. No murmurs, gallops or rub. EXTREMITIES: 2+ peripheral pulses, no lower extremity edema and no calf tenderness. ASSESSMENT Triple vessel coronary artery disease s/p bypass grafting POD #8 Near syncope secondary to anemia Anemia Hypertension Dyslipidemia COPD Former nicotine dependence PLAN Continue current medical regimen- aspirin, Plavix, statin, beta karley, amlodipine added 04/15 Encourage incentive spirometer use. Increase activity as tolerated. We will continue to follow and provide supportive care, primary management per CT surgery. Patient will follow up with Dr. Velazquez on discharge Nurse Practitioner note has been reviewed, I agree with a documented findings and plan of care. Patient was seen and examined. Objective - Vital Signs Vital signs: Vital Signs Temp 98.7 F 04/18/21 11:16 Pulse 78 04/18/21 11:16 Resp 18 04/18/21 11:16 BP 99/65 04/18/21 11:16 Pulse Ox 95 04/18/21 11:16 Intake & Output 04/17/21 04/18/21 04/18/21 18:59 06:59 18:59 Intake Total 1060 240 Output Total 750 725 590 Balance 310 -725 -350 Weight 77.1 kg Intake: Oral 1060 240 Output: Urine 750 725 590 Other: Voiding Method Indwelling Catheter Indwelling Catheter # Bowel Movements 1 1 ABP, PAP, CO, CI - Last Documented Arterial Blood Pressure 101/51 Pulmonary Artery Pressure 19/2 Cardiac Output 5.5 Cardiac Index 2.9 - Labs CBC & Chem 7: 04/18/21 06:45 04/18/21 06:45 Labs: Abnormal Lab Results - Last 24 Hours (Table) 04/17/21 04/17/21 04/18/21 Range/Units 16:49 19:53 06:45 WBC 12.1 H (3.8-10.6) k/uL RBC 2.71 L (4.30-5.90) m/uL Hgb 8.2 L (13.0-17.5) gm/dL Hct 25.0 L (39.0-53.0) % RDW 16.5 H (11.5-15.5) % POC Glucose (mg/dL) 102 H 136 H (75-99) mg/dL Calcium (8.4-10.2) mg/dL 04/18/21 04/18/21 Range/Units 06:45 12:01 WBC (3.8-10.6) k/uL RBC (4.30-5.90) m/uL Hgb (13.0-17.5) gm/dL Hct (39.0-53.0) % RDW (11.5-15.5) % POC Glucose (mg/dL) 103 H (75-99) mg/dL Calcium 8.0 L (8.4-10.2) mg/dL
--- NOTE | 2021-04-18 14:51 | P.PN ---
Subjective Progress Note Date: 04/18/21 HISTORY OF PRESENT ILLNESS This is a 65-year-old male patient of Dr. Pandya past medical history of coronary artery disease, hypertension, hyperlipidemia, COPD, hypothyroidism, seasonal ALLERGIES, remote history of tobacco use. Yesterday, patient underwent three-vessel CABG free CARCAMO with an inflow from the left radial artery to the LAD, left radial artery from the aorta to the first OM and reverse SVG from the aorta to the RCA as well as exclusion of left atrial appendage. Patient is seen today in intensive care unit. He has been successfully extubated. He states that he is feeling okay. No significant chest pain. He does have surgical site pain. He has been afebrile, heart rate 72, blood pressure 106/53, pulse ox 98% on 2 L nasal cannula. Repeat blood work reveals WBC 14, hemoglobin 7.4, platelet count 121. Sodium 143, potassium 4.2, chloride 112, CO2 24, BUN 19 and creatinine 1.23. Blood sugars are running between 108 and 161. Patient does not have history of diabetes. He is on insulin drip. Magnesium 2.2. AST 72. Chest x-ray this morning reveals bilateral infiltrate and small effusion. Patient has right IJ Cordis in place, left pleural chest tube and mediastinal chest tube and Huffman catheter in place. 04/12: Hemoglobin this morning is 6.5 and he is receiving 1 unit of packed RBCs. One dose of Ferrlecit infusion ordered and oral ferrous sulfate ordered. Patient is complaining that he is not sleeping well and melatonin added. Insulin drip will be discontinued and patient transitioned to NovoLog scale before meals and at bedtime. He has been afebrile, heart rate 90, blood pressure 104/64, pulse ox 95% on 2 L nasal cannula. Capillary blood glucose running between 66 and 142. WBC 13.3, platelet count 117. Creatinine 1.13. AST 64. Repeat chest x-ray reveals basilar atelectasis. Some improvement in patient's volume status. Huffman catheter has been removed. 04/13: Both mediastinal chest tube has been discontinued, Huffman catheter is not present, the daughter is in the bedside, she was mentioning that dad has issues regarding myalgia using Lipitor, 40 mg currently dose, and requests a med change, we discussed this with the pharmacy, 2 change it to Crestor 10 mg, however with formula status, this cannot be switch while the patient is in the hospital. Patient's appetite is much better, still with weakness, physical therapy has been consulted with Dr. Pepper for inpatient rehab, and most likely would be transitioned to [facility] for cardiac debility weakness, once discharged. No chest pain no palpitations, denies any hematuria or melena no fever. Labs hemoglobin 8.1, sodium 138, potassium 4.7, creatinine 0.9, palmitate tracings, sinus rhythm :, Patient was moved out of ICU today, in telemetry floor, selective care unit. Patient's postop day #4, requiring 2 L of O2, satting at 95%, patient is having some edema in the arms and the legs, no shortness of breath, patient's continued on incentive spirometry, chest x-ray only shows basilar atelectasis, and sinus rhythm. Hemoglobin 7.9, Lasix low-dose 20 mg given IV, with blood pressure of 115 systolic, nutritional supplementation, check for albumin, blood sugars are 108-117, CPK is elevated at 392, no nausea no vomiting or diarrhea. Calcium and vitamin D started, has hypocalcemia as well. And hypoalbuminemia and ensure enliv tid 04/15: Patient is less edematous today, seen in the medical floor, selective unit. Postop day #5, family is at bedside, patient is complaining of muscle cramps and muscle aches, has difficulty in mobilizing, less edematous in the arms and the legs, Huffman catheter has to be reinserted secondary to urinary retention, patient is on Flomax, urology following. Hemoglobin at 7.6, creatinine of 1.1, blood sugars between 120-139, protein at 5.7 which is low, albumin 3.1, patient is on ensure enliv patient still has recreational tachycardia, no chest pain TSH was normal in March of this year, 1.3 A1c of 6.3 with going to dose another Lasix today, metoprolol was increased to 25 mg 3 times a day, Flexeril 10 mg started daily at bedtime, check for iron panel, no iv laurie noted on medical orders, we will order for one. On ferrous sulfate 325 mg daily, patient still has symptomatic anemia. patient also has insomnia, evelina ting rehab, most likely discharged to [facility] on Monday 04/16 patient's taking a shower today, independently, folic catheter is in place, some minimal blood clots noted, no gross hematuria otherwise, the muscle spasms is much better, cyclobenzaprine is also helping out with sleep and muscle aches, discharge planning is in progress, await I MI Huffman catheter to stay for total of 7 days, this has been reinserted, secondary to urinary retention, for which the new Huffman catheter was placed April 13, no chest pain, no palpitations, no nausea, no vomiting no diarrhea. No fever, vitals systolic 104-112, pulse ox 98% on 2 L, hemoglobin of 7.5, creatinine of 1.13, albumin low at 2.7, double basic count of 10.5 04/17: Patient is seen today on the cardiac stepdown unit. Patient has been seen by inpatient rehab with plan to obtain insurance authorization. He has been afebrile, heart rate 84, blood pressure 123/57, pulse ox 94% on 2 L nasal cannula. teletypesetter monitor is a sinus rhythm. Repeat blood work reveals WBC 14.2, hemoglobin 8.3, platelet count 318. Electrolytes are normal, BUN 24 and creatinine 1.15. Blood sugars are running between 96 and 121. Repeat chest x-r ay reveals similar with possible basilar atelectasis or scarring. Patient is reaching 1000 ML's on incentive spirometry. 04/18: Patient denies any new complaints today. His mother states the patient had a syncopal episode while getting to the bathroom. He was going in the bathroom to shower and he was with the aide who helped him. Orthostatics following his shower were negative. We'll plan to discontinue Flomax. Patient's Huffman catheter was removed at 2 AM and he has been able to void on his own. He has been afebrile, heart rate 78, blood pressure 99/65, pulse ox 95% on room air. Repeat blood work reveals a WBC of 12.1, hemoglobin 8.2, platelet count 377. BMP is normal except for calcium of 8. Blood sugars are running between 92 and 136. Patient is scheduled for discharge today and will be returning home with homecare. REVIEW OF SYSTEMS Constitutional: No fever, no chills, no night sweats. No weight change. No weakness, reports fatigue no lethargy. No daytime sleepiness. EENT: No headache. No blurred vision or double vision, no loss of vision. No loss of Hearing, no ringing in the ears, no dizziness. No nasal drainage or congestion. No epistaxis. No sore throat. Lungs: No shortness of breath, cough, no sputum production. No wheezing. Cardiovascular: Reports expected chest pain, no lower extremity edema. No palpitations. No paroxysmal nocturnal dyspnea. No orthopnea. No lightheadedness or dizziness. Reported syncopal episodes. Abdominal: No abdominal pain. No nausea, vomiting. No diarrhea. No constipation. No bloody or tarry stools reports decreased of appetite. Genitourinary: No dysuria, increased frequency, urgency. No urinary retention. Musculoskeletal: No myalgias. Reports generalized muscle weakness, no gait d ysfunction, no frequent falls. No back pain. No neck pain. Integumentary: No wounds, no lesions. No rash or pruritus. No unusual bruising. No change in hair or nails. Neurologic: No aphasia. No facial droop. No change in mentation. No head injury. No headache. No paralysis. No paresthesia. Psychiatric: No depression. No anxiety. No mood swings. Reports insomnia. Endocrine: No abnormal blood sugars. No weight change. No excessive sweating or thirst. No cold intolerance. PHYSICAL EXAMINATION Gen: This is a 65-year-old male patient. He is sitting in recliner and appears to be comfortable. HEENT: Head is atraumatic, normocephalic. Pupils equal, round. Sclerae is anicteric. Conjunctiva pale. NECK: Supple. No JVD. No lymphadenopathy. No thyromegaly. LUNGS: Clear to auscultation. No wheezes or rhonchi. No intercostal retractions. HEART: Regular rate and rhythm. No murmur. ABDOMEN: Soft. Bowel sounds are present. No masses. No tenderness. EXTREMITIES: Minimal pedal edema. No calf tenderness.Dorsalis pedis +2 bilaterally. NEUROLOGICAL: Patient is awake, alert and oriented x3. Cranial nerves 2 through 12 are grossly intact. ASSESSMENT AND PLAN 1. Coronary artery disease status post triple CABG, 04/10. Continue current management per cardio thoracic surgery. Continue aspirin 325 mg daily, Lipitor 40 mg daily, Plavix 75 mg daily, Lopressor 50 mg bid. 2. Hypertension. Continue amlodipine 2.5 mg daily, Lopressor. 3. Hyperlipidemia. Continue atorvastatin. 4. COPD. Continue Pulmicort 0.5 mg twice daily, DuoNeb treatments 4 times daily and as needed. 5. Hypothyroidism. Continue levothyroxine 137 g daily. 6. Seasonal ALLERGIES, stable. 7. History of tobacco use and dependence. Smoking cessation. 8. Postoperative acute blood loss anemia, expected following surgery. Patient is receiving 1 unit of packed RBCs, Ferrlecit 1 dose infused, continue iron 325 mg oral twice daily. 9. Postop thrombocytopenia, expected following surgery. Continue to monitor. 10. GI prophylaxis. Protonix 40 mg daily. 11. DVT prophylaxis. Heparin 5000 units subcu every 8 hours. 12. Statin myalgia with myositis. 13. Hypocalcemia, with hypoalbuminemia, most likely with vitamin D deficiency, causing myalgia, start on calcium and vitamin D, and ensure. 14. Moderate Protein calorie malnutrition, supplements above 15. Iron deficiency anemia,status post iron infusion, Continue on Ferrous Sulfate 325 Mg Twice a Day, Still Has Iron Deficiency Anemia Symptoms. 16. BPH with urinary retention, current Huffman catheter, recommendation from urology to keep for 7 days, from its reinsertion, 04/13/2021. Huffman was removed this morning, discontinue Flomax due to syncopal episode. DISCHARGE PLAN Home with [facility] Impression and plan of care have been directed as dictated by the signing physician. Юлия Morrison nurse practitioner acting as scribe for signing catie pearce. Objective - Vital Signs Vital signs: Vital Signs Temp 98.6 F 04/18/21 09:01 Pulse 97 04/18/21 09:01 Resp 20 04/18/21 09:01 BP 106/71 04/18/21 10:13 Pulse Ox 93 L 04/18/21 09:01 Intake & Output 04/17/21 04/18/21 04/18/21 18:59 06:59 18:59 Intake Total 1060 240 Output Total 750 725 275 Balance 310 -725 -35 Weight 77.1 kg Intake: Oral 1060 240 Output: Urine 750 725 275 Other: Voiding Method Indwelling Catheter Indwelling Catheter # Bowel Movements 1 1 ABP, PAP, CO, CI - Last Documented Arterial Blood Pressure 101/51 Pulmonary Artery Pressure 19/2 Cardiac Output 5.5 Cardiac Index 2.9 - Labs CBC & Chem 7: 04/18/21 06:45 04/18/21 06:45 Labs: Abnormal Lab Results - Last 24 Hours (Table) 04/17/21 04/17/21 04/17/21 Range/Units 11:37 16:49 19:53 WBC (3.8-10.6) k/uL RBC (4.30-5.90) m/uL Hgb (13.0-17.5) gm/dL Hct (39.0-53.0) % RDW (11.5-15.5) % POC Glucose (mg/dL) 110 H 102 H 136 H (75-99) mg/dL Calcium (8.4-10.2) mg/dL 04/18/21 04/18/21 Range/Units 06:45 06:45 WBC 12.1 H (3.8-10.6) k/uL RBC 2.71 L (4.30-5.90) m/uL Hgb 8.2 L (13.0-17.5) gm/dL Hct 25.0 L (39.0-53.0) % RDW 16.5 H (11.5-15.5) % POC Glucose (mg/dL) (75-99) mg/dL Calcium 8.0 L (8.4-10.2) mg/dL
== END 2021-04-18 14:07 | disposition home health service (06) | DRG 236 ==
LOC: 2ORMAIN 05:32 → 2SICU 16:36 → 3SCARD 04-13 23:37
PROVIDERS: ADMIT Surgery; ATTEND Surgery
PROC: 5A1221Z Performance of Cardiac Output, Continuous (ICD-10-PCS; principal; 2021-04-10 08:00)
PROC: 03BC4ZZ Excision of Left Radial Artery, Percutaneous Endoscopic Approach (ICD-10-PCS; principal; 2021-04-10 08:00)
PROC: B246ZZ4 Ultrasonography of Right and Left Heart, Transesophageal (ICD-10-PCS; principal; 2021-04-10 08:00)
PROC: 02100Z9 Bypass Coronary Artery, One Artery from Left Internal Mammary, Open Approach (ICD-10-PCS; principal; 2021-04-10 08:00)
PROC: 021109W Bypass Coronary Artery, Two Arteries from Aorta with Autologous Venous Tissue, Open Approach (ICD-10-PCS; principal; 2021-04-10 08:00)
PROC: 06BQ4ZZ Excision of Left Saphenous Vein, Percutaneous Endoscopic Approach (ICD-10-PCS; principal; 2021-04-10 08:00)
PROC: 02L70CK Occlusion of Left Atrial Appendage with Extraluminal Device, Open Approach (ICD-10-PCS; principal; 2021-04-10 08:00)
PROC: 5A09357 Assistance with Respiratory Ventilation, Less than 24 Consecutive Hours, Continuous Positive Airway Pressure (ICD-10-PCS; 2021-04-13)
DX: I25.10 Atherosclerotic heart disease of native coronary artery without angina pectoris (principal); D62 Acute posthemorrhagic anemia; E44.0 Moderate protein-calorie malnutrition; J93.9 Pneumothorax, unspecified; J98.11 Atelectasis; D50.9 Iron deficiency anemia, unspecified; D69.59 Other secondary thrombocytopenia; E03.9 Hypothyroidism, unspecified; E55.9 Vitamin D deficiency, unspecified; E78.5 Hyperlipidemia, unspecified; Z20.822 Contact with and (suspected) exposure to COVID-19; G47.00 Insomnia, unspecified; R91.1 Solitary pulmonary nodule; I12.9 Hypertensive chronic kidney disease with stage 1 through stage 4 chronic kidney disease, or unspecified chronic kidney disease; J30.2 Other seasonal allergic rhinitis; J44.9 Chronic obstructive pulmonary disease, unspecified; M60.9 Myositis, unspecified; N18.2 Chronic kidney disease, stage 2 (mild); N40.1 Benign prostatic hyperplasia with lower urinary tract symptoms; R33.8 Other retention of urine; Z74.1 Need for assistance with personal care; Z79.02 Long term (current) use of antithrombotics/antiplatelets; Z79.51 Long term (current) use of inhaled steroids; Z79.82 Long term (current) use of aspirin; Z79.890 Hormone replacement therapy; Z79.899 Other long term (current) drug therapy; Z87.891 Personal history of nicotine dependence; Z87.01 Personal history of pneumonia (recurrent)
CPT/HCPCS: 71045; 71046; 80048; 80053; 82330; 82550; 82805; 83540; 83550; 83735; 85025; 85027; 85520; 85610; 85730; 86850; 86891; 86900; 86901; 86920; 87635; 94640; 94660

== ENCOUNTER → 2021-04-25 | Outpatient (CLI) | payer MEDICARE ==
--- NOTE | 2021-04-25 16:03 | US ---
EXAMINATION TYPE: US venous doppler duplex LE LT DATE OF EXAM: 04/25/2021 3:24 PM COMPARISON: NONE CLINICAL HISTORY: LLE DVT. SIDE PERFORMED: Left TECHNIQUE: The lower extremity deep venous system is examined utilizing real time linear array sonog min with graded compression, doppler sonography and color-flow sonography. VESSELS IMAGED: Common Femoral Vein Deep Femoral Vein Greater Saphenous Vein * Femoral Vein Popliteal Vein Small Saphenous Vein * Proximal Calf Veins (* superficial vessels) Left Leg: Negative for DVT IMPRESSION: No evidence of DVT.
== END | disposition home or self-care (01) ==
LOC: RADUSWWP 14:49
PROVIDERS: ATTEND Surgery
DX: I82.402 Acute embolism and thrombosis of unspecified deep veins of left lower extremity (principal)

== ENCOUNTER 2022-03-16 18:44 | Inpatient (IN) | payer MEDICARE ==
[2022-03-16] MEDS ORDERED: SODIUM CHLORIDE 0.9% 500 ML 500 ML IV STA (20:55)
[2022-03-16] MEDS ORDERED: KETOROLAC 15 MG/ML 1 ML VIAL IVP STA (20:55)
[2022-03-16] MEDS ORDERED: ACETAMINOPHEN TAB 500 MG TAB PO STA (21:00)
--- NOTE | 2022-03-16 21:00 | ED ---
General Adult HPI - General Chief complaint: Back Pain/Injury Stated complaint: L side/Kidney pain Time Seen by Provider: 03/16/22 20:55 Source: patient, family, RN notes reviewed, old records reviewed Mode of arrival: ambulatory Limitations: no limitations - History of Present Illness Initial comments: This is a well-appearing 66-year-old male that presents to the emergency room with complaints of left flank pain that started today. He states it is radiating into his left groin. He has no history of kidney stones. No nausea vomiting or diarrhea. He describes pain as 10 out of 10. Has had a low-grade fever however he states he feels chilled. Patient was assessed in triage -: days(s) (1) Location: back (Flank), left Radiation: abdomen (Left lower) Severity scale (1-10): 10 Quality: constant Consistency: constant Improves with: none Associated Symptoms: fever/chills Treatments Prior to Arrival: none - Related Data Home Medications Medication Instructions Recorded Confirmed Fluticasone Nasal [place] [Flonase 1 - 2 spr EA NOSTRIL BID PRN 03/30/21 03/16/22 Nasal [place]] Levothyroxine Sodium [Synthroid] 137 mcg PO DAILY 03/30/21 03/16/22 Albuterol Inhaler [Ventolin Hfa 2 puff INHALATION RT-QID PRN 04/07/21 03/16/22 Inhaler] Aspirin EC [Ecotrin Low Dose] 81 mg PO DAILY 03/16/22 03/16/22 Aspirin EC [Ecotrin Low Dose] 81 mg PO DAILY 03/16/22 03/16/22 Cetirizine HCl 10 mg PO DAILY PRN 03/16/22 03/16/22 Cholecalciferol [Vitamin D3 (25 50 mcg PO DAILY 03/16/22 03/16/22 Mcg = 1000 Iu)] Metoprolol Succinate (ER) [Toprol 25 mg PO DAILY 03/16/22 03/16/22 Xl] amLODIPine [Norvasc] 2.5 mg PO BID 03/16/22 03/16/22 Previous Rx's Medication Instructions Recorded Atorvastatin [Lipitor] 40 mg PO HS #30 tab 04/18/21 Clopidogrel [Plavix] 75 mg PO DAILY #30 tab 04/18/21 Allergies Allergy/AdvReac Type Severity Reaction Status Date / Time No Known Allergies Allergy Verified 03/16/22 23:29 Review of Systems ROS Statement: Those systems with pertinent positive or pertinent negative responses have been documented in the HPI. ROS Other: All systems not noted in ROS Statement are negative. Past Medical History Past Medical History: Chest Pain / Angina, COPD, Hyperlipidemia, Hypertension, Pneumonia, Thyroid Disorder Additional Past Medical History / Comment(s): recent problems w/SOB w/exertion, recent infected tooth-tx. w/antibiotics, pneumonia in the 90's-"had fluid drawn off" History of Any Multi-Drug Resistant Organisms: None Reported Past Surgical History: Coronary Bypass/CABG Past Anesthesia/Blood Transfusion Reactions: No Reported Reaction Additional Past Anesthesia/Blood Transfusion Reaction / Comment(s): never had general anesthesia Past Psychological History: Anxiety Smoking Status: Former smoker Past Alcohol Use History: Rare Past Drug Use History: None Reported - Past Family History Mother Family Medical History: No Reported History General Exam Limitations: no limitations General appearance: alert, in no apparent distress Respiratory exam: Present: normal lung sounds bilaterally. Absent: respiratory distress, accessory muscle use Cardiovascular Exam: Present: regular rate GI/Abdominal exam: Present: soft. Absent: distended, tenderness Back exam: Present: normal inspection, tenderness (Left flank). Absent: CVA tenderness (R), CVA tenderness (L), rash noted Neurological exam: Present: alert, oriented X3 Psychiatric exam: Present: normal affect, normal mood Skin exam: Present: warm, dry, normal color. Absent: cyanosis, diaphoretic Course Vital Signs 03/16/22 20:52 Temperature 100.6 F H Pulse Rate 77 Respiratory 18 Rate Blood Pressure 159/94 O2 Sat by Pulse 94 L Oximetry Medical Decision Making - Medical Decision Making Left kidney shows hydronephrosis with perinephric edema with a 6 mm obstructing calculus in the distal left ureter. Lactic acid 2.1 and he was given a liter of normal saline. Patient is febrile with leukocytosis and left flank pain. He'll be admitted to the hospital for pyelonephritis/hydronephrosis. He was given Rocephin and consult to urology was placed. Patient is agreeable to this plan of care. Case discussed with Dr. Brown - Lab Data Result diagrams: 03/16/22 21:44 03/16/22 21:44 Lab Results 03/16/22 03/16/22 03/16/22 Range/Units 21:44 21:44 21:44 WBC 19.2 H (3.8-10.6) k/uL RBC 4.77 (4.30-5.90) m/uL Hgb 13.5 (13.0-17.5) gm/dL Hct 43.4 (39.0-53.0) % MCV 91.0 (80.0-100.0) fL MCH 28.2 (25.0-35.0) pg MCHC 31.0 (31.0-37.0) g/dL RDW 12.9 (11.5-15.5) % Plt Count 223 (150-450) k/uL MPV 7.7 Neutrophils % 87 % Lymphocytes % 2 % Monocytes % 8 % Eosinophils % 0 % Basophils % 0 % Neutrophils # 16.7 H (1.3-7.7) k/uL Lymphocytes # 0.5 L (1.0-4.8) k/uL Monocytes # 1.6 H (0-1.0) k/uL Eosinophils # 0.0 (0-0.7) k/uL Basophils # 0.0 (0-0.2) k/uL Sodium 136 L (137-145) mmol/L Potassium 5.2 H (3.5-5.1) mmol/L Chloride 105 (98-107) mmol/L Carbon Dioxide 24 (22-30) mmol/L Anion Gap 7 mmol/L BUN 21 H (9-20) mg/dL Creatinine 1.76 H (0.66-1.25) mg/dL Est GFR (CKD-EPI)AfAm 45 (>60 ml/min/1.73 sqM) Est GFR (CKD-EPI)NonAf 39 (>60 ml/min/1.73 sqM) Glucose 152 H (74-99) mg/dL Plasma Lactic Acid Patrick 2.1 H* (0.7-2.0) mmol/L Calcium 8.4 (8.4-10.2) mg/dL Total Bilirubin 0.7 (0.2-1.3) mg/dL AST 33 (17-59) U/L ALT 25 (4-49) U/L Alkaline Phosphatase 123 (38-126) U/L Total Protein 7.8 (6.3-8.2) g/dL Albumin 4.4 (3.5-5.0) g/dL Lipase 43 (23-300) U/L Urine Color Urine Appearance (Clear) Urine pH (5.0-8.0) Ur Specific [place] (1.001-1.035) Urine Protein (Negative) Urine Glucose (UA) (Negative) Urine Ketones (Negative) Urine Blood (Negative) Urine Nitrite (Negative) Urine Bilirubin (Negative) Urine Urobilinogen (<2.0) mg/dL Ur Leukocyte Esterase (Negative) Urine RBC (0-5) /hpf Urine WBC (0-5) /hpf Urine Bacteria (None) /hpf 03/16/22 Range/Units 22:46 WBC (3.8-10.6) k/uL RBC (4.30-5.90) m/uL Hgb (13.0-17.5) gm/dL Hct (39.0-53.0) % MCV (80.0-100.0) fL MCH (25.0-35.0) pg MCHC (31.0-37.0) g/dL RDW (11.5-15.5) % Plt Count (150-450) k/uL MPV Neutrophils % % Lymphocytes % % Monocytes % % Eosinophils % % Basophils % % Neutrophils # (1.3-7.7) k/uL Lymphocytes # (1.0-4.8) k/uL Monocytes # (0-1.0) k/uL Eosinophils # (0-0.7) k/uL Basophils # (0-0.2) k/uL Sodium (137-145) mmol/L Potassium (3.5-5.1) mmol/L Chloride (98-107) mmol/L Carbon Dioxide (22-30) mmol/L Anion Gap mmol/L BUN (9-20) mg/dL Creatinine (0.66-1.25) mg/dL Est GFR (CKD-EPI)AfAm (>60 ml/min/1.73 sqM) Est GFR (CKD-EPI)NonAf (>60 ml/min/1.73 sqM) Glucose (74-99) mg/dL Plasma Lactic Acid Patrick (0.7-2.0) mmol/L Calcium (8.4-10.2) mg/dL Total Bilirubin (0.2-1.3) mg/dL AST (17-59) U/L ALT (4-49) U/L Alkaline Phosphatase (38-126) U/L Total Protein (6.3-8.2) g/dL Albumin (3.5-5.0) g/dL Lipase (23-300) U/L Urine Color Light Yellow Urine Appearance Clear (Clear) Urine pH 7.0 (5.0-8.0) Ur Specific [place] 1.014 (1.001-1.035) Urine Protein Trace H (Negative) Urine Glucose (UA) Negative (Negative) Urine Ketones Negative (Negative) Urine Blood Small H (Negative) Urine Nitrite Negative (Negative) Urine Bilirubin Negative (Negative) Urine Urobilinogen <2.0 (<2.0) mg/dL Ur Leukocyte Esterase Large H (Negative) Urine RBC 8 H (0-5) /hpf Urine WBC >182 H (0-5) /hpf Urine Bacteria Moderate H (None) /hpf Disposition Clinical Impression: Pyelonephritis of left kidney, Kidney stone on left side Disposition: ADMITTED IP TO THIS [facility] Condition: Good Referrals: None,Stated [Primary Care Provider] - 1-2 days Decision Date: 03/16/22 Decision Time: 23:42
[2022-03-16 22:13] LABS: Albumin 4.4 g/dL (3.5-5.0); Calcium 8.4 mg/dL (8.4-10.2); Potassium 5.2 mmol/L (3.5-5.1); Total Bilirubin 0.7 mg/dL (0.2-1.3); Total Protein 7.8 g/dL (6.3-8.2)
--- NOTE | 2022-03-16 22:23 | XR ---
EXAMINATION TYPE: XR KUB DATE OF EXAM: 03/16/2022 COMPARISON: NONE HISTORY: Flank pain TECHNIQUE: 2 views upright FINDINGS: There is no sign of intestinal obstruction or pneumoperitoneum. Fecal pattern is normal. No evidence of a mass. There are no pathologic calcifications over the kidneys. There is mild subsegmen stan atelectasis right lung base. IMPRESSION: Nonacute abdomen.
[2022-03-16 22:40] LABS: Basophils % (A) 0 %; Eosinophils % (A) 0 %; HCT 43.4 % (39.0-53.0); HGB 13.5 gm/dL (13.0-17.5); Lymphocytes # (A) 0.5 k/uL (1.0-4.8); Lymphocytes % (A) 2 %; MCH 28.2 pg (25.0-35.0); Mean Platelet Volume 7.7; Monocytes # (A) 1.6 k/uL (0-1.0); Monocytes % (A) 8 %; Neutrophils # (A) 16.7 k/uL (1.3-7.7); Neutrophils % (A) 87 %; Platelet Count 223 k/uL (150-450); RBC 4.77 m/uL (4.30-5.90); RDW 12.9 % (11.5-15.5); WBC 19.2 k/uL (3.8-10.6)
[2022-03-16 23:28] LABS: Appearance,Urine Clear (Clear); Bacteria,Urine Moderate /hpf; Bilirubin,Urine Negative (Negative); Blood,Urine Small (Negative); Color,Urine Light Yellow; Glucose,Urine (UA) Negative (Negative); Ketones,Urine Negative (Negative); Leukocyte Esterase,Urine Large (Negative); Nitrite,Urine Negative (Negative); Protein,Urine Trace (Negative); RBC,Urine 8 /hpf (0-5); Specific Gravity,Urine 1.014 (1.001-1.035); Urobilinogen,Urine <2.0 mg/dL (<2.0); WBC,Urine >182 /hpf (0-5)
--- NOTE | 2022-03-16 23:30 | CT ---
EXAMINATION TYPE: CT abdomen pelvis wo con DATE OF EXAM: 03/16/2022 COMPARISON: None HISTORY: left flank pain. no prior on PACS CT DLP: 550 mGycm Automated exposure control for dose reduction was used. Images obtained from the diaphragm to the floor the pelvis without contrast. Lung bases show mild right side subsegmental atelectasis. Heart size is normal. No pericardial effusi on. No pleural effusion. Liver spleen stomach pancreas appear intact. There is small calcified gallstone. The bile ducts are n ot dilated. There is no adrenal mass. Left kidney shows hydronephrosis and perinephric edema. There is periureter al edema. There is 6 mm obstructing calculus in the distal left ureter. There is no mesenteric edema. No ascites or free air. No evidence of a bowel obstruction. Appendix no t seen. No significant appendix. The lumbar vertebrae have normal alignment. No compression fracture. Posterior elements are intact. D isc spaces are normal. Facet joints are intact. IMPRESSION: Obstructing calculus in the lower left ureter with hydronephrosis and hydroureter. Single small calcified gallstone. No dilated ducts.
[2022-03-16] MEDS ORDERED: cefTRIAXone IN SWFI 1,000 MG/10 ML SYRINGE IVP STA (23:37)
[2022-03-16] MEDS ORDERED: HYDROmorphone 1 MG/ML 1 ML SYRINGE IVP PRN (23:45)
[2022-03-16] MEDS ORDERED: ACETAMINOPHEN TAB 325 MG TAB PO PRN (23:45)
[2022-03-16] MEDS ORDERED: NALOXONE 0.4 MG/ML 1 ML VIAL IV PRN (23:45)
[2022-03-17] MEDS ORDERED: LORATADINE 10 MG TAB PO PRN (00:41)
[2022-03-17] MEDS ORDERED: ALBUTEROL NEBULIZED 2.5 MG/3 ML INHALATION PRN (00:41)
[2022-03-17] MEDS ORDERED: cefTRIAXone IN SWFI 1,000 MG/10 ML SYRINGE IVP STA (01:17)
[2022-03-17] MEDS: SODIUM CHLORIDE 0.9% 1,000 ML IV SCH ×2 (04:31→11:50)
[2022-03-17] MEDS: LEVOTHYROXINE 137 MCG TAB PO SCH (05:48)
--- NOTE | 2022-03-17 06:59 | P.GSCN ---
History of Present Illness Consult date: 03/17/22 History of present illness: 66 yo male with left sided flank and groin pain for 24 hours Came to the er and was found to have a 6 mm distal ureteral stone with left hydronephrosis. He also has a fever of 100.6, infected looking urine, wbc of 19 k and a lactic acid of 2.1 He was admitted for ivf and iv ab. We were asked to see Review of Systems All systems: negative - Constitutional Denies fever, Denies weight loss - EENT Eyes: denies blurred vision Ears, nose, mouth and throat: Denies dysphagia - Cardiovascular Denies chest pain, Denies shortness of breath - Respiratory Denies cough, Denies 7 - Gastrointestinal Reports as per HPI - Genitourinary Denies dysuria, Denies hematuria - Integumentary Denies rash, Denies unusual bruising - Neurological Denies headaches, Denies syncope - Hematologic/Lymphatic Denies easy bleeding, Denies easy bruising Past Medical History Past Medical History: Chest Pain / Angina, COPD, Hyperlipidemia, Hypertension, Pneumonia, Thyroid Disorder Additional Past Medical History / Comment(s): recent problems w/SOB w/exertion, recent infected tooth-tx. w/antibiotics, pneumonia in the s-"had fluid drawn off" History of Any Multi-Drug Resistant Organisms: None Reported Past Surgical History: Coronary Bypass/CABG Past Anesthesia/Blood Transfusion Reactions: No Reported Reaction Additional Past Anesthesia/Blood Transfusion Reaction / Comm: never had general anesthesia Past Psychological History: Anxiety Smoking Status: Former smoker Past Alcohol Use History: Rare Past Drug Use History: None Reported - Past Family History Mother Family Medical History: No Reported History Medications and Allergies Home Medications Medication Instructions Recorded Confirmed Type Fluticasone Nasal [place] [Flonase 1 - 2 spr EA NOSTRIL BID PRN 03/30/21 03/16/22 History Nasal [place]] Levothyroxine Sodium [Synthroid] 137 mcg PO DAILY 03/30/21 03/16/22 History Albuterol Inhaler [Ventolin Hfa 2 puff INHALATION RT-QID PRN 04/07/21 03/16/22 History Inhaler] Atorvastatin [Lipitor] 40 mg PO HS #30 tab 04/18/21 03/16/22 Rx Clopidogrel [Plavix] 75 mg PO DAILY #30 tab 04/18/21 03/16/22 Rx Aspirin EC [Ecotrin Low Dose] 81 mg PO DAILY 03/16/22 03/16/22 History Aspirin EC [Ecotrin Low Dose] 81 mg PO DAILY 03/16/22 03/16/22 History Cetirizine HCl 10 mg PO DAILY PRN 03/16/22 03/16/22 History Cholecalciferol [Vitamin D3 (25 50 mcg PO DAILY 03/16/22 03/16/22 History Mcg = 1000 Iu)] Metoprolol Succinate (ER) [Toprol 25 mg PO DAILY 03/16/22 03/16/22 History Xl] amLODIPine [Norvasc] 2.5 mg PO BID 03/16/22 03/16/22 History Allergies Allergy/AdvReac Type Severity Reaction Status Date / Time No Known Allergies Allergy Verified 03/16/22 23:29 Surgical - Exam Vital Signs Temp Pulse Resp BP Pulse Ox 100.6 F H 77 18 159/94 94 L 03/16/22 20:52 03/16/22 20:52 03/16/22 20:52 03/16/22 20:52 03/16/22 20:52 - General mild pain well developed, well nourished - Eyes normal ocular movement, no icteric - ENT no hearing loss, no congestion - Neck no masses, trachea midline - Respiratory normal respiratory effort, clear to auscultation - Abdomen mild llq pain Abdomen: soft, no guarding, no rigid, no rebound - Genitourinary normal penis with no external lesions, testicles present - Integumentary no rash, no abnormal pigmentation - Neurologic no disoriented, no combative - Psychiatric oriented to time, oriented to person, oriented to place, speech is normal, memory intact Results - Labs 03/16/22 21:44 03/16/22 21:44 Abnormal Lab Results - Last 24 Hours (Table) 03/16/22 03/16/22 03/16/22 Range/Units 21:44 21:44 21:44 WBC 19.2 H (3.8-10.6) k/uL Neutrophils # 16.7 H (1.3-7.7) k/uL Lymphocytes # 0.5 L (1.0-4.8) k/uL Monocytes # 1.6 H (0-1.0) k/uL Sodium 136 L (137-145) mmol/L Potassium 5.2 H (3.5-5.1) mmol/L BUN 21 H (9-20) mg/dL Creatinine 1.76 H (0.66-1.25) mg/dL Glucose 152 H (74-99) mg/dL Plasma Lactic Acid Patrick 2.1 H* (0.7-2.0) mmol/L Urine Protein (Negative) Urine Blood (Negative) Ur Leukocyte Esterase (Negative) Urine RBC (0-5) /hpf Urine WBC (0-5) /hpf Urine Bacteria (None) /hpf 03/16/22 Range/Units 22:46 WBC (3.8-10.6) k/uL Neutrophils # (1.3-7.7) k/uL Lymphocytes # (1.0-4.8) k/uL Monocytes # (0-1.0) k/uL Sodium (137-145) mmol/L Potassium (3.5-5.1) mmol/L BUN (9-20) mg/dL Creatinine (0.66-1.25) mg/dL Glucose (74-99) mg/dL Plasma Lactic Acid Patrick (0.7-2.0) mmol/L Urine Protein Trace H (Negative) Urine Blood Small H (Negative) Ur Leukocyte Esterase Large H (Negative) Urine RBC 8 H (0-5) /hpf Urine WBC >182 H (0-5) /hpf Urine Bacteria Moderate H (None) /hpf Diabetes panel 03/16/22 Range/Units 21:44 Sodium 136 L (137-145) mmol/L Potassium 5.2 H (3.5-5.1) mmol/L Chloride 105 (98-107) mmol/L Carbon Dioxide 24 (22-30) mmol/L BUN 21 H (9-20) mg/dL Creatinine 1.76 H (0.66-1.25) mg/dL Glucose 152 H (74-99) mg/dL Calcium 8.4 (8.4-10.2) mg/dL AST 33 (17-59) U/L ALT 25 (4-49) U/L Alkaline Phosphatase 123 (38-126) U/L Total Protein 7.8 (6.3-8.2) g/dL Albumin 4.4 (3.5-5.0) g/dL Calcium panel 03/16/22 Range/Units 21:44 Calcium 8.4 (8.4-10.2) mg/dL Albumin 4.4 (3.5-5.0) g/dL Pituitary panel 03/16/22 Range/Units 21:44 Sodium 136 L (137-145) mmol/L Potassium 5.2 H (3.5-5.1) mmol/L Chloride 105 (98-107) mmol/L Carbon Dioxide 24 (22-30) mmol/L BUN 21 H (9-20) mg/dL Creatinine 1.76 H (0.66-1.25) mg/dL Glucose 152 H (74-99) mg/dL Calcium 8.4 (8.4-10.2) mg/dL Adrenal panel 03/16/22 Range/Units 21:44 Sodium 136 L (137-145) mmol/L Potassium 5.2 H (3.5-5.1) mmol/L Chloride 105 (98-107) mmol/L Carbon Dioxide 24 (22-30) mmol/L BUN 21 H (9-20) mg/dL Creatinine 1.76 H (0.66-1.25) mg/dL Glucose 152 H (74-99) mg/dL Calcium 8.4 (8.4-10.2) mg/dL Total Bilirubin 0.7 (0.2-1.3) mg/dL AST 33 (17-59) U/L ALT 25 (4-49) U/L Alkaline Phosphatase 123 (38-126) U/L Total Protein 7.8 (6.3-8.2) g/dL Albumin 4.4 (3.5-5.0) g/dL - Imaging CT scan - abdomen: report reviewed, image reviewed CT scan - pelvis: report reviewed, image reviewed Assessment and Plan Assessment: Impression: left ureteral stone with obstruction, uti with sepsis, pyonephrosis left Plan: ivf, iv ab cysto with stent left
[2022-03-17] MEDS: METOPROLOL SUCCINATE (ER) 25 MG TAB.ER.24H PO SCH (07:29)
[2022-03-17] MEDS: amLODIPine 2.5 MG TAB PO SCH ×2 (07:29→21:10)
[2022-03-17] MEDS: KETOROLAC 15 MG/ML 1 ML VIAL IVP PRN ×2 (07:29→21:16)
[2022-03-17] MEDS: ASPIRIN 81 MG PO SCH (07:39)
[2022-03-17] MEDS: CLOPIDOGREL 75 MG TAB PO SCH (07:40)
[2022-03-17] MEDS ORDERED: MIDAZOLAM 2 MG/2 ML VIAL ONE (07:48)
[2022-03-17] MEDS ORDERED: PROPOFOL 10 MG/ML 20 ML VIAL IV ONE (07:48)
[2022-03-17] MEDS ORDERED: LIDOCAINE 2% INJ 20 MG/ML (2 ML VIAL) ONE (07:48)
[2022-03-17] MEDS ORDERED: fentaNYL (PF) 50 MCG/ML 2 ML AMP ONE (07:48)
[2022-03-17] MEDS ORDERED: LACTATED RINGERS 1,000 ML IV ONE (08:00)
--- NOTE | 2022-03-17 08:29 | P.OP ---
Date of Procedure: 03/17/22 Preoperative Diagnosis: Left ureteral calculus with obstruction, urinary tract infection with sepsis, left pyelonephrosis Postoperative Diagnosis: Same Procedure(s) Performed: Cystoscopy, placement of 6 x 26 double-J catheter left Anesthesia: AJITHA Surgeon: Tiago Aranda Estimated Blood Loss (ml): 0 Pathology: none sent Condition: stable Indications for Procedure: The patient is 66. He has a 6 mm distal ureteral stone and infected urine elevated temperature elevated white count and elevated lactic acid. He comes for cystoscopy and stent placement left Description of Procedure: Patient brought to the operating suite. Given general anesthesia. Placed lithotomy position with sterile prep and drape. Fluoroscopy identifies a calcification in the region of the distal left ureter. Cystoscopy identifies normal urethra. The prostate is not obstructing. The bladder wall shows chronic cystitis. An 035 wires passed through the left ureteral orifice. The stone was impacted. I eventually get the wire to go by the stone. Over the wire then passed a 6 x 26 double-J catheter that coils in the left renal pelvis and the bladder. the bladder is drained and the patient's awake and returned recovery room good condition. Tolerated the procedure well. The patient will be admitted the hospital for IV antibiotics. Secondarily and at approximately 2 weeks he'll need a left stone and stent removal.
--- NOTE | 2022-03-17 08:46 | FL ---
EXAMINATION TYPE: FL guidance operating room DATE OF EXAM: 03/17/2022 CLINICAL HISTORY: Left-sided hydronephrosis and obstructing ureter calculus. TECHNIQUE: Fluoroscopy. COMPARISON: CT abdomen and pelvis from one day earlier. FINDINGS: Fluoroscopic guidance was provided during left-sided ureter stent insertion procedure perf ormed by urology Dr. A total of 10 seconds of fluoroscopic time was utilized during the procedure an d 1 spot images was acquired. Single intraoperative image shows portion of left ureter stent. IMPRESSION: As Above.
[2022-03-17] MEDS ORDERED: ENOXAPARIN 40 MG/0.4 ML SYRINGE SQ STA (09:16)
--- NOTE | 2022-03-17 09:31 | P.HPIM ---
History of Present Illness H&P Date: 03/17/22 Chief Complaint: Left flank pain 66 years old male presents to the emergency department with left flank pain. Patient described that pain is getting worse to the point where he was nauseous throwing up and having low-grade fever could not tolerate and stated stent over 10 radiating to his left groin patient in the emergency department was positive for leukocytosis and imaging studies suggested obstructive uropathy. Urology consult was obtained and patient was admitted for further evaluation and treatment. Patient currently postprocedure where he is slightly lethargic but still arousable to voice command denying chest pain shortness breath nausea vomiting abdominal pain dizziness lightheadedness or blurry vision and stated that his pain has improved significantly. Patient is denying tobacco alcohol or drug abuse. Review of Systems All 14 systems reviewed and negative except as above Past Medical History Past Medical History: Chest Pain / Angina, COPD, Hyperlipidemia, Hypertension, Pneumonia, Thyroid Disorder Additional Past Medical History / Comment(s): recent problems w/SOB w/exertion, recent infected tooth-tx. w/antibiotics, pneumonia in the -"had fluid drawn off" History of Any Multi-Drug Resistant Organisms: None Reported Past Surgical History: Coronary Bypass/CABG Past Anesthesia/Blood Transfusion Reactions: No Reported Reaction Additional Past Anesthesia/Blood Transfusion Reaction / Comment(s): never had general anesthesia Past Psychological History: Anxiety Smoking Status: Former smoker Past Alcohol Use History: Rare Past Drug Use History: None Reported - Past Family History Mother Family Medical History: No Reported History Medications and Allergies Home Medications Medication Instructions Recorded Confirmed Type Fluticasone Nasal [place] [Flonase 1 - 2 spr EA NOSTRIL BID PRN 03/30/21 03/16/22 History Nasal [place]] Levothyroxine Sodium [Synthroid] 137 mcg PO DAILY 03/30/21 03/16/22 History Albuterol Inhaler [Ventolin Hfa 2 puff INHALATION RT-QID PRN 04/07/21 03/16/22 History Inhaler] Atorvastatin [Lipitor] 40 mg PO HS #30 tab 04/18/21 03/16/22 Rx Clopidogrel [Plavix] 75 mg PO DAILY #30 tab 04/18/21 03/16/22 Rx Aspirin EC [Ecotrin Low Dose] 81 mg PO DAILY 03/16/22 03/16/22 History Aspirin EC [Ecotrin Low Dose] 81 mg PO DAILY 03/16/22 03/16/22 History Cetirizine HCl 10 mg PO DAILY PRN 03/16/22 03/16/22 History Cholecalciferol [Vitamin D3 (25 50 mcg PO DAILY 03/16/22 03/16/22 History Mcg = 1000 Iu)] Metoprolol Succinate (ER) [Toprol 25 mg PO DAILY 03/16/22 03/16/22 History Xl] amLODIPine [Norvasc] 2.5 mg PO BID 03/16/22 03/16/22 History Allergies Allergy/AdvReac Type Severity Reaction Status Date / Time No Known Allergies Allergy Verified 03/16/22 23:29 Physical Exam Vitals: Vital Signs Temp Pulse Pulse Resp BP BP Pulse Ox 03/17/22 09:13 98.1 F 88 18 151/87 90 L 03/17/22 09:00 70 16 139/86 97 03/17/22 08:45 68 16 139/78 100 03/17/22 08:30 97 F L 64 16 106/50 98 03/17/22 08:00 98.1 F 95 18 132/82 93 L 03/17/22 07:15 18 03/17/22 02:13 99.0 F 84 16 129/75 94 L 03/17/22 01:09 98.8 F 92 24 134/77 98 03/16/22 20:52 100.6 F H 77 18 159/94 94 L Intake and Output 03/16/22 03/17/22 03/17/22 22:59 06:59 14:59 Intake Total 600 Output Total 0 Balance 600 Intake: IV 600 Output: Estimated Blood Loss 0 Other: # Voids 0 # Bowel Movements 0 Weight 79.379 kg 79.379 kg Gen.: in stated age, no acute distress Heart: Normal S1-S2 Lungs: Clear to auscultation bilaterally Abdomen: Soft, no tenderness, positive bowel sounds in all 4 quadrant no guarding or rebound Skin: No new rash Psych: Alert and oriented 3 Neuro: No focal deficit Results CBC & Chem 7: 03/16/22 21:44 03/16/22 21:44 Labs: Abnormal Lab Results - Last 24 Hours (Table) 03/16/22 03/16/22 03/16/22 Range/Units 21:44 21:44 21:44 WBC 19.2 H (3.8-10.6) k/uL Neutrophils # 16.7 H (1.3-7.7) k/uL Lymphocytes # 0.5 L (1.0-4.8) k/uL Monocytes # 1.6 H (0-1.0) k/uL Sodium 136 L (137-145) mmol/L Potassium 5.2 H (3.5-5.1) mmol/L BUN 21 H (9-20) mg/dL Creatinine 1.76 H (0.66-1.25) mg/dL Glucose 152 H (74-99) mg/dL Plasma Lactic Acid Patrick 2.1 H* (0.7-2.0) mmol/L Urine Protein (Negative) Urine Blood (Negative) Ur Leukocyte Esterase (Negative) Urine RBC (0-5) /hpf Urine WBC (0-5) /hpf Urine Bacteria (None) /hpf 03/16/22 Range/Units 22:46 WBC (3.8-10.6) k/uL Neutrophils # (1.3-7.7) k/uL Lymphocytes # (1.0-4.8) k/uL Monocytes # (0-1.0) k/uL Sodium (137-145) mmol/L Potassium (3.5-5.1) mmol/L BUN (9-20) mg/dL Creatinine (0.66-1.25) mg/dL Glucose (74-99) mg/dL Plasma Lactic Acid Patrick (0.7-2.0) mmol/L Urine Protein Trace H (Negative) Urine Blood Small H (Negative) Ur Leukocyte Esterase Large H (Negative) Urine RBC 8 H (0-5) /hpf Urine WBC >182 H (0-5) /hpf Urine Bacteria Moderate H (None) /hpf Thrombosis Risk Factor Assmnt - Choose All That Apply Each Factor Represents 1 point: Abnormal pulmonary function (COPD) Other Risk Factors: Yes Each Risk Factor Represents 2 Points: Age 61-74 years Other congenital or acquired thrombophilia - If yes, enter type in comment: No Thrombosis Risk Factor Assessment Total Risk Factor Score: 3 Thrombosis Risk Factor Assessment Level: Moderate Risk Assessment and Plan Assessment: 1. Early sepsis. 2. Left pyelonephritis. 3. Obstructive uropathy. 4. Acute kidney injury. 5. Acute hypokalemia secondary to #4. 6. Fever and chills. 7. Nausea and vomiting. 8. Hypertension. 9. Hyperlipidemia. 10. Hypothyroidism. 11. COPD. 12. Anxiety and depression. 13. Coronary artery disease. Patient seems to be improved I would like to continue with aggressive hydration, Flomax, strain urine and continue with antibiotic coverage follow up on final culture results and encourage fluid intake. Patient with hyperkalemia and I would like to repeat potassium in the morning repeat creatinine and avoid nephrotoxic medication. Patient on aspirin and Plavix at home and that can be continued if no objection from urology area did patient will be on Lovenox for DVT prophylaxis. Early ambulation. Resume home medication with holding parameters. Discharge planning in the next 48 hours based on clinical progress. CODE STATUS is full
[2022-03-17] MEDS: ONDANSETRON 4 MG/2 ML VIAL IVP PRN ×2 (14:21→21:22)
[2022-03-17] MEDS: ATORVASTATIN 40 MG TAB PO SCH (21:10)
[2022-03-18] MEDS: SODIUM CHLORIDE 0.9% 1,000 ML IV SCH ×2 (03:30→16:14)
[2022-03-18] MEDS: LEVOTHYROXINE 137 MCG TAB PO SCH (05:29)
[2022-03-18] MEDS: METOPROLOL SUCCINATE (ER) 25 MG TAB.ER.24H PO SCH (07:06)
[2022-03-18] MEDS: ASPIRIN 81 MG PO SCH (07:06)
[2022-03-18] MEDS: amLODIPine 2.5 MG TAB PO SCH ×2 (07:07→19:23)
[2022-03-18] MEDS: CLOPIDOGREL 75 MG TAB PO SCH (07:07)
[2022-03-18] MEDS: KETOROLAC 15 MG/ML 1 ML VIAL IVP PRN ×3 (07:08→23:43)
[2022-03-18 09:31] LABS: HCT 37.2 % (39.6-50.0); HGB 11.4 g/dL (13.0-17.0); MCH 27.8 pg (27.0-32.0); MCHC 30.6 g/dL (32.0-37.0); MCV 90.7 fL (80.0-97.0); Mean Platelet Volume 10.8 fL (9.5-12.2); NRBC Per 100 WBC 0 /100 WBCS (0.0-0.0); Platelet Count 179 X 10*3/uL (140-440); RDW 13.8 % (11.5-14.5); WBC 16.75 X 10*3/uL (4.50-10.00)
[2022-03-18 10:07] LABS: African American GFR (CKD) 46.3 (60.0-200.0); Anion Gap 7.6 mmol/L (10.00-18.00); BUN/Creat Ratio 15.41 Ratio (12.00-20.00); Blood Urea Nitrogen 26.5 mg/dL (9.0-27.0); Calcium 7.6 mg/dL (8.7-10.3); Carbon Dioxide 22.5 mmol/L (20.0-27.5); Potassium 4.2 mmol/L (3.5-5.5)
--- NOTE | 2022-03-18 10:29 | P.PN ---
Subjective Progress Note Date: 03/18/22 The patient is 66. Yesterday he underwent cystoscopy and placement of a double- J catheter on the left side for an obstructing stone with pyelonephrosis. He is doing much better. He is afebrile. His white count is down to 16,000. He feels better. From a urologic standpoint he can be discharged home once cultures are back and he can be placed on oral antibiotics. He should stay on oral antibiotics until I see him in the office. He'll be set up for cystoscopy left ureteroscopy and laser lithotripsy in about 2 weeks. Objective - Vital Signs Vital signs: Vital Signs Temp 98.0 F 03/18/22 07:27 Pulse 89 03/18/22 07:27 Resp 17 03/18/22 07:27 BP 143/88 03/18/22 07:27 Pulse Ox 91 L 03/18/22 07:27 Intake & Output 03/17/22 03/18/22 03/18/22 18:59 06:59 18:59 Intake Total 600 Output Total 0 Balance 600 Intake: IV 600 Output: Estimated Blood Loss 0 Other: # Voids 6 3 # Bowel Movements 1 - Labs CBC & Chem 7: 03/18/22 06:39 03/18/22 06:39 Labs: Abnormal Lab Results - Last 24 Hours (Table) 03/18/22 03/18/22 Range/Units 06:39 06:39 WBC 16.75 H (4.50-10.00) X 10*3/uL RBC 4.10 L (4.40-5.60) X 10*6/uL Hgb 11.4 L (13.0-17.0) g/dL Hct 37.2 L (39.6-50.0) % MCHC 30.6 L (32.0-37.0) g/dL Anion Gap 7.60 L (10.00-18.00) mmol/L Creatinine 1.7 H (0.6-1.5) mg/dL Est GFR (CKD-EPI)AfAm 46.3 L (60.0-200.0) Est GFR (CKD-EPI)NonAf 40.0 L (60.0-200.0) Calcium 7.6 L (8.7-10.3) mg/dL Microbiology - Last 24 Hours (Table) 03/16/22 22:46 Urine Culture - Preliminary Urine,Voided
--- NOTE | 2022-03-18 13:25 | P.PN ---
Subjective Progress Note Date: 03/18/22 Principal diagnosis: Obstructive uropathy Patient with ongoing improvement as he has tolerated diet successfully, pain under better control and currently down to 1/10 compared with 10 over 10 on presentation. Patient is trying to drink as much as possible denying fever chills nausea vomiting abdominal pain dizziness lightheadedness or blurry vision Objective - Vital Signs Vital signs: Vital Signs Temp 98.0 F 03/18/22 07:27 Pulse 89 03/18/22 07:27 Resp 17 03/18/22 07:27 BP 143/88 03/18/22 07:27 Pulse Ox 91 L 03/18/22 07:27 Intake & Output 03/17/22 03/18/22 03/18/22 18:59 06:59 18:59 Intake Total 600 Output Total 0 Balance 600 Intake: IV 600 Output: Estimated Blood Loss 0 Other: # Voids 6 3 # Bowel Movements 1 - Exam Gen.: in stated age, no acute distress Heart: Normal S1-S2 Lungs: Clear to auscultation bilaterally Abdomen: Soft, no tenderness, positive bowel sounds in all 4 quadrant no guarding or rebound Skin: No new rash Psych: Alert and oriented 3 Neuro: No focal deficit - Labs CBC & Chem 7: 03/18/22 06:39 03/18/22 06:39 Labs: Abnormal Lab Results - Last 24 Hours (Table) 03/18/22 03/18/22 Range/Units 06:39 06:39 WBC 16.75 H (4.50-10.00) X 10*3/uL RBC 4.10 L (4.40-5.60) X 10*6/uL Hgb 11.4 L (13.0-17.0) g/dL Hct 37.2 L (39.6-50.0) % MCHC 30.6 L (32.0-37.0) g/dL Anion Gap 7.60 L (10.00-18.00) mmol/L Creatinine 1.7 H (0.6-1.5) mg/dL Est GFR (CKD-EPI)AfAm 46.3 L (60.0-200.0) Est GFR (CKD-EPI)NonAf 40.0 L (60.0-200.0) Calcium 7.6 L (8.7-10.3) mg/dL Microbiology - Last 24 Hours (Table) 03/16/22 22:46 Urine Culture - Preliminary Urine,Voided Assessment and Plan Assessment: 1. Early sepsis. 2. Left pyelonephritis. 3. Obstructive uropathy. 4. Acute kidney injury. 5. Acute hypokalemia secondary to #4. 6. Fever and chills. 7. Nausea and vomiting. 8. Hypertension. 9. Hyperlipidemia. 10. Hypothyroidism. 11. COPD. 12. Anxiety and depression. 13. Coronary artery disease. Patient was seen and evaluated by urology who recommended close follow-up outpatient for future stent removal and lithotripsy in 2 weeks. Patient currently on IV antibiotics IV fluid and the Flomax and we would continue with aggressive hydration encouraging oral intake. Kidney function has been stable over the last 24 hours and I would like to monitor and repeat in the morning avoid nephrotoxic medication and consider consultation with nephrology based on clinical progress. White blood count has slightly improved and patient will require IV antibiotics until finalizing urine culture results and optimizing kidney function. Discharge planning based on clinical progress
[2022-03-18] MEDS: ATORVASTATIN 40 MG TAB PO SCH (19:23)
[2022-03-19] MEDS: SODIUM CHLORIDE 0.9% 1,000 ML IV SCH (04:00)
[2022-03-19] MEDS: LEVOTHYROXINE 137 MCG TAB PO SCH (06:15)
[2022-03-19] MEDS: ASPIRIN 81 MG PO SCH (07:18)
[2022-03-19] MEDS: METOPROLOL SUCCINATE (ER) 25 MG TAB.ER.24H PO SCH (07:19)
[2022-03-19] MEDS: CLOPIDOGREL 75 MG TAB PO SCH (07:19)
[2022-03-19] MEDS: amLODIPine 2.5 MG TAB PO SCH (07:19)
[2022-03-19 07:28] VITALS: BP 144/85; PULSE 86; RESP 17; TEMP 98
--- NOTE | 2022-03-19 08:26 | P.DS ---
Providers Date of admission: 03/17/22 01:13 Expected date of discharge: 03/19/22 Attending physician: Alfa Patel Consults: 03/16/22 23:46 Consult Physician Routine Consulting Provider: Tiago Aranda Consult Reason/Comments: Pyelonephritis, hydronephrosis , obstructive kidney stone Do you want consulting provider notified?: Yes Primary care physician: Stated None Hospital Course: HISTORY OF PRESENT ILLNESS 66 years old male presents to the emergency department with left flank pain. Patient described that pain is getting worse to the point where he was nauseous throwing up and having low-grade fever could not tolerate and stated stent over 10 radiating to his left groin patient in the emergency department was positive for leukocytosis and imaging studies suggested obstructive uropathy. Urology consult was obtained and patient was admitted for further evaluation and treatment. Patient currently postprocedure where he is slightly lethargic but still arousable to voice command denying chest pain shortness breath nausea vomiting abdominal pain dizziness lightheadedness or blurry vision and stated that his pain has improved significantly. Patient is denying tobacco alcohol or drug abuse. 03/19: Patient is status post cystoscopy and placement of a double-J catheter on left side for obstructive stone and pyelonephrosis. Plan is for him to follow up next week in the office and be scheduled for cystoscopy left ureteroscopic laser lithotripsy in about 2 weeks. Patient has been cleared for discharge by urology. Patient has been afebrile, heart rate 86, blood pressure 144/85, pulse ox 94% on room air. Urine culture is positive for gram negative bacilli. We will plan to discharge the patient on Cipro and recheck culture tomorrow. Patient will be discharged today in stable condition. DISCHARGE DIAGNOSES 1. Early sepsis. 2. Left pyelonephritis. 3. Obstructive uropathy. 4. Acute kidney injury. 5. Acute hypokalemia secondary to #4. 6. Fever and chills. 7. Nausea and vomiting. 8. Hypertension. 9. Hyperlipidemia. 10. Hypothyroidism. 11. COPD. 12. Generalized anxiety disorder and recurrent depression. DISCHARGE PLAN Home Greater than 35 minutes was utilized and coordinating patient's discharge. Impression and plan of care have been directed as dictated by the signing physician. Юлия Morrison nurse practitioner acting as scribe for signing physician. Patient Condition at Discharge: Good Plan - Discharge Summary Discharge Rx Participant: No New Discharge Prescriptions: New Ciprofloxacin HCl [Cipro] 500 mg PO BID #14 tablet Continue Fluticasone Nasal [place] [Flonase Nasal [place]] 1 - 2 spr EA NOSTRIL BID PRN PRN Reason: Allergy Symptoms Levothyroxine Sodium [Synthroid] 137 mcg PO DAILY Albuterol Inhaler [Ventolin Hfa Inhaler] 2 puff INHALATION RT-QID PRN PRN Reason: Shortness Of Breath Clopidogrel [Plavix] 75 mg PO DAILY #30 tab Metoprolol Succinate (ER) [Toprol XL] 25 mg PO DAILY Aspirin EC [Ecotrin Low Dose] 81 mg PO DAILY Cetirizine HCl 10 mg PO DAILY PRN PRN Reason: Allergy Symptoms Atorvastatin [Lipitor] 40 mg PO HS #30 tab Cholecalciferol [Vitamin D3 (25 Mcg = 1000 Iu)] 50 mcg PO DAILY amLODIPine [Norvasc] 2.5 mg PO BID Discontinued Aspirin EC [Ecotrin Low Dose] 81 mg PO DAILY Discharge Medication List Fluticasone Nasal [place] [Flonase Nasal [place]] 1 - 2 spr EA NOSTRIL BID PRN 03/30/21 [History] Levothyroxine Sodium [Synthroid] 137 mcg PO DAILY 03/30/21 [History] Albuterol Inhaler [Ventolin Hfa Inhaler] 2 puff INHALATION RT-QID PRN 04/07/21 [History] Atorvastatin [Lipitor] 40 mg PO HS #30 tab 04/18/21 [Rx] Clopidogrel [Plavix] 75 mg PO DAILY #30 tab 04/18/21 [Rx] Aspirin EC [Ecotrin Low Dose] 81 mg PO DAILY 03/16/22 [History] Cetirizine HCl 10 mg PO DAILY PRN 03/16/22 [History] Cholecalciferol [Vitamin D3 (25 Mcg = 1000 Iu)] 50 mcg PO DAILY 03/16/22 [History] Metoprolol Succinate (ER) [Toprol XL] 25 mg PO DAILY 03/16/22 [History] amLODIPine [Norvasc] 2.5 mg PO BID 03/16/22 [History] Ciprofloxacin HCl [Cipro] 500 mg PO BID #14 tablet 03/19/22 [Rx] Follow up Appointment(s)/Referral(s): Alfa Patel MD [Medical Doctor] - 03/23/22 11:15 am Tiago Aranad MD [STAFF PHYSICIAN] - 1 Week (office not answering Please call to schedule appointment ) Patient Instructions/Handouts: Kidney Infection (DC) Discharge Disposition: HOME SELF-CARE
--- NOTE | 2022-03-19 09:47 | P.PN ---
Progress Note - Text Progress Note Date: 03/19/22 The patient reports vague discomfort. He states that his symptoms are much improved compared to the time of admission. He is afebrile. He has noted occasional hematuria, and was reassured that this is expected. The urine culture shows gram-negative bacilli. He is to be discharged home on cip rofloxacin and follow up with Dr. Aranda in 1 week.
== END 2022-03-19 10:16 | disposition home or self-care (01) | DRG 854 ==
LOC: EC 18:44 → 4SSUR 03-17 01:13
PROVIDERS: ADMIT Internal Medicine Geriatric Medicine; ATTEND Internal Medicine Geriatric Medicine
PROC: 0T778DZ Dilation of Left Ureter with Intraluminal Device, Via Natural or Artificial Opening Endoscopic (ICD-10-PCS; principal; 2022-03-17 07:21)
DX: A41.9 Sepsis, unspecified organism (principal); N11.9 Chronic tubulo-interstitial nephritis, unspecified; F33.9 Major depressive disorder, recurrent, unspecified; N17.9 Acute kidney failure, unspecified; Z87.891 Personal history of nicotine dependence; Z95.1 Presence of aortocoronary bypass graft; Z79.899 Other long term (current) drug therapy; Z79.890 Hormone replacement therapy; Z79.82 Long term (current) use of aspirin; Z79.02 Long term (current) use of antithrombotics/antiplatelets; E03.9 Hypothyroidism, unspecified; E78.5 Hyperlipidemia, unspecified; F41.1 Generalized anxiety disorder; E87.6 Hypokalemia; I10 Essential (primary) hypertension; I25.10 Atherosclerotic heart disease of native coronary artery without angina pectoris; J44.9 Chronic obstructive pulmonary disease, unspecified
CPT/HCPCS: 36415; 74018; 74176; 80048; 80053; 81001; 83605; 83690; 85025; 85027; 87077; 87086; 87186; 96361; 96374; 96375; 96376; 99285

== ENCOUNTER 2022-04-06 10:50 | Day surgery (SDC) | payer MEDICARE ==
[2022-04-05 09:06] VITALS: BMI 27.3
--- NOTE | 2022-04-05 12:22 | P.GSHP ---
History of Present Illness H&P Date: 04/05/22 66 yo male who was in the hospital in february with a septic distal left ureteral stone that required and stent and antibiotics. He now comes for stone and stent removal left - Constitutional Constitutional: Denies chills, Denies fever - EENT Eyes: denies blurred vision, denies pain Ears, nose, mouth and throat: Denies headache, Denies sore throat - Cardiovascular Cardiovascular: Denies chest pain, Denies shortness of breath - Respiratory Respiratory: Denies cough, Denies 7 - Gastrointestinal Gastrointestinal: Denies abdominal pain, Denies diarrhea, Denies nausea, Denies vomiting - Genitourinary (Female) Genitourinary: Denies dysuria, Denies hematuria - Genitourinary (Male) Genitourinary: Denies dysuria, Denies hematuria - Musculoskeletal Musculoskeletal: Denies myalgias - Integumentary Integumentary: Denies pruritus, Denies rash - Neurological Neurological: Denies numbness, Denies weakness - Psychiatric Psychiatric: Denies anxiety, Denies depression - Endocrine Endocrine: Denies fatigue, Denies weight change Past Medical History Past Medical History: Coronary Artery Disease (CAD), Chest Pain / Angina, COPD, Hyperlipidemia, Hypertension, Pneumonia, Thyroid Disorder Additional Past Medical History / Comment(s): SOB w/exertion, pneumonia in the -"had fluid drawn off" KIDNEY INFECTION, KIDNEY STONE, GIOVANI'S History of Any Multi-Drug Resistant Organisms: None Reported Past Surgical History: Coronary Bypass/CABG Additional Past Surgical History / Comment(s): STENT PLACED IN URETER, Past Anesthesia/Blood Transfusion Reactions: No Reported Reaction Additional Past Anesthesia/Blood Transfusion Reaction / Comment(s): never had general anesthesia Past Psychological History: Anxiety Smoking Status: Former smoker Past Alcohol Use History: Rare Additional Past Alcohol Use History / Comment(s): quit smoking 2018 , started in early teens, SMOKED 1-2ppd Past Drug Use History: Marijuana Additional Drug Use History / Comment(s): RARE use TO HOLD MARIJUANA 24 HOURS PRIOR TO PROCEDURE - Past Family History Mother Family Medical History: No Reported History Medications and Allergies Home Medications Medication Instructions Recorded Confirmed Type Fluticasone Nasal [place] [Flonase 1 - 2 spr EA NOSTRIL BID PRN 03/30/21 04/05/22 History Nasal [place]] Levothyroxine Sodium [Synthroid] 137 mcg PO DAILY 03/30/21 04/05/22 History Albuterol Inhaler [Ventolin Hfa 2 puff INHALATION RT-QID PRN 04/07/21 04/05/22 History Inhaler] Atorvastatin [Lipitor] 40 mg PO HS #30 tab 04/18/21 04/05/22 Rx Clopidogrel [Plavix] 75 mg PO DAILY #30 tab 04/18/21 04/05/22 Rx Aspirin EC [Ecotrin Low Dose] 81 mg PO DAILY 03/16/22 04/05/22 History Cetirizine HCl 10 mg PO DAILY PRN 03/16/22 04/05/22 History Cholecalciferol [Vitamin D3 (25 50 mcg PO DAILY 03/16/22 04/05/22 History Mcg = 1000 Iu)] Metoprolol Succinate (ER) [Toprol 25 mg PO DAILY 03/16/22 04/05/22 History XL] amLODIPine [Norvasc] 2.5 mg PO BID 03/16/22 04/05/22 History Allergies Allergy/AdvReac Type Severity Reaction Status Date / Time No Known Allergies Allergy Verified 04/05/22 08:59 Surgical - Exam - General well developed, well nourished, no distress - Eyes normal ocular movement, no icteric - ENT no hearing loss, no congestion - Neck no masses, trachea midline - Respiratory normal respiratory effort, clear to auscultation - Abdomen Abdomen: soft, non tender, no guarding, no rigid, no rebound - Integumentary no rash, no abnormal pigmentation - Neurologic no disoriented, no combative - Psychiatric oriented to time, oriented to person, oriented to place, speech is normal, memory intact Results - Imaging CT scan - abdomen: report reviewed, image reviewed CT scan - pelvis: report reviewed, image reviewed Assessment and Plan Assessment: Impression: left ureteral stone with stent Plan: left ureteroscopy with stone and stent removal
[~2022-04-06 10:50] MED LIST changes: -ALBUMIN HUMAN 25% 50 ML IV ONE; -ALBUMIN HUMAN 5% 500 ML IVPB ONE; +AMPICILLIN 1,000 MG in SODIUM CHLORIDE 0.9% 50 ML IVPB PRN; -ASPIRIN 325 MG TAB PO ONE; -ATORVASTATIN 10 MG TAB PO ONE; -CALCIUM CHLORIDE 100 MG/ML 10 ML SYRINGE IV ONE; -CHLORHEXIDINE GLUCONATE 15 ML CUP MUCOUS MEM ONE; -CLEVIDIPINE BUTYRATE 25 MG in EMPTY BAG 1 BAG IV ONE; +DEXAMETHASONE SOD PHOSPHATE 4 MG/ML 1 ML VIAL IV ONE; -DILTIAZEM 125 MG in SODIUM CHLORIDE 0.9% 100 ML IV ONE; -ELECTROLYTE-A SOLUTION 1,000 ML with POTASSIUM CHLORIDE 100 MEQ, MAGNESIUM SULFATE 16 M... IV ONE; -ELECTROLYTE-A SOLUTION 1,000 ML with POTASSIUM CHLORIDE 40 MEQ, MAGNESIUM SULFATE 16 ME... IV ONE; +GENTAMICIN 100 MG in SODIUM CHLORIDE 0.9% 100 ML IVPB PRN; -HEPARIN SODIUM 1,000 UN/ML (10ML VL) IV ONE; -HEPARIN SODIUM,PORCINE 5,000 UNIT in SODIUM CHLORIDE 0.9% 500 ML 500 ML IV ONE; +HYDROmorphone 0.5 MG/0.5 ML SYRINGE IVP PRN; -INSULIN REGULAR 100 UNIT in SODIUM CHLORIDE 0.9% 100 ML IV ONE; -LACTATED RINGERS 1,000 ML IV ONE; +LACTATED RINGERS 1,000 ML IV SCH; +LIDOCAINE 1% (10MG/ML) FOR IV START INTRADERMA PRN; -MAGNESIUM SULFATE MG 500 MG/ML IV ONE; -MANNITOL 25% 12.5 GM/50 ML VIAL IV ONE; -METOPROLOL TARTRATE 12.5 MG TAB PO ONE; +MIDAZOLAM 2 MG/2 ML VIAL IV PRN; -MUPIROCIN 2% OINT 22 GM TUBE NASAL ONE; -NITROGLYCERIN SL TABS 0.4 MG TAB SUBLINGUAL ONE; -NITROGLYCERIN-D5W PMX 25 MG/250 ML BTL IV ONE; -NITROGLYCERIN-D5W PMX 50 MG in DEXTROSE/WATER 1 250ML.BAG IV ONE; -NOREPINEPHRINE 4 MG in SODIUM CHLORIDE 0.9% 250 ML IV ONE; +ONDANSETRON 4 MG/2 ML VIAL IVP ONE; -PAPAVERINE 360 MG in SODIUM CHLORIDE 0.9% 90 ML IV ONE; -PHENYLEPHRINE 10 MG/ML VIAL IV ONE; -PHENYLEPHRINE 40 MG in SODIUM CHLORIDE 0.9% 250 ML IV ONE; -PROTAMINE SULFATE 10 MG/ML 25 ML VIAL IV ONE; -PROTAMINE SULFATE 250 MG in EMPTY BAG 1 BAG IV ONE; -SODIUM BICARB 8.4% 50 ML SYR (1 MEQ/ML) IV ONE; -SODIUM CHLORIDE 0.9% 1,000 ML IV ONE; -TRANEXAMIC ACID 2,000 MG in SODIUM CHLORIDE 0.9% 80 ML IV ONE; -ceFAZolin 1,000 MG in SODIUM CHLORIDE 0.9% IRRIGATIO 1,000 ML IRRIGATION ONE; -propofoL 1,000 MG/100 ML VIAL IV ONE
--- NOTE | 2022-04-06 11:13 | XR ---
EXAMINATION TYPE: XR KUB DATE OF EXAM: 04/06/2022 COMPARISON: 03/16/2022 HISTORY: Left ureteral stone TECHNIQUE: One view abdominal series FINDINGS: The osseous structures are intact. The bowel gas pattern is nonspecific. Hypertrophic change of the spine. There is calcifications in pelvis likely vascular. Left-sided ureteral stent noted. No definit e calcification along the course of the left ureteral stent. IMPRESSION: 1. Nonspecific abdomen. Left-sided ureteral stent.
[2022-04-06] MEDS ORDERED: fentaNYL (PF) 50 MCG/ML 2 ML AMP ONE (13:12)
[2022-04-06] MEDS ORDERED: MIDAZOLAM 2 MG/2 ML VIAL ONE (13:12)
[2022-04-06] MEDS ORDERED: LIDOCAINE 2% INJ 20 MG/ML (2 ML VIAL) ONE (13:12)
[2022-04-06] MEDS ORDERED: PROPOFOL 10 MG/ML 20 ML VIAL IV ONE (13:12)
[2022-04-06] MEDS ORDERED: SUCCINYLCHOLINE CHLORIDE 100 MG/5 ML SYR IV ONE (13:12)
[2022-04-06 13:59] VITALS: TEMP 97.4
--- NOTE | 2022-04-06 14:05 | P.OP ---
Date of Procedure: 04/06/22 Preoperative Diagnosis: Left ureteral stone status post stent placement Postoperative Diagnosis: Same Procedure(s) Performed: Cystoscopy, removal of double-J catheter left, left laser lithotripsy with ureteroscopy. Anesthesia: KEYUR Surgeon: Tiago Aranda Estimated Blood Loss (ml): 0 Pathology: none sent Condition: stable Disposition: PACU Indications for Procedure: This 66-year-old gentleman who is in the hospital recently for an obstructing ureteral stone, urinary tract infection with sepsis, pyonephrosis left. He comes for stone removal. Description of Procedure: Patient brought to the operating suite. Given a general anesthesia. Placed lithotomy position with sterile prep and drape. Cystoscopy Foroblique lens and 21-[place] sheath identifies a normal anterior urethra. The prostatic urethra shows some obstruction. The left ureteral orifice is identified. The left ureteral stent is identified and grasped and pulled the urethral meatus. Through the left ureteral stent an 035 wires passed up into the kidney. The stent was removed. Alongside the wire I then passed the semirigid scope through the left ureter to the stone. The stone was broken into tiny pieces with the 75 laser probe and flushed out of the left ureter. At the end of the procedure there is no significant fragments. The bladder is drained the patient's awakened and returned recovery room good condition. The patient tolerated the procedure and will be discharged home upon recovery and found the office in one week. His condition is good. Blood loss is minimal.
[2022-04-06 14:53] VITALS: BP 127/78; PULSE 81; RESP 18
--- NOTE | 2022-04-07 14:05 | FL ---
Intraoperative fluoroscopic services were provided for surgical assistance. Total fluoroscopy time is 1.9 seconds with a total of 1 submitted images to PACS. Please see the operative note for further de tails.
== END 2022-04-06 15:14 | disposition home or self-care (01) ==
LOC: OR 10:50
PROVIDERS: ATTEND Urology
DX: N20.1 Calculus of ureter (principal); E78.5 Hyperlipidemia, unspecified; I10 Essential (primary) hypertension; I25.10 Atherosclerotic heart disease of native coronary artery without angina pectoris; J44.9 Chronic obstructive pulmonary disease, unspecified; N13.6 Pyonephrosis; Z79.02 Long term (current) use of antithrombotics/antiplatelets; Z95.1 Presence of aortocoronary bypass graft; Z87.442 Personal history of urinary calculi
CPT/HCPCS: 52356; 74018; C1769; J2250; J1100; J2405; J3010; J1580; J0290; J0330; J2704; J2001